=== PATIENT | female | born 1950 | race Hispanic/Latino ===

== ENCOUNTER 2023-10-28 05:58 | Day surgery (SDC) | payer MEDICARE ==
[2023-10-22 13:22] VITALS: BP 174/75; PULSE 67; RESP 17
[2023-10-22 13:27] LABS: BASOPHILS % (AUTO) 1.1 % (0.0-5.0); EOSINOPHILS # (AUTO) 0.42 K/uL (0.00-0.70); EOSINOPHILS % (AUTO) 4.6 % (0.0-8.0); HEMATOCRIT 51.2 % (36-48); IMMATURE GRANULOCYTE ABSOLUTE 0.08 K/uL (0-1); LYMPHOCYTES # (AUTO) 1.7 K/uL (1.0-4.8); LYMPHOCYTES % (AUTO) 18.2 % (21.0-51.0); MEAN CORPUSCULAR HGB CONC 32.4 g/dL (32.0-36.0); MEAN CORPUSCULAR VOLUME 89.5 fL (79-99); MONOCYTES # (AUTO) 0.7 K/uL (0.1-1.0); MONOCYTES % (AUTO) 7.9 % (3.0-13.0); NEUTROPHILS # (AUTO) 6.2 K/uL (1.8-7.7); NEUTROPHILS % (AUTO) 67.3 % (40.0-77.0); PLATELET COUNT (AUTO) 181 K/uL (130-400); RED BLOOD CELL COUNT(AUTO) 5.72 MIL/uL (4.00-5.50); RED CELL DISTRIBUTION WIDTH 13.2 % (11.0-15.5); WHITE BLOOD COUNT (AUTO) 9.2 K/uL (4.8-10.8)
[2023-10-22 13:49] LABS: ALBUMIN 4.1 g/dL (3.5-5.0); POTASSIUM 3.6 mmol/L (3.5-5.1); TOTAL PROTEIN, SERUM 8.3 g/dL (6.0-8.3)
[~2023-10-28] VITALS: Ht 162.6 cm; Wt 107.2 kg
[2023-10-28] VITALS (16 sets, daily range): BP systolic 112–166; BP diastolic 51–88; PULSE 50–62; RESP 14–20
[~2023-10-28 05:58] MED LIST: ACET1TAB97 PO; ADAL40SY SQ; BIOF1TAB8 PO; CELE200 PO; CRAN400T3 PO; CYAN250010 PO; DIAZ10TA4 PO; DOCU50CA13 PO; FEXO180T94 PO; GABA300S3 PO; HYDR25TA PO; LEVO75CA5 PO; MELA5CAP PO; METO-391 PO; MONT-39 PO; OMEP40CA21 PO; PROM25TA7 PO; ROSU10TA28 PO; TIZA4CAP8 PO; VITAMIN D PO; [UNRECOGNIZED DRUG - MIXTURE] TP
[2023-10-28] MEDS ORDERED: LACTATED RINGERS 1000ML 1,000 ML IV ONE (06:14)
[2023-10-28] MEDS: CEFAZOLIN SODIUM 2 GM VIAL ONE ×2 (06:36→08:10)
[2023-10-28] MEDS ORDERED: ACETAMINOPHEN 1,000 MG/100 ML VIAL IV ONE (07:07)
[2023-10-28] MEDS ORDERED: ROCURONIUM 10MG/1ML SYR 10 MG/ML ML ONE ×2 (07:13→08:32)
[2023-10-28] MEDS ORDERED: LIDOCAINE PF 100MG/5ML (2%) SYRINGE 5ML ONE (07:13)
[2023-10-28] MEDS ORDERED: PROPOFOL 10 MG/ML 20ML VIAL IV ONE (07:13)
[2023-10-28] MEDS ORDERED: FENTANYL CITRATE PF 50 MCG/1 ML 2ML VIAL ONE ×2 (07:14→08:45)
[2023-10-28] MEDS ORDERED: MIDAZOLAM HCL 1 MG/ML 2ML VIAL ONE (07:21)
[2023-10-28] MEDS ORDERED: BUPIVACAINE/PF 0.25% 30ML VIAL IJ ONE (07:24)
[2023-10-28] MEDS ORDERED: ONDANSETRON 4MG INJ ONE ×2 (08:13→10:20)
[2023-10-28] MEDS ORDERED: DEXAMETHASONE SOD PHOSPHATE 10MG/ML 1ML VIAL ONE (08:13)
[2023-10-28] MEDS ORDERED: GLYCOPYRROLATE 1 MG/5 ML SYRINGE ONE (08:27)
[2023-10-28] MEDS ORDERED: NEOSTIGMINE 5MG/5ML SYR IV ONE (08:27)
[2023-10-28] MEDS ORDERED: PHENYLEPHRINE HCL 10 MG/ML 1ML VIAL IV ONE (08:33)
[2023-10-28] MEDS ORDERED: MEPERIDINE-PF 25 MG/ML SYG ONE (10:20)
== END 2023-10-28 11:40 | disposition home or self-care (01) ==
LOC: DAH 05:58 → EDSTATUS 11:00 → DAH 11:40
PROVIDERS: ATTEND Surgery
DX: K31.1 Adult hypertrophic pyloric stenosis (principal); K95.09 Other complications of gastric band procedure; F41.9 Anxiety disorder, unspecified; E78.00 Pure hypercholesterolemia, unspecified; E03.9 Hypothyroidism, unspecified; I10 Essential (primary) hypertension; M19.90 Unspecified osteoarthritis, unspecified site; Z82.49 Family history of ischemic heart disease and other diseases of the circulatory system; Z82.3 Family history of stroke; Z87.891 Personal history of nicotine dependence; Z88.8 Allergy status to other drugs, medicaments and biological substances; Z91.041 Radiographic dye allergy status; Z91.048 Other nonmedicinal substance allergy status; Z79.899 Other long term (current) drug therapy; Z79.890 Hormone replacement therapy; Z79.84 Long term (current) use of oral hypoglycemic drugs; Z90.710 Acquired absence of both cervix and uterus; Z98.890 Other specified postprocedural states
CPT/HCPCS: 80053; 85025; 86850 ×2; 86900 ×2; 86901 ×2; 36415 ×2; 43235; 43774; A6260; A4600; A4663; J7030; A4215 ×2; J7120; J3010 ×2; J3490; J1100; J2710; J0665; J2001; J2250; J2704; J2405 ×2; J2175; J2371; J0690; G0168; A4649; A4223; A4222; A4221

== ENCOUNTER 2025-11-04 17:59 | Inpatient (IN) | payer MEDICARE ==
[~2025-11-04] VITALS: Ht 154.9 cm; Wt 113.8 kg
[~2025-11-04 17:59] MED LIST changes: -LEVO75CA5 PO; +LEVO75CA6 PO; -ROSU10TA28 PO; +ROSU10TA98 PO
[2025-11-04] MEDS ORDERED: 0.9%NACL 1000ML 1,000 ML IV ONE (18:30)
[2025-11-04 18:42] LABS: IMMATURE GRANULOCYTE ABSOLUTE 0.20 K/uL (0-1); NUCLEATED RED BLOOD CELLS 0.0 % (0.0-0.19); PLATELET COUNT (AUTO) 252 K/uL (130-400); RED BLOOD CELL COUNT(AUTO) 6.30 MIL/uL (4.00-5.50); RED CELL DISTRIBUTION WIDTH 13.8 % (11.0-15.5); WHITE BLOOD COUNT (AUTO) 23.2 K/uL (4.8-10.8)
[2025-11-04 19:00] LABS: ASPARTATE AMINOTRANSFERASE 201.0 U/L (10-37); CREATININE 1.8 mg/dL (0.5-1.0); GLOMERULAR FILTR. RATE CALC 29.0 mL/min (>90); GLUCOSE,RANDOM 222.0 mg/dL (70-105); SODIUM SERUM 138.0 mmol/L (136-145); TOTAL PROTEIN, SERUM 7.8 g/dL (6.0-8.3); UREA NITROGEN, BLOOD 15.0 mg/dL (7-18)
--- NOTE | 2025-11-04 19:23 | NUR ---
PT CARE ASSUMED AT THIS TIME
--- NOTE | 2025-11-04 19:47 | HMCIMG ---
EXAM: CT Abdomen and Pelvis Without IV contrast CLINICAL HISTORY: Patient presents with abdominal pain. TECHNIQUE: Axial computed tomography images of the abdomen and pelvis without intravenous contrast. CONTRAST: No IV contrast. COMPARISON: None provided. FINDINGS: LUNG BASES: The lung bases appear clear. No pleural effusions are seen. The right hemidiaphragm is elevated. LIVER: The liver demonstrates diffuse hepatic steatosis. The liver measures 18.3 cm in craniocaudal span. GALLBLADDER AND BILE DUCTS: The gallbladder demonstrates diffuse wall thickening up to 1.2 cm with pericholecystic fat stranding concerning for acute cholecystitis. No radioopaque gallstones are seen. No biliary ductal dilatation is evident. PANCREAS: Unremarkable. SPLEEN: Unremarkable. ADRENAL GLANDS: Unremarkable. KIDNEYS, URETERS, AND BLADDER: The kidneys appear within normal limits except for a 0.7 cm calculus in the right lower calyx and a left parapelvic cyst. There is no hydronephrosis or hydroureter. No urinary calculi are seen in the left kidney or ureters. STOMACH AND BOWEL: Unremarkable appearance of the stomach and bowel except for occasional colonic diverticulosis without evidence of diverticulitis. No evidence of bowel obstruction. No evidence suggesting enteritis or colitis. APPENDIX: No evidence of acute appendicitis on CT examination. PERITONEUM: Small hiatal hernia. No free fluid. No free air. LYMPH NODES: No lymphadenopathy is evident. REPRODUCTIVE: The uterus is surgically absent. Unremarkable as visualized otherwise. VASCULATURE: No evidence of abdominal aortic aneurysm. BONES: Multilevel moderate degenerative changes in the spine. No aggressive appearing osseous lesion. No acute osseous pathology evident. IMPRESSION: Diffuse gallbladder wall thickening with pericholecystic fat stranding concerning for acute cholecystitis. Diffuse hepatic steatosis with hepatomegaly (18.3 cm craniocaudal span). 0.7 cm right renal calculus in the lower calyx. /Continental
[2025-11-04] MEDS: 0.9%NACL 1000ML 1,641 ML IV ONE (19:49)
[2025-11-04] MEDS: ZOSYN 3.375GM+NS 50ML 50 ML IVPB STA (19:56)
[2025-11-04 20:32] LABS: INR 1.08 (0.85-1.15)
--- NOTE | 2025-11-04 20:48 | ERN ---
ED Note History of Present Illness Stated Complaint: ABD PAIN Chief Complaint: Abdominal Pain Time Seen by MD: 18:06 Time Seen by Midlevel: 18:06 Dictation: The patient is a 75-year-old female with history of hiatal hernia, hypertension, hypothyroidism, gastric banding who presents to the emergency department with complaints of epigastric abdominal pain and right upper abdominal pain associated with nausea nonbloody vomiting. Patient reports symptoms have been going on for over three months but reports the last two days her symptoms worsen. Reports that in September of this year she had an EGD which found her to have gastritis and a mild hiatal hernia. Patient denies any diarrhea or constipation, denies any fevers. Allergies: Coded Allergies: Bleach (Sodium Hypochlorite) (Unverified Allergy, Unknown, 10/26/23) acetaminophen (Unverified Allergy, Unknown, 10/26/23) alendronate sodium (Unverified Allergy, Unknown, 10/26/23) apremilast (Unverified Allergy, Unknown, 10/26/23) escitalopram (Unverified Allergy, Unknown, 10/26/23) hydrocodone (Unverified Allergy, Unknown, 10/26/23) nickel (Unverified Allergy, Unknown, 10/26/23) paroxetine (Unverified Allergy, Unknown, 10/26/23) sertraline (Unverified Allergy, Unknown, 10/26/23) Uncoded Allergies: CONTRAST DYE (Allergy, Intermediate, 10/26/23) Home Meds Reported Medications [Calcipotriene-Beta] No Conflict Check, TP NEEDED 10/22/23 Docusate Sodium (Stool Softener) 50 Mg Capsule, PO BID, CAP 10/22/23 [Vitamin D] No Conflict Check, PO DAILY 10/22/23 Cranberry Fruit (Cranberry) 400 Mg Tablet, 400 MG PO DAILY, TAB 10/22/23 Cyanocobalamin (Vitamin B-12) (Vitamin B12) 2,500 Mcg Tablet, PO DAILY, TAB 10/22/23 Fexofenadine HCl (Bernarda Allergy) 180 Mg Tablet, 180 MG PO DAILY, TAB 10/22/23 Bioflav,Lemon/Vit Bcomp&C (Lipo-Flavonoid Plus Caplet) 200 Mg-100 Mg Tablet, 1 EACH PO TID, TAB 10/22/23 Melatonin (Melatonin) 5 Mg Capsule, 5 MG PO DAILYDINNER, CAP 10/22/23 Adalimumab (Humira) 40 Mg/0.4 Ml Syringekit, 40 MG SQ [id number] 10/22/23 Acetaminophen with Codeine (Acetaminophen-Cod #4 Tablet) 300 Mg-60 Mg Tablet, 1 EACH PO NEEDED PRN for PAIN, TAB 10/22/23 Promethazine HCl (Promethazine HCl) 25 Mg Tablet, 25 MG PO PRN NAUSEA , TAB 10/22/23 Diazepam (Diazepam) 10 Mg Tablet, 10 MG PO TIDP, TAB 10/22/23 Tizanidine HCl (Tizanidine HCl) 4 Mg Capsule, 4 MG PO DAILYDINNER, CAP 10/22/23 Montelukast Sodium (Montelukast Sodium) 10 Mg Tablet, 10 MG PO DAILYDINNER, TAB 10/22/23 Rosuvastatin Calcium (Rosuvastatin Calcium) 10 Mg Tablet, 10 MG PO DAILYDINNER, TAB 10/22/23 Gabapentin (Gabapentin) 300 Mg/6 Ml (6 Ml) Solution, 300 MG PO 5XDAY, ML 10/22/23 Levothyroxine Sodium (Levothyroxine) 75 Mcg Capsule, 75 MCG PO MON-SAT, CAP 10/22/23 Celecoxib (Celebrex 200Mg Cap) 200 Mg Cap, 200 MG PO DAILY, CAP 10/22/23 Hydrochlorothiazide (Hydrochlorothiazide) 25 Mg Tablet, 25 MG PO DAILY, TAB 10/22/23 Metoprolol Succinate (Metoprolol Succinate) 50 Mg Tab.er.24h, 50 MG PO DAILY, TAB 10/22/23 Omeprazole (Omeprazole) 40 Mg Capsule.dr, 40 MG PO DAILY, CAP 10/22/23 Past Medical History Past Medical History: Arthritis, Diabetes-Type II, Fibromyalgia, High Cholesterol, Hypertension Additional Past Medical Hx: HIATAL HERNIA Surgical History: Other Surgical History Other: EGD, RT FOOT SX, GASTRIC BAND RN Note Reviewed/Agreed w/PFSH: Yes Review of System Dictation Constitutional: Negative for fever,chills, and weight loss Eyes: Negative for injury, pain,redness, and discharge ENT: Negative for injury,pain or swelling Cardiovascular: Negative for chest pain, palpitations, and edema Respiratory: Negative for shortness of breath, cough, and wheezing, Abdomen/GI: Negative for diarrhea, and constipation positive for abdominal pain, nausea, vomiting Back: Negative for injury and pain : Negative for injury, bleeding and discharge MS/Extremity: Negative for injury and deformity Skin: Negative for rash, and discoloration Neuro: Negative for headache, weakness, numbness, tingling, and seizure Psych: Negative for suicide ideation, homicidal ideation, and hallucinations Initial Vital Sign VS Vital Signs Date Time Temp Pulse Resp B/P (MAP) Pulse Ox O2 Delivery O2 Flow Rate FiO2 11/04/25 18:02 97.0 122 18 105/40 96 Room Air 0 11/04/25 19:00 28 Physical Exam Dictation Vital Signs reviewed General Appearance: Alert, oriented x 3, moderate distress, well developed, nourished. Head and Face: non-traumatic. Eyes: PERRL, pink conjunctivas, eyelid no trauma, anterior chamber with arcus senilis. Ears: Pinnas intact and no signs of trauma or erythema ear canals clear and no discharge TM no erythema Nose: No discharge, no bleeding. Oropharynx: Mouth normal, tongue pink. pharynx clear,no erythema, tonsils no exudates, no abscesses noted, mucous membrane moist Neck: Supple, non-tender, no thyromegaly, no masses, no JVD, no bruits Breast:Deferred Chest:No tenderness, no crepitus, no paradoxical movement, no retractions Lungs:Clear, well-ventilated, symmetric, no rales, no wheezing, no rhonchi, no stridor, good breath sounds bilaterally Heart: Regular rate, regular rhythm, no murmur, no gallops Vascular: no peripheral edema, Abdomen: Soft, positive bowel sounds, nondistended, no guarding, Epigastric tenderness, right upper abdominal tenderness, left upper abdominal tenderness no rebound, no masses no hepatomegaly, no splenomegaly, + Dan's sign, no hernias. Rectal: Deferred Genital: Deferred Neurological: Normal speech, motor function intact, sensory function intact Musculoskeletal: Neck nontender, full range of motion, back nontender, full range of motion, Extremities: nontender, full range of motion Skin: Color pink, dry, no turgor, no rash, no lacerations, no abrasions, no contusions. Lymphatic: Deferred Results (Laboratory/Radiology) Laboratory/Radiology Laboratory Tests Test 11/04/25 18:36 11/04/25 20:02 White Blood Count 23.2 K/uL (4.8-10.8) H Red Blood Count 6.30 MIL/uL (4.00-5.50) H Hemoglobin 17.9 g/dL (12.0-16.0) H Hematocrit 53.9 % (36-48) H Mean Corpuscular Volume 85.6 fL (79-99) Mean Corpuscular Hemoglobin 28.4 pg (27.0-33.0) Mean Corpuscular Hemoglobin Concent 33.2 g/dL (32.0-36.0) Red Cell Distribution Width 13.8 % (11.0-15.5) Platelet Count 252 K/uL (130-400) Mean Platelet Volume 11.5 fL (7.5-10.5) H Immature Granulocyte % (Auto) 0.9 % (0-1) Neutrophils (%) (Auto) 88.2 % (40.0-77.0) H Lymphocytes (%) (Auto) 4.8 % (21.0-51.0) L Monocytes (%) (Auto) 5.5 % (3.0-13.0) Eosinophils (%) (Auto) 0.3 % (0.0-8.0) Basophils (%) (Auto) 0.3 % (0.0-5.0) Neutrophils # (Auto) 20.4 K/uL (1.8-7.7) H Lymphocytes # (Auto) 1.1 K/uL (1.0-4.8) Monocytes # (Auto) 1.3 K/uL (0.1-1.0) H Eosinophils # (Auto) 0.08 K/uL (0.00-0.70) Basophils # (Auto) 0.07 K/uL (0.00-0.20) Absolute Immature Granulocyte (auto 0.20 K/uL (0-1) Nucleated Red Blood Cells 0.0 % (0.0-0.19) White Cell Morphology Comment See comments Prothrombin Time 11.4 SEC (9.6-11.6) Prothromb Time International Ratio 1.08 (0.85-1.15) Activated Partial Thromboplast Time 24.2 SEC (26.3-35.5) L Sodium Level 138 mmol/L (136-145) Potassium Level 3.1 mmol/L (3.5-5.1) L Chloride Level 98 mmol/L (101-111) L Carbon Dioxide Level 23 mmol/L (21-32) Blood Urea Nitrogen 15 mg/dL (7-18) Creatinine 1.8 mg/dL (0.5-1.0) H Glomerular Filtration Rate Calc 29 mL/min (>90) Random Glucose 222 mg/dL (70-105) H Lactic Acid Level 5.4 mmol/L (0.8-2.5) H 2.8 mmol/L (0.8-2.5) H Total Calcium 10.5 mg/dL (8.5-10.1) H Magnesium Level 1.90 mg/dL (1.80-2.40) Total Bilirubin 2.5 mg/dL (0.2-1.0) H Direct Bilirubin 0.7 mg/dL (0.0-0.3) H Aspartate Amino Transf (AST/SGOT) 201 U/L (10-37) H Alanine Aminotransferase (ALT/SGPT) 186 U/L (12-78) H Alkaline Phosphatase 113 U/L (50-136) Troponin I High Sensitivity 27 ng/L (4-50) B-Type Natriuretic Peptide 77 pg/mL (0-100) Total Protein 7.8 g/dL (6.0-8.3) Albumin 3.9 g/dL (3.5-5.0) Lipase 18 U/L (16-77) Procalcitonin 0.89 ng/mL (0.05-0.5) H REASON: ABD PAIN ORDERING PHYSICIAN: [facility] [employer] PROCEDURE: ABD PEL WO - CT ABDOMEN/PELVIS W/O CONTRAST EXAM: CT Abdomen and Pelvis Without IV contrast CLINICAL HISTORY: Patient presents with abdominal pain. TECHNIQUE: Axial computed tomography images of the abdomen and pelvis without intravenous contrast. CONTRAST: No IV contrast. COMPARISON: None provided. FINDINGS: LUNG BASES: The lung bases appear clear. No pleural effusions are seen. The right hemidiaphragm is elevated. LIVER: The liver demonstrates diffuse hepatic steatosis. The liver measures 18.3 cm in craniocaudal span. GALLBLADDER AND BILE DUCTS: The gallbladder demonstrates diffuse wall thickening up to 1.2 cm with pericholecystic fat stranding concerning for acute cholecystitis. No radioopaque gallstones are seen. No biliary ductal dilatation is evident. PANCREAS: Unremarkable. SPLEEN: Unremarkable. ADRENAL GLANDS: Unremarkable. KIDNEYS, URETERS, AND BLADDER: The kidneys appear within normal limits except for a 0.7 cm calculus in the right lower calyx and a left parapelvic cyst. There is no hydronephrosis or hydroureter. No urinary calculi are seen in the left kidney or ureters. STOMACH AND BOWEL: Unremarkable appearance of the stomach and bowel except for occasional colonic diverticulosis without evidence of diverticulitis. No evidence of bowel obstruction. No evidence suggesting enteritis or colitis. APPENDIX: No evidence of acute appendicitis on CT examination. PERITONEUM: Small hiatal hernia. No free fluid. No free air. LYMPH NODES: No lymphadenopathy is evident. REPRODUCTIVE: The uterus is surgically absent. Unremarkable as visualized otherwise. VASCULATURE: No evidence of abdominal aortic aneurysm. BONES: Multilevel moderate degenerative changes in the spine. No aggressive appearing osseous lesion. No acute osseous pathology evident. IMPRESSION: Diffuse gallbladder wall thickening with pericholecystic fat stranding concerning for acute cholecystitis. Diffuse hepatic steatosis with hepatomegaly (18.3 cm craniocaudal span). 0.7 cm right renal calculus in the lower calyx. /[facility] Labs Reviewed?: Yes EKG: (+) rhythm (Sinus tachycardia) EKG Comment: Date:11/04/2025 Time:1847 Ventricular rate:116 WV interval: QRS duration:92 QT/QTc:328/456 EKG interpretation:atrial fibrillation, anterior q waves Reviewed by ED Attending NO STEMI Date:11/04/2025 Time:2032 Ventricular rate:104 WV interval:146 QRS duration:87 QT/QTc:350/461 EKG interpretation: Sinus tachycardia Reviewed by ED Attending ED Course ED Course Orders Procedure Category Date Status Time Cbc With Differential LAB 11/04/25 Complete 18:22 Troponin I High LAB 11/04/25 Complete Sensitivity 18:22 12 Lead Ekg Tracing- EKG 11/04/25 Logged Technical 18:22 0.9%Nacl 1000ml (Ns PHA 11/04/25 Complete 1000ml) 18:30 Ondansetron 4mg Inj PHA 11/04/25 Complete (Zofran 4mg Inj) 18:30 Pantoprazole 40mg Inj PHA 12/14/25 Complete (Protonix 40mg Inj 18:30 Ct Abdomen/Pelvis W/O CT 11/04/25 Resulted Contrast 18:22 Lipase LAB 11/04/25 Complete 18:22 Basic Metabolic Panel LAB 11/04/25 Complete 18:22 Hepatic Function Panel LAB 11/04/25 Complete 18:22 Lactic Acid LAB 11/04/25 Complete 18:25 Magnesium LAB 11/04/25 Complete 18:25 Morphine 4mg Syg PHA 11/04/25 Complete (Morphine 4mg Syg) 18:30 Blood Cult QUYEN 11/04/25 In Process 18:46 Zosyn 3.375gm+Ns 50ml PHA 11/04/25 Complete (Zosyn 3.375gm+Ns 18:46 0.9%Nacl 1000ml (Ns PHA 11/04/25 Complete 1000ml) 19:00 Potassium Bicarb/Cit PHA 11/04/25 Complete Ac 25meq (K-Lyte Ta 19:30 12 Lead Ekg Tracing- EKG 11/04/25 Logged Technical 20:00 Pt And Ptt LAB 11/04/25 Complete 20:14 B-Type Natriuretic LAB 11/04/25 Complete Peptide 20:16 Morphine 4mg Syg PHA 11/04/25 Complete (Morphine 4mg Syg) 21:00 General Surgery CONPHYSVC 11/04/25 Transmitted Consult 21:01 Admit Orders ADM 11/04/25 Transmitted 21:01 Cbc With Differential LAB 11/05/25 In Process 04:00 Magnesium LAB 11/05/25 In Process 04:00 Phosphorus LAB 11/05/25 In Process 04:00 Pt And Ptt LAB 11/05/25 In Process 04:00 Type And Screen BBK 11/05/25 In Process 04:00 Lactic Acid LAB 11/05/25 In Process 04:00 Procalcitonin LAB 11/04/25 Complete 21:01 Urinalysis Profile LAB 11/04/25 In Process 21:01 Urine Creatinine LAB 11/04/25 Logged Random 21:01 Urine Sodium,Random LAB 11/04/25 Logged 21:01 Osmolality Urine LAB 11/04/25 Logged 21:01 Activity: Ad Tuyet CPOE 11/04/25 Transmitted 21:01 Apply Knee High Teds CPOE 11/04/25 Transmitted 21:01 Apply Scds CPOE 11/04/25 Transmitted 21:01 Condition: CPOE 11/04/25 Transmitted 21:01 Daily Weights CPOE 11/04/25 Transmitted 21:01 I&O Q Shift CPOE 11/04/25 Transmitted 21:01 Npo Except For Meds CPOE 11/04/25 Transmitted 21:01 Nurse To Enter Home CPOE 11/04/25 Transmitted Medication 21:01 Oxygen By Nc/Pulse Ox CPOE 11/04/25 Transmitted 21:01 Telemetry Monitoring CPOE 11/04/25 Transmitted 21:01 Vital Signs(Adult CPOE 11/04/25 Transmitted Hospitalist) 21:01 Chest 1vw RAD 11/04/25 Taken 21:01 0.9%Nacl 1000ml (Ns PHA 11/04/25 In Process 1000ml) 21:30 Initiate HARSH 11/04/25 In Process Hyperglycemia Protoco 21:01 Insulin Regular, PHA 11/05/25 In Process Human 3ml (Humulin R 07:30 Hemoglobin A1c LAB 11/05/25 In Process 04:00 Comprehensive LAB 11/05/25 In Process Metabolic Panel 04:00 Thyroid Stimulating LAB 11/05/25 In Process Hormone 04:00 Hydromorphone 0.5mg PHA 11/04/25 In Process Syg (Dilaudid 0.5mg 21:30 Hydralazine 20mg Inj PHA 11/04/25 In Process (Apresoline 20mg In 21:30 Ondansetron 4mg Inj PHA 11/04/25 In Process (Zofran 4mg Inj) 21:30 Zosyn 3.375gm+Ns 50ml PHA 11/05/25 In Process (Zosyn 3.375gm+Ns 07:00 Lactic Acid (Removed) LAB 11/04/25 Complete 21:46 Edm Admit Bridge Order ADM 11/04/25 Transmitted 22:01 Nothing By Mouth DIET 11/05/25 Transmitted Breakfast Current Medications Medications (Trade) Dose Ordered Sig/Gerber Route PRN Reason Start Time Stop Time Status Last Admin Dose Admin Morphine Sulfate (morPHINE 4MG SYG) 2 mg ONCE ONCE IVP 11/04/25 21:00 11/04/25 21:01 DC 11/04/25 21:12 Morphine Sulfate (morPHINE 4MG SYG) 4 mg ONCE ONCE IVP 11/04/25 18:30 11/04/25 18:31 DC 11/04/25 18:49 Ondansetron HCl (zoFRAN 4MG INJ) 4 mg ONCE ONCE IVP 11/04/25 18:30 11/04/25 18:31 DC 11/04/25 18:49 Pantoprazole Sodium (PROTonix 40MG INJ) 40 mg ONCE ONCE IVP 11/04/25 18:30 11/04/25 18:31 DC 11/04/25 18:49 Piperacillin Sod/ Tazobactam Sod 50 ml @ 100 mls/hr STAT STAT IVPB 11/04/25 18:46 11/04/25 19:15 DC 11/04/25 19:56 Potassium Bicarbonate (K-Lyte Tablet Eff 25 Meq Tablet.eff) 25 meq ONCE ONCE PO 11/04/25 19:30 11/04/25 19:31 DC 11/04/25 19:56 Sodium Chloride 1,000 ml @ 0 mls/hr ONCE ONCE IV 11/04/25 18:30 11/04/25 18:48 DC Sodium Chloride 1,641 ml @ 547 mls/hr ONCE ONCE IV 11/04/25 19:00 11/04/25 21:59 DC 11/04/25 19:49 Vital Signs Date Time Temp Pulse Resp B/P (MAP) Pulse Ox O2 Delivery O2 Flow Rate FiO2 11/05/25 00:17 Nasal Cannula* 2 28 11/04/25 23:04 105 25 106/58 95 Nasal Cannula* 2 28 11/04/25 21:38 97 26 128/68 95 Nasal Cannula* 2 28 11/04/25 19:36 97.9 105 25 124/83 94 Nasal Cannula* 2 28 11/04/25 19:00 97.9 107 37 133/69 94 Nasal Cannula* 2 11/04/25 18:02 97.0 122 18 105/40 96 Room Air 0 Medical Decision Making MDM MDM: The patient is a 75-year-old female with history of hiatal hernia, hypertension, hypothyroidism, gastric banding who presents to the emergency department with complaints of epigastric abdominal pain and right upper abdominal pain associated with nausea nonbloody vomiting. Patient reports symptoms have been going on for over three months but reports the last two days her symptoms worsen. Reports that in September of this year she had an EGD which found her to have gastritis and a mild hiatal hernia. Patient denies any diarrhea or constipation, denies any fevers. CBC showed leukocytosis, no anemia, chemistry showed elevated creatinine which worsened from previous visits, hyponatremia, hypochloremia, hyperglycemia, tracy vated lactic acid of 5.3, negative lipase, elevated liver enzymes, elevated total bilirubin, negative troponin. CT abdomen and pelvis showed consistent with cholecystitis. Patient was started on IV fluids and IV antibiotics. We will admit for further evaluation and management. Differential diagnosis: Gastritis, bowel obstruction, sepsis, cholecystitis, pancreatitis Comorbidities: Hiatal hernia, hypertension, gastritis, gastric banding Tests considered and not ordered secondary to shared decision making include: none Previous outside records reviewed: none Risk of complication and/or morbidity or mortality of patient management: The patient meets criteria for admission. Need for emergency major/minor surgery: No There are no social concerns with this patient. I independently interpreted the tests I ordered (labs, urinalysis, etc.). I discussed the case with the hospitalist for admission. Ernst MUELLER I discussed the case with the following specialists: Dr.Barba kerns pending callback Historian: pateint. I independently interpreted imaging studies and EKGs that I ordered (US, CT, XR, EKG, etc.). External chart review: none. Medical management and examination interpretation discussions were had by me with other qualified healthcare professionals as indicated for the patient's care. Critical Care Note Critical Time: other (39) Comment(s) Total critical care time was 39 minutes. Excluding time for procedures. Management of critically ill patient with concern for acute decompensation. Management included interpretation of laboratory values and imaging, hemodynamics, time for consultation with consultants and admitting physician. DX & DISP Disposition: Inpatient Decision to Admit Date: Nov 05, 2025 Decision to Admit Time: 20:01 Departure Impression: Primary Impression: Acute cholecystitis Additional Impressions: Severe sepsis, Leukocytosis, Acute kidney injury, Hypokalemia, Transaminitis, Elevated lactic acid level Condition: Stable Referrals: DENAE MALDONADO MD (PCP) I have reviewed the case, and I agree with, Diagnosis and Plan [facility] Nov 04, 2025 20:48
--- NOTE | 2025-11-04 21:17 | HP ---
History of Present Illness Reason for Visit: Abdominal pain History of Present Illness Ms. Proctor is a 75-year-old female that was seen and examined today on 11/04/2025. Patient reports that she came to the emergency department with a chief complaint of abdominal pain. Location is epigastric. Duration is on and off. Character is described as pressure. There was no alleviating factors. Symptoms are aggravated with eating. Patient reports associated nausea and vomiting. Today in the emergency department WBCs 23.2, 88% neutrophils left shift, lactic acid 5.4, potassium 3.1, creatinine 1.8, glucose 222 mg/dL, total bilirubin 2.5, AST 201, ALT 186, CT of abdomen and pelvis shows cholecystitis. Emergency room physician contacted general surgery service on-call who requested patient be admitted under hospitalist service. Past Medical History Patient History: Cardiovascular disease FATHER, , Age: 52, Cause: Heart attack Completed stroke MOTHER, ADDITIONAL PAST MEDICAL HISTORY: [CBC hypertension, hypothyroidism, fibromyalgia] SOCIAL HISTORY: [Urinary negative for smoking, alcohol use, drug use. Patient lives with the has been, Silver patient is typically independent of her ADLs. Patient denies difficulty paying her bills] SURGICAL HISTORY: [Bariatric surgery] Review of Systems General: No Fever, No Chills, No Night Sweats, No Fatigue, No Malaise, No Appetite, No Other HEENT: No Head Aches, No Visual Changes, No Eye Pain, No Ear Pain, No Dysphasia, No Sinus Congestion, No Post Nasal Drip, No Sore Throat, No Other Pulmonary: No Dyspnea, No Cough, No Pleuritic Chest Pain, No Other Cardiovascular: No: Chest Pain, Palpitations, Orthopnea, Paroxysmal Noc. Dyspnea, Edema, Lt Headedness, Other Gastrointestinal: Nausea, Vomiting, Abdominal Pain; No: Diarrhea, Constipation, Melena, Hematochezia, Other Genitourinary: No Dysuria, No Frequency, No Incontinence, No Hematuria, No Rete ntion, No Other Musculoskeletal: No: other, neck pain, shoulder pain, arm pain, back pain, hand pain, leg pain, foot pain Skin: No Urticaria, No Rash, No Other Neurological: No: Weakness, Numbness, Incoordination, Change in speech, Confusion, Seizures, Other Allergies: Coded Allergies: Bleach (Sodium Hypochlorite) (Unverified Allergy, Unknown, 10/26/23) acetaminophen (Unverified Allergy, Unknown, 10/26/23) alendronate sodium (Unverified Allergy, Unknown, 10/26/23) apremilast (Unverified Allergy, Unknown, 10/26/23) escitalopram (Unverified Allergy, Unknown, 10/26/23) hydrocodone (Unverified Allergy, Unknown, 10/26/23) nickel (Unverified Allergy, Unknown, 10/26/23) paroxetine (Unverified Allergy, Unknown, 10/26/23) sertraline (Unverified Allergy, Unknown, 10/26/23) Uncoded Allergies: CONTRAST DYE (Allergy, Intermediate, 10/26/23) Exam Vital Signs Vital Signs Date Time Temp Pulse Resp B/P (MAP) Pulse Ox O2 Delivery O2 Flow Rate FiO2 11/04/25 19:36 97.9 105 25 124/83 94 Nasal Cannula* 2 28 General Appearance: Alert, Cooperative, mild distress HEENT: Atraumatic, EOMI Respiratory: Clear to auscultation, Normal air movement Cardiovascular: Normal S1, Normal S2, Other (Positive tachycardia) Abdominal: Normal bowel sounds, Soft, Other (Positive right upper quadrant tenderness) Extremities: No edema Skin: No significant lesion Neuro: Normal gait, Normal speech, Strength at 5/5 X4 ext, Sensation intact Psych/Mental Status: Mental status NL, Mood NL, Thoughts/Content NL Assessment/Plan ASSESSMENT: [ Severe sepsis, POA, by clinical sepsis criteria heart rate 122, WBCs 23.2, lactic acid 5.4, source intra-abdominal Cholecystitis, POA Leukocytosis, POA Lactic acidosis, POA Hypokalemia, POA Acute kidney injury, POA, on 10/22/2023 creatinine 1.0, today it is 1.8 Uncontrolled Diabetes mellitius type2, POA Elevated total bilirubin, POA Transaminitis, POA Hypertension Hypothyroidism] PLAN: [ Admit patient to medical floor as inpatient status. Place patient on telemetry monitoring. Patient received 0.9% NS 30 mL/kg Empiric antibiotic therapy with Zosyn Check blood culture, follow up with the results Check lactic acid again in a.m. Check procalcitonin, follow up with the results Patient will be followed by General surgery Service Keep patient NPO IV fluid maintenance therapy 0.9% NS at 75 mL/HR Check preprocedure labs, CBC, cMP, magnesium, phosphorus, PTT, UA, type and screen, EKG, CXR Patient received potassium bicarbonate 25 mEq by mouth times 1 in the ER Replace electrolytes conservatively given patient's decreased renal function currently Calculate FENA Check urine sodium, creatinine, osmolality Avoid nephrotoxic agents when possible Renally dose all medications when possible Consider consulting Nephrology service if any worsening renal function or evidence of ATN. Monitor patient's labs. Weight patient daily. Monitor intake and output. Check glucometer a.c. and HS Hemoglobin A1c in a.m. Humulin R sliding scale Consider resuming home medications once they have been reconciled: At time of admission home medications has been reconciled For now: Hydralazine 10 mg IV every 4 hours for systolic blood pressure greater than 160 mmHg Check TSH in a.m. GI prophylaxis, Protonix DVT prophylaxis, Emmanuel's and SCDs avoid anticoagulation at this time due to impending general surgery evaluation ADVANCED CARE PLANNING 1. Which of the following were discussed? Hospice Care - Yes Therapeutic options - yes Advance Directives - Yes -patient states she does not have any advance directives in place at this time, however her Silver can make decisions for her get that she becomes unable Other discussions - patient wishes to remain a full code at this time 2. Discussed with who? 3. Voluntary nature of this service was explained to the patient? Yes 4. Amount of time spent - ___16 minutes____ 5. Reviewed by Physician? (if this service was performed by NPP) Yes This document was generated in part using voice recognition software, occasional wrong word or sound alike substitutions may have occurred due to the inherent limitations of voice recognition software. Read the chart carefully and recognize using context, where the substitutions have occurred. Although every effort was made to edit the content, front end java developer and typing errors may occur ATTESTATION BY PHYSICIAN I have seen and examined the patient. I reviewed the documentation, medical decision making, and treatment plan as noted by the mid-level provider above. I agree with the findings and plan of care. ] KALA [facility]ERSON [facility] Nov 04, 2025 21:17
[2025-11-04] MEDS: 0.9%NACL 1000ML 1,000 ML IV SCH (23:08)
--- NOTE | 2025-11-04 23:26 | NUR ---
REPORT GIVEN TO RICHARD BLAS AT THIS TIME
[2025-11-05] VITALS (8 sets, daily range): BP systolic 117–137; BP diastolic 68–84; PULSE 90–117; RESP 18–20; TEMP 97.4–97.9; O2SAT 90–99
[2025-11-05 05:10] LABS: IMMATURE GRANULOCYTE ABSOLUTE 0.12 K/uL (0-1); NUCLEATED RED BLOOD CELLS 0.0 % (0.0-0.19); PLATELET COUNT (AUTO) 193 K/uL (130-400); RED BLOOD CELL COUNT(AUTO) 5.96 MIL/uL (4.00-5.50); RED CELL DISTRIBUTION WIDTH 14.2 % (11.0-15.5); WHITE BLOOD COUNT (AUTO) 19.3 K/uL (4.8-10.8)
[2025-11-05 05:30] LABS: APPEARANCE,URINE CLOUDY (CLEAR); GLUCOSE, URINE (UA) 50 mg/dL (NEGATIVE); LEUKOCYTE ESTERASE ,URINE 25 Leu/uL (NEGATIVE); NITRATE,URINE NEGATIVE (NEGATIVE); OCCULT BLOOD,URINE +- (TRACE) (NEGATIVE)
[2025-11-05 05:31] LABS: INR 1.19 (0.85-1.15)
[2025-11-05 05:41] LABS: ADD UA MICROSCOPIC YES
[2025-11-05 05:42] LABS: HYALINE CASTS, URINE 26-50 /LPF (0-1 /LPF); NON-SQUAMOUS EPITHELIAL CELL 1 /HPF (0-2); SQUAMOUS EPITHELIAL CELL,UR MANY /HPF (0-2); WBC CLUMP FEW /HPF (0-1)
[2025-11-05 05:53] LABS: ASPARTATE AMINOTRANSFERASE 231.0 U/L (10-37); CREATININE 2.0 mg/dL (0.5-1.0); GLOMERULAR FILTR. RATE CALC 25.0 mL/min (>90); GLUCOSE,RANDOM 147.0 mg/dL (70-105); PHOSPHORUS 3.9 mg/dL (2.5-4.9); SODIUM SERUM 140.0 mmol/L (136-145); TOTAL PROTEIN, SERUM 6.4 g/dL (6.0-8.3); UREA NITROGEN, BLOOD 23.0 mg/dL (7-18)
--- NOTE | 2025-11-05 05:58 | HMCIMG ---
EXAM: CR Chest, 1 View. CLINICAL HISTORY: pre procedural COMPARISON: None provided. FINDINGS: The study is significantly limited by poor inspiration. Within limited visualized lungs, no acute pulmonary infiltrates or masses. Aortic knob calcification. Unfolding of the aorta. The rest of the cardiac and mediastinal outlines are not adequately visualized. No acute osseous abnormality. IMPRESSION: No acute cardiopulmonary pathology. /[place]
[2025-11-05 06:12] LABS: CREATININE,URINE RANDOM 486.73 mg/dL (30-135)
[2025-11-05] MEDS: ZOSYN 3.375GM +NS 50ML IV SCH (06:18)
--- NOTE | 2025-11-05 07:37 | EKG ---
[facility] Test Date: 2025-11-04 Test Time: 18:48:16 Pat Name: JOE EM Department: [facility] Room: 315 1 Gender: F Bilingual Instructor: [id number] : 1950 Requested By: NORTH CUMMINS Order Number: [id number] Reading MD: Papo Hannah Measurements Intervals [place] Rate: 116 P: 0 RI: 0 QRS: -45 QRSD: 92 T: 6 QT: 328 QTc: 456 Interpretive Statements Atrial fibrillation Probable inferior infarct, recent Anterior infarct No previous ECG available for comparison Electronically Signed On 11-05-2025 20:08:38 CUSTOMS COMPLIANCE MANAGER by Papo Hannah Please click the below link to view image of tracing.
--- NOTE | 2025-11-05 07:37 | EKG ---
[facility] Test Date: 2025-11-04 Test Time: 20:33:40 Pat Name: JOE EM Department: [facility] Room: 315 1 Gender: F Master Printer: [id number] : 1950 Requested By: NORTH CUMMINS Order Number: [id number] Reading MD: Papo Hannah Measurements Intervals [place] Rate: 104 P: 34 CT: 146 QRS: -49 QRSD: 87 T: 126 QT: 350 QTc: 461 Interpretive Statements Sinus tachycardia Probable inferior infarct, recent Probable anterior infarct, age indeterminate Compared to ECG 11/04/2025 18:48:16 Atrial fibrillation no longer present Left ventricular hypertrophy no longer present Q waves no longer present Myocardial infarct finding still present Electronically Signed On 11-05-2025 20:09:05 WASTE DISPOSAL ATTENDANT by Papo Hannah Please click the below link to view image of tracing.
--- NOTE | 2025-11-05 09:53 | PN ---
[facility] PROGRESS NOTE Date of Service: Nov 05, 2025 Time of Service: 09:48 SUBJECTIVE: [ ] Patient reports that she came to the emergency department with a chief complaint of abdominal pain. Location is epigastric. Duration is on and off. Character is described as pressure. There was no alleviating factors. Symptoms are aggravated with eating. Patient reports associated nausea and vomiting. Today in the emergency department WBCs 23.2, 88% neutrophils left shift, lactic acid 5.4, potassium 3.1, creatinine 1.8, glucose 222 mg/dL, total bilirubin 2.5, AST 201, ALT 186, CT of abdomen and pelvis shows cholecystitis. Emergency room physician contacted general surgery service on-call who requested patient be admitted under hospitalist service. 11/05/25 patient is lying in bed patient appears to be in pain patient received Dilaudid earlier waiting for general surgeon for possible lap bo. Patient denies any cardiac history no chest pain no heart stents no MIs in the past. Significant other at bedside all questions were addressed REVIEW OF SYSTEMS CONSTITUTIONAL: Denies fevers, chills, or night sweats. No unintentional weight loss reported. NEUROLOGICAL: Denies headache, amaurosis fugax, motor weakness, sensory deficit, vertigo/spinning sensation, gait abnormalities, or tremors. ENT: No hearing loss, otalgia, otorrhea, rhinitis, rhinorrhea, hoarseness, or sore throat. CARDIOVASCULAR: Denies any exertional angina, dyspnea on exertion, orthopnea, paroxysmal nocturnal dyspnea, palpitations, life-threatening arrhythmias, claudication. PULMONARY: Denies any shortness of breath, cough, phlegm/sputum, hemoptysis, pleuritic chest pain. SLEEP: Denies morning headaches, daytime somnolence or napping. Denies difficulty falling asleep, staying asleep, waking from sleep. Denies knowledge of snoring. GASTROINTESTINAL: Denies any type of dysphagia to either liquids or solids. Denies nausea, vomiting, pyrosis, early satiety, abdominal pain, diarrhea, constipation, or changes in stool consistency or caliber. Denies coffee-ground emesis, hematemesis, hematochezia, or melanotic stools. GENITOURINARY: Denies frequency, urgency, nocturia, hematuria or incontinence (Storage/Irritative symptoms.) Low urinary stream, straining to void, urinary intermittency or hesitancy, splitting of the voiding stream, terminal dribbling. ENDOCRINOLOGIC: Denies polyuria, polydipsia, polyphagia or heat/cold intolerances. HEMATOLOGIC: Denies thrombophilia/previous clots, or coagulopathy/bleeding disorders. ONCOLOGIC: Denies personal history of malignancy. DERMATOLOGIC: Denies rashes or pruritus. PSYCHIATRIC: Denies any suicidal or homicidal ideation. Denies hallucinations. PHYSICAL EXAM GENERAL APPEARANCE: The patient is awake, alert, and oriented, in no acute c ardiopulmonary distress. NEUROLOGICAL: Cranial nerves II-XII grossly intact. Motor is 5/5 in bilateral upper and lower extremities proximal to distal. No sensory deficits. HEENT: Face is symmetric. Pupils are equal and reactive. Extraocular movements are intact. NECK: Supple. No JVD. No thyromegaly. No submental, submandibular, pre- /postauricular, occipital or supraclavicular lymphadenopathy. CHEST: Normal chest expansion. No Telemetry. LUNGS: Absence of any rales, rhonchi or any wheezing. CARDIOVASCULAR: Regular. S1 and S2 normal. No appreciable rubs, murmurs or gallops. ABDOMEN: Soft, nontender, and nondistended. There is no rebound, voluntary guarding, or rigidity. : Deferred. No [place]reno. EXTREMITIES: Non-edematous and not cyanotic. No clubbing. Good capillary refill. SKIN: No skin breakdown. Vital Signs (last 8hr) Date Time Temp Pulse Resp B/P (MAP) Pulse Ox O2 Delivery O2 Flow Rate FiO2 11/05/25 08:00 97.5 102 20 117/84 90 Nasal Cannula 2.0 11/05/25 04:00 97.9 99 18 119/68 92 Nasal Cannula 2.0 LABS: Laboratory: Test 11/05/25 09:20 11/05/25 05:45 11/05/25 04:59 11/05/25 04:45 Range/Units Lactic Acid Level 3.6 H 0.8-2.5 mmol/L Whole Blood Glucose 151 H 70-110 MG/DL White Blood Count 19.3 H 4.8-10.8 K/uL Red Blood Count 5.96 H 4.00-5.50 MIL/uL Hemoglobin 17.1 H 12.0-16.0 g/dL Hematocrit 50.4 H 36-48 % Mean Corpuscular Volume 84.6 79-99 fL Mean Corpuscular Hemoglobin 28.7 27.0-33.0 pg Mean Corpuscular Hemoglobin Concent 33.9 32.0-36.0 g/dL Red Cell Distribution Width 14.2 11.0-15.5 % Platelet Count 193 130-400 K/uL Mean Platelet Volume 11.6 H 7.5-10.5 fL Immature Granulocyte % (Auto) 0.6 0-1 % Neutrophils (%) (Auto) 86.2 H 40.0-77.0 % Lymphocytes (%) (Auto) 3.5 L 21.0-51.0 % Monocytes (%) (Auto) 9.1 3.0-13.0 % Eosinophils (%) (Auto) 0.4 0.0-8.0 % Basophils (%) (Auto) 0.2 0.0-5.0 % Neutrophils # (Auto) 16.7 H 1.8-7.7 K/uL Lymphocytes # (Auto) 0.7 L 1.0-4.8 K/uL Monocytes # (Auto) 1.8 H 0.1-1.0 K/uL Eosinophils # (Auto) 0.07 0.00-0.70 K/uL Basophils # (Auto) 0.03 0.00-0.20 K/uL Absolute Immature Granulocyte (auto 0.12 0-1 K/uL Nucleated Red Blood Cells 0.0 0.0-0.19 % Prothrombin Time 12.4 H 9.6-11.6 SEC Prothromb Time International Ratio 1.19 H 0.85-1.15 Activated Partial Thromboplast Time 27.0 26.3-35.5 SEC Sodium Level 140 136-145 mmol/L Potassium Level 3.4 L 3.5-5.1 mmol/L Chloride Level 103 101-111 mmol/L Carbon Dioxide Level 22 21-32 mmol/L Blood Urea Nitrogen 23 H 7-18 mg/dL Creatinine 2.0 H 0.5-1.0 mg/dL Glomerular Filtration Rate Calc 25 >90 mL/min Random Glucose 147 H 70-105 mg/dL Total Calcium 9.1 8.5-10.1 mg/dL Phosphorus Level 3.9 2.5-4.9 mg/dL Magnesium Level 1.90 1.80-2.40 mg/dL Total Bilirubin 2.6 H 0.2-1.0 mg/dL Aspartate Amino Transf (AST/SGOT) 231 H 10-37 U/L Alanine Aminotransferase (ALT/SGPT) 251 #H 12-78 U/L Alkaline Phosphatase 97 50-136 U/L Total Protein 6.4 6.0-8.3 g/dL Albumin 2.9 #L 3.5-5.0 g/dL Thyroid Stimulating Hormone (TSH) 5.73 H 0.36-3.74 uIU/mL Urine Color ORANGE YELLOW Urine Appearance CLOUDY H CLEAR Urine pH 6.0 5.0-8.0 Urine Specific [place] 1.035 H 1.001-1.031 Urine Protein 100 H NEGATIVE mg/dL Urine Glucose (UA) 50 H NEGATIVE mg/dL Urine Ketones 10 H NEGATIVE mg/dL Urine Occult Blood +- (TRACE) H NEGATIVE Urine Nitrate NEGATIVE NEGATIVE Urine Bilirubin 0.5 H NEGATIVE mg/dL Urine Urobilinogen 4.0 H 0.2-1.0 mg/dL Urine Leukocyte Esterase 25 H NEGATIVE Shanta/uL Urine RBC 6-10 H 0-1 /HPF Urine WBC 11-25 H 0-1 /HPF Urine WBC Clumps (Auto) FEW 0-1 /HPF Urine Squamous Epithelial Cells MANY 0-2 /HPF Urine Non-Squamous Epithelial Cells 1 0-2 /HPF Urine Bacteria None None Seen /HPF Urine Hyaline Casts 26-50 H 0-1 /LPF /LPF Urine Random Creatinine 486.73 H 30-135 mg/dL Urine Random Sodium 43 40-220 mmol/l Test 11/04/25 18:36 Range/Units White Cell Morphology Comment See comments Hemoglobin A1c 5.3 4.0-6.0 % Estimated Average Glucose (eAG) 105 70-126 mg/dL Direct Bilirubin 0.7 H 0.0-0.3 mg/dL Troponin I High Sensitivity 27 4-50 ng/L B-Type Natriuretic Peptide 77 0-100 pg/mL Lipase 18 16-77 U/L Procalcitonin 0.89 H 0.05-0.5 ng/mL Current Medications Medications (Trade) Dose Ordered Sig/Gerber Route PRN Reason Start Time Stop Time Status Last Admin Dose Admin Hydralazine HCl (APRESOLine 20MG INJ) 10 mg Q6H PRN IV For:SBP above 160;DBP above 90 11/04/25 21:30 1/13/26 21:29 Hydromorphone HCl (DiLAUDid 0.5MG INJ) 0.25 mg Q4H PRN IVP SEVERE PAIN (7-10) 11/04/25 21:30 11/09/25 21:29 11/05/25 09:00 0.25 MG Insulin Human Regular (humuLIN R 100 UNIT/ML 3ML) INSULIN SLIDING SCAL... ACHS SQ 11/05/25 07:30 12/05/25 07:29 Ondansetron HCl (zoFRAN 4MG INJ) 4 mg Q6H PRN IV NAUSEA/VOMITING 11/04/25 21:30 12/04/25 21:29 Piperacillin Sod/ Tazobactam Sod 50 ml @ 100 mls/hr STAT STAT IVPB 11/04/25 18:46 11/04/25 19:15 DC 11/04/25 19:56 100 MLS/HR Piperacillin Sod/ Tazobactam Sod (Zosyn 3.375gm+NS 50ml) 3.375 gm Q12H IV 11/05/25 07:00 11/15/25 06:59 11/05/25 06:18 3.375 GM Sodium Chloride 1,000 ml @ 100 mls/hr Q10H IV 11/04/25 21:30 12/04/25 21:29 11/04/25 23:08 75 MLS/HR DIAGNOSTICS / RADIOLOGY: [ ] ASSESSMENT: Severe sepsis, POA, by clinical sepsis criteria heart rate 122, WBCs 23.2, lactic acid 5.4, source intra-abdominal Cholecystitis, POA Leukocytosis, POA Lactic acidosis, POA Hypokalemia, POA Acute kidney injury, POA, Uncontrolled Diabetes mellitius type2, POA Elevated total bilirubin, POA Transaminitis, POA Hypertension Hypothyroidism] [ ] PLAN: [ ] Admit patient to medical floor with tele IVF NS at 100 mL/hour Empiric antibiotic therapy with Zosyn Microbiology blood cultures in process General surgeon waiting for possible surgery lap bo NPO status Continue with pain management for adequate pain control CBC CMP magnesium in a.m. Replace electrolytes as needed to keep potassium above 4.0 magnesium above 2.0. Avoid nephrotoxic agents when possible Renally dose all medications when possible Consider consulting Nephrology service if any worsening renal function or evidence of ATN. Continue a.c. HS monitoring with sliding scale coverage. Consider resuming home medications once they have been reconciled: GI prophylaxis, Protonix DVT prophylaxis, Emmanuel's and SCDs avoid anticoagulation at this time due to impending general surgery evaluation ATTESTATION BY PHYSICIAN I have seen and examined the patient. I reviewed the documentation, medical decision making, and treatment plan as noted by the mid-level provider above. I agree with the findings and plan of care. VIKTOR NARAYAN MD, [facility] Nov 05, 2025 09:53
[2025-11-05] MEDS ORDERED: PoTASSium chl 10% ELIXIR 20MEQ 20 MEQ/15 ML UDCUP PO PRN (10:30)
[2025-11-05] MEDS ORDERED: MAGNESIUM 2GM PREMIX 50ML 50 ML IV PRN (10:30)
--- NOTE | 2025-11-05 11:05 | NUR ---
DCP:HOME Pt currently lives at home with her Silver Proctor. Pt denies having any DME, home health, or provider services. Pt states that she is able to complete ADLs independently. PCP is Dr. Yo Quinones and uses [facility] for any RX needs. At DC pt will want to go home and family can assist with transportation.
--- NOTE | 2025-11-05 13:43 | CONS ---
CONSULT NOTE: This is a 75 A0 female with a history of hypertension, fibromyalgia in a stomach balloon placement. She also has a hiatal hernia diagnosed in the past. It came with hospital after several weeks of abdominal pain and it seems to be that the patient had cholecystitis. CT scan show suspicious for cholecystitis. The patient did not have an ultrasound. [place] [address] [place] [address]. She also had a high lactic acid that has been clearing in the last 24 hours her bilirubin is 2.6. Physical examination the patient is hemodynamically stable. She is complaining of upper abdominal pain but has no Dan sign. I have recommended to have an MRCP. At the same time patient needs to be seen by Cardiology. She had evaluation in the past when she was going to have the balloon removal. We will follow the results of the MRCP. GERMAINE ANDUJAR MD Nov 05, 2025 13:43
[2025-11-06] VITALS (8 sets, daily range): BP systolic 123–149; BP diastolic 66–98; PULSE 100–118; RESP 18–22; TEMP 97.5–99.6; O2SAT 94–100
[2025-11-06 05:41] LABS: IMMATURE GRANULOCYTE ABSOLUTE 0.16 K/uL (0-1); NUCLEATED RED BLOOD CELLS 0.0 % (0.0-0.19); PLATELET COUNT (AUTO) 183 K/uL (130-400); RED BLOOD CELL COUNT(AUTO) 5.47 MIL/uL (4.00-5.50); RED CELL DISTRIBUTION WIDTH 14.6 % (11.0-15.5); WHITE BLOOD COUNT (AUTO) 19.5 K/uL (4.8-10.8)
[2025-11-06 05:57] LABS: ASPARTATE AMINOTRANSFERASE 144.0 U/L (10-37); CREATININE 2.6 mg/dL (0.5-1.0); GLOMERULAR FILTR. RATE CALC 19.0 mL/min (>90); GLUCOSE,RANDOM 117.0 mg/dL (70-105); SODIUM SERUM 139.0 mmol/L (136-145); TOTAL PROTEIN, SERUM 6.1 g/dL (6.0-8.3); UREA NITROGEN, BLOOD 36.0 mg/dL (7-18)
[2025-11-06] MEDS: PoTASSium chloRIDE 20MEQ ER 20 MEQ ERTAB PO PRN (07:04)
--- NOTE | 2025-11-06 11:10 | CONS ---
[facility] CARDIOLOGY CONSULTATION REPORT Date Patient Seen: Nov 06, 2025 Time of Visit: 10:35 Requesting Physician: Jevon Campbell MD Reason for Consultation: Preoperative cardiac risk assessment History of Present Illness: This is a 75-year-old white female with a past medical history of hypertension, hypothyroidism, fibromyalgia, recently identified hiatal hernia, family history of coronary artery disease with father of an VT at age 52, morbid obesity who presented to the emergency department with a 2 month history of abdominal pain with the associated nausea and vomiting at times, after meals. She had not sought any medical attention until recently underwent an EGD which she reports demonstrated a small hiatal hernia. Due to intermittently persistent abdominal pain, she presented to the ER for further assessment. She was found to have evidence of leukocytosis, lactic acidosis and was admitted for management of sepsis. She was found to have evidence of cholecystitis and has also been managed for acute cholecystitis. Cardiology consult requested 11/06/2025 for preoperative cardiac risk assessment. The patient's EKG on admission demonstrated normal sinus rhythm with [address] elevation in leads III, [address] elevation in AVF, and 1-[address] depression in leads I and aVL. Underlying rhythm of sinus tachycardia at a heart rate of 116 beats per minute. A repeat EKG this morning demonstrates a sinus tachycardia at a rate of 115 beats per minute and the ST elevations in leads III and AVF and ST depressions in leads I and aVL have resolved. There is poor R-wave progression anteriorly. Her chest x-ray on admission demonstrated poor inspiratory effort, low lung volumes, possible elevation of right hemidiaphragm, otherwise poorly visualized bases bilaterally and poor visualization of the cardiac silhouette but perhaps cardiomegaly is noted. An initial cardiac troponin was normal at 27 and initial BNP was normal. The patient denies any prior history of VT or coronary artery disease, diabetes or CVA. She is poorly ambulatory due to her body habitus and her fibromyalgia including lower extremities. When she does ambulate around her home, she uses a walker. On evaluation, the patient appears dyspneic but also complains of dry mouth. Past Medical History: As outlined above and summarized below Past Surgical History: Prior lap band 2010 Removal of lap band 2022 Hysterectomy Oral surgery Family History: Father with a history of VT at age 52 of VT Mother Social History: Patient is retired, lives with spouse. She uses a walker to assist with ambulation. Habits: Non smoker Denies alcohol consumption. Denies illicit drug use Home Meds: Pending reconciliation Review of Systems: CONST: No fever, fatigue, or weight changes. EYES: No recent vision problems. ENT: No congestion, ear pain, or sore throat. C/V: Positive for dyspnea, 2 month history of orthopnea and PND. No chest pain, palpitations, or edema. RESP: No cough, congestion, wheezing or shortness of breath. GI: Positive for 2 month history of abdominal pain with the associated nausea and intermittent vomiting. No constipation, or diarrhea. : No incontinence or dysuria. SKIN: No rash. NEURO: No headache, focal numbness or weakness, dizziness, or seizures. PSYCH: No depression or anxiety. HEME: No abnormal bruising or bleeding. LYMPH: No swollen glands. Physical Examination: GENERAL: Morbidly obese female, lying in bed, Mildly dyspneic with conversatio. HEAD: Normal with no signs of head trauma. EYES: PERRLA, EOMI, conjunctiva and sclera normal. ENT: Hearing grossly intact, normal oropharynx. NECK: Supple without JVD. There is no tenderness, lymphadenopathy, or masses. No thyromegaly. Normal carotid upstrokes without bruits. LUNGS: diminished breath sounds bilaterally. HEART: Underlying tachycardia is noted, no audible murmur, gallop or rub. VASC: Peripheral pulses +2 bilaterally. ABD: There is tenderness throughout the abdomen primarily in the epigastric area, bowel sounds are present. : Not examined LYMPH: No lymphadenopathy noted. EXT: No clubbing, cyanosis lower extremities are thick and obese, no pitting edema. SKIN: No rashes or lesions noted. NEURO: Awake, alert, and oriented x3. No focal sensory or strength deficits noted. Vital Signs (last 8hr) Date Time Temp Pulse Resp B/P (MAP) Pulse Ox O2 Delivery O2 Flow Rate FiO2 11/06/25 08:51 97.5 118 22 138/66 94 Nasal Cannula 2.0 11/06/25 04:09 99.7 115 19 130/69 92 Nasal Cannula 2.0 Laboratory: Hematology Labs: Test 11/06/25 05:33 11/04/25 18:36 Range/Units White Blood Count 19.5 H 4.8-10.8 K/uL Red Blood Count 5.47 4.00-5.50 MIL/uL Hemoglobin 15.8 12.0-16.0 g/dL Hematocrit 47.6 36-48 % Mean Corpuscular Volume 87.0 79-99 fL Mean Corpuscular Hemoglobin 28.9 27.0-33.0 pg Mean Corpuscular Hemoglobin Concent 33.2 32.0-36.0 g/dL Red Cell Distribution Width 14.6 11.0-15.5 % Platelet Count 183 130-400 K/uL Mean Platelet Volume 12.0 H 7.5-10.5 fL Immature Granulocyte % (Auto) 0.8 0-1 % Neutrophils (%) (Auto) 85.8 H 40.0-77.0 % Lymphocytes (%) (Auto) 4.7 L 21.0-51.0 % Monocytes (%) (Auto) 6.9 3.0-13.0 % Eosinophils (%) (Auto) 1.5 0.0-8.0 % Basophils (%) (Auto) 0.3 0.0-5.0 % Neutrophils # (Auto) 16.7 H 1.8-7.7 K/uL Lymphocytes # (Auto) 0.9 L 1.0-4.8 K/uL Monocytes # (Auto) 1.3 H 0.1-1.0 K/uL Eosinophils # (Auto) 0.30 0.00-0.70 K/uL Basophils # (Auto) 0.05 0.00-0.20 K/uL Absolute Immature Granulocyte (auto 0.16 0-1 K/uL Nucleated Red Blood Cells 0.0 0.0-0.19 % White Cell Morphology Comment See comments Chemistry Labs: Test 11/06/25 05:33 11/06/25 05:26 11/05/25 09:31 11/05/25 09:20 Range/Units Sodium Level 139 136-145 mmol/L Potassium Level 3.5 3.5-5.1 mmol/L Chloride Level 104 101-111 mmol/L Carbon Dioxide Level 21 21-32 mmol/L Blood Urea Nitrogen 36 H 7-18 mg/dL Creatinine 2.6 H 0.5-1.0 mg/dL Glomerular Filtration Rate Calc 19 >90 mL/min Random Glucose 117 H 70-105 mg/dL Total Calcium 8.7 8.5-10.1 mg/dL Magnesium Level 2.00 1.80-2.40 mg/dL Total Bilirubin 3.0 H 0.2-1.0 mg/dL Aspartate Amino Transf (AST/SGOT) 144 H 10-37 U/L Alanine Aminotransferase (ALT/SGPT) 202 H 12-78 U/L Alkaline Phosphatase 88 50-136 U/L Total Protein 6.1 6.0-8.3 g/dL Albumin 2.5 L 3.5-5.0 g/dL Whole Blood Glucose 122 H 70-110 MG/DL C-Reactive Protein, Quantitative 210.30 H 0.5-3.0 mg/L Procalcitonin 40.85 H 0.05-0.5 ng/mL Lactic Acid Level 3.6 H 0.8-2.5 mmol/L Test 11/05/25 04:59 11/04/25 18:36 Range/Units Phosphorus Level 3.9 2.5-4.9 mg/dL Thyroid Stimulating Hormone (TSH) 5.73 H 0.36-3.74 uIU/mL Hemoglobin A1c 5.3 4.0-6.0 % Estimated Average Glucose (eAG) 105 70-126 mg/dL Direct Bilirubin 0.7 H 0.0-0.3 mg/dL Troponin I High Sensitivity 27 4-50 ng/L B-Type Natriuretic Peptide 77 0-100 pg/mL Lipase 18 16-77 U/L Coagulation Labs: Test 11/05/25 04:59 Range/Units Prothrombin Time 12.4 H 9.6-11.6 SEC Prothromb Time International Ratio 1.19 H 0.85-1.15 Activated Partial Thromboplast Time 27.0 26.3-35.5 SEC Diagnostics / Radiology: Impression and Plan: Sepsis present on admission with lactate of 5, improving: Acute cholecystitis suggested by CT of the abdomen, with diffuse abdominal pain and peritoneal signs: Preoperative cardiac risk assessment: Abnormal admission EKG with transient 1-[address] elevation in leads III and AVF and associated reciprocal horizontal ST depressions in leads1 and aVL which were concerning for acute injury pattern, which resolved. Troponins were negative (27 on 11/04/2025 and 31 on 11/06/2025), suggesting possible acidosis induced coronary vasospasm. Her repeat EKG this morning demonstrated resolution of her ST elevations and ST depressions: -proceed with 2D echocardiogram to assess LV function -patient is cleared for urgent or emergent surgery if indicated. She has evidence of some peritoneal signs today and if surgery is urgent proceed with intermediate risk given the transient EKG changes noted above -case discussed with Dr. Campbell including the fact that she is cleared for surgery with no plans for further cardiac evaluation at this time, which could delay treatment of her abdominal pain Acute renal failure with admission BUN of 15 and creatinine of 1.8 rising to 36 and 2.6 this morning: -secondary to sepsis and poor oral intake Hypertension: -the patient is currently normotensive and home medication reconciliation is pending Comorbidities: Hypothyroidism Fibromyalgia Hiatal hernia Poor mobility sedentary lifestyle Morbid obesity PHYSICIAN ATTESTATION OF PHYSICIAN PARTS TECHNICIAN DOCUMENTATION: I attest that I was physically present for the calvert portions of the service and evaluated the patient with the Physician Warehouse Stocker, and I reviewed and discussed the case with the Physician Warehouse Stocker and made modifications to the Physician Warehouse Stocker's findings and plans of care as documented above LISSETH LANDRY Nov 06, 2025 11:10 JERRY CLINTON MD Nov 06, 2025 17:59
--- NOTE | 2025-11-06 12:25 | PN ---
[facility] PROGRESS NOTE Date of Service: Nov 06, 2025 Time of Service: 12:08 SUBJECTIVE: [ ] Patient reports that she came to the emergency department with a chief complaint of abdominal pain. Location is epigastric. Duration is on and off. Character is described as pressure. There was no alleviating factors. Symptoms are aggravated with eating. Patient reports associated nausea and vomiting. Today in the emergency department WBCs 23.2, 88% neutrophils left shift, lactic acid 5.4, potassium 3.1, creatinine 1.8, glucose 222 mg/dL, total bilirubin 2.5, AST 201, ALT 186, CT of abdomen and pelvis shows cholecystitis. Emergency room physician contacted general surgery service on-call who requested patient be admitted under hospitalist service. 11/05/25 patient is lying in bed patient appears to be in pain patient received Dilaudid earlier waiting for general surgeon for possible lap bo. Patient denies any cardiac history no chest pain no heart stents no MIs in the past. Significant other at bedside all questions were addressed 11/06/25 Patient was seen earlier patient continues to have abdominal pain waiting for cardiac clearance possible lap bo. DR Campbell recommending a MRCP orders were not placed we will order a stat now. Labs kidney worsening. Secondary to poor oral oral intake we will consult aircraft lay out worker's. REVIEW OF SYSTEMS CONSTITUTIONAL: Denies fevers, chills, or night sweats. No unintentional weight loss reported. NEUROLOGICAL: Denies headache, amaurosis fugax, motor weakness, sensory deficit, vertigo/spinning sensation, gait abnormalities, or tremors. ENT: No hearing loss, otalgia, otorrhea, rhinitis, rhinorrhea, hoarseness, or sore throat. CARDIOVASCULAR: Denies any exertional angina, dyspnea on exertion, orthopnea, paroxysmal nocturnal dyspnea, palpitations, life-threatening arrhythmias, claudication. PULMONARY: Denies any shortness of breath, cough, phlegm/sputum, hemoptysis, pleuritic chest pain. SLEEP: Denies morning headaches, daytime somnolence or napping. Denies difficulty falling asleep, staying asleep, waking from sleep. Denies knowledge of snoring. GASTROINTESTINAL: Denies any type of dysphagia to either liquids or solids. Denies nausea, vomiting, pyrosis, early satiety, abdominal pain, diarrhea, constipation, or changes in stool consistency or caliber. Denies coffee-ground emesis, hematemesis, hematochezia, or melanotic stools. GENITOURINARY: Denies frequency, urgency, nocturia, hematuria or incontinence (Storage/Irritative symptoms.) Low urinary stream, straining to void, urinary intermittency or hesitancy, splitting of the voiding stream, terminal dribbling. ENDOCRINOLOGIC: Denies polyuria, polydipsia, polyphagia or heat/cold intolerances. HEMATOLOGIC: Denies thrombophilia/previous clots, or coagulopathy/bleeding disorders. ONCOLOGIC: Denies personal history of malignancy. DERMATOLOGIC: Denies rashes or pruritus. PSYCHIATRIC: Denies any suicidal or homicidal ideation. Denies hallucinations. PHYSICAL EXAM GENERAL APPEARANCE: The patient is awake, alert, and oriented, in no acute cardiopulmonary distress. NEUROLOGICAL: Cranial nerves II-XII grossly intact. Motor is 5/5 in bilateral upper and lower extremities proximal to distal. No sensory deficits. HEENT: Face is symmetric. Pupils are equal and reactive. Extraocular movements are intact. NECK: Supple. No JVD. No thyromegaly. No submental, submandibular, pre-/postauricular, occipital or supraclavicular lymphadenopathy. CHEST: Normal chest expansion. No Telemetry. LUNGS: Absence of any rales, rhonchi or any wheezing. CARDIOVASCULAR: Regular. S1 and S2 normal. No appreciable rubs, murmurs or gallops. ABDOMEN: Soft, nontender, and nondistended. There is no rebound, voluntary guarding, or rigidity. : Deferred. No [place]. EXTREMITIES: Non-edematous and not cyanotic. No clubbing. Good capillary refill. SKIN: No skin breakdown. Vital Signs (last 8hr) Date Time Temp Pulse Resp B/P (MAP) Pulse Ox O2 Delivery O2 Flow Rate FiO2 11/06/25 11:27 98.2 118 19 148/78 92 Nasal Cannula 2.0 11/06/25 08:51 97.5 118 22 138/66 94 Nasal Cannula 2.0 11/06/25 04:09 99.7 115 19 130/69 92 Nasal Cannula 2.0 LABS: Laboratory: Test 11/06/25 11:19 11/06/25 11:12 11/06/25 05:33 11/05/25 09:31 Range/Units Whole Blood Glucose 131 H 70-110 MG/DL Troponin I High Sensitivity 31 4-50 ng/L B-Type Natriuretic Peptide 42 0-100 pg/mL White Blood Count 19.5 H 4.8-10.8 K/uL Red Blood Count 5.47 4.00-5.50 MIL/uL Hemoglobin 15.8 12.0-16.0 g/dL Hematocrit 47.6 36-48 % Mean Corpuscular Volume 87.0 79-99 fL Mean Corpuscular Hemoglobin 28.9 27.0-33.0 pg Mean Corpuscular Hemoglobin Concent 33.2 32.0-36.0 g/dL Red Cell Distribution Width 14.6 11.0-15.5 % Platelet Count 183 130-400 K/uL Mean Platelet Volume 12.0 H 7.5-10.5 fL Immature Granulocyte % (Auto) 0.8 0-1 % Neutrophils (%) (Auto) 85.8 H 40.0-77.0 % Lymphocytes (%) (Auto) 4.7 L 21.0-51.0 % Monocytes (%) (Auto) 6.9 3.0-13.0 % Eosinophils (%) (Auto) 1.5 0.0-8.0 % Basophils (%) (Auto) 0.3 0.0-5.0 % Neutrophils # (Auto) 16.7 H 1.8-7.7 K/uL Lymphocytes # (Auto) 0.9 L 1.0-4.8 K/uL Monocytes # (Auto) 1.3 H 0.1-1.0 K/uL Eosinophils # (Auto) 0.30 0.00-0.70 K/uL Basophils # (Auto) 0.05 0.00-0.20 K/uL Absolute Immature Granulocyte (auto 0.16 0-1 K/uL Nucleated Red Blood Cells 0.0 0.0-0.19 % Sodium Level 139 136-145 mmol/L Potassium Level 3.5 3.5-5.1 mmol/L Chloride Level 104 101-111 mmol/L Carbon Dioxide Level 21 21-32 mmol/L Blood Urea Nitrogen 36 H 7-18 mg/dL Creatinine 2.6 H 0.5-1.0 mg/dL Glomerular Filtration Rate Calc 19 >90 mL/min Random Glucose 117 H 70-105 mg/dL Total Calcium 8.7 8.5-10.1 mg/dL Magnesium Level 2.00 1.80-2.40 mg/dL Total Bilirubin 3.0 H 0.2-1.0 mg/dL Aspartate Amino Transf (AST/SGOT) 144 H 10-37 U/L Alanine Aminotransferase (ALT/SGPT) 202 H 12-78 U/L Alkaline Phosphatase 88 50-136 U/L Total Protein 6.1 6.0-8.3 g/dL Albumin 2.5 L 3.5-5.0 g/dL C-Reactive Protein, Quantitative 210.30 H 0.5-3.0 mg/L Procalcitonin 40.85 H 0.05-0.5 ng/mL Test 11/05/25 09:20 11/05/25 04:59 11/05/25 04:45 11/04/25 18:36 Range/Units Lactic Acid Level 3.6 H 0.8-2.5 mmol/L Prothrombin Time 12.4 H 9.6-11.6 SEC Prothromb Time International Ratio 1.19 H 0.85-1.15 Activated Partial Thromboplast Time 27.0 26.3-35.5 SEC Phosphorus Level 3.9 2.5-4.9 mg/dL Thyroid Stimulating Hormone (TSH) 5.73 H 0.36-3.74 uIU/mL Urine Color ORANGE YELLOW Urine Appearance CLOUDY H CLEAR Urine pH 6.0 5.0-8.0 Urine Specific [place] 1.035 H 1.001-1.031 Urine Protein 100 H NEGATIVE mg/dL Urine Glucose (UA) 50 H NEGATIVE mg/dL Urine Ketones 10 H NEGATIVE mg/dL Urine Occult Blood +- (TRACE) H NEGATIVE Urine Nitrate NEGATIVE NEGATIVE Urine Bilirubin 0.5 H NEGATIVE mg/dL Urine Urobilinogen 4.0 H 0.2-1.0 mg/dL Urine Leukocyte Esterase 25 H NEGATIVE [place]/uL Urine RBC 6-10 H 0-1 /HPF Urine WBC 11-25 H 0-1 /HPF Urine WBC Clumps (Auto) FEW 0-1 /HPF Urine Squamous Epithelial Cells MANY 0-2 /HPF Urine Non-Squamous Epithelial Cells 1 0-2 /HPF Urine Bacteria None None Seen /HPF Urine Hyaline Casts 26-50 H 0-1 /LPF /LPF Urine Osmolality 575 50-1200 mOsm/kg Urine Random Creatinine 486.73 H 30-135 mg/dL Urine Random Sodium 43 40-220 mmol/l White Cell Morphology Comment See comments Hemoglobin A1c 5.3 4.0-6.0 % Estimated Average Glucose (eAG) 105 70-126 mg/dL Direct Bilirubin 0.7 H 0.0-0.3 mg/dL Lipase 18 16-77 U/L Current Medications Medications (Trade) Dose Ordered Sig/Gerber Route PRN Reason Start Time Stop Time Status Last Admin Dose Admin Hydralazine HCl (APRESOLine 20MG INJ) 5 mg Q6H PRN IV For:SBP above 160;DBP above 90 11/05/25 15:30 12/05/25 15:29 Hydralazine HCl (APRESOLine 20MG INJ) 10 mg Q6H PRN IV For:SBP above 160;DBP above 90 11/04/25 21:30 11/05/25 10:07 DC Hydromorphone HCl (DiLAUDid 0.5MG INJ) 0.25 mg Q4H PRN IVP SEVERE PAIN (7-10) 11/04/25 21:30 11/05/25 16:36 DC 11/05/25 15:15 0.25 MG Hydromorphone HCl (DiLAUDid 0.5MG INJ) 0.5 mg Q4H PRN IVP SEVERE PAIN (7-10) 11/05/25 17:30 11/10/25 17:29 11/06/25 08:25 0.5 MG Insulin Human Regular (humuLIN R 100 UNIT/ML 3ML) INSULIN SLIDING SCAL... ACHS SQ 11/05/25 07:30 12/05/25 07:29 Ketorolac Tromethamine (toRADol) 15 mg Q6H PRN IV MODERATE PAIN (4-6) 11/05/25 12:30 11/05/25 12:11 DC Magnesium Sulfate 50 ml @ 0 mls/hr PROTOCOL PRN IV low mag level 11/05/25 10:30 12/05/25 10:29 Ondansetron HCl (zoFRAN 4MG INJ) 4 mg Q6H PRN IV NAUSEA/VOMITING 11/04/25 21:30 12/04/25 21:29 Piperacillin Sod/ Tazobactam Sod 50 ml @ 100 mls/hr STAT STAT IVPB 11/04/25 18:46 11/04/25 19:15 DC 11/04/25 19:56 100 MLS/HR Piperacillin Sod/ Tazobactam Sod (Zosyn 3.375gm+NS 50ml) 3.375 gm Q12H IV 11/05/25 07:00 11/15/25 06:59 11/06/25 05:46 3.375 GM Potassium Chloride 100 ml @ 50 mls/hr AD PRN IV POTASSIUM PROTOCOL 11/05/25 10:30 12/05/25 10:29 Potassium Chloride 100 ml @ 100 mls/hr AD PRN IV POTASSIUM PROTOCOL 11/05/25 10:30 11/05/25 12:10 DC Potassium Chloride (K-Dur/Klor-Con 20meq) 20 meq AD PRN PO POTASSIUM PROTOCOL 11/05/25 10:30 12/05/25 10:29 11/06/25 07:04 20 MEQ Potassium Chloride (KCl 10% Elixir 20meq/15ml) 20 meq AD PRN PO POTASSIUM PROTOCOL 11/05/25 10:30 12/05/25 10:29 Sodium Chloride 1,000 ml @ 100 mls/hr Q10H IV 11/04/25 21:30 12/04/25 21:29 11/06/25 03:54 100 MLS/HR DIAGNOSTICS / RADIOLOGY: [ ] ASSESSMENT: Severe sepsis, POA, by clinical sepsis criteria heart rate 122, WBCs 23.2, lactic acid 5.4, source intra-abdominal Cholecystitis, POA Leukocytosis, POA Lactic acidosis, POA Hypokalemia, POA Acute kidney injury, POA, Uncontrolled Diabetes mellitius type2, POA Elevated total bilirubin, POA Transaminitis, POA Hypertension Hypothyroidism] [ ] PLAN: [ ] Admit patient to medical floor with tele IVF NS at 100 mL/hour continue to monitor kidney function worsening nephrologis t consulted. avoid NSAIDs Empiric antibiotic therapy with Zosyn renal dose: no fevers overnight Microbiology blood cultures so far negative urine cultures negative Imaging: MRCP, LFT slowly trending down. will monitor lft's General surgeon DR Campbell pending to reviewed MRCP, and cardiac clearance NPO status Continue with pain management for adequate pain control CBC CMP magnesium in a.m. Replace electrolytes as needed to keep potassium above 4.0 magnesium above 2.0. Avoid nephrotoxic agents when possible Renally dose all medications when possible Consider consulting Nephrology service if any worsening renal function or eviden ce of ATN. Continue a.c. HS monitoring with sliding scale coverage. Consider resuming home medications once they have been reconciled: GI prophylaxis, Protonix DVT prophylaxis, Emmanuel's and SCDs avoid anticoagulation at this time due to impending general surgery evaluation ATTESTATION BY PHYSICIAN I have seen and examined the patient. I reviewed the documentation, medical decision making, and treatment plan as noted by the mid-level provider above. I agree with the findings and plan of care. VIKTOR NARAYAN MD, [facility] Nov 06, 2025 12:25
--- NOTE | 2025-11-06 12:33 | EKG ---
[facility] Test Date: 2025-11-06 Test Time: 10:28:35 Pat Name: JOE EM Department: [facility] Room: 315 1 Gender: F Yoke Presser: CHIO : [id number] Requested By: LISSETH LANDRY Order Number: [id number] Reading MD: Fermin Caceres Measurements Intervals [place] Rate: 115 P: 19 [place]: 132 QRS: -37 QRSD: 80 T: 1 QT: 340 QTc: 470 Interpretive Statements Sinus tachycardia Left axis deviation Minimal voltage criteria for LVH, may be normal variant Inferior myocardial infarction, possibly recent Nonspecific ST and T wave abnormality Compared to ECG 11/04/2025 20:33:40 Left-axis deviation now present Left ventricular hypertrophy now present ST (T wave) deviation now present Acute inferior injury pattern on EKG 11/04/2025 18:48 improved Electronically Signed On 11-06-2025 23:51:01 PIE CRIMPING MACHINE OPERATOR by Fermin Caceres Please click the below link to view image of tracing.
[2025-11-06] MEDS: LACTATED RINGERS 1000ML 1,000 ML IV SCH (13:58)
--- NOTE | 2025-11-06 18:49 | PN ---
175 Primary nurse reach out that Dr Campbell wanted updates on patient. I was told by the primary nurse polisher dial cleared the patient for urgent or emergent surgery if indicated. She has evidence of some peritoneal signs today and if surgery is urgent proceed with intermediate risk given the transient EKG changes noted above. Therefore, I reach out to Dr Campbell reports was given update on when I saw the patient this morning. I stated the patient was getting around the clock pain medications given she has persistent abdominal pain. Also addressed that the MRCP that was recommended by him was never placed as a order therefore I had to place the order this afternoon. I also told him the patient TB increased to 3.0 from 2.5 and kidney worsening, WBC continue to be elevated no fevers reported overnight or for today. I was not able to re evaluate the patient given to I was done for the day. However, I reach out to Nights Nurse practitioner Ernst Moreno to check up and evaluate the patient and to call the surgeon for updates if the patient had to be transfer to ICU. I attest that I evaluated the patient with the mid level and that I was physically present for the calvert points of service. I reviewed and discussed the case with her and made modifications to her findings and plan of care as documented above. ANGELICA PRIETO [facility] Nov 06, 2025 18:49
[2025-11-06 20:37] LABS: ABG BASE EXCESS -3.6 mmol/L (-2.0-3.0); ABG HCO3 21.0 mmol/L (21.0-28.0); ABG OXYGEN SATURATION 93.4 % (94.0-98.0); ABG PCO2 37 mmHg (32-45); ABG PH 7.374 (7.350-7.450); CARBON MONOXIDE 1.3 % (0.5-1.5); PO2, ARTERIAL BG 64.5 mmHg (83.0-108.0); TEMPERATURE, CELSIUS BG 37.0 CELSIUS (35.5-37.0)
--- NOTE | 2025-11-06 20:37 | NUR ---
MRCP PATIENT OUT TO MRCP AT THIS TIME, RESPIRATIONS EVEN AND UNLABORED.
--- NOTE | 2025-11-06 21:27 | NUR ---
pt arrived back from [facility] in stable condition,no signs of distress noted, respirations even and unlabored.
--- NOTE | 2025-11-06 22:23 | HMCIMG ---
EXAMINATION: MR Cholangiopancreatography (MRCP) without intravenous contrast. CLINICAL HISTORY: Rule out cholecystitis. TECHNIQUE: Multiplanar, multisequence MR images of the upper abdomen were acquired without intravenous contrast. Heavily T2-weighted 3D acquisitions and maximum intensity projections were generated for cholangiopancreatography. CONTRAST: No intravenous contrast. COMPARISON: CT abdomen and pelvis without contrast, dated November 04, 2025. FINDINGS: LIVER: The liver measures 19 cm with fatty infiltration. A cyst measuring 1.7 x 1.8 cm is present in segment IV of the left lobe. Another tiny cyst is present in segment II of the left lobe. GALLBLADDER AND BILIARY SYSTEM: The gallbladder demonstrates thickened muller predominantly in the fundal region, measuring up to 0.8 cm, with minimal fluid around the fundus and surrounding pericholecystic fat stranding suggestive of acute cholecystitis. No obvious filling defects to suggest calculi. The common bile duct measures 0.8 cm in diameter. No choledocholithiasis. PANCREAS: Normal caliber main pancreatic duct. Normal pancreatic parenchyma signal intensity. No mass or fluid collection. SPLEEN: Unremarkable. ADRENAL GLANDS: Unremarkable. KIDNEYS: Left parapelvic renal cysts. No hydronephrosis. OTHER: Small ascites. Small bilateral pleural effusions with probable bilateral basal atelectasis. IMPRESSION: 1. Findings suggestive of acute cholecystitis. 2. Small ascites. 3. Small bilateral pleural effusions with probable bilateral basal atelectasis. The findings are similar to those of the CT abdomen and pelvis without contrast, dated November 04, 2025, with limitations inherent to the modality. /[place]
--- NOTE | 2025-11-06 23:10 | HMCSR ---
APPROVED REPORT EXAM: Two-dimensional and M-mode echocardiogram with Doppler and color Doppler. INDICATION ICD: shortness of breath 2D Dimensions RVDd 3.2 cm LVEF(%) 81.4 (>50%) LVED Vol(simp.) 38.0 mL IVSd 1.1 (0.7-1.1cm) FS(%) 49 % LVES Vol(simp.) 13.0 mL LVDd 3.4 (3.8-5.6cm) LA (2D) 3.5 (1.6-4.0cm) LVEF(%, simp.) 64 % PWd 1.1 (0.7-1.1cm) Ao Root(2D) 3.1 (2.0-3.7cm) LA ESV INDEX (4CH) 19.00 mL/m2 LVDs 1.7 (2.5-4.0cm) LVOT diam 1.9 (1.8-2.4cm) M-Mode Dimensions EPSS 1.6 cm LA (MM) 3.7 (1.6-4.0cm) Ao Root(MM) 2.9 (2.0-3.7cm) Aortic Valve AoV Vmax 1.4 m/s Ao Peak GR 7.8 mmHg LVOT Vmax 1.3 m/s AoV VTI 0.2 m Ao Mean GR 5.0 mmHg LVOT VTI 0.16 m BRIGETTE (VMAX) 2.72 cm2 BRIGETTE (VTI) 3.1 cm2 Mitral Valve MV E Vmax 44.9 cm/s DECEL Time 174 ms MV A Vmax 56.0 cm/s P 1/2 T 30 ms E/A ratio 0.8 MVA (PHT) 7.2 cm2 TDI E/E' Medial 10.3 E/E' Lateral 4.4 Medial E' Peak V 4.34 cm/s Lateral E' Peak V 10.20 cm/s Pulmonary Valve PV Vmax 1.4 m/s PV VTI 0.11 m PV Mean GR 3.0 mmHg PV Peak GR 7.6 mmHg Left Ventricle Left ventricular cavity size is normal. There is normal LV segmental wall motion. Moderate concentric LVH. LVEF is 60-65%. The left ventricular diastolic function is normal. Right Ventricle The right ventricle is normal size. Right ventricular systolic function is mildly to moderately reduced. Atria The left atrium size is normal. The right atrium size is normal. Aortic Valve The aortic valve is normal in structure and function. No aortic regurgitation is present. There is no aortic valvular stenosis. Mitral Valve The mitral valve is normal in structure and function. There is no mitral valve regurgitation noted. There is no mitral valve stenosis. Tricuspid Valve The tricuspid valve is normal in structure and function. There is no tricuspid valve regurgitation noted. Pulmonic Valve The pulmonary valve is normal in structure and function. There is no pulmonic valvular regurgitation. Great Vessels The aortic root is normal in size. Pericardium Trace pericardial effusion. Other Information Quality : Technically Limited Technically limited study due to body habitus.Patient could not be placed onto left side. Conclusion Moderate concentric LVH. There is normal LV segmental wall motion. There is normal LV segmental wall motion. LVEF is 60-65%. The left ventricular diastolic function is normal. The aortic valve is normal in structure and function. The mitral valve is normal in structure and function. Trace pericardial effusion.
[2025-11-07] VITALS (10 sets, daily range): BP systolic 114–156; BP diastolic 59–91; PULSE 63–103; RESP 17–20; TEMP 97.4–98.4; O2SAT 92–96
--- NOTE | 2025-11-07 00:41 | HMCIMG ---
EXAM: CR CHEST, 1 VIEW CLINICAL HISTORY: shortness of breath. COMPARISON: XR study dated 11/04/2025. TECHNIQUE: Single frontal radiograph of the chest was obtained. FINDINGS: Lines/Devices: None. Lungs: The study is significantly limited by poor inspiration with consequent elevation of the diaphragm and decreased lung expansion. Associated right lung middle zonal thick atelectasis. The rest of the visualized lungs are clear with no acute pulmonary infiltrates or masses. No consolidation or ground-glass opacities are observed. There is no pleural effusion. There is no pneumothorax. Mediastinum and cardiovascular structures: There are calcific atherosclerotic plaques in the aorta. Aortic knob calcification. Unfolding of the aorta. The rest of the cardiac and mediastinal outlines are not adequately visualized. Bones and soft tissues: No acute osseous abnormality. IMPRESSION: 1. Significantly limited study due to poor inspiration. 2. Right lung middle zonal thick atelectasis; not depicted in the X-ray study dated 11/04/2025, otherwise, no significant time interval changes. 3. Aortic knob calcification and unfolding of the aorta. /[place]
[2025-11-07 05:31] LABS: IMMATURE GRANULOCYTE ABSOLUTE 0.14 K/uL (0-1); NUCLEATED RED BLOOD CELLS 0.0 % (0.0-0.19); PLATELET COUNT (AUTO) 153 K/uL (130-400); RED BLOOD CELL COUNT(AUTO) 4.83 MIL/uL (4.00-5.50); RED CELL DISTRIBUTION WIDTH 14.5 % (11.0-15.5); WHITE BLOOD COUNT (AUTO) 13.9 K/uL (4.8-10.8)
[2025-11-07 05:51] LABS: ASPARTATE AMINOTRANSFERASE 127.0 U/L (10-37); CREATININE 1.8 mg/dL (0.5-1.0); GLOMERULAR FILTR. RATE CALC 29.0 mL/min (>90); GLUCOSE,RANDOM 82.0 mg/dL (70-105); PHOSPHORUS 2.4 mg/dL (2.5-4.9); SODIUM SERUM 134.0 mmol/L (136-145); TOTAL PROTEIN, SERUM 5.7 g/dL (6.0-8.3); UREA NITROGEN, BLOOD 38.0 mg/dL (7-18)
--- NOTE | 2025-11-07 07:12 | EKG ---
[facility] Test Date: 2025-11-06 Test Time: 15:30:03 Pat Name: JOE EM Department: [facility] Room: 315 1 Gender: F Router Operator Pin: CHIO : [id number] Requested By: VIKTOR NARAYAN Order Number: [id number] Reading MD: Isaias Valle Measurements Intervals [place] Rate: 97 P: 15 GA: 142 QRS: -36 QRSD: 82 T: 31 QT: 350 QTc: 444 Interpretive Statements Normal sinus rhythm Left axis deviation Minimal voltage criteria for LVH, may be normal variant Nonspecific T wave abnormality Compared to ECG 11/06/2025 10:28:35 T-wave abnormality now present Sinus tachycardia no longer present Myocardial infarct finding no longer present ST (T wave) deviation no longer present Electronically Signed On 11-08-2025 08:39:32 FRAMING MACHINE TENDER by Isaias Valle Please click the below link to view image of tracing.
--- NOTE | 2025-11-07 10:07 | PN ---
Date of service 11/06/2025 This is a 75-year-old female with concerns of possible acute cholecystitis Interval history: This 75-year-old female seen in her resting Patient currently pending MRCP Patient reporting abdominal pain but no immediate signs of peritonitis noted WBCs relatively unchanged from previous day Hemoglobin remained stable LFTs trending down Vitals remained stable Currently pending cardiac clearance as well Physical exam General: Awake alert and oriented Heart: Regular rate and rhythm} Lungs: Clear to auscultation no distress Abdomen: Epigastric and right upper quadrant tenderness with no peritoneal sign Assessment : This is a 75-year-old female with concerns of acute cholecystitis currently pending MRCP to rule out choledocholithiasis due to elevated bilirubin Plan: From surgical standpoint we will await MRCP Appreciate input from Cardiology team for potential clearance If patient consider to high-risk for any surgical intervention recommendation will be cholecystostomy tube If MRCP consistent with choledocholithiasis GI to be consulted for ERCP Dr. Campbell to be updated in patient's status and surgical team to follow patient closely Vitals/Labs Vital Signs Date Time Temp Pulse Resp B/P (MAP) Pulse Ox O2 Delivery O2 Flow Rate FiO2 11/07/25 08:15 74 18 N/A Room Air 21 11/07/25 08:12 97.3 114/60 95 3.0 Laboratory Tests 11/07/25 05:18 Medications Current Medications Sodium Chloride 1,000 ml @ 0 mls/hr ONCE ONCE IV; Start 11/04/25 at 18:30; Stop 11/04/25 at 18:48; Status DC Ondansetron HCl 4 mg ONCE ONCE IVP Last administered on 11/04/25at 18:49; Start 11/04/25 at 18:30; Stop 11/04/25 at 18:31; Status DC Pantoprazole Sodium 40 mg ONCE ONCE IVP Last administered on 11/04/25at 18:49; Start 11/04/25 at 18:30; Stop 11/04/25 at 18:31; Status DC Morphine Sulfate 4 mg ONCE ONCE IVP Last administered on 11/04/25at 18:49; Start 11/04/25 at 18:30; Stop 11/04/25 at 18:31; Status DC Piperacillin Sod/ Tazobactam Sod 50 ml @ 100 mls/hr STAT STAT IVPB Last administered on 11/04/25at 19:56; Start 11/04/25 at 18:46; Stop 11/04/25 at 19:15; Status DC Sodium Chloride 1,641 ml @ 547 mls/hr ONCE ONCE IV Last administered on 11/04/25at 19:49; Start 11/04/25 at 19:00; Stop 11/04/25 at 21:59; Status DC Potassium Bicarbonate 25 meq ONCE ONCE PO Last administered on 11/04/25at 19:56; Start 11/04/25 at 19:30; Stop 11/04/25 at 19:31; Status DC Morphine Sulfate 2 mg ONCE ONCE IVP Last administered on 11/04/25at 21:12; Start 11/04/25 at 21:00; Stop 11/04/25 at 21:01; Status DC Sodium Chloride 1,000 ml @ 100 mls/hr Q10H IV Last administered on 11/06/25at 03:54; Start 11/04/25 at 21:30; Stop 11/06/25 at 13:01; Status DC Piperacillin Sod/ Tazobactam Sod 3.375 gm Q12H IV Last administered on 11/07/25at 05:03; Start 11/05/25 at 07:00; Stop 11/15/25 at 06:59 Insulin Human Regular INSULIN SLIDING SCAL... ACHS SQ; Start 11/05/25 at 07:30; Stop 12/05/25 at 07:29 Hydromorphone HCl 0.25 mg Q4H PRN IVP Last administered on 11/05/25at 15:15; Start 11/04/25 at 21:30; Stop 11/05/25 at 16:36; Status DC Hydralazine HCl 10 mg Q6H PRN IV; Start 11/04/25 at 21:30; Stop 11/05/25 at 10:07; Status DC Ondansetron HCl 4 mg Q6H PRN IV; Start 11/04/25 at 21:30; Stop 12/04/25 at 21:29 Hydromorphone HCl 0.25 mg ONCE ONCE IVP Last administered on 11/05/25at 02:49; Start 11/05/25 at 03:00; Stop 11/05/25 at 03:01; Status DC Hydralazine HCl 5 mg Q6H PRN IV; Start 11/05/25 at 15:30; Stop 12/05/25 at 15:29 Magnesium Sulfate 50 ml @ 0 mls/hr PROTOCOL PRN IV; Start 11/05/25 at 10:30; Stop 12/05/25 at 10:29 Potassium Chloride 100 ml @ 50 mls/hr AD PRN IV; Start 11/05/25 at 10:30; Stop 12/05/25 at 10:29 Potassium Chloride 100 ml @ 100 mls/hr AD PRN IV; Start 11/05/25 at 10:30; Stop 11/05/25 at 12:10; Status DC Potassium Chloride 20 meq AD PRN PO; Start 11/05/25 at 10:30; Stop 12/05/25 at 10:29 Potassium Chloride 20 meq AD PRN PO Last administered on 11/06/25at 07:04; Start 11/05/25 at 10:30; Stop 12/05/25 at 10:29 Ketorolac Tromethamine 15 mg Q6H PRN IV; Start 11/05/25 at 12:30; Stop 11/05/25 at 12:11; Status DC Hydromorphone HCl 0.5 mg Q4H PRN IVP Last administered on 11/07/25at 05:02; Start 11/05/25 at 17:30; Stop 11/10/25 at 17:29 Metoprolol Tartrate 5 mg ONCE ONCE IV Last administered on 11/06/25at 13:57; Start 11/06/25 at 13:00; Stop 11/06/25 at 13:03; Status DC Potassium Chloride 100 ml @ 50 mls/hr ONCE ONCE IV Last administered on 11/06/25at 13:57; Start 11/06/25 at 13:00; Stop 11/06/25 at 14:59; Status DC Lactated Ringer's 1,000 ml @ 75 mls/hr [id number] IV Last administered on 11/07/25at 02:42; Start 11/06/25 at 13:00; Stop 12/06/25 at 12:59 Metoprolol Tartrate 25 mg TID PO Last administered on 11/06/25at 19:57; Start 11/06/25 at 18:00; Stop 12/06/25 at 17:59 Sodium Chloride 500 ml @ 0 mls/hr Q0M IV; Start 11/07/25 at 02:30; Stop 12/07/25 at 02:29 BRITNEY MALDONADO Jr. PAC Nov 07, 2025 10:06
--- NOTE | 2025-11-07 10:07 | PN ---
This is a 75-year-old female with concerns of acute cholecystitis Interval history: Overnight concerns for developing peritoneal signs noted by cardiology team Time of exam patient with no significant abdominal pain outside of consistent upper quadrant discomfort likely from acute cholecystitis confirmed on MRCP Patient is cleared for urgent surgical intervention if deemed necessary but at this time patient appears to be stable Patient remains NPO WBCs trending down Bilirubin 2.0 which is trending down Physical exam General: [Awake alert and oriented Heart: [Regular rate and rhythm} Lungs: [Clear to auscultation no distress Abdomen: [Continued upper quadrant pain with no signs of peritonitis Assessment : This is a 75-year-old female with concerns of acute cholecystitis Plan: At this point in time we will attempt to reach out to cardiology team as well as primary team for cardiac clearance for nonemergent surgery If patient is deemed high-risk recommendation will be cholecystostomy tube Patient to remain NPO Dr. Campbell updated in patient's status and surgical team to follow patient closely Surgical case has been discussed with my supervising physician in the above plan was formulated and agreed upon We appreciate the hospitalist team for us to participate in patient's care. Greater than 45 minutes of time spent patient, reviewing chart, working on documentation Surgical case has been discussed with my supervising physician in the above plan was formulated and agreed upon We appreciate the hospitalist team for us to participate in patient's care. Greater than 45 minutes of time spent patient, reviewing chart, working on documentation Vitals/Labs Vital Signs Date Time Temp Pulse Resp B/P (MAP) Pulse Ox O2 Delivery O2 Flow Rate FiO2 11/07/25 08:15 74 18 N/A Room Air 21 11/07/25 08:12 97.3 114/60 95 3.0 Laboratory Tests 11/07/25 05:18 Medications Current Medications Sodium Chloride 1,000 ml @ 0 mls/hr ONCE ONCE IV; Start 11/04/25 at 18:30; Stop 11/04/25 at 18:48; Status DC Ondansetron HCl 4 mg ONCE ONCE IVP Last administered on 11/04/25at 18:49; Start 11/04/25 at 18:30; Stop 11/04/25 at 18:31; Status DC Pantoprazole Sodium 40 mg ONCE ONCE IVP Last administered on 11/04/25at 18:49; Start 11/04/25 at 18:30; Stop 11/04/25 at 18:31; Status DC Morphine Sulfate 4 mg ONCE ONCE IVP Last administered on 11/04/25at 18:49; Start 11/04/25 at 18:30; Stop 11/04/25 at 18:31; Status DC Piperacillin Sod/ Tazobactam Sod 50 ml @ 100 mls/hr STAT STAT IVPB Last administered on 11/04/25at 19:56; Start 11/04/25 at 18:46; Stop 11/04/25 at 19:15; Status DC Sodium Chloride 1,641 ml @ 547 mls/hr ONCE ONCE IV Last administered on 11/04/25at 19:49; Start 11/04/25 at 19:00; Stop 11/04/25 at 21:59; Status DC Potassium Bicarbonate 25 meq ONCE ONCE PO Last administered on 11/04/25at 19:56; Start 11/04/25 at 19:30; Stop 11/04/25 at 19:31; Status DC Morphine Sulfate 2 mg ONCE ONCE IVP Last administered on 11/04/25at 21:12; Start 11/04/25 at 21:00; Stop 11/04/25 at 21:01; Status DC Sodium Chloride 1,000 ml @ 100 mls/hr Q10H IV Last administered on 11/06/25at 03:54; Start 11/04/25 at 21:30; Stop 11/06/25 at 13:01; Status DC Piperacillin Sod/ Tazobactam Sod 3.375 gm Q12H IV Last administered on 11/07/25at 05:03; Start 11/05/25 at 07:00; Stop 11/15/25 at 06:59 Insulin Human Regular INSULIN SLIDING SCAL... ACHS SQ; Start 11/05/25 at 07:30; Stop 12/05/25 at 07:29 Hydromorphone HCl 0.25 mg Q4H PRN IVP Last administered on 11/05/25at 15:15; Start 11/04/25 at 21:30; Stop 11/05/25 at 16:36; Status DC Hydralazine HCl 10 mg Q6H PRN IV; Start 11/04/25 at 21:30; Stop 11/05/25 at 10:07; Status DC Ondansetron HCl 4 mg Q6H PRN IV; Start 11/04/25 at 21:30; Stop 12/04/25 at 21:29 Hydromorphone HCl 0.25 mg ONCE ONCE IVP Last administered on 11/05/25at 02:49; Start 11/05/25 at 03:00; Stop 11/05/25 at 03:01; Status DC Hydralazine HCl 5 mg Q6H PRN IV; Start 11/05/25 at 15:30; Stop 12/05/25 at 15:29 Magnesium Sulfate 50 ml @ 0 mls/hr PROTOCOL PRN IV; Start 11/05/25 at 10:30; Stop 12/05/25 at 10:29 Potassium Chloride 100 ml @ 50 mls/hr AD PRN IV; Start 11/05/25 at 10:30; Stop 12/05/25 at 10:29 Potassium Chloride 100 ml @ 100 mls/hr AD PRN IV; Start 11/05/25 at 10:30; Stop 11/05/25 at 12:10; Status DC Potassium Chloride 20 meq AD PRN PO; Start 11/05/25 at 10:30; Stop 12/05/25 at 10:29 Potassium Chloride 20 meq AD PRN PO Last administered on 11/06/25at 07:04; Start 11/05/25 at 10:30; Stop 12/05/25 at 10:29 Ketorolac Tromethamine 15 mg Q6H PRN IV; Start 11/05/25 at 12:30; Stop 11/05/25 at 12:11; Status DC Hydromorphone HCl 0.5 mg Q4H PRN IVP Last administered on 11/07/25at 05:02; Start 11/05/25 at 17:30; Stop 11/10/25 at 17:29 Metoprolol Tartrate 5 mg ONCE ONCE IV Last administered on 11/06/25at 13:57; Start 11/06/25 at 13:00; Stop 11/06/25 at 13:03; Status DC Potassium Chloride 100 ml @ 50 mls/hr ONCE ONCE IV Last administered on 11/06/25at 13:57; Start 11/06/25 at 13:00; Stop 11/06/25 at 14:59; Status DC Lactated Ringer's 1,000 ml @ 75 mls/hr [id number] IV Last administered on 11/07/25at 02:42; Start 11/06/25 at 13:00; Stop 12/06/25 at 12:59 Metoprolol Tartrate 25 mg TID PO Last administered on 11/06/25at 19:57; Start 11/06/25 at 18:00; Stop 12/06/25 at 17:59 Sodium Chloride 500 ml @ 0 mls/hr Q0M IV; Start 11/07/25 at 02:30; Stop 12/07/25 at 02:29 BRITNEY MALDONADO Jr. PAC Nov 07, 2025 10:07
--- NOTE | 2025-11-07 12:09 | PN ---
[facility] PROGRESS NOTE Date of Service: Nov 07, 2025 Time of Service: 12:03 SUBJECTIVE: [ ] Patient reports that she came to the emergency department with a chief complaint of abdominal pain. Location is epigastric. Duration is on and off. Character is described as pressure. There was no alleviating factors. Symptoms are aggravated with eating. Patient reports associated nausea and vomiting. Today in the emergency department WBCs 23.2, 88% neutrophils left shift, lactic acid 5.4, potassium 3.1, creatinine 1.8, glucose 222 mg/dL, total bilirubin 2.5, AST 201, ALT 186, CT of abdomen and pelvis shows cholecystitis. Emergency room physician contacted general surgery service on-call who requested patient be admitted under hospitalist service. 11/05/25 patient is lying in bed patient appears to be in pain patient received Dilaudid earlier waiting for general surgeon for possible lap bo. Patient denies any cardiac history no chest pain no heart stents no MIs in the past. Significant other at bedside all questions were addressed 11/06/25 Patient was seen earlier patient continues to have abdominal pain waiting for cardiac clearance possible lap bo. DR Campbell recommending a MRCP orders were not placed we will order a stat now. Labs kidney worsening. Secondary to poor oral oral intake we will consult lease broker's. 11/07/25 patient was seen earlier. Patient is waiting for surgery for their recommendations. the patient Waiting for MRCP. if consistent with choledocholithiasis GI to be consulted for ERCP. Surgeon's note was reviewed Dr. Narayan reached out to nurse practitioner Bruno the patient is clinically cleared for surgery. Bruno Pa call Dr Narayan that surgery is scheduled for tomorrow as per Dr Campbell. REVIEW OF SYSTEMS CONSTITUTIONAL: Denies fevers, chills, or night sweats. No unintentional weight loss reported. NEUROLOGICAL: Denies headache, amaurosis fugax, motor weakness, sensory deficit, vertigo/spinning sensation, gait abnormalities, or tremors. ENT: No hearing loss, otalgia, otorrhea, rhinitis, rhinorrhea, hoarseness, or sore throat. CARDIOVASCULAR: Denies any exertional angina, dyspnea on exertion, orthopnea, paroxysmal nocturnal dyspnea, palpitations, life-threatening arrhythmias, claudication. PULMONARY: Denies any shortness of breath, cough, phlegm/sputum, hemoptysis, pleuritic chest pain. SLEEP: Denies morning headaches, daytime somnolence or napping. Denies difficulty falling asleep, staying asleep, waking from sleep. Denies knowledge of snoring. GASTROINTESTINAL: Denies any type of dysphagia to either liquids or solids. Denies nausea, vomiting, pyrosis, early satiety, abdominal pain, diarrhea, constipation, or changes in stool consistency or caliber. Denies coffee-ground emesis, hematemesis, hematochezia, or melanotic stools. GENITOURINARY: Denies frequency, urgency, nocturia, hematuria or incontinence (Storage/Irritative symptoms.) Low urinary stream, straining to void, urinary intermittency or hesitancy, splitting of the voiding stream, terminal dribbling. ENDOCRINOLOGIC: Denies polyuria, polydipsia, polyphagia or heat/cold intolerances. HEMATOLOGIC: Denies thrombophilia/previous clots, or coagulopathy/bleeding disorders. ONCOLOGIC: Denies personal history of malignancy. DERMATOLOGIC: Denies rashes or pruritus. PSYCHIATRIC: Denies any suicidal or homicidal ideation. Denies hallucinations. PHYSICAL EXAM GENERAL APPEARANCE: The patient is awake, alert, and oriented, in no acute cardiopulmonary distress. NEUROLOGICAL: Cranial nerves II-XII grossly intact. Motor is 5/5 in bilateral upper and lower extremities proximal to distal. No sensory deficits. HEENT: Face is symmetric. Pupils are equal and reactive. Extraocular movements are intact. NECK: Supple. No JVD. No thyromegaly. No submental, submandibular, pre- /postauricular, occipital or supraclavicular lymphadenopathy. CHEST: Normal chest expansion. No Telemetry. LUNGS: Absence of any rales, rhonchi or any wheezing. CARDIOVASCULAR: Regular. S1 and S2 normal. No appreciable rubs, murmurs or gallops. ABDOMEN: Soft, nontender, and nondistended. There is no rebound, voluntary guarding, or rigidity. : Deferred. No Carreno. EXTREMITIES: Non-edematous and not cyanotic. No clubbing. Good capillary refill. SKIN: No skin breakdown. Vital Signs (last 8hr) Date Time Temp Pulse Resp B/P (MAP) Pulse Ox O2 Delivery O2 Flow Rate FiO2 11/07/25 11:23 82 17 141/91 90 Nasal Cannula 3.0 11/07/25 08:15 74 18 N/A Room Air 21 11/07/25 08:12 97.3 72 17 114/60 95 Nasal Cannula 3.0 11/07/25 05:07 78 18 N/Cannula Low lpm 3.0 32 11/07/25 04:53 97.5 103 20 136/71 97 Nasal Cannula 2.0 LABS: Laboratory: Test 11/07/25 10:46 11/07/25 05:18 11/06/25 20:35 11/06/25 11:12 Range/Units Whole Blood Glucose 73 70-110 MG/DL White Blood Count 13.9 #H 4.8-10.8 K/uL Red Blood Count 4.83 4.00-5.50 MIL/uL Hemoglobin 13.7 12.0-16.0 g/dL Hematocrit 41.5 36-48 % Mean Corpuscular Volume 85.9 79-99 fL Mean Corpuscular Hemoglobin 28.4 27.0-33.0 pg Mean Corpuscular Hemoglobin Concent 33.0 32.0-36.0 g/dL Red Cell Distribution Width 14.5 11.0-15.5 % Platelet Count 153 130-400 K/uL Mean Platelet Volume 11.7 H 7.5-10.5 fL Immature Granulocyte % (Auto) 1.0 0-1 % Neutrophils (%) (Auto) 84.4 H 40.0-77.0 % Lymphocytes (%) (Auto) 5.3 L 21.0-51.0 % Monocytes (%) (Auto) 9.0 3.0-13.0 % Eosinophils (%) (Auto) 0.1 0.0-8.0 % Basophils (%) (Auto) 0.2 0.0-5.0 % Neutrophils # (Auto) 11.7 H 1.8-7.7 K/uL Lymphocytes # (Auto) 0.7 L 1.0-4.8 K/uL Monocytes # (Auto) 1.3 H 0.1-1.0 K/uL Eosinophils # (Auto) 0.02 0.00-0.70 K/uL Basophils # (Auto) 0.03 0.00-0.20 K/uL Absolute Immature Granulocyte (auto 0.14 0-1 K/uL Nucleated Red Blood Cells 0.0 0.0-0.19 % Sodium Level 134 L 136-145 mmol/L Potassium Level 3.5 3.5-5.1 mmol/L Chloride Level 105 101-111 mmol/L Carbon Dioxide Level 23 21-32 mmol/L Blood Urea Nitrogen 38 H 7-18 mg/dL Creatinine 1.8 H 0.5-1.0 mg/dL Glomerular Filtration Rate Calc 29 >90 mL/min Random Glucose 82 70-105 mg/dL Uric Acid 6.9 2.6-7.2 mg/dL Total Calcium 8.6 8.5-10.1 mg/dL Phosphorus Level 2.4 L 2.5-4.9 mg/dL Magnesium Level 2.00 1.80-2.40 mg/dL Total Bilirubin 2.0 #H 0.2-1.0 mg/dL Aspartate Amino Transf (AST/SGOT) 127 H 10-37 U/L Alanine Aminotransferase (ALT/SGPT) 157 #H 12-78 U/L Alkaline Phosphatase 115 # 50-136 U/L Total Protein 5.7 L 6.0-8.3 g/dL Albumin 2.1 L 3.5-5.0 g/dL Blood Gas Specimen Type Arterial Arterial Blood pH 7.374 7.350-7.450 Arterial Blood Partial Pressure CO2 37 32-45 mmHg Arterial Blood Partial Pressure O2 64.5 L 83.0-108.0 mmHg Arterial Blood HCO3 21.0 21.0-28.0 mmol/L Arterial Blood Oxygen Saturation 93.4 L 94.0-98.0 % Arterial Blood Base Excess -3.6 L -2.0-3.0 mmol/L Hemoglobin (Blood Gas) 15.2 12.0-16.0 g/dL Sodium (Blood Gas) 138 136-145 MMOL/L Bedside Potassium (Blood Gas) 3.8 3.4-4.5 MMOL/L Bedside Chloride (Blood Gas) 104 98-107 MMOL/L Bedside Glucose (Blood Gas) 106 H 65-95 MG/DL Bedside Ionized Calcium (Blood Gas) 1.17 1.15-1.33 MMOL/L Bedside Lactic Acid (Blood Gas) 2.57 H 0.36-0.75 MMOL/L Blood Gas Temperature 37.0 35.5-37.0 CELSIUS Blood Gas Flow-by 2.00 0.00-15.00 L/min Blood Gas Vent Mode NC,28 ROOM AIR FiO2 28.0 % Blood Gas Specimen Comment DR JET Troponin I High Sensitivity 31 4-50 ng/L B-Type Natriuretic Peptide 42 0-100 pg/mL Current Medications Medications (Trade) Dose Ordered Sig/Gerber Route PRN Reason Start Time Stop Time Status Last Admin Dose Admin Hydralazine HCl (APRESOLine 20MG INJ) 5 mg Q6H PRN IV For:SBP above 160;DBP above 90 11/05/25 15:30 12/05/25 15:29 Hydralazine HCl (APRESOLine 20MG INJ) 10 mg Q6H PRN IV For:SBP above 160;DBP above 90 11/04/25 21:30 11/05/25 10:07 DC Hydromorphone HCl (DiLAUDid 0.5MG INJ) 0.25 mg Q4H PRN IVP SEVERE PAIN (7-10) 11/04/25 21:30 11/05/25 16:36 DC 11/05/25 15:15 0.25 MG Hydromorphone HCl (DiLAUDid 0.5MG INJ) 0.5 mg Q4H PRN IVP SEVERE PAIN (7-10) 11/05/25 17:30 11/10/25 17:29 11/07/25 05:02 0.5 MG Insulin Human Regular (humuLIN R 100 UNIT/ML 3ML) INSULIN SLIDING SCAL... ACHS SQ 11/05/25 07:30 12/05/25 07:29 Ketorolac Tromethamine (toRADol) 15 mg Q6H PRN IV MODERATE PAIN (4-6) 11/05/25 12:30 11/05/25 12:11 DC Lactated Ringer's 1,000 ml @ 75 mls/hr [id number] IV 11/06/25 13:00 12/06/25 12:59 11/07/25 02:42 75 MLS/HR Magnesium Sulfate 50 ml @ 0 mls/hr PROTOCOL PRN IV low mag level 11/05/25 10:30 12/05/25 10:29 Metoprolol Tartrate (loprESSOR) 25 mg TID PO 11/06/25 18:00 12/06/25 17:59 11/07/25 10:15 25 MG Ondansetron HCl (zoFRAN 4MG INJ) 4 mg Q6H PRN IV NAUSEA/VOMITING 12/14/25 21:30 12/04/25 21:29 Piperacillin Sod/ Tazobactam Sod 50 ml @ 100 mls/hr STAT STAT IVPB 11/04/25 18:46 11/04/25 19:15 DC 11/04/25 19:56 100 MLS/HR Piperacillin Sod/ Tazobactam Sod (Zosyn 3.375gm+NS 50ml) 3.375 gm Q12H IV 11/05/25 07:00 11/15/25 06:59 11/07/25 05:03 3.375 GM Potassium Chloride 100 ml @ 50 mls/hr AD PRN IV POTASSIUM PROTOCOL 11/05/25 10:30 12/05/25 10:29 11/07/25 10:30 50 MLS/HR Potassium Chloride 100 ml @ 100 mls/hr AD PRN IV POTASSIUM PROTOCOL 11/05/25 10:30 11/05/25 12:10 DC Potassium Chloride (K-Dur/Klor-Con 20meq) 20 meq AD PRN PO POTASSIUM PROTOCOL 11/05/25 10:30 12/05/25 10:29 11/06/25 07:04 20 MEQ Potassium Chloride (KCl 10% Elixir 20meq/15ml) 20 meq AD PRN PO POTASSIUM PROTOCOL 11/05/25 10:30 12/05/25 10:29 Sodium Chloride 500 ml @ 0 mls/hr Q0M IV 11/07/25 02:30 12/07/25 02:29 Sodium Chloride 1,000 ml @ 100 mls/hr Q10H IV 11/04/25 21:30 11/06/25 13:01 DC 11/06/25 03:54 100 MLS/HR DIAGNOSTICS / RADIOLOGY: [ ] ASSESSMENT: Severe sepsis, POA, by clinical sepsis criteria heart rate 122, WBCs 23.2, lactic acid 5.4, source intra-abdominal Cholecystitis, POA Leukocytosis, POA Lactic acidosis, POA Hypokalemia, POA Acute kidney injury, POA, Uncontrolled Diabetes mellitius type2, POA Elevated total bilirubin, POA Transaminitis, POA Hypertension Hypothyroidism] [ ] PLAN: [ ] Admit patient to medical floor with tele IVF NS at 100 mL/hour continue to monitor kidney function worsening lease broker consulted. avoid NSAIDs Empiric antibiotic therapy with Zosyn renal dose: no fevers overnight Microbiology blood cultures so far negative urine cultures negative Imaging: MRCP, LFT slowly trending down. will monitor lft's General surgeon DR Campbell pending to reviewed MRCP, and cardiac clearance NPO status Continue with pain management for adequate pain control CBC CMP magnesium in a.m. Replace electrolytes as needed to keep potassium above 4.0 magnesium above 2.0. Avoid nephrotoxic agents when possible Renally dose all medications when possible Consider consulting Nephrology service if any worsening renal function or evidence of ATN. Continue a.c. HS monitoring with sliding scale coverage. Consider resuming home medications once they have been reconciled: GI prophylaxis, Protonix DVT prophylaxis, Emmanuel's and SCDs avoid anticoagulation at this time due to impending general surgery evaluation ATTESTATION BY PHYSICIAN I have seen and examined the patient. I reviewed the documentation, medical decision making, and treatment plan as noted by the mid-level provider above. I agree with the findings and plan of care. VIKTOR NARAYAN MD, [facility] Nov 07, 2025 12:09
--- NOTE | 2025-11-07 12:19 | CONS ---
NEPHROLOGY CONSULTATION DATE OF SERVICE: 11/06/2025 REASON FOR CONSULTATION: Renal failure . HISTORY OF PRESENT ILLNESS: The patient is a pleasant 75-year-old who has multiple medical problems. The patient has underlying hypertension, hyperlipidemia, hypothyroidism, anemia, fibromyalgia, coronary artery disease in the family who has obesity. The patient came with abdominal pain associated with nausea or vomiting. The patient has hiatal hernia present. No other associated findings. No other aggravating or relieving factor. The patient has abnormal EKG. The patient has multiple other comorbidities. No other associated findings. No other aggravating or relieving factors. The patient has shortness of breath. PAST MEDICAL HISTORY: Significant for as above, underlying hypertension, hypothyroidism, and fibromyalgia. PAST SURGICAL HISTORY: Pediatric surgery. FAMILY HISTORY: Negative for present contacts but has coronary artery disease. SOCIAL HISTORY: No smoking, alcohol, or drug abuse. ALLERGIES: PATIENT IS ALLERGIC TO CONTRAST. REVIEW OF SYSTEMS: CONSTITUTIONAL: Has been weak. No fevers, chills, or rigors. HEENT: No headache, oral ulcers, sore throat, or difficulty swallowing. RESPIRATORY: With no cough, expectoration, hemoptysis or pleuritic pain. CARDIOVASCULAR: No orthopnea or PND. GASTROINTESTINAL: As above. Abdominal pain present. GENITOURINARY: Negative for dysuria or hematuria. DERMATOLOGIC: With no other findings. NEUROLOGIC: No seizure or syncope. MUSCULOSKELETAL: No joint swelling, redness, or inflammation in the joint. The patient has planned for surgery. PHYSICAL EXAMINATION: GENERAL: Pale, sick-looking, lying in bed. VITAL SIGNS: Blood pressure is around 149/98, pulse 101, respiratory rate is 19. HEENT: Head is atraumatic and normocephalic. Pupils are round and reactive to light. Sclerae are anicteric. Conjunctivae not pale. Oral mucosa is not dry. NECK: Without mass or bruits. Thyroid is palpable. Neck has no bruits. CHEST: Shows equal thoracic percussion note being resonant in all areas. CARDIAC: Regular rhythm. No rub, no S3, no S4. No parasternal heaves. ABDOMEN: No guarding or tenderness. Bowel sounds are present. EXTREMITIES: With no edema, cyanosis, or clubbing. BACK: Without tenderness or back deformities. NEUROLOGIC: Unchanged. Nonfocal. No cranial nerve palsies. LYMPHATIC: With no lymph node swelling in neck and axillary area. LABORATORY DATA: CBC has shown white cell count 19.5. The patient's hemoglobin is 15.8. Chemistry was reviewed. The patient has elevated creatinine of 2.2, BUN of 36, sodium is 136, creatinine was 1.8 on admission and rapidly rising. IMAGING STUDIES: The patient has imaging studies reviewed. The patient has MRCP done with no acute findings, small ascites, and acute cholecystitis. The patient has abdominal pelvic CT done and has shown no evidence of hydronephrosis, gallbladder wall thickening, or acute cholecystitis. Calculus in the kidney is present on the left side. PROBLEMS: 1. This patient has acute renal failure. 2. The patient has abdominal pain. 3. Underlying hypertension. 4. Underlying leukocytosis. 5. Underlying hypothyroidism. 6. Abdominal pain and referred for bariatric surgery. 7. Sepsis, severe, secondary to cholecystitis most likely. 8. Hypokalemia. 9. Diabetes, uncontrolled. 10. Elevated liver enzyme. 11. Underlying hypertension. PLAN: 1. This patient is critically ill. 2. Followed by surgeon. 3. Urinalysis. 4. Urine electrolyte. 5. Continue hydration. 6. Antibiotic. Doses to be adjusted as needed. 7. IV Dilaudid for pain 0.5-6. 8. Nonsteroidal drugs to be avoided. 9. Labs, x-rays, and imaging studies personally reviewed. 10. I have discussed with the team physician. 11. Old record, external records were reviewed in detail. 12. The patient is being considered for abdominal surgery for persistent abdominal pain. Overall condition remains guarded, seen several times for most likely sepsis-related renal failure is present. Thank you for this challenging consultation and for allowing me to participate in the care of this patient. TID: [id number] RECEIPT: [id number]
--- NOTE | 2025-11-07 14:25 | PN ---
NEPHROLOGY PROGRESS NOTE Date/Time Patient Seen: Nov 07, 2025 SUBJECTIVE: The patient is a pleasant 75-year-old who has multiple medical problems. The patient has underlying hypertension, hyperlipidemia, hypothyroidism, anemia, fibromyalgia, coronary artery disease in the family who has obesity. The patient came with abdominal pain associated with nausea or vomiting. The patient has hiatal hernia present. No other associated findings. No other aggravating or relieving factor. The patient has abnormal EKG. The patient has multiple other comorbidities. No other associated findings. No other aggravating or relieving factors. The patient has shortness of breath. She was noted to have elevated BUN/creatinine We are consulted for renal failure Renal function is improving Electrolyte are stable. Pending further surgery recommendations. She was seen in the medical floor, in no acute distress REVIEW OF SYSTEMS: GENERAL: Negative for any nausea, vomiting, fevers, chills, or weight loss. NEUROLOGIC: Negative for any blurry vision, blind spots, double vision, facial asymmetry, dysphagia, dysarthria, hemiparesis, hemisensory deficits, vertigo, ataxia. HEENT: Negative for any head trauma, neck trauma, neck stiffness, photophobia, phonophobia, sinusitis, rhinitis. CARDIAC: Negative for any chest pain, dyspnea on exertion, paroxysmal nocturnal dyspnea, peripheral edema. PULMONARY: Negative for any shortness of breath, wheezing, COPD, or TB exposure. GASTROINTESTINAL: Negative for any abdominal pain, nausea, vomiting, bright red blood per rectum, melena. GENITOURINARY: Negative for any dysuria, hematuria, incontinence. INTEGUMENTARY: Negative for any rashes, cuts, insect bites. RHEUMATOLOGIC: Negative for any joint pains, photosensitive rashes, history of vasculitis or kidney problems. HEMATOLOGIC: Negative for any abnormal bruising, frequent infections or bleeding. Vital Signs (last 8hr) Date Time Temp Pulse Resp B/P (MAP) Pulse Ox O2 Delivery O2 Flow Rate FiO2 11/07/25 11:23 82 17 141/91 90 Nasal Cannula 3.0 11/07/25 08:15 74 18 N/A Room Air 21 11/07/25 08:12 97.3 72 17 114/60 95 Nasal Cannula 3.0 PHYSICAL EXAM: GENERAL: Alert and oriented x 3. No acute distress. Well-nourished. EYES: EOMI. Anicteric. HENT: Moist mucous membranes. No scleral icterus. No cervical lymphadenopathy. LUNGS: Clear to auscultation bilaterally. No accessory muscle use. CARDIOVASCULAR: Regular rate and rhythm. No murmur. No JVD. ABDOMEN: Soft, non-tender and non-distended. No palpable masses. EXTREMITIES: No edema. Non-tender. SKIN: No rashes or lesions. Warm. NEUROLOGIC: No focal neurological deficits. CN II-XII grossly intact, but not individually tested. PSYCHIATRIC: Cooperative. Appropriate mood and affect. Current Medications Medications (Trade) Dose Ordered Sig/Gerber Route PRN Reason Start Time Stop Time Status Last Admin Dose Admin Hydralazine HCl (APRESOLine 20MG INJ) 5 mg Q6H PRN IV For:SBP above 160;DBP above 90 11/05/25 15:30 12/05/25 15:29 Hydralazine HCl (APRESOLine 20MG INJ) 10 mg Q6H PRN IV For:SBP above 160;DBP above 90 11/04/25 21:30 11/05/25 10:07 DC Hydromorphone HCl (DiLAUDid 0.5MG INJ) 0.25 mg Q4H PRN IVP SEVERE PAIN (7-10) 11/04/25 21:30 11/05/25 16:36 DC 11/05/25 15:15 0.25 MG Hydromorphone HCl (DiLAUDid 0.5MG INJ) 0.5 mg Q4H PRN IVP SEVERE PAIN (7-10) 11/05/25 17:30 11/10/25 17:29 11/07/25 13:01 0.5 MG Insulin Human Regular (humuLIN R 100 UNIT/ML 3ML) INSULIN SLIDING SCAL... ACHS SQ 11/05/25 07:30 12/05/25 07:29 Ketorolac Tromethamine (toRADol) 15 mg Q6H PRN IV MODERATE PAIN (4-6) 11/05/25 12:30 11/05/25 12:11 DC Lactated Ringer's 1,000 ml @ 75 mls/hr [id number] IV 11/06/25 13:00 12/06/25 12:59 11/07/25 02:42 75 MLS/HR Magnesium Sulfate 50 ml @ 0 mls/hr PROTOCOL PRN IV low mag level 11/05/25 10:30 12/05/25 10:29 Metoprolol Tartrate (loprESSOR) 25 mg TID PO 11/06/25 18:00 12/06/25 17:59 11/07/25 10:15 25 MG Ondansetron HCl (zoFRAN 4MG INJ) 4 mg Q6H PRN IV NAUSEA/VOMITING 11/04/25 21:30 12/04/25 21:29 Piperacillin Sod/ Tazobactam Sod 50 ml @ 100 mls/hr STAT STAT IVPB 11/04/25 18:46 11/04/25 19:15 DC 11/04/25 19:56 100 MLS/HR Piperacillin Sod/ Tazobactam Sod (Zosyn 3.375gm+NS 50ml) 3.375 gm Q12H IV 11/05/25 07:00 11/15/25 06:59 11/07/25 05:03 3.375 GM Potassium Chloride 100 ml @ 50 mls/hr AD PRN IV POTASSIUM PROTOCOL 11/05/25 10:30 12/05/25 10:29 11/07/25 10:30 50 MLS/HR Potassium Chloride 100 ml @ 100 mls/hr AD PRN IV POTASSIUM PROTOCOL 11/05/25 10:30 11/05/25 12:10 DC Potassium Chloride (K-Dur/Klor-Con 20meq) 20 meq AD PRN PO POTASSIUM PROTOCOL 11/05/25 10:30 12/05/25 10:29 11/06/25 07:04 20 MEQ Potassium Chloride (KCl 10% Elixir 20meq/15ml) 20 meq AD PRN PO POTASSIUM PROTOCOL 11/05/25 10:30 12/05/25 10:29 Sodium Chloride 500 ml @ 0 mls/hr Q0M IV 11/07/25 02:30 12/07/25 02:29 Sodium Chloride 1,000 ml @ 100 mls/hr Q10H IV 11/04/25 21:30 11/06/25 13:01 DC 11/06/25 03:54 100 MLS/HR LABORATORY: [ ] Hematology Labs: Test 11/07/25 05:18 Range/Units White Blood Count 13.9 #H 4.8-10.8 K/uL Red Blood Count 4.83 4.00-5.50 MIL/uL Hemoglobin 13.7 12.0-16.0 g/dL Hematocrit 41.5 36-48 % Mean Corpuscular Volume 85.9 79-99 fL Mean Corpuscular Hemoglobin 28.4 27.0-33.0 pg Mean Corpuscular Hemoglobin Concent 33.0 32.0-36.0 g/dL Red Cell Distribution Width 14.5 11.0-15.5 % Platelet Count 153 130-400 K/uL Mean Platelet Volume 11.7 H 7.5-10.5 fL Immature Granulocyte % (Auto) 1.0 0-1 % Neutrophils (%) (Auto) 84.4 H 40.0-77.0 % Lymphocytes (%) (Auto) 5.3 L 21.0-51.0 % Monocytes (%) (Auto) 9.0 3.0-13.0 % Eosinophils (%) (Auto) 0.1 0.0-8.0 % Basophils (%) (Auto) 0.2 0.0-5.0 % Neutrophils # (Auto) 11.7 H 1.8-7.7 K/uL Lymphocytes # (Auto) 0.7 L 1.0-4.8 K/uL Monocytes # (Auto) 1.3 H 0.1-1.0 K/uL Eosinophils # (Auto) 0.02 0.00-0.70 K/uL Basophils # (Auto) 0.03 0.00-0.20 K/uL Absolute Immature Granulocyte (auto 0.14 0-1 K/uL Nucleated Red Blood Cells 0.0 0.0-0.19 % Chemistry Labs: Test 11/07/25 10:46 11/07/25 05:18 11/06/25 11:12 Range/Units Whole Blood Glucose 73 70-110 MG/DL Sodium Level 134 L 136-145 mmol/L Potassium Level 3.5 3.5-5.1 mmol/L Chloride Level 105 101-111 mmol/L Carbon Dioxide Level 23 21-32 mmol/L Blood Urea Nitrogen 38 H 7-18 mg/dL Creatinine 1.8 H 0.5-1.0 mg/dL Glomerular Filtration Rate Calc 29 >90 mL/min Random Glucose 82 70-105 mg/dL Uric Acid 6.9 2.6-7.2 mg/dL Total Calcium 8.6 8.5-10.1 mg/dL Phosphorus Level 2.4 L 2.5-4.9 mg/dL Magnesium Level 2.00 1.80-2.40 mg/dL Total Bilirubin 2.0 #H 0.2-1.0 mg/dL Aspartate Amino Transf (AST/SGOT) 127 H 10-37 U/L Alanine Aminotransferase (ALT/SGPT) 157 #H 12-78 U/L Alkaline Phosphatase 115 # 50-136 U/L Total Protein 5.7 L 6.0-8.3 g/dL Albumin 2.1 L 3.5-5.0 g/dL Troponin I High Sensitivity 31 4-50 ng/L B-Type Natriuretic Peptide 42 0-100 pg/mL DIAGNOSTICS / RADIOLOGY: [place] [address] [address] IMAGING REPORT Signed PATIENT: JOE EM MR#: [id number] : 1950 SEX: F AGE: 75 LOCATION: [facility] ORDER 1214 STATUS: ADM IN REPORT#: [id number] SERVICE 1212 REASON: rule out cholecystitis. ORDERING PHYSICIAN: ANGELICA PRIETO PROCEDURE: MRCP WO - MRCP(ABDWO)CHOLANGIOPANCREATOG EXAMINATION: MR Cholangiopancreatography (MRCP) without intravenous contrast. CLINICAL HISTORY: Rule out cholecystitis. TECHNIQUE: Multiplanar, multisequence MR images of the upper abdomen were acquired without intravenous contrast. Heavily T2-weighted 3D acquisitions and maximum intensity projections were generated for cholangiopancreatography. CONTRAST: No intravenous contrast. COMPARISON: CT abdomen and pelvis without contrast, dated November 04, 2025. FINDINGS: LIVER: The liver measures 19 cm with fatty infiltration. A cyst measuring 1.7 x 1.8 cm is present in segment IV of the left lobe. Another tiny cyst is present in segment II of the left lobe. GALLBLADDER AND BILIARY SYSTEM: The gallbladder demonstrates thickened muller predominantly in the fundal region, measuring up to 0.8 cm, with minimal fluid around the fundus and surrounding pericholecystic fat stranding suggestive of acute cholecystitis. No obvious filling defects to suggest calculi. The common bile duct measures 0.8 cm in diameter. No choledocholithiasis. PANCREAS: Normal caliber main pancreatic duct. Normal pancreatic parenchyma signal intensity. No mass or fluid collection. SPLEEN: Unremarkable. ADRENAL GLANDS: Unremarkable. KIDNEYS: Left parapelvic renal cysts. No hydronephrosis. OTHER: Small ascites. Small bilateral pleural effusions with probable bilateral basal atelectasis. IMPRESSION: 1. Findings suggestive of acute cholecystitis. 2. Small ascites. 3. Small bilateral pleural effusions with probable bilateral basal atelectasis. The findings are similar to those of the CT abdomen and pelvis without contrast, dated November 04, 2025, with limitations inherent to the modality. /[place] DICTATED BY: JASON ARNOLD Jr., MD DATE: 11/06/252249 ELECTRONICALLY SIGNED BY: JASON ARNOLD Jr., MD DATE: 11/06/252249 PATIENT: JOE EM MR#: [id number] : 1950 SEX: F AGE: 75 LOCATION: [facility] ORDER 1042 STATUS: ADM IN REPORT#: [id number] SERVICE 1037 REASON: shortness of breath ORDERING PHYSICIAN: LISSETH LANDRY PROCEDURE: ECHO CMP - ECHO 2-D COMPLETE APPROVED REPORT EXAM: Two-dimensional and M-mode echocardiogram with Doppler and color Doppler. INDICATION ICD: shortness of breath 2D Dimensions RVDd 3.2 cm LVEF(%) 81.4 (>50%) LVED Vol(simp.) 38.0 mL IVSd 1.1 (0.7-1.1cm) FS(%) 49 % LVES Vol(simp.) 13.0 mL LVDd 3.4 (3.8-5.6cm) LA (2D) 3.5 (1.6-4.0cm) LVEF(%, simp.) 64 % PWd 1.1 (0.7-1.1cm) Ao Root(2D) 3.1 (2.0-3.7cm) LA ESV INDEX (4CH) 19.00 mL/m2 LVDs 1.7 (2.5-4.0cm) LVOT diam 1.9 (1.8-2.4cm) M-Mode Dimensions EPSS 1.6 cm LA (MM) 3.7 (1.6-4.0cm) Ao Root(MM) 2.9 (2.0-3.7cm) Aortic Valve AoV Vmax 1.4 m/s Ao Peak GR 7.8 mmHg LVOT Vmax 1.3 m/s AoV VTI 0.2 m Ao Mean GR 5.0 mmHg LVOT VTI 0.16 m BRIGETTE (VMAX) 2.72 cm2 BRIGETTE (VTI) 3.1 cm2 Mitral Valve MV E Vmax 44.9 cm/s DECEL Time 174 ms MV A Vmax 56.0 cm/s P 1/2 T 30 ms E/A ratio 0.8 MVA (PHT) 7.2 cm2 TDI E/E' Medial 10.3 E/E' Lateral 4.4 Medial E' Peak V 4.34 cm/s Lateral E' Peak V 10.20 cm/s Pulmonary Valve PV Vmax 1.4 m/s PV VTI 0.11 m PV Mean GR 3.0 mmHg PV Peak GR 7.6 mmHg Left Ventricle Left ventricular cavity size is normal. There is normal LV segmental wall motion. Moderate concentric LVH. LVEF is 60-65%. The left ventricular diastolic function is normal. Right Ventricle The right ventricle is normal size. Right ventricular systolic function is mildly to moderately reduced. Atria The left atrium size is normal. The right atrium size is normal. Aortic Valve The aortic valve is normal in structure and function. No aortic regurgitation is present. There is no aortic valvular stenosis. Mitral Valve The mitral valve is normal in structure and function. There is no mitral valve regurgitation noted. There is no mitral valve stenosis. Tricuspid Valve The tricuspid valve is normal in structure and function. There is no tricuspid valve regurgitation noted. Pulmonic Valve The pulmonary valve is normal in structure and function. There is no pulmonic valvular regurgitation. Great Vessels The aortic root is normal in size. Pericardium Trace pericardial effusion. Other Information Quality : Technically Limited Technically limited study due to body habitus.Patient could not be placed onto left side. Conclusion Moderate concentric LVH. There is normal LV segmental wall motion. There is normal LV segmental wall motion. LVEF is 60-65%. The left ventricular diastolic function is normal. The aortic valve is normal in structure and function. The mitral valve is normal in structure and function. Trace pericardial effusion. DICTATED BY: JERRY CLINTON MD DATE: 11/06/25 1323 ELECTRONICALLY SIGNED BY: JERRY CLINTON MD DATE: 11/06/25 2310 PATIENT: JOE EM MR#: [id number] : 1950 SEX: F AGE: 75 LOCATION: [facility] ORDER 1042 [facility] REPORT#: [id number] SERVICE 1037 REASON: shortness of breath ORDERING PHYSICIAN: LISSETH LANDRY PROCEDURE: CXR1VW - CHEST 1VW EXAM: CR CHEST, 1 VIEW CLINICAL HISTORY: shortness of breath. COMPARISON: XR study dated 11/04/2025. TECHNIQUE: Single frontal radiograph of the chest was obtained. FINDINGS: Lines/Devices: None. Lungs: The study is significantly limited by poor inspiration with consequent elevation of the diaphragm and decreased lung expansion. Associated right lung middle zonal thick atelectasis. The rest of the visualized lungs are clear with no acute pulmonary infiltrates or masses. No consolidation or ground-glass opacities are observed. There is no pleural effusion. There is no pneumothorax. Mediastinum and cardiovascular structures: There are calcific atherosclerotic plaques in the aorta. Aortic knob calcification. Unfolding of the aorta. The rest of the cardiac and mediastinal outlines are not adequately visualized. Bones and soft tissues: No acute osseous abnormality. IMPRESSION: 1. Significantly limited study due to poor inspiration. 2. Right lung middle zonal thick atelectasis; not depicted in the X-ray study dated 11/04/2025, otherwise, no significant time interval changes. 3. Aortic knob calcification and unfolding of the aorta. /[place] DICTATED BY: MADIE MARINELLI MD DATE: 11/07/25 0141 ELECTRONICALLY SIGNED BY: MADIE MARINELLI MD DATE: 11/07/25140 PATIENT: JOE EM MR#: [id number] : 1950 SEX: F AGE: 75 LOCATION: H ORDER 08 STATUS: ADM IN REPORT#: [id number] SERVICE 00 REASON: pre procedural ORDERING PHYSICIAN: KALA ANDERSON BAND SHOVER PROCEDURE: CXR1VW - CHEST 1VW EXAM: CR Chest, 1 View. CLINICAL HISTORY: pre procedural COMPARISON: None provided. FINDINGS: The study is significantly limited by poor inspiration. Within limited visualized lungs, no acute pulmonary infiltrates or masses. Aortic knob calcification. Unfolding of the aorta. The rest of the cardiac and mediastinal outlines are not adequately visualized. No acute osseous abnormality. IMPRESSION: No acute cardiopulmonary pathology. /[place] DICTATED BY: JASON ARNOLD Jr., MD DATE: 11/05/25657 ELECTRONICALLY SIGNED BY: JASON ARNOLD Jr., MD DATE: 11/05/25657 PATIENT: JOE EM MR#: [id number] : 1950 SEX: F AGE: 75 LOCATION: ED ORDER 23 STATUS: REG ER REPORT#: [id number] SERVICE 21 REASON: ABD PAIN ORDERING PHYSICIAN: [place] BAND SHOVER PROCEDURE: ABD PEL WO - CT ABDOMEN/PELVIS W/O CONTRAST EXAM: CT Abdomen and Pelvis Without IV contrast CLINICAL HISTORY: Patient presents with abdominal pain. TECHNIQUE: Axial computed tomography images of the abdomen and pelvis without intravenous contrast. CONTRAST: No IV contrast. COMPARISON: None provided. FINDINGS: LUNG BASES: The lung bases appear clear. No pleural effusions are seen. The right hemidiaphragm is elevated. LIVER: The liver demonstrates diffuse hepatic steatosis. The liver measures 18.3 cm in craniocaudal span. GALLBLADDER AND BILE DUCTS: The gallbladder demonstrates diffuse wall thickening up to 1.2 cm with pericholecystic fat stranding concerning for acute cholecystitis. No radioopaque gallstones are seen. No biliary ductal dilatation is evident. PANCREAS: Unremarkable. SPLEEN: Unremarkable. ADRENAL GLANDS: Unremarkable. KIDNEYS, URETERS, AND BLADDER: The kidneys appear within normal limits except for a 0.7 cm calculus in the right lower calyx and a left parapelvic cyst. There is no hydronephrosis or hydroureter. No urinary calculi are seen in the left kidney or ureters. STOMACH AND BOWEL: Unremarkable appearance of the stomach and bowel except for occasional colonic diverticulosis without evidence of diverticulitis. No evidence of bowel obstruction. No evidence suggesting enteritis or colitis. APPENDIX: No evidence of acute appendicitis on CT examination. PERITONEUM: Small hiatal hernia. No free fluid. No free air. LYMPH NODES: No lymphadenopathy is evident. REPRODUCTIVE: The uterus is surgically absent. Unremarkable as visualized otherwise. VASCULATURE: No evidence of abdominal aortic aneurysm. BONES: Multilevel moderate degenerative changes in the spine. No aggressive appearing osseous lesion. No acute osseous pathology evident. IMPRESSION: Diffuse gallbladder wall thickening with pericholecystic fat stranding concerning for acute cholecystitis. Diffuse hepatic steatosis with hepatomegaly (18.3 cm craniocaudal span). 0.7 cm right renal calculus in the lower calyx. /[place] DICTATED BY: JARVIS WOLFF MD DATE: 11/04/252045 ELECTRONICALLY SIGNED BY: JARVIS WOLFF MD DATE: 11/04/252045 ASSESSMENT: Acute renal failure Abdominal pain Severe sepsis Cholecystitis Leukocytosis Lactic acidosis Hypokalemia Uncontrolled Diabetes mellitus type2 Elevated total bilirubin Transaminitis Hypertension Hypothyroidism PLAN: Labs, diagnostic, radiologic exams reviewed and interpreted by myself and supervising physician. We have reviewed external records in detail Pending UA, urine electrolytes, urine creatinine osmolality. Require close monitoring of renal function and electrolytes Order CBC, CMP, and electrolytes in am Continue with antibiotics Renal diabetic diet BiPAP as necessary, for respiratory distress Monitor blood pressure adjust medication doses as needed Avoid hypotensive episodes May use Dilaudid 0.5 mg IV every 6 hours as needed for severe pain Monitor blood sugars Strict intake, output, and daily weight should be monitored Please renally adjust medications Avoid nephrotoxic and nonsteroidal drugs Avoid contrast if possible Will continue to monitor renal function, anemia, electrolytes Treatment plan discussed with patient Questions were answered We have discussed with the other team physicians in detail about the care plan We will continue to monitor the patient closely ATTESTATION BY PHYSICIAN I have seen and examined the patient. I reviewed the documentation, medical decision making, and treatment plan as noted by the mid-level provider above. I agree with the findings and plan of care. MANUEL KARIMI MD, [facility] Nov 07, 2025 14:25
--- NOTE | 2025-11-07 18:34 | NUR ---
DR ANDUJAR AT BEDSIDE: RECOMMENDING PERCUTANEOUS CHOLECYSTOSTOMY TUBE PLACEMENT. IF IR UNAVAILABLE WOULD LIKE TO TRANSFER PATIENT FOR PROCEDURE.
--- NOTE | 2025-11-07 18:59 | PN ---
Patient has been follow for upper abdominal pain possible cholecystitis. The patient is complicated 75-year-old female morbidly obese with multiple comorbidities. I have discussions with Cardiology yesterday were they indicated to me that the patient had diffuse peritonitis and needed to go to the operating room. This was very different from her examination during the day. Overall patient is feeling better. White count is improving she is only 39 from initially was [place] [id number]. She has acute renal failure that has not worsening. She is still have upper abdominal pain more in the right side. I recommended a MRI because of elevation of the bilirubin and the result was come consistent with cholecystitis. The patient has not been completely evaluated by Cardiology and they have estimated that she is cleared for emergency surgery. I do not think that clearance is necessary for an emergency surgery but certainly she does not need one today. I have recommended a to the nursing staff the patient needs a cholecystostomy tube. It is my understanding that there is no interventional radiology tomorrow or the next few days, therefore I suggest the patient should be transferred to an institution where there is interventional radiologist. I have explained that to the patient. The percutaneous cholecystostomy we will be to improve and temporize this issue. Eventually she will need to have that removed with the gallbladder if possible. This will allow time for her to have her cardiac condition better evaluated. I have instructed the nurses to reach to the primary team with my recommendation Vitals/Labs Vital Signs Date Time Temp Pulse Resp B/P (MAP) Pulse Ox O2 Delivery O2 Flow Rate FiO2 11/07/25 15:45 100 17 156/90 91 Room Air 11/07/25 11:23 3.0 11/07/25 08:15 21 11/07/25 08:12 97.3 Laboratory Tests 11/07/25 05:18 GERMAINE ANDUJAR MD Nov 07, 2025 18:59
[2025-11-07 21:19] LABS: APPEARANCE,URINE CLOUDY (CLEAR); GLUCOSE, URINE (UA) NEGATIVE (NEGATIVE); LEUKOCYTE ESTERASE ,URINE NEGATIVE Leu/uL (NEGATIVE); NITRATE,URINE NEGATIVE (NEGATIVE); OCCULT BLOOD,URINE MODERATE (NEGATIVE)
[2025-11-07 21:22] LABS: ADD UA MICROSCOPIC YES
[2025-11-07 21:23] LABS: CREATININE,URINE RANDOM 124.09 mg/dL (30-135); PROTEIN,URINE RANDOM 95.7 mg/dL (0-11.9)
[2025-11-07 21:25] LABS: CALCIUM OXALATE CRYSTALS,UR RARE /LPF (None Seen); SQUAMOUS EPITHELIAL CELL,UR FEW /HPF (0-2); YEAST,URINE BUDDING RARE /HPF (None Seen)
[2025-11-08] VITALS (19 sets, daily range): BP systolic 99–145; BP diastolic 54–117; PULSE 78–130; RESP 17–22; TEMP 96.6–97.8; O2SAT 94–98
[2025-11-08] MEDS ORDERED: 0.9% NACL 500ML IV.SOLN 500 ML IV SCH (00:30)
[2025-11-08] MEDS: 0.9% NACL 500ML IV.SOLN 500 ML IV SCH (00:32)
[2025-11-08 06:07] LABS: IMMATURE GRANULOCYTE ABSOLUTE 0.17 K/uL (0-1); NUCLEATED RED BLOOD CELLS 0.0 % (0.0-0.19); PLATELET COUNT (AUTO) 160 K/uL (130-400); RED BLOOD CELL COUNT(AUTO) 4.82 MIL/uL (4.00-5.50); RED CELL DISTRIBUTION WIDTH 14.4 % (11.0-15.5); WHITE BLOOD COUNT (AUTO) 12.9 K/uL (4.8-10.8)
[2025-11-08 06:27] LABS: ASPARTATE AMINOTRANSFERASE 104.0 U/L (10-37); CREATININE 1.4 mg/dL (0.5-1.0); GLOMERULAR FILTR. RATE CALC 39.0 mL/min (>90); GLUCOSE,RANDOM 84.0 mg/dL (70-105); SODIUM SERUM 140.0 mmol/L (136-145); TOTAL PROTEIN, SERUM 6.3 g/dL (6.0-8.3); UREA NITROGEN, BLOOD 30.0 mg/dL (7-18)
--- NOTE | 2025-11-08 08:51 | PN ---
PROGRESS NOTE PROBLEM LIST: Acute cholecystitis Morbid obesity Hypertension hypertensive heart disease Possible paroxysmal atrial fibrillation per patient history Preserved left ventricular function via 2D echocardiography on this admission INTERIM HISTORY OF PRESENT ILLNESS: Patient did have an MRCP performed yesterday consistent with acute cholecystitis. REVIEW OF SYSTEMS: No fever, headache, chest pain, abdominal pain, nausea, vomiting, or diarrhea. VITAL SIGNS Vital Signs Date Time Temp Pulse Resp B/P (MAP) Pulse Ox O2 Delivery O2 Flow Rate FiO2 11/08/25 04:22 140 11/08/25 04:00 97.5 22 120/80 97 Nasal Cannula 2.0 11/07/25 20:00 28 Laboratory Tests 11/08/25 06:03 LABS/MEDS Laboratory Tests Test 11/07/25 10:46 11/07/25 14:55 11/07/25 19:00 11/07/25 19:23 Whole Blood Glucose 73 MG/DL (70-110) 78 MG/DL (70-110) 76 MG/DL (70-110) Urine Color YELLOW (YELLOW) Urine Appearance CLOUDY (CLEAR) H Urine pH 6.0 (5.0-8.0) Urine Specific [place] 1.020 (1.001-1.031) Urine Protein 30 mg/dL (NEGATIVE) H Urine Glucose (UA) NEGATIVE mg/dL (NEGATIVE) Urine Ketones 10 mg/dL (NEGATIVE) H Urine Occult Blood MODERATE (NEGATIVE) H Urine Nitrate NEGATIVE (NEGATIVE) Urine Bilirubin NEGATIVE mg/dL (NEGATIVE) Urine Urobilinogen 0.2 mg/dL (0.2-1.0) Urine Leukocyte Esterase NEGATIVE Shanta/uL Urine RBC 2-5 /HPF (0-1) H Urine WBC 2-5 /HPF (0-1) H Urine Squamous Epithelial Cells FEW /HPF (0-2) Urine Calcium Oxalate Crystals RARE /LPF (None Seen) Urine Bacteria None /HPF (None Seen) Urine Yeast RARE /HPF (None Seen) Urine Random Creatinine 124.09 mg/dL (30-135) Urine Random Total Protein 95.7 mg/dL (0-11.9) H Urine Random Sodium 15 mmol/l (40-220) L Urine Random Potassium 29 mmol/L (25-125) Urine Random Chloride 51 mmol/L (110-250) L Test 11/08/25 00:47 11/08/25 05:35 11/08/25 06:03 Whole Blood Glucose 94 MG/DL (70-110) 89 MG/DL (70-110) White Blood Count 12.9 K/uL (4.8-10.8) H Red Blood Count 4.82 MIL/uL (4.00-5.50) Hemoglobin 13.7 g/dL (12.0-16.0) Hematocrit 41.5 % (36-48) Mean Corpuscular Volume 86.1 fL (79-99) Mean Corpuscular Hemoglobin 28.4 pg (27.0-33.0) Mean Corpuscular Hemoglobin Concent 33.0 g/dL (32.0-36.0) Red Cell Distribution Width 14.4 % (11.0-15.5) Platelet Count 160 K/uL (130-400) Mean Platelet Volume 11.5 fL (7.5-10.5) H Immature Granulocyte % (Auto) 1.3 % (0-1) H Neutrophils (%) (Auto) 77.9 % (40.0-77.0) H Lymphocytes (%) (Auto) 7.7 % (21.0-51.0) L Monocytes (%) (Auto) 11.6 % (3.0-13.0) Eosinophils (%) (Auto) 1.0 % (0.0-8.0) Basophils (%) (Auto) 0.5 % (0.0-5.0) Neutrophils # (Auto) 10.0 K/uL (1.8-7.7) H Lymphocytes # (Auto) 1.0 K/uL (1.0-4.8) Monocytes # (Auto) 1.5 K/uL (0.1-1.0) H Eosinophils # (Auto) 0.13 K/uL (0.00-0.70) Basophils # (Auto) 0.06 K/uL (0.00-0.20) Absolute Immature Granulocyte (auto 0.17 K/uL (0-1) Nucleated Red Blood Cells 0.0 % (0.0-0.19) Sodium Level 140 mmol/L (136-145) Potassium Level 3.4 mmol/L (3.5-5.1) L Chloride Level 106 mmol/L (101-111) Carbon Dioxide Level 24 mmol/L (21-32) Blood Urea Nitrogen 30 mg/dL (7-18) H Creatinine 1.4 mg/dL (0.5-1.0) H Glomerular Filtration Rate Calc 39 mL/min (>90) Random Glucose 84 mg/dL (70-105) Total Calcium 9.2 mg/dL (8.5-10.1) Magnesium Level 2.20 mg/dL (1.80-2.40) Total Bilirubin 1.2 mg/dL (0.2-1.0) H Aspartate Amino Transf (AST/SGOT) 104 U/L (10-37) H Alanine Aminotransferase (ALT/SGPT) 134 U/L (12-78) H Alkaline Phosphatase 160 U/L (50-136) H Total Protein 6.3 g/dL (6.0-8.3) Albumin 1.9 g/dL (3.5-5.0) L Current Medications Sodium Chloride 1,000 ml @ 0 mls/hr ONCE ONCE IV; Start 11/04/25 at 18:30; Stop 11/04/25 at 18:48; Status DC Ondansetron HCl 4 mg ONCE ONCE IVP Last administered on 11/04/25at 18:49; Start 11/04/25 at 18:30; Stop 11/04/25 at 18:31; Status DC Pantoprazole Sodium 40 mg ONCE ONCE IVP Last administered on 11/04/25at 18:49; Start 11/04/25 at 18:30; Stop 11/04/25 at 18:31; Status DC Morphine Sulfate 4 mg ONCE ONCE IVP Last administered on 11/04/25at 18:49; Start 11/04/25 at 18:30; Stop 11/04/25 at 18:31; Status DC Piperacillin Sod/ Tazobactam Sod 50 ml @ 100 mls/hr STAT STAT IVPB Last administered on 11/04/25at 19:56; Start 11/04/25 at 18:46; Stop 11/04/25 at 19:15; Status DC Sodium Chloride 1,641 ml @ 547 mls/hr ONCE ONCE IV Last administered on 11/04/25at 19:49; Start 11/04/25 at 19:00; Stop 11/04/25 at 21:59; Status DC Potassium Bicarbonate 25 meq ONCE ONCE PO Last administered on 11/04/25at 19:56; Start 11/04/25 at 19:30; Stop 11/04/25 at 19:31; Status DC Morphine Sulfate 2 mg ONCE ONCE IVP Last administered on 11/04/25at 21:12; Start 11/04/25 at 21:00; Stop 11/04/25 at 21:01; Status DC Sodium Chloride 1,000 ml @ 100 mls/hr Q10H IV Last administered on 11/06/25at 03:54; Start 11/04/25 at 21:30; Stop 11/06/25 at 13:01; Status DC Piperacillin Sod/ Tazobactam Sod 3.375 gm Q12H IV Last administered on 11/08/25at 06:42; Start 11/05/25 at 07:00; Stop 11/15/25 at 06:59 Insulin Human Regular INSULIN SLIDING SCAL... ACHS SQ; Start 11/05/25 at 07:30; Stop 12/05/25 at 07:29 Hydromorphone HCl 0.25 mg Q4H PRN IVP Last administered on 11/05/25at 15:15; Start 11/04/25 at 21:30; Stop 11/05/25 at 16:36; Status DC Hydralazine HCl 10 mg Q6H PRN IV; Start 11/04/25 at 21:30; Stop 11/05/25 at 10:07; Status DC Ondansetron HCl 4 mg Q6H PRN IV; Start 11/04/25 at 21:30; Stop 12/04/25 at 21:29 Hydromorphone HCl 0.25 mg ONCE ONCE IVP Last administered on 11/05/25at 02:49; Start 11/05/25 at 03:00; Stop 11/05/25 at 03:01; Status DC Hydralazine HCl 5 mg Q6H PRN IV; Start 11/05/25 at 15:30; Stop 12/05/25 at 15:29 Magnesium Sulfate 50 ml @ 0 mls/hr PROTOCOL PRN IV; Start 11/05/25 at 10:30; Stop 12/05/25 at 10:29 Potassium Chloride 100 ml @ 50 mls/hr AD PRN IV Last administered on 11/07/25at 10:30; Start 11/05/25 at 10:30; Stop 12/05/25 at 10:29 Potassium Chloride 100 ml @ 100 mls/hr AD PRN IV; Start 11/05/25 at 10:30; Stop 11/05/25 at 12:10; Status DC Potassium Chloride 20 meq AD PRN PO; Start 11/05/25 at 10:30; Stop 12/05/25 at 10:29 Potassium Chloride 20 meq AD PRN PO Last administered on 11/06/25at 07:04; Start 11/05/25 at 10:30; Stop 12/05/25 at 10:29 Ketorolac Tromethamine 15 mg Q6H PRN IV; Start 11/05/25 at 12:30; Stop 11/05/25 at 12:11; Status DC Hydromorphone HCl 0.5 mg Q4H PRN IVP Last administered on 11/08/25at 01:06; Start 11/05/25 at 17:30; Stop 11/10/25 at 17:29 Metoprolol Tartrate 5 mg ONCE ONCE IV Last administered on 11/06/25at 13:57; Start 11/06/25 at 13:00; Stop 11/06/25 at 13:03; Status DC Potassium Chloride 100 ml @ 50 mls/hr ONCE ONCE IV Last administered on 11/06/25at 13:57; Start 11/06/25 at 13:00; Stop 11/06/25 at 14:59; Status DC Lactated Ringer's 1,000 ml @ 75 mls/hr [id number] IV Last administered on 11/07/25at 02:42; Start 11/06/25 at 13:00; Stop 12/06/25 at 12:59 Metoprolol Tartrate 25 mg TID PO Last administered on 11/07/25at 20:32; Start 11/06/25 at 18:00; Stop 12/06/25 at 17:59 Sodium Chloride 500 ml @ 0 mls/hr Q0M IV Last administered on 11/08/25at 00:32; Start 11/07/25 at 02:30; Stop 12/07/25 at 02:29 Sodium Chloride 500 ml @ 0 mls/hr Q0M IV; Start 11/08/25 at 00:30; Stop 12/08/25 at 00:29 Labetalol HCl 5 mg ONCE ONCE IV Last administered on 12/18/25at 00:33; Start 11/08/25 at 00:30; Stop 11/08/25 at 00:31; Status DC Labetalol HCl 5 mg ONCE ONCE IV Last administered on 11/08/25at 04:22; Start 11/08/25 at 04:30; Stop 11/08/25 at 04:32; Status DC PHYSICAL EXAMINATION: GENERAL: No acute distress. Morbidly obese HEENT: Normocephalic, atraumatic. CARDIAC: Positive S1 and S2 irregularly irregular tachycardic. No murmurs. LUNGS: Clear to auscultation bilaterally. ABDOMEN: Bowel sounds present, abdomen tender EXTREMITIES: No edema bilaterally. NEUROLOGIC: Cranial nerves 2-12 grossly intact. PSYCHIATRIC: Calm. TELEMETRY: Sinus rhythm converted to atrial fibrillation with variable response currently tachycardic ASSESSMENT: Preoperative cardiovascular assessment prior to noncardiac surgery Preserved left ventricular function via 2D echocardiography Atrial fibrillation with rapid ventricular response PLAN: This time patient should be considered intermediate risk to proceed with low risk operation to include cholecystectomy. However I would like to try and get the patient's heart rate under better control and I have increased her metoprolol to 50 mg p.o. t.i.d. and I will write for IV Lopressor currently. Patient will [id number] mg of IV Lopressor over the next 15-20 minutes and if heart rate is still tachycardic she should be moved to a telemetry unit where she can have a Cardizem drip initiated. We will continue to follow closely. BASSAM NARAYANAN MD Nov 08, 2025 08:51
--- NOTE | 2025-11-08 09:20 | NUR ---
NURSING NOTE. PATIENT NOTED TO HAVE ELEVATED HEART RATE. CARDIO WAS BY TO SEE HER AND GAVE ORDERS IF HEART RATE STAYED ELEVATED TO START PATIENT ON DRIP. 0940 PATIENTS HEART RATE STILL ELEVATED, PRIMARY AND CARDIO WERE NOTIFIED AND A ORDER TO BE STARTED ON A DRIP AND MOVED TO PCCU WAS OBTAINED .
--- NOTE | 2025-11-08 09:42 | PN ---
INFECTIOUS DISEASE PROGRESS NOTE Date of Service: Nov 08, 2025 SUBJECTIVE: This is a 75-year-old female patient admitted to the hospital for abdominal pain. On admission patient had a WBC of 23.2, lactic acid of 5.4 but no fever. Patient was also found on acute renal failure with BUN of 15 and creatinine of 1.8. An MRCP done yesterday confirmed findings of acute cholecystitis. Patient however requiring cardiac clearance for surgery due to AFib on admission. Today patient has been tachycardic in the 120s to 130s and will be transferred to PCCU for Cardizem drip. A urine culture collected on admission came back positive for lactobacillus species. Patient has been started on Zosyn IV. PHYSICAL EXAM EYES: Anicteric. Pupils equal and reactive. HENT: No oral thrush seen, moist Oral mucosa NECK: Supple, no JVD or thyromegaly. LUNGS: Good air entry. No rales, no rhonchi. CARDIOVASCULAR: S1, S2 regular. No murmur heard. ABDOMEN: Soft, non tender, bowel sounds present. Abdominal pain. CENTRAL NERVOUS SYSTEM: Awake, alert, oriented x 3. SKIN: No rashes, no swelling. LYMPHATICS: No peripheral lymphadenopathy MUSCULOSKELETAL: No joint swelling, erythema or tenderness. EXTREMITIES: No cyanosis or clubbing BACK: No deformity, no pressure ulcer. GENITOURINARY: No dysuria or hematuria Vital Sign (Last 12 Hours) 11/08/25 11/08/25 11/08/25 11/08/25 00:00 00:33 04:00 04:22 Temp 97.7 97.5 Pulse 101 113 130 140 Resp 21 22 B/P (MAP) 108/64 108/65 120/80 Pulse Ox 96 97 O2 Delivery Nasal Cannula Nasal Cannula O2 Flow Rate 2.0 2.0 11/08/25 11/08/25 11/08/25 11/08/25 08:00 09:02 09:11 09:21 Temp 97.9 Pulse 89 125 131 136 Resp 20 B/P (MAP) 114/84 114/84 114/84 114/89 Pulse Ox 98 Intake & Output (last 24hrs) 11/07/25 11/07/25 11/08/25 15:00 23:00 07:00 Intake Total 180.5 ml 50.0 ml Balance 180.5 ml 50.0 ml LABS: Laboratory: Test 11/08/25 06:03 11/08/25 05:35 11/07/25 19:00 11/07/25 05:18 Range/Units White Blood Count 12.9 H 4.8-10.8 K/uL Red Blood Count 4.82 4.00-5.50 MIL/uL Hemoglobin 13.7 12.0-16.0 g/dL Hematocrit 41.5 36-48 % Mean Corpuscular Volume 86.1 79-99 fL Mean Corpuscular Hemoglobin 28.4 27.0-33.0 pg Mean Corpuscular Hemoglobin Concent 33.0 32.0-36.0 g/dL Red Cell Distribution Width 14.4 11.0-15.5 % Platelet Count 160 130-400 K/uL Mean Platelet Volume 11.5 H 7.5-10.5 fL Immature Granulocyte % (Auto) 1.3 H 0-1 % Neutrophils (%) (Auto) 77.9 H 40.0-77.0 % Lymphocytes (%) (Auto) 7.7 L 21.0-51.0 % Monocytes (%) (Auto) 11.6 3.0-13.0 % Eosinophils (%) (Auto) 1.0 0.0-8.0 % Basophils (%) (Auto) 0.5 0.0-5.0 % Neutrophils # (Auto) 10.0 H 1.8-7.7 K/uL Lymphocytes # (Auto) 1.0 1.0-4.8 K/uL Monocytes # (Auto) 1.5 H 0.1-1.0 K/uL Eosinophils # (Auto) 0.13 0.00-0.70 K/uL Basophils # (Auto) 0.06 0.00-0.20 K/uL Absolute Immature Granulocyte (auto 0.17 0-1 K/uL Nucleated Red Blood Cells 0.0 0.0-0.19 % Sodium Level 140 136-145 mmol/L Potassium Level 3.4 L 3.5-5.1 mmol/L Chloride Level 106 101-111 mmol/L Carbon Dioxide Level 24 21-32 mmol/L Blood Urea Nitrogen 30 H 7-18 mg/dL Creatinine 1.4 H 0.5-1.0 mg/dL Glomerular Filtration Rate Calc 39 >90 mL/min Random Glucose 84 70-105 mg/dL Total Calcium 9.2 8.5-10.1 mg/dL Magnesium Level 2.20 1.80-2.40 mg/dL Total Bilirubin 1.2 H 0.2-1.0 mg/dL Aspartate Amino Transf (AST/SGOT) 104 H 10-37 U/L Alanine Aminotransferase (ALT/SGPT) 134 H 12-78 U/L Alkaline Phosphatase 160 H 50-136 U/L Total Protein 6.3 6.0-8.3 g/dL Albumin 1.9 L 3.5-5.0 g/dL Whole Blood Glucose 89 70-110 MG/DL Urine Color YELLOW YELLOW Urine Appearance CLOUDY H CLEAR Urine pH 6.0 5.0-8.0 Urine Specific [place] 1.020 1.001-1.031 Urine Protein 30 H NEGATIVE mg/dL Urine Glucose (UA) NEGATIVE NEGATIVE mg/dL Urine Ketones 10 H NEGATIVE mg/dL Urine Occult Blood MODERATE H NEGATIVE Urine Nitrate NEGATIVE NEGATIVE Urine Bilirubin NEGATIVE NEGATIVE mg/dL Urine Urobilinogen 0.2 0.2-1.0 mg/dL Urine Leukocyte Esterase NEGATIVE NEGATIVE Shanta/uL Urine RBC 2-5 H 0-1 /HPF Urine WBC 2-5 H 0-1 /HPF Urine Squamous Epithelial Cells FEW 0-2 /HPF Urine Calcium Oxalate Crystals RARE None Seen /LPF Urine Bacteria None None Seen /HPF Urine Yeast RARE None Seen /HPF Urine Random Creatinine 124.09 30-135 mg/dL Urine Random Total Protein 95.7 H 0-11.9 mg/dL Urine Random Sodium 15 L 40-220 mmol/l Urine Random Potassium 29 25-125 mmol/L Urine Random Chloride 51 L 110-250 mmol/L Uric Acid 6.9 2.6-7.2 mg/dL Phosphorus Level 2.4 L 2.5-4.9 mg/dL Test 11/06/25 20:35 11/06/25 11:12 Range/Units Blood Gas Specimen Type Arterial Arterial Blood pH 7.374 7.350-7.450 Arterial Blood Partial Pressure CO2 37 32-45 mmHg Arterial Blood Partial Pressure O2 64.5 L 83.0-108.0 mmHg Arterial Blood HCO3 21.0 21.0-28.0 mmol/L Arterial Blood Oxygen Saturation 93.4 L 94.0-98.0 % Arterial Blood Base Excess -3.6 L -2.0-3.0 mmol/L Hemoglobin (Blood Gas) 15.2 12.0-16.0 g/dL Sodium (Blood Gas) 138 136-145 MMOL/L Bedside Potassium (Blood Gas) 3.8 3.4-4.5 MMOL/L Bedside Chloride (Blood Gas) 104 98-107 MMOL/L Bedside Glucose (Blood Gas) 106 H 65-95 MG/DL Bedside Ionized Calcium (Blood Gas) 1.17 1.15-1.33 MMOL/L Bedside Lactic Acid (Blood Gas) 2.57 H 0.36-0.75 MMOL/L Blood Gas Temperature 37.0 35.5-37.0 CELSIUS Blood Gas Flow-by 2.00 0.00-15.00 L/min Blood Gas Vent Mode NC,28 ROOM AIR FiO2 28.0 % Blood Gas Specimen Comment DR JET Troponin I High Sensitivity 31 4-50 ng/L B-Type Natriuretic Peptide 42 0-100 pg/mL DIAGNOSTICS / RADIOLOGY: PATIENT: JOE EM ACCT: [id number] LOC: [facility] U: [id number] AGE/SX: 75/F ROOM: [facility] RE11/04/[address]: VIKTOR NARAYAN MD : 1950 BED: 1 DIS: STATUS: ADM IN TLOC: SPEC: [id number] KHURRAM: 11/05/25 STATUS: COMP REQ: [id number] RECD: 11/07/25 [facility] DR: KALA ANDERSON SOURCE: [facility] [place] ENTR: 11/07/[address] [facility] [address]: GERMAINE ANDUJAR MD [facility]: [employer] VIKTOR NARAYAN MD, ANTONIO MD ORDERED: AERO ID & SENS Procedure Result Sae Date-Time AEROBIC ID & SENSITIVITIES Final 11/08/25-1005 MRL COLONY DESCRIPTION: DAY 1: COLONY COUNT: 10,000 - 20,000 CFU/ML LACTOBACILLUS SPECIES NO FURTHER WORK-UP DONE LACTOBACILLUS SPECIES ASSESSMENT: Acute cholecystitis Urinary Tract infection with lactobacillus species. Sepsis. Leukocytosis. Acute renal failure. Tachycardia. PLAN: Patient is being transferred to PCCU for Arcadio Canas. General Surgery following patient. Avoid nephrotoxic medications. This case was reviewed and discussed with my supervising physician Dr. Martinez and the above assessment and plan was formulated and agreed upon. ATTESTATION BY PHYSICIAN I have seen and examined the patient. I reviewed the documentation, medical decision making, and treatment plan as noted by the mid-level provider above. I agree with the findings and plan of care. MICKEY MARTINEZ MD, MIRTA L [facility] Nov 08, 2025 09:42
[2025-11-08] MEDS: PoTASSium chloRIDE 20MEQ ER 20 MEQ ERTAB PO ONE (09:46)
--- NOTE | 2025-11-08 10:46 | PN ---
[facility] PROGRESS NOTE Date of Service: Nov 08, 2025 Time of Service: 10:24 SUBJECTIVE: [ ] Patient reports that she came to the emergency department with a chief complaint of abdominal pain. Location is epigastric. Duration is on and off. Character is described as pressure. There was no alleviating factors. Symptoms are aggravated with eating. Patient reports associated nausea and vomiting. Today in the emergency department WBCs 23.2, 88% neutrophils left shift, lactic acid 5.4, potassium 3.1, creatinine 1.8, glucose 222 mg/dL, total bilirubin 2.5, AST 201, ALT 186, CT of abdomen and pelvis shows cholecystitis. Emergency room physician contacted general surgery service on-call who requested patient be admitted under hospitalist service. 11/05/25 patient is lying in bed patient appears to be in pain patient received Dilaudid earlier waiting for general surgeon for possible lap bo. Patient denies any cardiac history no chest pain no heart stents no MIs in the past. Significant other at bedside all questions were addressed 11/06/25 Patient was seen earlier patient continues to have abdominal pain waiting for cardiac clearance possible lap bo. DR Campebll recommending a MRCP orders were not placed we will order a stat now. Labs kidney worsening. Secondary to poor oral oral intake we will consult director of group counseling program's. 11/07/25 patient was seen earlier. Patient is waiting for surgery for their recommendations. the patient Waiting for MRCP. if consistent with choledocholithiasis GI to be consulted for ERCP. Surgeon's note was reviewed Dr. Narayan reached out to nurse practitioner Bruno the patient is clinically cleared for surgery. Bruno Pa call Dr Narayan that surgery is scheduled for tomorrow as per Dr Campbell. 11/08/25 Primary nurse reports the patient heart rate has been above 120-130's: atrial fibrillation with variable response currently tachycardic as per nurse she has given Lopressor x3 as directed: continue with tachycardia therefore the patient will be transfer to PCCU for Cardizem drip. Patient did have an MRCP performed yesterday consistent with acute cholecystitis. Reviewed last note from surgical services: DR Campbell his recommendations IR for percutaneous Cholecystostomy tube placement orders placed yesterday evening: Today there is no IR doing procedure will be here tomorrow as per case management: REVIEW OF SYSTEMS CONSTITUTIONAL: Denies fevers, chills, or night sweats. No unintentional weight loss reported. NEUROLOGICAL: Denies headache, amaurosis fugax, motor weakness, sensory deficit, vertigo/spinning sensation, gait abnormalities, or tremors. ENT: No hearing loss, otalgia, otorrhea, rhinitis, rhinorrhea, hoarseness, or sore throat. CARDIOVASCULAR: Denies any exertional angina, dyspnea on exertion, orthopnea, paroxysmal nocturnal dyspnea, palpitations, life-threatening arrhythmias, claudication. PULMONARY: Denies any shortness of breath, cough, phlegm/sputum, hemoptysis, pleuritic chest pain. SLEEP: Denies morning headaches, daytime somnolence or napping. Denies difficulty falling asleep, staying asleep, waking from sleep. Denies knowledge of snoring. GASTROINTESTINAL: Denies any type of dysphagia to either liquids or solids. Denies nausea, vomiting, pyrosis, early satiety, abdominal pain, diarrhea, constipation, or changes in stool consistency or caliber. Denies coffee-ground emesis, hematemesis, hematochezia, or melanotic stools. GENITOURINARY: Denies frequency, urgency, nocturia, hematuria or incontinence (Storage/Irritative symptoms.) Low urinary stream, straining to void, urinary intermittency or hesitancy, splitting of the voiding stream, terminal dribbling. ENDOCRINOLOGIC: Denies polyuria, polydipsia, polyphagia or heat/cold intolerances. HEMATOLOGIC: Denies thrombophilia/previous clots, or coagulopathy/bleeding disorders. ONCOLOGIC: Denies personal history of malignancy. DERMATOLOGIC: Denies rashes or pruritus. PSYCHIATRIC: Denies any suicidal or homicidal ideation. Denies hallucinations. PHYSICAL EXAM GENERAL APPEARANCE: The patient is awake, alert, and oriented, in no acute cardiopulmonary distress. NEUROLOGICAL: Cranial nerves II-XII grossly intact. Motor is 5/5 in bilateral upper and lower extremities proximal to distal. No sensory deficits. HEENT: Face is symmetric. Pupils are equal and reactive. Extraocular movements are intact. NECK: Supple. No JVD. No thyromegaly. No submental, submandibular, pre- /postauricular, occipital or supraclavicular lymphadenopathy. CHEST: Normal chest expansion. No Telemetry. LUNGS: Absence of any rales, rhonchi or any wheezing. CARDIOVASCULAR: Regular. S1 and S2 normal. No appreciable rubs, murmurs or gallops. ABDOMEN: Soft, nontender, and nondistended. There is no rebound, voluntary guarding, or rigidity. : Deferred. No [place]. EXTREMITIES: Non-edematous and not cyanotic. No clubbing. Good capillary refill. SKIN: No skin breakdown. Vital Signs (last 8hr) Date Time Temp Pulse Resp B/P (MAP) Pulse Ox O2 Delivery O2 Flow Rate FiO2 11/08/25 09:21 136 114/89 11/08/25 09:11 131 114/84 11/08/25 09:02 125 114/84 11/08/25 08:00 97.9 89 20 114/84 98 11/08/25 04:22 140 11/08/25 04:00 97.5 130 22 120/80 97 Nasal Cannula 2.0 LABS: Laboratory: Test 11/08/25 06:03 11/08/25 05:35 11/07/25 19:00 11/07/25 05:18 Range/Units White Blood Count 12.9 H 4.8-10.8 K/uL Red Blood Count 4.82 4.00-5.50 MIL/uL Hemoglobin 13.7 12.0-16.0 g/dL Hematocrit 41.5 36-48 % Mean Corpuscular Volume 86.1 79-99 fL Mean Corpuscular Hemoglobin 28.4 27.0-33.0 pg Mean Corpuscular Hemoglobin Concent 33.0 32.0-36.0 g/dL Red Cell Distribution Width 14.4 11.0-15.5 % Platelet Count 160 130-400 K/uL Mean Platelet Volume 11.5 H 7.5-10.5 fL Immature Granulocyte % (Auto) 1.3 H 0-1 % Neutrophils (%) (Auto) 77.9 H 40.0-77.0 % Lymphocytes (%) (Auto) 7.7 L 21.0-51.0 % Monocytes (%) (Auto) 11.6 3.0-13.0 % Eosinophils (%) (Auto) 1.0 0.0-8.0 % Basophils (%) (Auto) 0.5 0.0-5.0 % Neutrophils # (Auto) 10.0 H 1.8-7.7 K/uL Lymphocytes # (Auto) 1.0 1.0-4.8 K/uL Monocytes # (Auto) 1.5 H 0.1-1.0 K/uL Eosinophils # (Auto) 0.13 0.00-0.70 K/uL Basophils # (Auto) 0.06 0.00-0.20 K/uL Absolute Immature Granulocyte (auto 0.17 0-1 K/uL Nucleated Red Blood Cells 0.0 0.0-0.19 % Sodium Level 140 136-145 mmol/L Potassium Level 3.4 L 3.5-5.1 mmol/L Chloride Level 106 101-111 mmol/L Carbon Dioxide Level 24 21-32 mmol/L Blood Urea Nitrogen 30 H 7-18 mg/dL Creatinine 1.4 H 0.5-1.0 mg/dL Glomerular Filtration Rate Calc 39 >90 mL/min Random Glucose 84 70-105 mg/dL Total Calcium 9.2 8.5-10.1 mg/dL Magnesium Level 2.20 1.80-2.40 mg/dL Total Bilirubin 1.2 H 0.2-1.0 mg/dL Aspartate Amino Transf (AST/SGOT) 104 H 10-37 U/L Alanine Aminotransferase (ALT/SGPT) 134 H 12-78 U/L Alkaline Phosphatase 160 H 50-136 U/L Total Protein 6.3 6.0-8.3 g/dL Albumin 1.9 L 3.5-5.0 g/dL Whole Blood Glucose 89 70-110 MG/DL Urine Color YELLOW YELLOW Urine Appearance CLOUDY H CLEAR Urine pH 6.0 5.0-8.0 Urine Specific [place] 1.020 1.001-1.031 Urine Protein 30 H NEGATIVE mg/dL Urine Glucose (UA) NEGATIVE NEGATIVE mg/dL Urine Ketones 10 H NEGATIVE mg/dL Urine Occult Blood MODERATE H NEGATIVE Urine Nitrate NEGATIVE NEGATIVE Urine Bilirubin NEGATIVE NEGATIVE mg/dL Urine Urobilinogen 0.2 0.2-1.0 mg/dL Urine Leukocyte Esterase NEGATIVE NEGATIVE Shanta/uL Urine RBC 2-5 H 0-1 /HPF Urine WBC 2-5 H 0-1 /HPF Urine Squamous Epithelial Cells FEW 0-2 /HPF Urine Calcium Oxalate Crystals RARE None Seen /LPF Urine Bacteria None None Seen /HPF Urine Yeast RARE None Seen /HPF Urine Random Creatinine 124.09 30-135 mg/dL Urine Random Total Protein 95.7 H 0-11.9 mg/dL Urine Random Sodium 15 L 40-220 mmol/l Urine Random Potassium 29 25-125 mmol/L Urine Random Chloride 51 L 110-250 mmol/L Uric Acid 6.9 2.6-7.2 mg/dL Phosphorus Level 2.4 L 2.5-4.9 mg/dL Test 11/06/25 20:35 11/06/25 11:12 Range/Units Blood Gas Specimen Type Arterial Arterial Blood pH 7.374 7.350-7.450 Arterial Blood Partial Pressure CO2 37 32-45 mmHg Arterial Blood Partial Pressure O2 64.5 L 83.0-108.0 mmHg Arterial Blood HCO3 21.0 21.0-28.0 mmol/L Arterial Blood Oxygen Saturation 93.4 L 94.0-98.0 % Arterial Blood Base Excess -3.6 L -2.0-3.0 mmol/L Hemoglobin (Blood Gas) 15.2 12.0-16.0 g/dL Sodium (Blood Gas) 138 136-145 MMOL/L Bedside Potassium (Blood Gas) 3.8 3.4-4.5 MMOL/L Bedside Chloride (Blood Gas) 104 98-107 MMOL/L Bedside Glucose (Blood Gas) 106 H 65-95 MG/DL Bedside Ionized Calcium (Blood Gas) 1.17 1.15-1.33 MMOL/L Bedside Lactic Acid (Blood Gas) 2.57 H 0.36-0.75 MMOL/L Blood Gas Temperature 37.0 35.5-37.0 CELSIUS Blood Gas Flow-by 2.00 0.00-15.00 L/min Blood Gas Vent Mode NC,28 ROOM AIR FiO2 28.0 % Blood Gas Specimen Comment DR JET Troponin I High Sensitivity 31 4-50 ng/L B-Type Natriuretic Peptide 42 0-100 pg/mL Current Medications Medications (Trade) Dose Ordered Sig/Gerber Route PRN Reason Start Time Stop Time Status Last Admin Dose Admin Hydralazine HCl (APRESOLine 20MG INJ) 5 mg Q6H PRN IV For:SBP above 160;DBP above 90 11/05/25 15:30 12/05/25 15:29 Hydralazine HCl (APRESOLine 20MG INJ) 10 mg Q6H PRN IV For:SBP above 160;DBP above 90 11/04/25 21:30 11/05/25 10:07 DC Hydromorphone HCl (DiLAUDid 0.5MG INJ) 0.25 mg Q4H PRN IVP SEVERE PAIN (7-10) 11/04/25 21:30 11/05/25 16:36 DC 11/05/25 15:15 0.25 MG Hydromorphone HCl (DiLAUDid 0.5MG INJ) 0.5 mg Q4H PRN IVP SEVERE PAIN (7-10) 11/05/25 17:30 11/10/25 17:29 11/08/25 01:06 0.5 MG Insulin Human Regular (humuLIN R 100 UNIT/ML 3ML) INSULIN SLIDING SCAL... ACHS SQ 11/05/25 07:30 12/05/25 07:29 Ketorolac Tromethamine (toRADol) 15 mg Q6H PRN IV MODERATE PAIN (4-6) 11/05/25 12:30 11/05/25 12:11 DC Lactated Ringer's 1,000 ml @ 75 mls/hr [id number] IV 11/06/25 13:00 12/06/25 12:59 11/07/25 02:42 75 MLS/HR Magnesium Sulfate 50 ml @ 0 mls/hr PROTOCOL PRN IV low mag level 11/05/25 10:30 12/05/25 10:29 Metoprolol Tartrate (loprESSOR) 5 mg AD PRN IV HEART RATE ABOVE 100 11/08/25 09:00 11/08/25 08:47 DC Metoprolol Tartrate (loprESSOR) 5 mg AD PRN IV HEART RATE ABOVE 100 11/08/25 09:00 11/08/25 09:21 DC 11/08/25 09:21 5 MG Metoprolol Tartrate (loprESSOR) 25 mg TID PO 11/06/25 18:00 11/08/25 08:45 DC 11/07/25 20:32 25 MG Metoprolol Tartrate (loprESSOR) 50 mg TID PO 11/08/25 09:00 12/08/25 08:59 11/08/25 08:50 50 MG Ondansetron HCl (zoFRAN 4MG INJ) 4 mg Q6H PRN IV NAUSEA/VOMITING 11/04/25 21:30 12/04/25 21:29 Piperacillin Sod/ Tazobactam Sod 50 ml @ 100 mls/hr STAT STAT IVPB 11/04/25 18:46 11/04/25 19:15 DC 11/04/25 19:56 100 MLS/HR Piperacillin Sod/ Tazobactam Sod (Zosyn 3.375gm+NS 50ml) 3.375 gm Q12H IV 11/05/25 07:00 11/15/25 06:59 11/08/25 06:42 3.375 GM Potassium Chloride 100 ml @ 50 mls/hr AD PRN IV POTASSIUM PROTOCOL 11/05/25 10:30 12/05/25 10:29 11/07/25 10:30 50 MLS/HR Potassium Chloride 100 ml @ 100 mls/hr AD PRN IV POTASSIUM PROTOCOL 11/05/25 10:30 11/05/25 12:10 DC Potassium Chloride (K-Dur/Klor-Con 20meq) 20 meq AD PRN PO POTASSIUM PROTOCOL 11/05/25 10:30 12/05/25 10:29 11/06/25 07:04 20 MEQ Potassium Chloride (KCl 10% Elixir 20meq/15ml) 20 meq AD PRN PO POTASSIUM PROTOCOL 11/05/25 10:30 12/05/25 10:29 Sodium Chloride 500 ml @ 0 mls/hr Q0M IV 11/07/25 02:30 11/08/25 08:46 DC 11/08/25 00:32 500 MLS/HR Sodium Chloride 500 ml @ 0 mls/hr Q0M IV 11/08/25 00:30 11/08/25 08:47 DC Sodium Chloride 1,000 ml @ 100 mls/hr Q10H IV 11/04/25 21:30 11/06/25 13:01 DC 11/06/25 03:54 100 MLS/HR DIAGNOSTICS / RADIOLOGY: [ ] ASSESSMENT: atrial fibrillation with variable response currently tachycardic not POA Severe sepsis, POA, by clinical sepsis criteria heart rate 122, WBCs 23.2, lactic acid 5.4, source intra-abdominal acute Cholecystitis, POA Leukocytosis, POA Lactic acidosis, POA Hypokalemia, POA Acute kidney injury, POA, Uncontrolled Diabetes mellitius type2, POA Elevated total bilirubin, POA Transaminitis, POA Hypertension Hypothyroidism] [ ] PLAN: [ ] Admit patient to medical floor with tele will be transition to PCCU for tachycardia requiring Cardizem drip IVF NS at 100 mL/hour director of group counseling program consulted. avoid NSAIDs creatinine improving Empiric antibiotic therapy with Zosyn renal dose: no fevers overnight Microbiology blood cultures so far negative urine cultures negative Imaging: MRCP noted General surgeon DR Campbell recommending Cholecystectomy tube placement per IR. Cardiolist will start the patient on Cardizem drip: metoprolol 50 mg po tid Continue with pain management for adequate pain control CBC CMP magnesium in a.m. Replace electrolytes as needed to keep potassium above 4.0 magnesium above 2.0. Avoid nephrotoxic agents when possible Renally dose all medications when possible Consider consulting Nephrology service if any worsening renal function or evidence of ATN. Continue a.c. HS monitoring with sliding scale coverage. Consider resuming home medications once they have been reconciled: GI prophylaxis, Protonix DVT prophylaxis, Emmanuel's and SCDs avoid anticoagulation at this time due to impending general surgery evaluation ATTESTATION BY PHYSICIAN I have seen and examined the patient. I reviewed the documentation, medical decision making, and treatment plan as noted by the mid-level provider above. I agree with the findings and plan of care. VIKTOR NARAYAN MD, [facility] Nov 08, 2025 10:45
--- NOTE | 2025-11-08 12:00 | PN ---
NEPHROLOGY PROGRESS NOTE Date/Time Patient Seen: Nov 08, 2025 SUBJECTIVE: The patient is a pleasant 75-year-old who has multiple medical problems. The patient has underlying hypertension, hyperlipidemia, hypothyroidism, anemia, fibromyalgia, coronary artery disease in the family who has obesity. The patient came with abdominal pain associated with nausea or vomiting. The patient has hiatal hernia present. No other associated findings. No other aggravating or relieving factor. The patient has abnormal EKG. The patient has multiple other comorbidities. No other associated findings. No other aggravating or relieving factors. She was noted to have elevated BUN/creatinine We are consulted for renal failure Renal function is improving Electrolyte are stable. MRCP showed acute cholecystitis. Surgery has recommended percutaneous cholecystostomy tube placement by IR. She was transferred to P[facility]U for atrial fibrillation currently on Cardizem drip REVIEW OF SYSTEMS: GENERAL: Negative for any nausea, vomiting, fevers, chills, or weight loss. NEUROLOGIC: Negative for any blurry vision, blind spots, double vision, facial asymmetry, dysphagia, dysarthria, hemiparesis, hemisensory deficits, vertigo, ataxia. HEENT: Negative for any head trauma, neck trauma, neck stiffness, photophobia, phonophobia, sinusitis, rhinitis. CARDIAC: Negative for any chest pain, dyspnea on exertion, paroxysmal nocturnal dyspnea, peripheral edema. PULMONARY: Negative for any shortness of breath, wheezing, COPD, or TB exposure. GASTROINTESTINAL: Negative for any abdominal pain, nausea, vomiting, bright red blood per rectum, melena. GENITOURINARY: Negative for any dysuria, hematuria, incontinence. INTEGUMENTARY: Negative for any rashes, cuts, insect bites. RHEUMATOLOGIC: Negative for any joint pains, photosensitive rashes, history of vasculitis or kidney problems. HEMATOLOGIC: Negative for any abnormal bruising, frequent infections or bleeding. Vital Signs (last 8hr) Date Time Temp Pulse Resp B/P (MAP) Pulse Ox O2 Delivery O2 Flow Rate FiO2 11/08/25 11:44 85 102/54 11/08/25 11:42 85 22 102/54 95 Nasal Cannula 2.0 21 11/08/25 11:25 104 111/76 11/08/25 11:11 136 114/89 11/08/25 10:36 94 Nasal Cannula* 2 28 11/08/25 09:21 136 114/89 11/08/25 09:11 131 114/84 11/08/25 09:02 125 114/84 11/08/25 08:00 98 Nasal Cannula* 2 28 11/08/25 08:00 97.9 89 20 114/84 98 11/08/25 04:22 140 11/08/25 04:00 97.5 130 22 120/80 97 Nasal Cannula 2.0 PHYSICAL EXAM: GENERAL: Alert and oriented x 3. No acute distress. Well-nourished. EYES: EOMI. Anicteric. HENT: Moist mucous membranes. No scleral icterus. No cervical lymphadenopathy. LUNGS: Clear to auscultation bilaterally. No accessory muscle use. CARDIOVASCULAR: Regular rate and rhythm. No murmur. No JVD. ABDOMEN: Soft, non-tender and non-distended. No palpable masses. EXTREMITIES: No edema. Non-tender. SKIN: No rashes or lesions. Warm. NEUROLOGIC: No focal neurological deficits. CN II-XII grossly intact, but not individually tested. PSYCHIATRIC: Cooperative. Appropriate mood and affect. Current Medications Medications (Trade) Dose Ordered Sig/Gerber Route PRN Reason Start Time Stop Time Status Last Admin Dose Admin Hydralazine HCl (APRESOLine 20MG INJ) 5 mg Q6H PRN IV For:SBP above 160;DBP above 90 11/05/25 15:30 12/05/25 15:29 Hydralazine HCl (APRESOLine 20MG INJ) 10 mg Q6H PRN IV For:SBP above 160;DBP above 90 11/04/25 21:30 11/05/25 10:07 DC Hydromorphone HCl (DiLAUDid 0.5MG INJ) 0.25 mg Q4H PRN IVP SEVERE PAIN (7-10) 11/04/25 21:30 11/05/25 16:36 DC 11/05/25 15:15 0.25 MG Hydromorphone HCl (DiLAUDid 0.5MG INJ) 0.5 mg Q4H PRN IVP SEVERE PAIN (7-10) 11/05/25 17:30 11/10/25 17:29 11/07/25 13:01 0.5 MG Insulin Human Regular (humuLIN R 100 UNIT/ML 3ML) INSULIN SLIDING SCAL... ACHS SQ 11/05/25 07:30 12/05/25 07:29 Ketorolac Tromethamine (toRADol) 15 mg Q6H PRN IV MODERATE PAIN (4-6) 11/05/25 12:30 11/05/25 12:11 DC Lactated Ringer's 1,000 ml @ 75 mls/hr [id number] IV 11/06/25 13:00 12/06/25 12:59 11/07/25 02:42 75 MLS/HR Magnesium Sulfate 50 ml @ 0 mls/hr PROTOCOL PRN IV low mag level 11/05/25 10:30 12/05/25 10:29 Metoprolol Tartrate (loprESSOR) 25 mg TID PO 11/06/25 18:00 12/06/25 17:59 11/07/25 10:15 25 MG Ondansetron HCl (zoFRAN 4MG INJ) 4 mg Q6H PRN IV NAUSEA/VOMITING 11/04/25 21:30 12/04/25 21:29 Piperacillin Sod/ Tazobactam Sod 50 ml @ 100 mls/hr STAT STAT IVPB 11/04/25 18:46 11/04/25 19:15 DC 11/04/25 19:56 100 MLS/HR Piperacillin Sod/ Tazobactam Sod (Zosyn 3.375gm+NS 50ml) 3.375 gm Q12H IV 11/05/25 07:00 11/15/25 06:59 11/07/25 05:03 3.375 GM Potassium Chloride 100 ml @ 50 mls/hr AD PRN IV POTASSIUM PROTOCOL 11/05/25 10:30 12/05/25 10:29 11/07/25 10:30 50 MLS/HR Potassium Chloride 100 ml @ 100 mls/hr AD PRN IV POTASSIUM PROTOCOL 11/05/25 10:30 11/05/25 12:10 DC Potassium Chloride (K-Dur/Klor-Con 20meq) 20 meq AD PRN PO POTASSIUM PROTOCOL 11/05/25 10:30 12/05/25 10:29 11/06/25 07:04 20 MEQ Potassium Chloride (KCl 10% Elixir 20meq/15ml) 20 meq AD PRN PO POTASSIUM PROTOCOL 11/05/25 10:30 12/05/25 10:29 Sodium Chloride 500 ml @ 0 mls/hr Q0M IV 11/07/25 02:30 12/07/25 02:29 Sodium Chloride 1,000 ml @ 100 mls/hr Q10H IV 11/04/25 21:30 11/06/25 13:01 DC 11/06/25 03:54 100 MLS/HR LABORATORY: [ ] Hematology Labs: Test 11/08/25 06:03 Range/Units White Blood Count 12.9 H 4.8-10.8 K/uL Red Blood Count 4.82 4.00-5.50 MIL/uL Hemoglobin 13.7 12.0-16.0 g/dL Hematocrit 41.5 36-48 % Mean Corpuscular Volume 86.1 79-99 fL Mean Corpuscular Hemoglobin 28.4 27.0-33.0 pg Mean Corpuscular Hemoglobin Concent 33.0 32.0-36.0 g/dL Red Cell Distribution Width 14.4 11.0-15.5 % Platelet Count 160 130-400 K/uL Mean Platelet Volume 11.5 H 7.5-10.5 fL Immature Granulocyte % (Auto) 1.3 H 0-1 % Neutrophils (%) (Auto) 77.9 H 40.0-77.0 % Lymphocytes (%) (Auto) 7.7 L 21.0-51.0 % Monocytes (%) (Auto) 11.6 3.0-13.0 % Eosinophils (%) (Auto) 1.0 0.0-8.0 % Basophils (%) (Auto) 0.5 0.0-5.0 % Neutrophils # (Auto) 10.0 H 1.8-7.7 K/uL Lymphocytes # (Auto) 1.0 1.0-4.8 K/uL Monocytes # (Auto) 1.5 H 0.1-1.0 K/uL Eosinophils # (Auto) 0.13 0.00-0.70 K/uL Basophils # (Auto) 0.06 0.00-0.20 K/uL Absolute Immature Granulocyte (auto 0.17 0-1 K/uL Nucleated Red Blood Cells 0.0 0.0-0.19 % Chemistry Labs: Test 11/08/25 06:03 11/08/25 05:35 11/07/25 05:18 Range/Units Sodium Level 140 136-145 mmol/L Potassium Level 3.4 L 3.5-5.1 mmol/L Chloride Level 106 101-111 mmol/L Carbon Dioxide Level 24 21-32 mmol/L Blood Urea Nitrogen 30 H 7-18 mg/dL Creatinine 1.4 H 0.5-1.0 mg/dL Glomerular Filtration Rate Calc 39 >90 mL/min Random Glucose 84 70-105 mg/dL Total Calcium 9.2 8.5-10.1 mg/dL Magnesium Level 2.20 1.80-2.40 mg/dL Total Bilirubin 1.2 H 0.2-1.0 mg/dL Aspartate Amino Transf (AST/SGOT) 104 H 10-37 U/L Alanine Aminotransferase (ALT/SGPT) 134 H 12-78 U/L Alkaline Phosphatase 160 H 50-136 U/L Total Protein 6.3 6.0-8.3 g/dL Albumin 1.9 L 3.5-5.0 g/dL Whole Blood Glucose 89 70-110 MG/DL Uric Acid 6.9 2.6-7.2 mg/dL Phosphorus Level 2.4 L 2.5-4.9 mg/dL DIAGNOSTICS / RADIOLOGY: [place] [address] IMAGING REPORT Signed PATIENT: JOE EM MR#: [id number] : 1950 SEX: F AGE: 75 LOCATION: [facility] ORDER 1214 STATUS: ADM IN REPORT#: [id number] SERVICE 1212 REASON: rule out cholecystitis. ORDERING PHYSICIAN: ANGELICA PRIETO PROCEDURE: MRCP WO - MRCP(ABDWO)CHOLANGIOPANCREATOG EXAMINATION: MR Cholangiopancreatography (MRCP) without intravenous contrast. CLINICAL HISTORY: Rule out cholecystitis. TECHNIQUE: Multiplanar, multisequence MR images of the upper abdomen were acquired without intravenous contrast. Heavily T2-weighted 3D acquisitions and maximum intensity projections were generated for cholangiopancreatography. CONTRAST: No intravenous contrast. COMPARISON: CT abdomen and pelvis without contrast, dated November 04, 2025. FINDINGS: LIVER: The liver measures 19 cm with fatty infiltration. A cyst measuring 1.7 x 1.8 cm is present in segment IV of the left lobe. Another tiny cyst is present in segment II of the left lobe. GALLBLADDER AND BILIARY SYSTEM: The gallbladder demonstrates thickened muller predominantly in the fundal region, measuring up to 0.8 cm, with minimal fluid around the fundus and surrounding pericholecystic fat stranding suggestive of acute cholecystitis. No obvious filling defects to suggest calculi. The common bile duct measures 0.8 cm in diameter. No choledocholithiasis. PANCREAS: Normal caliber main pancreatic duct. Normal pancreatic parenchyma signal intensity. No mass or fluid collection. SPLEEN: Unremarkable. ADRENAL GLANDS: Unremarkable. KIDNEYS: Left parapelvic renal cysts. No hydronephrosis. OTHER: Small ascites. Small bilateral pleural effusions with probable bilateral basal atelectasis. IMPRESSION: 1. Findings suggestive of acute cholecystitis. 2. Small ascites. 3. Small bilateral pleural effusions with probable bilateral basal atelectasis. The findings are similar to those of the CT abdomen and pelvis without contrast, dated November 04, 2025, with limitations inherent to the modality. /[place] DICTATED BY: JASON ARNOLD Jr., MD DATE: 11/06/252249 ELECTRONICALLY SIGNED BY: JASON ARNOLD Jr., MD DATE: 11/06/252249 PATIENT: JOE EM MR#: [id number] : 1950 SEX: F AGE: 75 LOCATION: [facility] ORDER 1042 STATUS: ADM IN REPORT#: [id number] SERVICE 1037 REASON: shortness of breath ORDERING PHYSICIAN: LISSETH LANDRY PROCEDURE: ECHO CMP - ECHO 2-D COMPLETE APPROVED REPORT EXAM: Two-dimensional and M-mode echocardiogram with Doppler and color Doppler. INDICATION ICD: shortness of breath 2D Dimensions RVDd 3.2 cm LVEF(%) 81.4 (>50%) LVED Vol(simp.) 38.0 mL IVSd 1.1 (0.7-1.1cm) FS(%) 49 % LVES Vol(simp.) 13.0 mL LVDd 3.4 (3.8-5.6cm) LA (2D) 3.5 (1.6-4.0cm) LVEF(%, simp.) 64 % PWd 1.1 (0.7-1.1cm) Ao Root(2D) 3.1 (2.0-3.7cm) LA ESV INDEX (4CH) 19.00 mL/m2 LVDs 1.7 (2.5-4.0cm) LVOT diam 1.9 (1.8-2.4cm) M-Mode Dimensions EPSS 1.6 cm LA (MM) 3.7 (1.6-4.0cm) Ao Root(MM) 2.9 (2.0-3.7cm) Aortic Valve AoV Vmax 1.4 m/s Ao Peak GR 7.8 mmHg LVOT Vmax 1.3 m/s AoV VTI 0.2 m Ao Mean GR 5.0 mmHg LVOT VTI 0.16 m BRIGETTE (VMAX) 2.72 cm2 BRIGETTE (VTI) 3.1 cm2 Mitral Valve MV E Vmax 44.9 cm/s DECEL Time 174 ms MV A Vmax 56.0 cm/s P 1/2 T 30 ms E/A ratio 0.8 MVA (PHT) 7.2 cm2 TDI E/E' Medial 10.3 E/E' Lateral 4.4 Medial E' Peak V 4.34 cm/s Lateral E' Peak V 10.20 cm/s Pulmonary Valve PV Vmax 1.4 m/s PV VTI 0.11 m PV Mean GR 3.0 mmHg PV Peak GR 7.6 mmHg Left Ventricle Left ventricular cavity size is normal. There is normal LV segmental wall motion. Moderate concentric LVH. LVEF is 60-65%. The left ventricular diastolic function is normal. Right Ventricle The right ventricle is normal size. Right ventricular systolic function is mildly to moderately reduced. Atria The left atrium size is normal. The right atrium size is normal. Aortic Valve The aortic valve is normal in structure and function. No aortic regurgitation is present. There is no aortic valvular stenosis. Mitral Valve The mitral valve is normal in structure and function. There is no mitral valve regurgitation noted. There is no mitral valve stenosis. Tricuspid Valve The tricuspid valve is normal in structure and function. There is no tricuspid valve regurgitation noted. Pulmonic Valve The pulmonary valve is normal in structure and function. There is no pulmonic valvular regurgitation. Great Vessels The aortic root is normal in size. Pericardium Trace pericardial effusion. Other Information Quality : Technically Limited Technically limited study due to body habitus.Patient could not be placed onto left side. Conclusion Moderate concentric LVH. There is normal LV segmental wall motion. There is normal LV segmental wall motion. LVEF is 60-65%. The left ventricular diastolic function is normal. The aortic valve is normal in structure and function. The mitral valve is normal in structure and function. Trace pericardial effusion. DICTATED BY: JERRY CLINTON MD DATE: 11/06/25 1323 ELECTRONICALLY SIGNED BY: JERRY CLINTON MD DATE: 11/06/25 8972 PATIENT: JOE EM MR#: [id number] : 1950 SEX: F AGE: 75 LOCATION: [facility] ORDER 1042 STATUS: ADM IN [facility] REPORT#: [id number] SERVICE 1037 REASON: shortness of breath ORDERING PHYSICIAN: LISSETH LANDRY PROCEDURE: CXR1VW - CHEST 1VW EXAM: CR CHEST, 1 VIEW CLINICAL HISTORY: shortness of breath. COMPARISON: XR study dated 11/04/2025. TECHNIQUE: Single frontal radiograph of the chest was obtained. FINDINGS: Lines/Devices: None. Lungs: The study is significantly limited by poor inspiration with consequent elevation of the diaphragm and decreased lung expansion. Associated right lung middle zonal thick atelectasis. The rest of the visualized lungs are clear with no acute pulmonary infiltrates or masses. No consolidation or ground-glass opacities are observed. There is no pleural effusion. There is no pneumothorax. Mediastinum and cardiovascular structures: There are calcific atherosclerotic plaques in the aorta. Aortic knob calcification. Unfolding of the aorta. The rest of the cardiac and mediastinal outlines are not adequately visualized. Bones and soft tissues: No acute osseous abnormality. IMPRESSION: 1. Significantly limited study due to poor inspiration. 2. Right lung middle zonal thick atelectasis; not depicted in the X-ray study dated 11/04/2025, otherwise, no significant time interval changes. 3. Aortic knob calcification and unfolding of the aorta. /[place] DICTATED BY: MADIE MARINELLI MD DATE: 11/07/25140 ELECTRONICALLY SIGNED BY: MADIE MARINELLI MD DATE: 11/07/25140 PATIENT: JOE EM MR#: [id number] : 1950 SEX: F AGE: 75 LOCATION: [facility] ORDER 08 STATUS: ADM IN REPORT#: [id number] SERVICE 00 REASON: pre procedural ORDERING PHYSICIAN: KALA ANDERSON JUNIOR ARCHITECT PROCEDURE: CXR1VW - CHEST 1VW EXAM: CR Chest, 1 View. CLINICAL HISTORY: pre procedural COMPARISON: None provided. FINDINGS: The study is significantly limited by poor inspiration. Within limited visualized lungs, no acute pulmonary infiltrates or masses. Aortic knob calcification. Unfolding of the aorta. The rest of the cardiac and mediastinal outlines are not adequately visualized. No acute osseous abnormality. IMPRESSION: No acute cardiopulmonary pathology. /[place] DICTATED BY: JASON ARNOLD Jr., MD DATE: 11/05/25657 ELECTRONICALLY SIGNED BY: JASON ARNOLD Jr., MD DATE: 11/05/25657 PATIENT: JOE EM MR#: [id number] : 1950 SEX: F AGE: 75 LOCATION: [facility] ORDER 23 STATUS: REG ER REPORT#: [id number] SERVICE 21 REASON: ABD PAIN ORDERING PHYSICIAN: [place] JUNIOR ARCHITECT PROCEDURE: ABD PEL WO - CT ABDOMEN/PELVIS W/O CONTRAST EXAM: CT Abdomen and Pelvis Without IV contrast CLINICAL HISTORY: Patient presents with abdominal pain. TECHNIQUE: Axial computed tomography images of the abdomen and pelvis without intravenous contrast. CONTRAST: No IV contrast. COMPARISON: None provided. FINDINGS: LUNG BASES: The lung bases appear clear. No pleural effusions are seen. The right hemidiaphragm is elevated. LIVER: The liver demonstrates diffuse hepatic steatosis. The liver measures 18.3 cm in craniocaudal span. GALLBLADDER AND BILE DUCTS: The gallbladder demonstrates diffuse wall thickening up to 1.2 cm with pericholecystic fat stranding concerning for acute cholecystitis. No radioopaque gallstones are seen. No biliary ductal dilatation is evident. PANCREAS: Unremarkable. SPLEEN: Unremarkable. ADRENAL GLANDS: Unremarkable. KIDNEYS, URETERS, AND BLADDER: The kidneys appear within normal limits except for a 0.7 cm calculus in the right lower calyx and a left parapelvic cyst. There is no hydronephrosis or hydroureter. No urinary calculi are seen in the left kidney or ureters. STOMACH AND BOWEL: Unremarkable appearance of the stomach and bowel except for occasional colonic diverticulosis without evidence of diverticulitis. No evidence of bowel obstruction. No evidence suggesting enteritis or colitis. APPENDIX: No evidence of acute appendicitis on CT examination. PERITONEUM: Small hiatal hernia. No free fluid. No free air. LYMPH NODES: No lymphadenopathy is evident. REPRODUCTIVE: The uterus is surgically absent. Unremarkable as visualized otherwise. VASCULATURE: No evidence of abdominal aortic aneurysm. BONES: Multilevel moderate degenerative changes in the spine. No aggressive appearing osseous lesion. No acute osseous pathology evident. IMPRESSION: Diffuse gallbladder wall thickening with pericholecystic fat stranding concerning for acute cholecystitis. Diffuse hepatic steatosis with hepatomegaly (18.3 cm craniocaudal span). 0.7 cm right renal calculus in the lower calyx. /[place] DICTATED BY: JARVIS WOLFF MD DATE: 11/04/252045 ELECTRONICALLY SIGNED BY: JARVIS WOLFF MD DATE: 11/04/252045 ASSESSMENT: Acute renal failure Abdominal pain Severe sepsis Cholecystitis Leukocytosis Lactic acidosis Hypokalemia Uncontrolled Diabetes mellitus type2 Elevated total bilirubin Transaminitis Hypertension Hypothyroidism PLAN: Labs, diagnostic, radiologic exams reviewed and interpreted by myself and supervising physician. We have reviewed external records in detail Pending placement of percutaneous cholecystostomy tube. Follow Cardiology recommendations Require close monitoring of renal function and electrolytes Order CBC, CMP, and electrolytes in am Continue with antibiotics Renal diabetic diet BiPAP as necessary, for respiratory distress Monitor blood pressure adjust medication doses as needed Avoid hypotensive episodes May use Dilaudid 0.5 mg IV every 6 hours as needed for severe pain Monitor blood sugars Strict intake, output, and daily weight should be monitored Please renally adjust medications Avoid nephrotoxic and nonsteroidal drugs Avoid contrast if possible Will continue to monitor renal function, anemia, electrolytes Treatment plan discussed with patient Questions were answered We have discussed with the other team physicians in detail about the care plan We will continue to monitor the patient closely ATTESTATION BY PHYSICIAN I have seen and examined the patient. I reviewed the documentation, medical decision making, and treatment plan as noted by the mid-level provider above. I agree with the findings and plan of care. MANUEL KARIMI MD, [facility] Nov 08, 2025 11:59
--- NOTE | 2025-11-08 14:57 | NUR ---
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 Patient alert and oriented aware of situation. Patient called her spouse to inform him.
[2025-11-08] MEDS ORDERED: HEParin-NS 1,000 UNIT/500 ML 500 ML IV ONE (15:25)
[2025-11-08] MEDS ORDERED: IODIXANOL 320 MG/ML 100 ML VIAL ONE (15:25)
[2025-11-08] MEDS ORDERED: LIDOCAINE HCL 1% MDV 50ML VIAL ONE (15:25)
[2025-11-08] MEDS ORDERED: MIDAZOLAM HCL 1 MG/ML 2ML VIAL ONE ×3 (15:41→16:30)
--- NOTE | 2025-11-08 18:28 | OP ---
DATE OF PROCEDURE: 11/08/2025 STUDY: Fluoroscopy and ultrasound-guided placement of an 8.5-Libyan cholecystotomy tube. HISTORY: This is a 75-year-old patient, not a surgical candidate for cholecystectomy, for cholecystotomy tube placement. PROCEDURE IN DETAIL: Prior to the procedure, the patient was given 50 mg of Benadryl and 125 of Solu-Medrol due to her dye allergy. The patient was titrated during the procedure with 5 mg Versed and 200 mcg of fentanyl. The right side was prepped and draped in the usual sterile technique. Ultrasound was used to access the gallbladder using a Chiba needle. After multiple sticks, this was accessed. A glide wire was introduced and this was exchanged to an Amplatz wire over a catheter. 8.5-Libyan multipurpose drainage catheter was placed into the gallbladder lumen. Cholecystogram demonstrated it to be in gallbladder lumen. The catheter was anchored with 3-0 silk suture and connected to a drainage bag. IMPRESSION: Fluoroscopy and ultrasound-guided placement of a right-sided cholecystotomy tube to allow drainage. PLAN: I would like to have the patient return on 11/12/2025 for cholecystotomy tube check. TID: [id number] RECEIPT: [id number] [facility]ordo
[2025-11-09] VITALS (9 sets, daily range): BP systolic 116–159; BP diastolic 59–97; PULSE 55–105; RESP 17–24; TEMP 94.3–98; O2SAT 95
[2025-11-09 07:15] LABS: IMMATURE GRANULOCYTE ABSOLUTE 0.38 K/uL (0-1); NUCLEATED RED BLOOD CELLS 0.0 % (0.0-0.19); PLATELET COUNT (AUTO) 184 K/uL (130-400); RED BLOOD CELL COUNT(AUTO) 5.03 MIL/uL (4.00-5.50); RED CELL DISTRIBUTION WIDTH 14.6 % (11.0-15.5); WHITE BLOOD COUNT (AUTO) 12.0 K/uL (4.8-10.8)
[2025-11-09 07:33] LABS: ASPARTATE AMINOTRANSFERASE 78.0 U/L (10-37); CREATININE 1.2 mg/dL (0.5-1.0); GLOMERULAR FILTR. RATE CALC 47.0 mL/min (>90); GLUCOSE,RANDOM 119.0 mg/dL (70-105); SODIUM SERUM 141.0 mmol/L (136-145); TOTAL PROTEIN, SERUM 6.6 g/dL (6.0-8.3); UREA NITROGEN, BLOOD 26.0 mg/dL (7-18)
--- NOTE | 2025-11-09 08:32 | HMCIMG ---
HISTORY: Pain.bo GALLBLADDER ULTRASOUND: Static ultrasound images of the gallbladder are submitted. The gallbladder was localized for placement of cholecystotomy interventional suite.. IMPRESSION: Details of the finding in the interventional suite of the cholecystotomy tube placement.
--- NOTE | 2025-11-09 09:30 | CONS ---
INFECTIOUS DISEASE CONSULTATION DATE OF SERVICE: 11/07/2025 REQUESTING PHYSICIAN: Natali Ceron NP REASON FOR CONSULTATION: Leukocytosis. HISTORY OF PRESENT ILLNESS: This is a 75-year-old female with hypertension, fibromyalgia, and morbid obesity, who recently presented to the hospital with abdominal pain, fever, and weakness. The patient was found with a temperature of 99.7 and WBC of 12,000. The patient was found with uric acid of 5.4 and has episodes of sepsis. Imaging has been done, which showed the patient to have cholecystitis. The patient has been cleared for surgery by Cardiology. The patient has no cough, no hemoptysis. Denies dysuria or urinary frequency. No bleeding tendency. No rashes or itchiness. PAST MEDICAL HISTORY: * Hypertension. * Hypothyroidism. * Morbid obesity. * Fibromyalgia. PAST SURGICAL HISTORY: Denies. ALLERGIES: DYE, ALENDRONATE, APREMILAST, LEXAPRO. CURRENT MEDICATIONS: Reviewed. SOCIAL HISTORY: Lives with . No alcohol. No tobacco or illicit drug use. FAMILY HISTORY: Noncontributory. REVIEW OF SYSTEMS: CONSTITUTIONAL: Positive for low-grade fever. No weight loss or night sweats. EYES: No eye pain. No photophobia or diplopia. HENT: No sore throat or rhinorrhea. NECK: No neck pain or neck swelling. RESPIRATORY: No cough or hemoptysis. CARDIOVASCULAR: No chest pain, palpitations, or orthopnea. GASTROINTESTINAL: Positive for nausea and one-time abdominal pain. GENITOURINARY: No dysuria. No urgency. No urinary frequency. CENTRAL NERVOUS SYSTEM: No headache, dizziness, or slurred speech. PSYCHIATRY: No depression, no suicidal ideation. MUSCULOSKELETAL: No joint pain or joint swelling. PHYSICAL EXAMINATION: GENERAL: Elderly female, awake. VITAL SIGNS: Temperature 97.3, pulse 82, respirations 17, blood pressure 141/91. EYES: No icterus. Pupils equal and reactive. HENT: No oral thrush seen. Moist oral mucosa. NECK: Supple. No JVD or thyromegaly. LUNGS: Good air entry. No rales, no rhonchi. CARDIOVASCULAR: S1 and S2. Regular. No murmur heard. ABDOMEN: Obese, soft. Bowel sound is present. Tenderness in the right upper quadrant. CENTRAL NERVOUS SYSTEM: Awake, alert, and oriented x 3. No focal deficits. SKIN: No rashes, no itchiness. LYMPHATIC: No peripheral lymphadenopathy. BACK: No deformity. No pressure ulcer. HEMATOLOGIC: No bleeding or petechial lesions seen. MUSCULOSKELETAL: No joint swelling, erythema, or tenderness. LABORATORY DATA: AST 127, ALT 157. Sodium 134, potassium 3.5, BUN 38, creatinine 1.8. WBC 13.9, hemoglobin 13.8, platelets 153. Urinalysis; wbc 25, leukocyte esterase 25. Blood cultures shows no growth for two days. RADIOLOGY: MRCP showed acute cholecystitis. ASSESSMENT: A 75-year-old female admitted with fever and abdominal pain. CURRENT PROBLEMS: Include, * Possible gram-negative sepsis. * Cholecystitis. * Urinary tract infection. * Abdominal pain. * Morbid obesity. * Renal failure. PLAN: * Continue Zosyn. * Follow-up cultures. * Continue pain management. * Continue antiemetic. * Continue GI prophylaxis. * Monitor electrolytes. * The patient will be followed up closely. TID: [id number] RECEIPT: [id number]
--- NOTE | 2025-11-09 09:42 | PN ---
This is a 75-year-old female with concerns of acute cholecystitis status post IR drain placement of cholecystostomy tube Interval history: This 75-year-old female seen in her room resting WBCs 12.0 with a hemoglobin of 14.2 Patient's pain from abdomen improved but now patient reporting discomfort and back likely from position she is sitting in Vitals relatively stable with a few episodes of tachycardia Drain output bilious which is expected at this point Physical exam General: Awake alert and oriented Heart: Regular rate and rhythm} Lungs: [Clear to auscultation no distress Abdomen: [Improving abdominal discomfort with percutaneous cholecystostomy tube in place Assessment : This is a 75-year-old female status post cholecystostomy tube placement for acute cholecystitis Plan: From surgical standpoint patient to continue with current cardiology management Strict I's and o's of cholecystostomy tube No immediate surgical intervention planned at this time Patient will be recommended to follow up in 4-6 weeks for evaluation of potential cholecystectomy and drain removal Dr. Campbell to be updated in patient's status and nursing report any further acute events Surgical case has been discussed with my supervising physician in the above plan was formulated and agreed upon We appreciate the hospitalist team for us to participate in patient's care. Greater than 45 minutes of time spent patient, reviewing chart, working on documentation Vitals/Labs Vital Signs Date Time Temp Pulse Resp B/P (MAP) Pulse Ox O2 Delivery O2 Flow Rate FiO2 11/09/25 07:00 98.1 105 24 150/83 95 Nasal Cannula 2.0 11/08/25 20:00 28 Laboratory Tests 11/09/25 07:09 Medications Current Medications Sodium Chloride 1,000 ml @ 0 mls/hr ONCE ONCE IV; Start 11/04/25 at 18:30; Stop 11/04/25 at 18:48; Status DC Ondansetron HCl 4 mg ONCE ONCE IVP Last administered on 11/04/25at 18:49; Start 11/04/25 at 18:30; Stop 11/04/25 at 18:31; Status DC Pantoprazole Sodium 40 mg ONCE ONCE IVP Last administered on 11/04/25at 18:49; Start 11/04/25 at 18:30; Stop 11/04/25 at 18:31; Status DC Morphine Sulfate 4 mg ONCE ONCE IVP Last administered on 11/04/25at 18:49; Start 11/04/25 at 18:30; Stop 11/04/25 at 18:31; Status DC Piperacillin Sod/ Tazobactam Sod 50 ml @ 100 mls/hr STAT STAT IVPB Last administered on 11/04/25at 19:56; Start 11/04/25 at 18:46; Stop 11/04/25 at 19:15; Status DC Sodium Chloride 1,641 ml @ 547 mls/hr ONCE ONCE IV Last administered on 11/04/25at 19:49; Start 11/04/25 at 19:00; Stop 11/04/25 at 21:59; Status DC Potassium Bicarbonate 25 meq ONCE ONCE PO Last administered on 11/04/25at 19:56; Start 11/04/25 at 19:30; Stop 11/04/25 at 19:31; Status DC Morphine Sulfate 2 mg ONCE ONCE IVP Last administered on 11/04/25at 21:12; Start 11/04/25 at 21:00; Stop 11/04/25 at 21:01; Status DC Sodium Chloride 1,000 ml @ 100 mls/hr Q10H IV Last administered on 11/06/25at 03:54; Start 11/04/25 at 21:30; Stop 11/06/25 at 13:01; Status DC Piperacillin Sod/ Tazobactam Sod 3.375 gm Q12H IV Last administered on 11/09/25at 06:30; Start 11/05/25 at 07:00; Stop 11/15/25 at 06:59 Insulin Human Regular INSULIN SLIDING SCAL... ACHS SQ; Start 11/05/25 at 07:30; Stop 12/05/25 at 07:29 Hydromorphone HCl 0.25 mg Q4H PRN IVP Last administered on 11/05/25at 15:15; Start 11/04/25 at 21:30; Stop 11/05/25 at 16:36; Status DC Hydralazine HCl 10 mg Q6H PRN IV; Start 11/04/25 at 21:30; Stop 11/05/25 at 10:07; Status DC Ondansetron HCl 4 mg Q6H PRN IV; Start 11/04/25 at 21:30; Stop 12/04/25 at 21:29 Hydromorphone HCl 0.25 mg ONCE ONCE IVP Last administered on 11/05/25at 02:49; Start 11/05/25 at 03:00; Stop 11/05/25 at 03:01; Status DC Hydralazine HCl 5 mg Q6H PRN IV; Start 11/05/25 at 15:30; Stop 12/05/25 at 15:29 Magnesium Sulfate 50 ml @ 0 mls/hr PROTOCOL PRN IV; Start 11/05/25 at 10:30; Stop 12/05/25 at 10:29 Potassium Chloride 100 ml @ 50 mls/hr AD PRN IV Last administered on 11/07/25at 10:30; Start 11/05/25 at 10:30; Stop 12/05/25 at 10:29 Potassium Chloride 100 ml @ 100 mls/hr AD PRN IV; Start 11/05/25 at 10:30; Stop 11/05/25 at 12:10; Status DC Potassium Chloride 20 meq AD PRN PO; Start 11/05/25 at 10:30; Stop 12/05/25 at 10:29 Potassium Chloride 20 meq AD PRN PO Last administered on 11/06/25at 07:04; Start 11/05/25 at 10:30; Stop 12/05/25 at 10:29 Ketorolac Tromethamine 15 mg Q6H PRN IV; Start 11/05/25 at 12:30; Stop 11/05/25 at 12:11; Status DC Hydromorphone HCl 0.5 mg Q4H PRN IVP Last administered on 11/08/25at 23:46; Start 11/05/25 at 17:30; Stop 11/10/25 at 17:29 Metoprolol Tartrate 5 mg ONCE ONCE IV Last administered on 11/06/25at 13:57; Start 11/06/25 at 13:00; Stop 11/06/25 at 13:03; Status DC Potassium Chloride 100 ml @ 50 mls/hr ONCE ONCE IV Last administered on 11/06/25at 13:57; Start 11/06/25 at 13:00; Stop 11/06/25 at 14:59; Status DC Lactated Ringer's 1,000 ml @ 75 mls/hr [id number] IV Last administered on 11/08/25at 13:04; Start 11/06/25 at 13:00; Stop 12/06/25 at 12:59 Metoprolol Tartrate 25 mg TID PO Last administered on 11/07/25at 20:32; Start 11/06/25 at 18:00; Stop 11/08/25 at 08:45; Status DC Sodium Chloride 500 ml @ 0 mls/hr Q0M IV Last administered on 11/08/25at 00:32; Start 11/07/25 at 02:30; Stop 11/08/25 at 08:46; Status DC Sodium Chloride 500 ml @ 0 mls/hr Q0M IV; Start 11/08/25 at 00:30; Stop 11/08/25 at 08:47; Status DC Labetalol HCl 5 mg ONCE ONCE IV Last administered on 11/08/25at 00:33; Start 11/08/25 at 00:30; Stop 11/08/25 at 00:31; Status DC Labetalol HCl 5 mg ONCE ONCE IV Last administered on 11/08/25at 04:22; Start 11/08/25 at 04:30; Stop 11/08/25 at 04:32; Status DC Metoprolol Tartrate 5 mg AD PRN IV Last administered on 11/08/25at 09:21; Start 11/08/25 at 09:00; Stop 11/08/25 at 09:21; Status DC Metoprolol Tartrate 50 mg TID PO Last administered on 11/08/25at 21:25; Start 11/08/25 at 09:00; Stop 12/08/25 at 08:59 Metoprolol Tartrate 5 mg AD PRN IV; Start 11/08/25 at 09:00; Stop 11/08/25 at 08:47; Status DC Potassium Chloride 40 meq ONCE ONCE PO Last administered on 11/08/25at 09:46; Start 11/08/25 at 10:00; Stop 11/08/25 at 10:01; Status DC Diltiazem HCl 125 mg/Sodium Chloride 125 ml @ 0 mls/hr AD PRN IV Last administered on 11/09/25at 05:19; Start 11/08/25 at 10:30; Stop 12/08/25 at 10:29 Potassium Chloride 20 meq DAILY PO; Start 11/09/25 at 09:00; Stop 12/09/25 at 08:59 Diltiazem HCl 20 mg ONCE PRN IVP Last administered on 11/08/25at 11:11; Start 11/08/25 at 11:00; Stop 11/08/25 at 11:16; Status DC Diltiazem HCl 125 mg/Sodium Chloride 125 ml @ 0 mls/hr AD PRN IV; Start 11/08/25 at 11:00; Stop 11/08/25 at 10:48; Status DC Lidocaine HCl 50 ml STK-MED ONCE .ROUTE; Start 11/08/25 at 15:25; Stop 11/08/25 at 15:25; Status DC Iodixanol 100 ml STK-MED ONCE .ROUTE; Start 11/08/25 at 15:25; Stop 11/08/25 at 15:25; Status DC Heparin Sodium/ Sodium Chloride 500 ml @ As Directed STK-MED ONCE IV; Start 11/08/25 at 15:25; Stop 11/08/25 at 15:26; Status DC Diphenhydramine HCl 50 mg STK-MED ONCE .ROUTE; Start 11/08/25 at 15:29; Stop 11/08/25 at 15:29; Status DC Methylprednisolone Sodium Succinate 125 mg STK-MED ONCE .ROUTE; Start 11/08/25 at 15:29; Stop 11/08/25 at 15:29; Status DC Fentanyl Citrate 100 mcg STK-MED ONCE .ROUTE; Start 11/08/25 at 15:41; Stop 11/08/25 at 15:41; Status DC Midazolam HCl 2 mg STK-MED ONCE .ROUTE; Start 11/08/25 at 15:41; Stop 11/08/25 at 15:41; Status DC Midazolam HCl 2 mg STK-MED ONCE .ROUTE; Start 11/08/25 at 15:55; Stop 11/08/25 at 15:55; Status DC Fentanyl Citrate 100 mcg STK-MED ONCE .ROUTE; Start 11/08/25 at 16:08; Stop 11/08/25 at 16:08; Status DC Midazolam HCl 2 mg STK-MED ONCE .ROUTE; Start 11/08/25 at 16:30; Stop 11/08/25 at 16:30; Status DC BRITNEY MALDONADO Jr. PAC Nov 09, 2025 09:42
[2025-11-09] MEDS: PoTASSium chloRIDE 20MEQ ER 20 MEQ ERTAB PO SCH (10:19)
--- NOTE | 2025-11-09 10:29 | PN ---
PROGRESS NOTE PROBLEM LIST: Acute cholecystitis Morbid obesity Hypertension hypertensive heart disease Possible paroxysmal atrial fibrillation per patient history Preserved left ventricular function via 2D echocardiography on this admission Status post cholecystostomy tube on 11/08/2025 Atrial fibrillation with episodes of rapid ventricular response INTERIM HISTORY OF PRESENT ILLNESS: Patient was moved down to telemetry and Cardizem drip has been started secondary to episodes of RVR. Patient is still in significant pain in her back. As stated before patient does give some clinical history of what sounds like rhythm disorders. REVIEW OF SYSTEMS: See HPI VITAL SIGNS Vital Signs Date Time Temp Pulse Resp B/P (MAP) Pulse Ox O2 Delivery O2 Flow Rate FiO2 11/09/25 07:00 98.1 105 24 150/83 95 Nasal Cannula 2.0 11/08/25 20:00 28 Laboratory Tests 11/09/25 07:09 LABS/MEDS Laboratory Tests Test 11/08/25 11:59 11/08/25 17:27 11/08/25 20:35 11/09/25 06:20 Whole Blood Glucose 91 MG/DL (70-110) 81 MG/DL (70-110) 95 MG/DL (70-110) 111 MG/DL (70-110) H Test 11/09/25 07:09 White Blood Count 12.0 K/uL (4.8-10.8) H Red Blood Count 5.03 MIL/uL (4.00-5.50) Hemoglobin 14.2 g/dL (12.0-16.0) Hematocrit 43.3 % (36-48) Mean Corpuscular Volume 86.1 fL (79-99) Mean Corpuscular Hemoglobin 28.2 pg (27.0-33.0) Mean Corpuscular Hemoglobin Concent 32.8 g/dL (32.0-36.0) Red Cell Distribution Width 14.6 % (11.0-15.5) Platelet Count 184 K/uL (130-400) Mean Platelet Volume 11.0 fL (7.5-10.5) H Immature Granulocyte % (Auto) 3.2 % (0-1) H Neutrophils (%) (Auto) 87.2 % (40.0-77.0) H Lymphocytes (%) (Auto) 5.4 % (21.0-51.0) L Monocytes (%) (Auto) 3.8 % (3.0-13.0) Eosinophils (%) (Auto) 0.0 % (0.0-8.0) Basophils (%) (Auto) 0.4 % (0.0-5.0) Neutrophils # (Auto) 10.5 K/uL (1.8-7.7) H Lymphocytes # (Auto) 0.7 K/uL (1.0-4.8) L Monocytes # (Auto) 0.5 K/uL (0.1-1.0) Eosinophils # (Auto) 0.00 K/uL (0.00-0.70) Basophils # (Auto) 0.05 K/uL (0.00-0.20) Absolute Immature Granulocyte (auto 0.38 K/uL (0-1) Nucleated Red Blood Cells 0.0 % (0.0-0.19) Sodium Level 141 mmol/L (136-145) Potassium Level 4.3 mmol/L (3.5-5.1) Chloride Level 105 mmol/L (101-111) Carbon Dioxide Level 26 mmol/L (21-32) Blood Urea Nitrogen 26 mg/dL (7-18) H Creatinine 1.2 mg/dL (0.5-1.0) H Glomerular Filtration Rate Calc 47 mL/min (>90) Random Glucose 119 mg/dL (70-105) H Total Calcium 8.8 mg/dL (8.5-10.1) Magnesium Level 2.10 mg/dL (1.80-2.40) Total Bilirubin 1.1 mg/dL (0.2-1.0) H Aspartate Amino Transf (AST/SGOT) 78 U/L (10-37) H Alanine Aminotransferase (ALT/SGPT) 124 U/L (12-78) H Alkaline Phosphatase 171 U/L (50-136) H Total Protein 6.6 g/dL (6.0-8.3) Albumin 2.2 g/dL (3.5-5.0) L Current Medications Sodium Chloride 1,000 ml @ 0 mls/hr ONCE ONCE IV; Start 11/04/25 at 18:30; Stop 11/04/25 at 18:48; Status DC Ondansetron HCl 4 mg ONCE ONCE IVP Last administered on 11/04/25at 18:49; Start 11/04/25 at 18:30; Stop 11/04/25 at 18:31; Status DC Pantoprazole Sodium 40 mg ONCE ONCE IVP Last administered on 11/04/25at 18:49; Start 11/04/25 at 18:30; Stop 11/04/25 at 18:31; Status DC Morphine Sulfate 4 mg ONCE ONCE IVP Last administered on 11/04/25at 18:49; Start 11/04/25 at 18:30; Stop 11/04/25 at 18:31; Status DC Piperacillin Sod/ Tazobactam Sod 50 ml @ 100 mls/hr STAT STAT IVPB Last administered on 11/04/25at 19:56; Start 11/04/25 at 18:46; Stop 11/04/25 at 19:15; Status DC Sodium Chloride 1,641 ml @ 547 mls/hr ONCE ONCE IV Last administered on 11/04/25at 19:49; Start 11/04/25 at 19:00; Stop 11/04/25 at 21:59; Status DC Potassium Bicarbonate 25 meq ONCE ONCE PO Last administered on 11/04/25at 19:56; Start 11/04/25 at 19:30; Stop 11/04/25 at 19:31; Status DC Morphine Sulfate 2 mg ONCE ONCE IVP Last administered on 11/04/25at 21:12; Start 11/04/25 at 21:00; Stop 11/04/25 at 21:01; Status DC Sodium Chloride 1,000 ml @ 100 mls/hr Q10H IV Last administered on 11/06/25at 03:54; Start 11/04/25 at 21:30; Stop 11/06/25 at 13:01; Status DC Piperacillin Sod/ Tazobactam Sod 3.375 gm Q12H IV Last administered on 11/09/25at 06:30; Start 11/05/25 at 07:00; Stop 11/15/25 at 06:59 Insulin Human Regular INSULIN SLIDING SCAL... ACHS SQ; Start 11/05/25 at 07:30; Stop 12/05/25 at 07:29 Hydromorphone HCl 0.25 mg Q4H PRN IVP Last administered on 11/05/25at 15:15; Start 11/04/25 at 21:30; Stop 11/05/25 at 16:36; Status DC Hydralazine HCl 10 mg Q6H PRN IV; Start 11/04/25 at 21:30; Stop 11/05/25 at 10:07; Status DC Ondansetron HCl 4 mg Q6H PRN IV; Start 11/04/25 at 21:30; Stop 12/04/25 at 21:29 Hydromorphone HCl 0.25 mg ONCE ONCE IVP Last administered on 11/05/25at 02:49; Start 11/05/25 at 03:00; Stop 11/05/25 at 03:01; Status DC Hydralazine HCl 5 mg Q6H PRN IV; Start 11/05/25 at 15:30; Stop 12/05/25 at 15:29 Magnesium Sulfate 50 ml @ 0 mls/hr PROTOCOL PRN IV; Start 11/05/25 at 10:30; Stop 12/05/25 at 10:29 Potassium Chloride 100 ml @ 50 mls/hr AD PRN IV Last administered on 11/07/25at 10:30; Start 11/05/25 at 10:30; Stop 12/05/25 at 10:29 Potassium Chloride 100 ml @ 100 mls/hr AD PRN IV; Start 11/05/25 at 10:30; Stop 11/05/25 at 12:10; Status DC Potassium Chloride 20 meq AD PRN PO; Start 11/05/25 at 10:30; Stop 12/05/25 at 10:29 Potassium Chloride 20 meq AD PRN PO Last administered on 11/06/25at 07:04; Start 11/05/25 at 10:30; Stop 12/05/25 at 10:29 Ketorolac Tromethamine 15 mg Q6H PRN IV; Start 11/05/25 at 12:30; Stop 11/05/25 at 12:11; Status DC Hydromorphone HCl 0.5 mg Q4H PRN IVP Last administered on 11/09/25at 10:09; Start 11/05/25 at 17:30; Stop 11/10/25 at 17:29 Metoprolol Tartrate 5 mg ONCE ONCE IV Last administered on 11/06/25at 13:57; Start 11/06/25 at 13:00; Stop 11/06/25 at 13:03; Status DC Potassium Chloride 100 ml @ 50 mls/hr ONCE ONCE IV Last administered on 11/06/25at 13:57; Start 11/06/25 at 13:00; Stop 11/06/25 at 14:59; Status DC Lactated Ringer's 1,000 ml @ 75 mls/hr [id number] IV Last administered on 11/08/25at 13:04; Start 11/06/25 at 13:00; Stop 11/09/25 at 10:06; Status DC Metoprolol Tartrate 25 mg TID PO Last administered on 11/07/25at 20:32; Start 11/06/25 at 18:00; Stop 11/08/25 at 08:45; Status DC Sodium Chloride 500 ml @ 0 mls/hr Q0M IV Last administered on 11/08/25at 00:32; Start 11/07/25 at 02:30; Stop 11/08/25 at 08:46; Status DC Sodium Chloride 500 ml @ 0 mls/hr Q0M IV; Start 11/08/25 at 00:30; Stop 11/08/25 at 08:47; Status DC Labetalol HCl 5 mg ONCE ONCE IV Last administered on 11/08/25at 00:33; Start 11/08/25 at 00:30; Stop 11/08/25 at 00:31; Status DC Labetalol HCl 5 mg ONCE ONCE IV Last administered on 11/08/25at 04:22; Start 11/08/25 at 04:30; Stop 11/08/25 at 04:32; Status DC Metoprolol Tartrate 5 mg AD PRN IV Last administered on 11/08/25at 09:21; Start 11/08/25 at 09:00; Stop 11/08/25 at 09:21; Status DC Metoprolol Tartrate 50 mg TID PO Last administered on 11/09/25at 10:12; Start 11/08/25 at 09:00; Stop 12/08/25 at 08:59 Metoprolol Tartrate 5 mg AD PRN IV; Start 11/08/25 at 09:00; Stop 11/08/25 at 08:47; Status DC Potassium Chloride 40 meq ONCE ONCE PO Last administered on 11/08/25at 09:46; Start 11/08/25 at 10:00; Stop 11/08/25 at 10:01; Status DC Diltiazem HCl 125 mg/Sodium Chloride 125 ml @ 0 mls/hr AD PRN IV Last administered on 11/09/25at 05:19; Start 11/08/25 at 10:30; Stop 12/08/25 at 10:29 Potassium Chloride 20 meq DAILY PO Last administered on 11/09/25at 10:19; Start 11/09/25 at 09:00; Stop 12/09/25 at 08:59 Diltiazem HCl 20 mg ONCE PRN IVP Last administered on 11/08/25at 11:11; Start 11/08/25 at 11:00; Stop 11/08/25 at 11:16; Status DC Diltiazem HCl 125 mg/Sodium Chloride 125 ml @ 0 mls/hr AD PRN IV; Start 11/08/25 at 11:00; Stop 11/08/25 at 10:48; Status DC Lidocaine HCl 50 ml STK-MED ONCE .ROUTE; Start 11/08/25 at 15:25; Stop 11/08/25 at 15:25; Status DC Iodixanol 100 ml STK-MED ONCE .ROUTE; Start 11/08/25 at 15:25; Stop 11/08/25 at 15:25; Status DC Heparin Sodium/ Sodium Chloride 500 ml @ As Directed STK-MED ONCE IV; Start 11/08/25 at 15:25; Stop 11/08/25 at 15:26; Status DC Diphenhydramine HCl 50 mg STK-MED ONCE .ROUTE; Start 11/08/25 at 15:29; Stop 11/08/25 at 15:29; Status DC Methylprednisolone Sodium Succinate 125 mg STK-MED ONCE .ROUTE; Start 11/08/25 at 15:29; Stop 11/08/25 at 15:29; Status DC Fentanyl Citrate 100 mcg STK-MED ONCE .ROUTE; Start 11/08/25 at 15:41; Stop 11/08/25 at 15:41; Status DC Midazolam HCl 2 mg STK-MED ONCE .ROUTE; Start 11/08/25 at 15:41; Stop 11/08/25 at 15:41; Status DC Midazolam HCl 2 mg STK-MED ONCE .ROUTE; Start 11/08/25 at 15:55; Stop 11/08/25 at 15:55; Status DC Fentanyl Citrate 100 mcg STK-MED ONCE .ROUTE; Start 11/08/25 at 16:08; Stop 11/08/25 at 16:08; Status DC Midazolam HCl 2 mg STK-MED ONCE .ROUTE; Start 11/08/25 at 16:30; Stop 11/08/25 at 16:30; Status DC PHYSICAL EXAMINATION: GENERAL: No acute distress. Morbidly obese HEENT: Normocephalic, atraumatic. CARDIAC: Positive S1 and S2, irregularly irregular tachycardic. No murmurs. LUNGS: Clear to auscultation bilaterally. ABDOMEN: Bowel sounds present EXTREMITIES: No edema bilaterally. NEUROLOGIC: Cranial nerves 2-12 grossly intact. PSYCHIATRIC: Calm. TELEMETRY: AFib with RVR ASSESSMENT: Acute cholecystitis Morbid obesity Hypertension hypertensive heart disease Possible paroxysmal atrial fibrillation per patient history Preserved left ventricular function via 2D echocardiography on this admission Atrial fibrillation with rapid ventricular response PLAN: Patient has been moved down to telemetry and is receiving Cardizem infusion. She is also receiving oral metoprolol at 50 mg 3 times daily. Patient is in significant pain which could be driving heart rate currently. I have instructed nursing to increase Cardizem to 10 mg an hour. I will then make adjustments to current metoprolol dosing. At this time with the patient's history of possible paroxysmal atrial fibrillation do not think cardioversion is appropriate in the setting and would prefer to proceed with rate control and initiating Eliquis at 5 mg twice daily to be done and continued for 4 weeks with possible plans on outpatient direct current cardioversion. Patient has had her cholecystostomy tube placed and no further procedures are scheduled so we will initiate Eliquis this morning. Patient may need combination of beta blockade and calcium channel terrence orally for rate control and we will see how she responds to adjustments to beta blockade today and Cardiology will be rounding on the patient this weekend and can make adjustments and/or addition of calcium channel terrence as needed. BASSAM NARAYANAN MD Nov 09, 2025 10:29
--- NOTE | 2025-11-09 11:38 | PN ---
NEPHROLOGY PROGRESS NOTE Date/Time Patient Seen: Nov 09, 2025 SUBJECTIVE: The patient is a pleasant 75-year-old who has multiple medical problems. The patient has underlying hypertension, hyperlipidemia, hypothyroidism, anemia, fibromyalgia, coronary artery disease in the family who has obesity. The patient came with abdominal pain associated with nausea or vomiting. The patient has hiatal hernia present. No other associated findings. No other aggravating or relieving factor. The patient has abnormal EKG. The patient has multiple other comorbidities. No other associated findings. No other aggravating or relieving factors. MRCP showed acute cholecystitis. S/P percutaneous cholecystostomy tube placement by IR. She was noted to have elevated BUN/creatinine We are consulted for renal failure Renal function is improving Electrolyte are stable. Was seen in the medical floor, complaining of back pain. No family at the bedside Prognosis remains guarded REVIEW OF SYSTEMS: GENERAL: Negative for any nausea, vomiting, fevers, chills, or weight loss. NEUROLOGIC: Negative for any blurry vision, blind spots, double vision, facial asymmetry, dysphagia, dysarthria, hemiparesis, hemisensory deficits, vertigo, ataxia. HEENT: Negative for any head trauma, neck trauma, neck stiffness, photophobia, phonophobia, sinusitis, rhinitis. CARDIAC: Negative for any chest pain, dyspnea on exertion, paroxysmal nocturnal dyspnea, peripheral edema. PULMONARY: Negative for any shortness of breath, wheezing, COPD, or TB exposure. GASTROINTESTINAL: Negative for any abdominal pain, nausea, vomiting, bright red blood per rectum, melena. GENITOURINARY: Negative for any dysuria, hematuria, incontinence. INTEGUMENTARY: Negative for any rashes, cuts, insect bites. RHEUMATOLOGIC: Negative for any joint pains, photosensitive rashes, history of vasculitis or kidney problems. HEMATOLOGIC: Negative for any abnormal bruising, frequent infections or bleeding. Vital Signs (last 8hr) Date Time Temp Pulse Resp B/P (MAP) Pulse Ox O2 Delivery O2 Flow Rate FiO2 11/09/25 07:00 98.1 105 24 150/83 95 Nasal Cannula 2.0 11/09/25 05:19 100 116/68 PHYSICAL EXAM: GENERAL: Alert and oriented x 3. No acute distress. Well-nourished. EYES: EOMI. Anicteric. HENT: Moist mucous membranes. No scleral icterus. No cervical lymphadenopathy. LUNGS: Clear to auscultation bilaterally. No accessory muscle use. CARDIOVASCULAR: Regular rate and rhythm. No murmur. No JVD. ABDOMEN: Soft, non-tender and non-distended. No palpable masses. EXTREMITIES: No edema. Non-tender. SKIN: No rashes or lesions. Warm. NEUROLOGIC: No focal neurological deficits. CN II-XII grossly intact, but not individually tested. PSYCHIATRIC: Cooperative. Appropriate mood and affect. Current Medications Medications (Trade) Dose Ordered Sig/Gerber Route PRN Reason Start Time Stop Time Status Last Admin Dose Admin Hydralazine HCl (APRESOLine 20MG INJ) 5 mg Q6H PRN IV For:SBP above 160;DBP above 90 11/05/25 15:30 12/05/25 15:29 Hydralazine HCl (APRESOLine 20MG INJ) 10 mg Q6H PRN IV For:SBP above 160;DBP above 90 11/04/25 21:30 11/05/25 10:07 DC Hydromorphone HCl (DiLAUDid 0.5MG INJ) 0.25 mg Q4H PRN IVP SEVERE PAIN (7-10) 11/04/25 21:30 11/05/25 16:36 DC 11/05/25 15:15 0.25 MG Hydromorphone HCl (DiLAUDid 0.5MG INJ) 0.5 mg Q4H PRN IVP SEVERE PAIN (7-10) 11/05/25 17:30 11/10/25 17:29 11/07/25 13:01 0.5 MG Insulin Human Regular (humuLIN R 100 UNIT/ML 3ML) INSULIN SLIDING SCAL... ACHS SQ 11/05/25 07:30 12/05/25 07:29 Ketorolac Tromethamine (toRADol) 15 mg Q6H PRN IV MODERATE PAIN (4-6) 11/05/25 12:30 11/05/25 12:11 DC Lactated Ringer's 1,000 ml @ 75 mls/hr [id number] IV 11/06/25 13:00 12/06/25 12:59 11/07/25 02:42 75 MLS/HR Magnesium Sulfate 50 ml @ 0 mls/hr PROTOCOL PRN IV low mag level 11/05/25 10:30 12/05/25 10:29 Metoprolol Tartrate (loprESSOR) 25 mg TID PO 11/06/25 18:00 12/06/25 17:59 11/07/25 10:15 25 MG Ondansetron HCl (zoFRAN 4MG INJ) 4 mg Q6H PRN IV NAUSEA/VOMITING 11/04/25 21:30 12/04/25 21:29 Piperacillin Sod/ Tazobactam Sod 50 ml @ 100 mls/hr STAT STAT IVPB 11/04/25 18:46 11/04/25 19:15 DC 11/04/25 19:56 100 MLS/HR Piperacillin Sod/ Tazobactam Sod (Zosyn 3.375gm+NS 50ml) 3.375 gm Q12H IV 11/05/25 07:00 11/15/25 06:59 11/07/25 05:03 3.375 GM Potassium Chloride 100 ml @ 50 mls/hr AD PRN IV POTASSIUM PROTOCOL 11/05/25 10:30 12/05/25 10:29 11/07/25 10:30 50 MLS/HR Potassium Chloride 100 ml @ 100 mls/hr AD PRN IV POTASSIUM PROTOCOL 11/05/25 10:30 11/05/25 12:10 DC Potassium Chloride (K-Dur/Klor-Con 20meq) 20 meq AD PRN PO POTASSIUM PROTOCOL 11/05/25 10:30 12/05/25 10:29 11/06/25 07:04 20 MEQ Potassium Chloride (KCl 10% Elixir 20meq/15ml) 20 meq AD PRN PO POTASSIUM PROTOCOL 11/05/25 10:30 12/05/25 10:29 Sodium Chloride 500 ml @ 0 mls/hr Q0M IV 11/07/25 02:30 12/07/25 02:29 Sodium Chloride 1,000 ml @ 100 mls/hr Q10H IV 11/04/25 21:30 11/06/25 13:01 DC 11/06/25 03:54 100 MLS/HR LABORATORY: [ ] Hematology Labs: Test 11/09/25 07:09 Range/Units White Blood Count 12.0 H 4.8-10.8 K/uL Red Blood Count 5.03 4.00-5.50 MIL/uL Hemoglobin 14.2 12.0-16.0 g/dL Hematocrit 43.3 36-48 % Mean Corpuscular Volume 86.1 79-99 fL Mean Corpuscular Hemoglobin 28.2 27.0-33.0 pg Mean Corpuscular Hemoglobin Concent 32.8 32.0-36.0 g/dL Red Cell Distribution Width 14.6 11.0-15.5 % Platelet Count 184 130-400 K/uL Mean Platelet Volume 11.0 H 7.5-10.5 fL Immature Granulocyte % (Auto) 3.2 H 0-1 % Neutrophils (%) (Auto) 87.2 H 40.0-77.0 % Lymphocytes (%) (Auto) 5.4 L 21.0-51.0 % Monocytes (%) (Auto) 3.8 3.0-13.0 % Eosinophils (%) (Auto) 0.0 0.0-8.0 % Basophils (%) (Auto) 0.4 0.0-5.0 % Neutrophils # (Auto) 10.5 H 1.8-7.7 K/uL Lymphocytes # (Auto) 0.7 L 1.0-4.8 K/uL Monocytes # (Auto) 0.5 0.1-1.0 K/uL Eosinophils # (Auto) 0.00 0.00-0.70 K/uL Basophils # (Auto) 0.05 0.00-0.20 K/uL Absolute Immature Granulocyte (auto 0.38 0-1 K/uL Nucleated Red Blood Cells 0.0 0.0-0.19 % Chemistry Labs: Test 11/09/25 11:24 11/09/25 07:09 Range/Units Whole Blood Glucose 160 H 70-110 MG/DL Bedside Glucose Comment Notified Nurse Sodium Level 141 136-145 mmol/L Potassium Level 4.3 3.5-5.1 mmol/L Chloride Level 105 101-111 mmol/L Carbon Dioxide Level 26 21-32 mmol/L Blood Urea Nitrogen 26 H 7-18 mg/dL Creatinine 1.2 H 0.5-1.0 mg/dL Glomerular Filtration Rate Calc 47 >90 mL/min Random Glucose 119 H 70-105 mg/dL Total Calcium 8.8 8.5-10.1 mg/dL Magnesium Level 2.10 1.80-2.40 mg/dL Total Bilirubin 1.1 H 0.2-1.0 mg/dL Aspartate Amino Transf (AST/SGOT) 78 H 10-37 U/L Alanine Aminotransferase (ALT/SGPT) 124 H 12-78 U/L Alkaline Phosphatase 171 H 50-136 U/L Total Protein 6.6 6.0-8.3 g/dL Albumin 2.2 L 3.5-5.0 g/dL DIAGNOSTICS / RADIOLOGY: [place] [address] [place] [id number] IMAGING REPORT Signed PATIENT: JOE EM MR#: [id number] : 1950 SEX: F AGE: 75 LOCATION: 2AH ORDER 1655 STATUS: ADM IN REPORT#: [id number] SERVICE REASON: bo ORDERING PHYSICIAN: VIKTOR NARAYAN MD PROCEDURE: MAGED W CATH - US PERC MAGED CATH PLCT W IMG IR HISTORY: Pain.bo GALLBLADDER ULTRASOUND: Static ultrasound images of the gallbladder are submitted. The gallbladder was localized for placement of cholecystotomy interventional suite.. IMPRESSION: Details of the finding in the interventional suite of the cholecystotomy tube placement. DICTATED BY: BUCK INIGUEZ MD DATE: 11/09/25826 ELECTRONICALLY SIGNED BY: BUCK INIGUEZ MD DATE: 11/09/25831 PATIENT: JOE EM MR#: [id number] : 1950 SEX: F AGE: 75 LOCATION: 3CH ORDER 1214 STATUS: ADM IN REPORT#: [id number] SERVICE 1212 REASON: rule out cholecystitis. ORDERING PHYSICIAN: ANGELICA PRIETO PROCEDURE: MRCP WO - MRCP(ABDWO)CHOLANGIOPANCREATOG EXAMINATION: MR Cholangiopancreatography (MRCP) without intravenous contrast. CLINICAL HISTORY: Rule out cholecystitis. TECHNIQUE: Multiplanar, multisequence MR images of the upper abdomen were acquired without intravenous contrast. Heavily T2-weighted 3D acquisitions and maximum intensity projections were generated for cholangiopancreatography. CONTRAST: No intravenous contrast. COMPARISON: CT abdomen and pelvis without contrast, dated November 04, 2025. FINDINGS: LIVER: The liver measures 19 cm with fatty infiltration. A cyst measuring 1.7 x 1.8 cm is present in segment IV of the left lobe. Another tiny cyst is present in segment II of the left lobe. GALLBLADDER AND BILIARY SYSTEM: The gallbladder demonstrates thickened muller predominantly in the fundal region, measuring up to 0.8 cm, with minimal fluid around the fundus and surrounding pericholecystic fat stranding suggestive of acute cholecystitis. No obvious filling defects to suggest calculi. The common bile duct measures 0.8 cm in diameter. No choledocholithiasis. PANCREAS: Normal caliber main pancreatic duct. Normal pancreatic parenchyma signal intensity. No mass or fluid collection. SPLEEN: Unremarkable. ADRENAL GLANDS: Unremarkable. KIDNEYS: Left parapelvic renal cysts. No hydronephrosis. OTHER: Small ascites. Small bilateral pleural effusions with probable bilateral basal atelectasis. IMPRESSION: 1. Findings suggestive of acute cholecystitis. 2. Small ascites. 3. Small bilateral pleural effusions with probable bilateral basal atelectasis. The findings are similar to those of the CT abdomen and pelvis without contrast, dated November 04, 2025, with limitations inherent to the modality. /[place] DICTATED BY: JASON ARNOLD Jr., MD DATE: 11/06/252249 ELECTRONICALLY SIGNED BY: JASON ARNOLD Jr., MD DATE: 11/06/252249 PATIENT: JOE EM MR#: [id number] : 1950 SEX: F AGE: 75 LOCATION: [facility] ORDER 1042 STATUS: ADM IN REPORT#: [id number] SERVICE 1037 REASON: shortness of breath ORDERING PHYSICIAN: LISSETH LANDRY PROCEDURE: ECHO CMP - ECHO 2-D COMPLETE APPROVED REPORT EXAM: Two-dimensional and M-mode echocardiogram with Doppler and color Doppler. INDICATION ICD: shortness of breath 2D Dimensions RVDd 3.2 cm LVEF(%) 81.4 (>50%) LVED Vol(simp.) 38.0 mL IVSd 1.1 (0.7-1.1cm) FS(%) 49 % LVES Vol(simp.) 13.0 mL LVDd 3.4 (3.8-5.6cm) LA (2D) 3.5 (1.6-4.0cm) LVEF(%, simp.) 64 % PWd 1.1 (0.7-1.1cm) Ao Root(2D) 3.1 (2.0-3.7cm) LA ESV INDEX (4CH) 19.00 mL/m2 LVDs 1.7 (2.5-4.0cm) LVOT diam 1.9 (1.8-2.4cm) M-Mode Dimensions EPSS 1.6 cm LA (MM) 3.7 (1.6-4.0cm) Ao Root(MM) 2.9 (2.0-3.7cm) Aortic Valve AoV Vmax 1.4 m/s Ao Peak GR 7.8 mmHg LVOT Vmax 1.3 m/s AoV VTI 0.2 m Ao Mean GR 5.0 mmHg LVOT VTI 0.16 m BRIGETTE (VMAX) 2.72 cm2 BRIGETTE (VTI) 3.1 cm2 Mitral Valve MV E Vmax 44.9 cm/s DECEL Time 174 ms MV A Vmax 56.0 cm/s P 1/2 T 30 ms E/A ratio 0.8 MVA (PHT) 7.2 cm2 TDI E/E' Medial 10.3 E/E' Lateral 4.4 Medial E' Peak V 4.34 cm/s Lateral E' Peak V 10.20 cm/s Pulmonary Valve PV Vmax 1.4 m/s PV VTI 0.11 m PV Mean GR 3.0 mmHg PV Peak GR 7.6 mmHg Left Ventricle Left ventricular cavity size is normal. There is normal LV segmental wall motion. Moderate concentric LVH. LVEF is 60-65%. The left ventricular diastolic function is normal. Right Ventricle The right ventricle is normal size. Right ventricular systolic function is mildly to moderately reduced. Atria The left atrium size is normal. The right atrium size is normal. Aortic Valve The aortic valve is normal in structure and function. No aortic regurgitation is present. There is no aortic valvular stenosis. Mitral Valve The mitral valve is normal in structure and function. There is no mitral valve regurgitation noted. There is no mitral valve stenosis. Tricuspid Valve The tricuspid valve is normal in structure and function. There is no tricuspid valve regurgitation noted. Pulmonic Valve The pulmonary valve is normal in structure and function. There is no pulmonic valvular regurgitation. Great Vessels The aortic root is normal in size. Pericardium Trace pericardial effusion. Other Information Quality : Technically Limited Technically limited study due to body habitus.Patient could not be placed onto left side. Conclusion Moderate concentric LVH. There is normal LV segmental wall motion. There is normal LV segmental wall motion. LVEF is 60-65%. The left ventricular diastolic function is normal. The aortic valve is normal in structure and function. The mitral valve is normal in structure and function. Trace pericardial effusion. DICTATED BY: JERRY CLINTON MD DATE: 11/06/25 1323 ELECTRONICALLY SIGNED BY: JERRY CLINTON MD DATE: 11/06/25 3560 PATIENT: JOE EM MR#: [id number] : 1950 SEX: F AGE: 75 LOCATION: [facility] ORDER 1042 STATUS: ADM IN [facility] REPORT#: [id number] SERVICE 1037 REASON: shortness of breath ORDERING PHYSICIAN: LISSETH LANDRY PROCEDURE: CXR1VW - CHEST 1VW EXAM: CR CHEST, 1 VIEW CLINICAL HISTORY: shortness of breath. COMPARISON: XR study dated 11/04/2025. TECHNIQUE: Single frontal radiograph of the chest was obtained. FINDINGS: Lines/Devices: None. Lungs: The study is significantly limited by poor inspiration with consequent elevation of the diaphragm and decreased lung expansion. Associated right lung middle zonal thick atelectasis. The rest of the visualized lungs are clear with no acute pulmonary infiltrates or masses. No consolidation or ground-glass opacities are observed. There is no pleural effusion. There is no pneumothorax. Mediastinum and cardiovascular structures: There are calcific atherosclerotic plaques in the aorta. Aortic knob calcification. Unfolding of the aorta. The rest of the cardiac and mediastinal outlines are not adequately visualized. Bones and soft tissues: No acute osseous abnormality. IMPRESSION: 1. Significantly limited study due to poor inspiration. 2. Right lung middle zonal thick atelectasis; not depicted in the X-ray study dated 11/04/2025, otherwise, no significant time interval changes. 3. Aortic knob calcification and unfolding of the aorta. /[place] DICTATED BY: MADIE MARINELLI MD DATE: 11/07/25140 ELECTRONICALLY SIGNED BY: MADIE MARINELLI MD DATE: 11/07/25140 PATIENT: JOE EM MR#: [id number] : 1950 SEX: F AGE: 75 LOCATION: [facility] ORDER 08 STATUS: ADM IN REPORT#: [id number] SERVICE 00 REASON: pre procedural ORDERING PHYSICIAN: KALA ANDERSON COORDINATOR OF ONLINE PROGRAMS PROCEDURE: CXR1VW - CHEST 1VW EXAM: CR Chest, 1 View. CLINICAL HISTORY: pre procedural COMPARISON: None provided. FINDINGS: The study is significantly limited by poor inspiration. Within limited visualized lungs, no acute pulmonary infiltrates or masses. Aortic knob calcification. Unfolding of the aorta. The rest of the cardiac and mediastinal outlines are not adequately visualized. No acute osseous abnormality. IMPRESSION: No acute cardiopulmonary pathology. /[place] DICTATED BY: JASON ARNOLD Jr., MD DATE: 11/05/25657 ELECTRONICALLY SIGNED BY: JASON ARNOLD Jr., MD DATE: 11/05/25657 PATIENT: JOE EM MR#: [id number] : 1950 SEX: F AGE: 75 LOCATION: [facility] ORDER 23 STATUS: REG ER REPORT#: [id number] SERVICE 21 REASON: ABD PAIN ORDERING PHYSICIAN: [place] COORDINATOR OF ONLINE PROGRAMS PROCEDURE: ABD PEL WO - CT ABDOMEN/PELVIS W/O CONTRAST EXAM: CT Abdomen and Pelvis Without IV contrast CLINICAL HISTORY: Patient presents with abdominal pain. TECHNIQUE: Axial computed tomography images of the abdomen and pelvis without intravenous contrast. CONTRAST: No IV contrast. COMPARISON: None provided. FINDINGS: LUNG BASES: The lung bases appear clear. No pleural effusions are seen. The right hemidiaphragm is elevated. LIVER: The liver demonstrates diffuse hepatic steatosis. The liver measures 18.3 cm in craniocaudal span. GALLBLADDER AND BILE DUCTS: The gallbladder demonstrates diffuse wall thickening up to 1.2 cm with pericholecystic fat stranding concerning for acute cholecystitis. No radioopaque gallstones are seen. No biliary ductal dilatation is evident. PANCREAS: Unremarkable. SPLEEN: Unremarkable. ADRENAL GLANDS: Unremarkable. KIDNEYS, URETERS, AND BLADDER: The kidneys appear within normal limits except for a 0.7 cm calculus in the right lower calyx and a left parapelvic cyst. There is no hydronephrosis or hydroureter. No urinary calculi are seen in the left kidney or ureters. STOMACH AND BOWEL: Unremarkable appearance of the stomach and bowel except for occasional colonic diverticulosis without evidence of diverticulitis. No evidence of bowel obstruction. No evidence suggesting enteritis or colitis. APPENDIX: No evidence of acute appendicitis on CT examination. PERITONEUM: Small hiatal hernia. No free fluid. No free air. LYMPH NODES: No lymphadenopathy is evident. REPRODUCTIVE: The uterus is surgically absent. Unremarkable as visualized otherwise. VASCULATURE: No evidence of abdominal aortic aneurysm. BONES: Multilevel moderate degenerative changes in the spine. No aggressive appearing osseous lesion. No acute osseous pathology evident. IMPRESSION: Diffuse gallbladder wall thickening with pericholecystic fat stranding concerning for acute cholecystitis. Diffuse hepatic steatosis with hepatomegaly (18.3 cm craniocaudal span). 0.7 cm right renal calculus in the lower calyx. /[place] DICTATED BY: JARVIS WOLFF MD DATE: 11/04/252045 ELECTRONICALLY SIGNED BY: JARVIS WOLFF MD DATE: 11/04/252045 ASSESSMENT: Acute renal failure Abdominal pain Severe sepsis Cholecystitis Leukocytosis Lactic acidosis Hypokalemia Uncontrolled Diabetes mellitus type2 Elevated total bilirubin Transaminitis Hypertension Hypothyroidism PLAN: Labs, diagnostic, radiologic exams reviewed and interpreted by myself and supervising physician. We have reviewed external records in detail Require close monitoring of renal function and electrolytes Order CBC, CMP, and electrolytes in am Continue with antibiotics Renal diabetic diet BiPAP as necessary, for respiratory distress Monitor blood pressure adjust medication doses as needed Avoid hypotensive episodes May use Dilaudid 0.5 mg IV every 6 hours as needed for severe pain Monitor blood sugars Strict intake, output, and daily weight should be monitored Please renally adjust medications Avoid nephrotoxic and nonsteroidal drugs Avoid contrast if possible Will continue to monitor renal function, anemia, electrolytes Treatment plan discussed with patient Questions were answered We have discussed with the other team physicians in detail about the care plan We will continue to monitor the patient closely ATTESTATION BY PHYSICIAN I have seen and examined the patient. I reviewed the documentation, medical decision making, and treatment plan as noted by the mid-level provider above. I agree with the findings and plan of care. MANUEL KARIMI MD, [facility] Nov 09, 2025 11:38
--- NOTE | 2025-11-09 11:47 | PN ---
[facility] PROGRESS NOTE Date of Service: Nov 09, 2025 Time of Service: 11:42 SUBJECTIVE: [ ] Patient reports that she came to the emergency department with a chief complaint of abdominal pain. Location is epigastric. Duration is on and off. Character is described as pressure. There was no alleviating factors. Symptoms are aggravated with eating. Patient reports associated nausea and vomiting. Today in the emergency department WBCs 23.2, 88% neutrophils left shift, lactic acid 5.4, potassium 3.1, creatinine 1.8, glucose 222 mg/dL, total bilirubin 2.5, AST 201, ALT 186, CT of abdomen and pelvis shows cholecystitis. Emergency room physician contacted general surgery service on-call who requested patient be admitted under hospitalist service. 11/05/25 patient is lying in bed patient appears to be in pain patient received Dilaudid earlier waiting for general surgeon for possible lap bo. Patient denies any cardiac history no chest pain no heart stents no MIs in the past. Significant other at bedside all questions were addressed 11/06/25 Patient was seen earlier patient continues to have abdominal pain waiting for cardiac clearance possible lap bo. DR Campbell recommending a MRCP orders were not placed we will order a stat now. Labs kidney worsening. Secondary to poor oral oral intake we will consult electrical and radio mock up mechanic's. 11/07/25 patient was seen earlier. Patient is waiting for surgery for their recommendations. the patient Waiting for MRCP. if consistent with choledocholithiasis GI to be consulted for ERCP. Surgeon's note was reviewed Dr. Narayan reached out to nurse practitioner Bruno the patient is clinically cleared for surgery. Bruno Pa call Dr Narayan that surgery is scheduled for tomorrow as per Dr Campbell. 11/08/25 Primary nurse reports the patient heart rate has been above 120-130's: atrial fibrillation with variable response currently tachycardic as per nurse she has given Lopressor x3 as directed: continue with tachycardia therefore the patient will be transfer to PCCU for Cardizem drip. Patient did have an MRCP performed yesterday consistent with acute cholecystitis. Reviewed last note from surgical services: DR Campbell his recommendations IR for percutaneous Cholecystostomy tube placement orders placed yesterday evening: Today there is no IR doing procedure will be here tomorrow as per case management: 11/09/25 the patient was seen earlier patient out of bed to chair denied chest pain patient appears dyspneic and continue with pain. Status post cholecystostomy tube on 11/08/2025. culture in process ID on board. WBCs trending down. she is currently on nasal cannula two we will get Physical therapy REVIEW OF SYSTEMS CONSTITUTIONAL: Denies fevers, chills, or night sweats. No unintentional weight loss reported. NEUROLOGICAL: Denies headache, amaurosis fugax, motor weakness, sensory deficit, vertigo/spinning sensation, gait abnormalities, or tremors. ENT: No hearing loss, otalgia, otorrhea, rhinitis, rhinorrhea, hoarseness, or sore throat. CARDIOVASCULAR: Denies any exertional angina, dyspnea on exertion, orthopnea, paroxysmal nocturnal dyspnea, palpitations, life-threatening arrhythmias, claudication. PULMONARY: Denies any shortness of breath, cough, phlegm/sputum, hemoptysis, pleuritic chest pain. SLEEP: Denies morning headaches, daytime somnolence or napping. Denies difficulty falling asleep, staying asleep, waking from sleep. Denies knowledge of snoring. GASTROINTESTINAL: Denies any type of dysphagia to either liquids or solids. Denies nausea, vomiting, pyrosis, early satiety, abdominal pain, diarrhea, constipation, or changes in stool consistency or caliber. Denies coffee-ground emesis, hematemesis, hematochezia, or melanotic stools. GENITOURINARY: Denies frequency, urgency, nocturia, hematuria or incontinence (Storage/Irritative symptoms.) Low urinary stream, straining to void, urinary intermittency or hesitancy, splitting of the voiding stream, terminal dribbling. ENDOCRINOLOGIC: Denies polyuria, polydipsia, polyphagia or heat/cold intolerances. HEMATOLOGIC: Denies thrombophilia/previous clots, or coagulopathy/bleeding disorders. ONCOLOGIC: Denies personal history of malignancy. DERMATOLOGIC: Denies rashes or pruritus. PSYCHIATRIC: Denies any suicidal or homicidal ideation. Denies hallucinations. PHYSICAL EXAM GENERAL APPEARANCE: The patient is awake, alert, and oriented, in no acute cardiopulmonary distress. NEUROLOGICAL: Cranial nerves II-XII grossly intact. Motor is 5/5 in bilateral upper and lower extremities proximal to distal. No sensory deficits. HEENT: Face is symmetric. Pupils are equal and reactive. Extraocular movements are intact. NECK: Supple. No JVD. No thyromegaly. No submental, submandibular, pre- /postauricular, occipital or supraclavicular lymphadenopathy. CHEST: Normal chest expansion. No Telemetry. LUNGS: Absence of any rales, rhonchi or any wheezing. CARDIOVASCULAR: Regular. S1 and S2 normal. No appreciable rubs, murmurs or gallops. ABDOMEN: Soft, nontender, and nondistended. There is no rebound, voluntary guarding, or rigidity. : Deferred. No Car[place]o. EXTREMITIES: Non-edematous and not cyanotic. No clubbing. Good capillary refill. SKIN: No skin breakdown. Vital Signs (last 8hr) Date Time Temp Pulse Resp B/P (MAP) Pulse Ox O2 Delivery O2 Flow Rate FiO2 11/09/25 07:00 98.1 105 24 150/83 95 Nasal Cannula 2.0 11/09/25 05:19 100 116/68 LABS: Laboratory: Test 11/09/25 11:24 11/09/25 07:09 11/07/25 19:00 Range/Units Whole Blood Glucose 160 H 70-110 MG/DL Bedside Glucose Comment Notified Nurse White Blood Count 12.0 H 4.8-10.8 K/uL Red Blood Count 5.03 4.00-5.50 MIL/uL Hemoglobin 14.2 12.0-16.0 g/dL Hematocrit 43.3 36-48 % Mean Corpuscular Volume 86.1 79-99 fL Mean Corpuscular Hemoglobin 28.2 27.0-33.0 pg Mean Corpuscular Hemoglobin Concent 32.8 32.0-36.0 g/dL Red Cell Distribution Width 14.6 11.0-15.5 % Platelet Count 184 130-400 K/uL Mean Platelet Volume 11.0 H 7.5-10.5 fL Immature Granulocyte % (Auto) 3.2 H 0-1 % Neutrophils (%) (Auto) 87.2 H 40.0-77.0 % Lymphocytes (%) (Auto) 5.4 L 21.0-51.0 % Monocytes (%) (Auto) 3.8 3.0-13.0 % Eosinophils (%) (Auto) 0.0 0.0-8.0 % Basophils (%) (Auto) 0.4 0.0-5.0 % Neutrophils # (Auto) 10.5 H 1.8-7.7 K/uL Lymphocytes # (Auto) 0.7 L 1.0-4.8 K/uL Monocytes # (Auto) 0.5 0.1-1.0 K/uL Eosinophils # (Auto) 0.00 0.00-0.70 K/uL Basophils # (Auto) 0.05 0.00-0.20 K/uL Absolute Immature Granulocyte (auto 0.38 0-1 K/uL Nucleated Red Blood Cells 0.0 0.0-0.19 % Sodium Level 141 136-145 mmol/L Potassium Level 4.3 3.5-5.1 mmol/L Chloride Level 105 101-111 mmol/L Carbon Dioxide Level 26 21-32 mmol/L Blood Urea Nitrogen 26 H 7-18 mg/dL Creatinine 1.2 H 0.5-1.0 mg/dL Glomerular Filtration Rate Calc 47 >90 mL/min Random Glucose 119 H 70-105 mg/dL Total Calcium 8.8 8.5-10.1 mg/dL Magnesium Level 2.10 1.80-2.40 mg/dL Total Bilirubin 1.1 H 0.2-1.0 mg/dL Aspartate Amino Transf (AST/SGOT) 78 H 10-37 U/L Alanine Aminotransferase (ALT/SGPT) 124 H 12-78 U/L Alkaline Phosphatase 171 H 50-136 U/L Total Protein 6.6 6.0-8.3 g/dL Albumin 2.2 L 3.5-5.0 g/dL Urine Color YELLOW YELLOW Urine Appearance CLOUDY H CLEAR Urine pH 6.0 5.0-8.0 Urine Specific [place] 1.020 1.001-1.031 Urine Protein 30 H NEGATIVE mg/dL Urine Glucose (UA) NEGATIVE NEGATIVE mg/dL Urine Ketones 10 H NEGATIVE mg/dL Urine Occult Blood MODERATE H NEGATIVE Urine Nitrate NEGATIVE NEGATIVE Urine Bilirubin NEGATIVE NEGATIVE mg/dL Urine Urobilinogen 0.2 0.2-1.0 mg/dL Urine Leukocyte Esterase NEGATIVE NEGATIVE Shanta/uL Urine RBC 2-5 H 0-1 /HPF Urine WBC 2-5 H 0-1 /HPF Urine Squamous Epithelial Cells FEW 0-2 /HPF Urine Calcium Oxalate Crystals RARE None Seen /LPF Urine Bacteria None None Seen /HPF Urine Yeast RARE None Seen /HPF Urine Osmolality 568 50-1200 mOsm/kg Urine Random Creatinine 124.09 30-135 mg/dL Urine Random Total Protein 95.7 H 0-11.9 mg/dL Urine Random Sodium 15 L 40-220 mmol/l Urine Random Potassium 29 25-125 mmol/L Urine Random Chloride 51 L 110-250 mmol/L Current Medications Medications (Trade) Dose Ordered Sig/Gerber Route PRN Reason Start Time Stop Time Status Last Admin Dose Admin Diltiazem HCl (CARDIzem 25MG INJ) 20 mg ONCE PRN IVP CARDIZEM PROTOCOL 11/08/25 11:00 11/08/25 11:16 DC 11/08/25 11:11 20 MG Diltiazem HCl 125 mg/Sodium Chloride 125 ml @ 0 mls/hr AD PRN IV CARDIZEM PROTOCOL 11/08/25 10:30 12/08/25 10:29 11/09/25 05:19 5 MLS/HR Diltiazem HCl 125 mg/Sodium Chloride 125 ml @ 0 mls/hr AD PRN IV CARDIZEM PROTOCOL 11/08/25 11:00 11/08/25 10:48 DC Hydralazine HCl (APRESOLine 20MG INJ) 5 mg Q6H PRN IV For:SBP above 160;DBP above 90 11/05/25 15:30 12/05/25 15:29 Hydralazine HCl (APRESOLine 20MG INJ) 10 mg Q6H PRN IV For:SBP above 160;DBP above 90 11/04/25 21:30 11/05/25 10:07 DC Hydromorphone HCl (DiLAUDid 0.5MG INJ) 0.25 mg Q4H PRN IVP SEVERE PAIN (7-10) 11/04/25 21:30 11/05/25 16:36 DC 11/05/25 15:15 0.25 MG Hydromorphone HCl (DiLAUDid 0.5MG INJ) 0.5 mg Q4H PRN IVP SEVERE PAIN (7-10) 11/05/25 17:30 11/10/25 17:29 11/09/25 10:09 0.5 MG Insulin Human Regular (humuLIN R 100 UNIT/ML 3ML) INSULIN SLIDING SCAL... ACHS SQ 11/05/25 07:30 12/05/25 07:29 Ketorolac Tromethamine (toRADol) 15 mg Q6H PRN IV MODERATE PAIN (4-6) 11/05/25 12:30 11/05/25 12:11 DC Lactated Ringer's 1,000 ml @ 75 mls/hr [id number] IV 11/06/25 13:00 11/09/25 10:06 DC 11/08/25 13:04 75 MLS/HR Magnesium Sulfate 50 ml @ 0 mls/hr PROTOCOL PRN IV low mag level 11/05/25 10:30 12/05/25 10:29 Metoprolol Tartrate (loprESSOR) 5 mg AD PRN IV HEART RATE ABOVE 100 11/08/25 09:00 11/08/25 08:47 DC Metoprolol Tartrate (loprESSOR) 5 mg AD PRN IV HEART RATE ABOVE 100 11/08/25 09:00 11/08/25 09:21 DC 11/08/25 09:21 5 MG Metoprolol Tartrate (loprESSOR) 25 mg TID PO 11/06/25 18:00 11/08/25 08:45 DC 11/07/25 20:32 25 MG Metoprolol Tartrate (loprESSOR) 50 mg TID PO 11/08/25 09:00 12/08/25 08:59 11/09/25 10:12 50 MG Ondansetron HCl (zoFRAN 4MG INJ) 4 mg Q6H PRN IV NAUSEA/VOMITING 11/04/25 21:30 12/04/25 21:29 Piperacillin Sod/ Tazobactam Sod 50 ml @ 100 mls/hr STAT STAT IVPB 11/04/25 18:46 11/04/25 19:15 DC 11/04/25 19:56 100 MLS/HR Piperacillin Sod/ Tazobactam Sod (Zosyn 3.375gm+NS 50ml) 3.375 gm Q12H IV 11/05/25 07:00 11/15/25 06:59 11/09/25 06:30 3.375 GM Potassium Chloride 100 ml @ 50 mls/hr AD PRN IV POTASSIUM PROTOCOL 11/05/25 10:30 12/05/25 10:29 11/07/25 10:30 50 MLS/HR Potassium Chloride 100 ml @ 100 mls/hr AD PRN IV POTASSIUM PROTOCOL 11/05/25 10:30 11/05/25 12:10 DC Potassium Chloride (K-Dur/Klor-Con 20meq) 20 meq AD PRN PO POTASSIUM PROTOCOL 11/05/25 10:30 12/05/25 10:29 11/06/25 07:04 20 MEQ Potassium Chloride (K-Dur/Klor-Con 20meq) 20 meq DAILY PO 11/09/25 09:00 12/09/25 08:59 11/09/25 10:19 20 MEQ Potassium Chloride (KCl 10% Elixir 20meq/15ml) 20 meq AD PRN PO POTASSIUM PROTOCOL 11/05/25 10:30 12/05/25 10:29 Sodium Chloride 500 ml @ 0 mls/hr Q0M IV 11/07/25 02:30 11/08/25 08:46 DC 11/08/25 00:32 500 MLS/HR Sodium Chloride 500 ml @ 0 mls/hr Q0M IV 11/08/25 00:30 11/08/25 08:47 DC Sodium Chloride 1,000 ml @ 100 mls/hr Q10H IV 11/04/25 21:30 11/06/25 13:01 DC 11/06/25 03:54 100 MLS/HR DIAGNOSTICS / RADIOLOGY: [ ] ASSESSMENT: atrial fibrillation with variable response currently tachycardic not POA Severe sepsis, POA, by clinical sepsis criteria heart rate 122, WBCs 23.2, lactic acid 5.4, source intra-abdominal acute Cholecystitis, POA cholecystostomy tube on 11/08/2025 Leukocytosis, POA Lactic acidosis, POA Hypokalemia, POA Acute kidney injury, POA, improving Uncontrolled Diabetes mellitius type2, POA Elevated total bilirubin, POA Transaminitis, POA Hypertension Hypothyroidism] [ ] PLAN: [ ] Admit patient to medical floor with tele will be transition to PCCU for tachycardia on BB cardioloigst following IVF NS at 100 mL/hour electrical and radio mock up mechanic consulted. avoid NSAIDs creatinine improving Empiric antibiotic therapy with Zosyn renal dose: no fevers overnight Microbiology intraoperative cultures in process: ID following cholecystostomy tube on 11/08/2025 will monitor output General surgeon DR Campbell following PT eval and treat. Continue with pain management for adequate pain control CBC CMP magnesium in a.m. Replace electrolytes as needed to keep potassium above 4.0 magnesium above 2.0. Avoid nephrotoxic agents when possible Renally dose all medications when possible Consider consulting Nephrology service if any worsening renal function or evidence of ATN. Continue a.c. HS monitoring with sliding scale coverage. GI prophylaxis, Protonix DVT prophylaxis, Emmanuel's and SCDs avoid anticoagulation at this time due to impending general surgery evaluation ATTESTATION BY PHYSICIAN I have seen and examined the patient. I reviewed the documentation, medical decision making, and treatment plan as noted by the mid-level provider above. I agree with the findings and plan of care. VIKTOR NARAYAN MD, [facility] Nov 09, 2025 11:47
--- NOTE | 2025-11-09 13:50 | PN ---
INFECTIOUS DISEASE PROGRESS NOTE Date of Service: Nov 09, 2025 SUBJECTIVE: This 75-year-old female patient is being seen today at bedside. She is awake, alert and oriented x3. denies chest pain.. Denies any pain at this time. This reports patient has been having AFib RVR and was placed on Cardizem drip. She is status post cholecystostomy tube placement from yesterday, drained 150 cc overnight. Patient remains on Zosyn. WBCs of 12. She remains afebrile. PHYSICAL EXAM EYES: Anicteric. Pupils equal and reactive. HENT: No oral thrush seen, moist Oral mucosa NECK: Supple, no JVD or thyromegaly. LUNGS: Good air entry. No rales, no rhonchi. CARDIOVASCULAR: S1, S2 regular. No murmur heard. ABDOMEN: Soft, non tender, bowel sounds present. Abdominal pain (improved). Keyona drain CENTRAL NERVOUS SYSTEM: Awake, alert, oriented x 3. SKIN: No rashes, no swelling. LYMPHATICS: No peripheral lymphadenopathy MUSCULOSKELETAL: No joint swelling, erythema or tenderness. EXTREMITIES: No cyanosis or clubbing BACK: No deformity, no pressure ulcer. GENITOURINARY: No dysuria or hematuria Vital Sign (Last 12 Hours) 11/09/25 11/09/25 11/09/25 11/09/25 03:01 05:19 07:00 11:00 Temp 95.7 98.1 98.1 Pulse 76 100 105 71 Resp 22 24 22 B/P (MAP) 116/68 116/68 150/83 143/81 Pulse Ox 94 95 97 O2 Delivery Nasal Cannula Nasal Cannula Nasal Cannula O2 Flow Rate 2.0 2.0 2.0 Intake & Output (last 24hrs) 11/08/25 11/08/25 11/09/25 15:00 23:00 07:00 Intake Total 272.5 ml 30.0 ml 1250.0 ml Output Total 450 ml 450 ml Balance 272.5 ml -420.0 ml 800.0 ml LABS: Laboratory: Test 11/09/25 11:24 11/09/25 07:09 11/07/25 19:00 Range/Units Whole Blood Glucose 160 H 70-110 MG/DL Bedside Glucose Comment Notified Nurse White Blood Count 12.0 H 4.8-10.8 K/uL Red Blood Count 5.03 4.00-5.50 MIL/uL Hemoglobin 14.2 12.0-16.0 g/dL Hematocrit 43.3 36-48 % Mean Corpuscular Volume 86.1 79-99 fL Mean Corpuscular Hemoglobin 28.2 27.0-33.0 pg Mean Corpuscular Hemoglobin Concent 32.8 32.0-36.0 g/dL Red Cell Distribution Width 14.6 11.0-15.5 % Platelet Count 184 130-400 K/uL Mean Platelet Volume 11.0 H 7.5-10.5 fL Immature Granulocyte % (Auto) 3.2 H 0-1 % Neutrophils (%) (Auto) 87.2 H 40.0-77.0 % Lymphocytes (%) (Auto) 5.4 L 21.0-51.0 % Monocytes (%) (Auto) 3.8 3.0-13.0 % Eosinophils (%) (Auto) 0.0 0.0-8.0 % Basophils (%) (Auto) 0.4 0.0-5.0 % Neutrophils # (Auto) 10.5 H 1.8-7.7 K/uL Lymphocytes # (Auto) 0.7 L 1.0-4.8 K/uL Monocytes # (Auto) 0.5 0.1-1.0 K/uL Eosinophils # (Auto) 0.00 0.00-0.70 K/uL Basophils # (Auto) 0.05 0.00-0.20 K/uL Absolute Immature Granulocyte (auto 0.38 0-1 K/uL Nucleated Red Blood Cells 0.0 0.0-0.19 % Sodium Level 141 136-145 mmol/L Potassium Level 4.3 3.5-5.1 mmol/L Chloride Level 105 101-111 mmol/L Carbon Dioxide Level 26 21-32 mmol/L Blood Urea Nitrogen 26 H 7-18 mg/dL Creatinine 1.2 H 0.5-1.0 mg/dL Glomerular Filtration Rate Calc 47 >90 mL/min Random Glucose 119 H 70-105 mg/dL Total Calcium 8.8 8.5-10.1 mg/dL Magnesium Level 2.10 1.80-2.40 mg/dL Total Bilirubin 1.1 H 0.2-1.0 mg/dL Aspartate Amino Transf (AST/SGOT) 78 H 10-37 U/L Alanine Aminotransferase (ALT/SGPT) 124 H 12-78 U/L Alkaline Phosphatase 171 H 50-136 U/L B-Type Natriuretic Peptide 764 H 0-100 pg/mL Total Protein 6.6 6.0-8.3 g/dL Albumin 2.2 L 3.5-5.0 g/dL Urine Color YELLOW YELLOW Urine Appearance CLOUDY H CLEAR Urine pH 6.0 5.0-8.0 Urine Specific [place] 1.020 1.001-1.031 Urine Protein 30 H NEGATIVE mg/dL Urine Glucose (UA) NEGATIVE NEGATIVE mg/dL Urine Ketones 10 H NEGATIVE mg/dL Urine Occult Blood MODERATE H NEGATIVE Urine Nitrate NEGATIVE NEGATIVE Urine Bilirubin NEGATIVE NEGATIVE mg/dL Urine Urobilinogen 0.2 0.2-1.0 mg/dL Urine Leukocyte Esterase NEGATIVE NEGATIVE Shanta/uL Urine RBC 2-5 H 0-1 /HPF Urine WBC 2-5 H 0-1 /HPF Urine Squamous Epithelial Cells FEW 0-2 /HPF Urine Calcium Oxalate Crystals RARE None Seen /LPF Urine Bacteria None None Seen /HPF Urine Yeast RARE None Seen /HPF Urine Osmolality 568 50-1200 mOsm/kg Urine Random Creatinine 124.09 30-135 mg/dL Urine Random Total Protein 95.7 H 0-11.9 mg/dL Urine Random Sodium 15 L 40-220 mmol/l Urine Random Potassium 29 25-125 mmol/L Urine Random Chloride 51 L 110-250 mmol/L DIAGNOSTICS / RADIOLOGY: PATIENT: JOE EM ACCT: [id number] LOC: [facility] U: [id number] AGE/SX: 75/F ROOM: [facility] RE11/04/[address]: VIKTOR NARAYAN MD : 1950 BED: 1 DIS: STATUS: ADM IN TLOC: SPEC: [id number] KHURRAM: 11/05/25-0445 STATUS: COMP REQ: [id number] RECD: 11/07/[address]: KALA ANDERSON [facility] SOURCE: [facility] [place] ENTR: 11/07/[address]: GERMAINE ANDUJAR MD [facility] VIKTOR NARAYAN MD, ANTONIO MD ORDERED: AERO ID & SENS Procedure Result Sae Date-Time AEROBIC ID & SENSITIVITIES Final 11/08/25-1005 MRL COLONY DESCRIPTION: DAY 1: COLONY COUNT: 10,000 - 20,000 CFU/ML LACTOBACILLUS SPECIES NO FURTHER WORK-UP DONE LACTOBACILLUS SPECIES ASSESSMENT: Acute cholecystitis status post keyona drain placement Urinary Tract infection with lactobacillus species. Sepsis. Leukocytosis, improving Acute renal failure. Tachycardia. AFib PLAN: Patient is being transferred to PCCU for Arcadio wangip Continue Zosyn. General Surgery following patient. Avoid nephrotoxic medications. Continue drain care Continue pain management This case was reviewed and discussed with my supervising physician Dr. Michaud and the above assessment and plan was formulated and agreed upon. MICHI WHATLEY INFORMATION COORDINATOR Nov 09, 2025 13:50
[2025-11-09 18:13] LABS: INR 1.01 (0.85-1.15)
--- NOTE | 2025-11-09 19:54 | HMCIMG ---
EXAM: CR Chest, 2 View. CLINICAL HISTORY: PICC line placement. TECHNIQUE: Frontal and lateral chest radiographs. COMPARISON: CR chest 1 view dated 11/06/2025 at 11:32 EST. FINDINGS: LUNGS: Low lung volumes with hypoventilation of both lungs and elevation of both hemidiaphragms, more pronounced on the right. There is a persistent right upper lobe opacity, unchanged from the prior examination, which may reflect scarring, atelectasis, or residual airspace disease. No new focal consolidation is identified elsewhere. PLEURAL SPACES: No pleural effusion or pneumothorax. MEDIASTINUM: Cardiac size and mediastinal contours are within normal limits. LINES, TUBES, AND DEVICES: A right upper extremity PICC line is now present with the catheter tip projecting in the region of the superior vena cava, in satisfactory position. BONES: No aggressive osseous lesion is seen. IMPRESSION: * Persistent right upper lobe opacity, stable compared with 11/06/2025, which may represent scarring, atelectasis, or residual airspace disease; clinical correlation and prior cross-sectional imaging, if available, may help further characterize. * Hypoventilatory chest with elevated hemidiaphragms, right greater than left, without new consolidation, pleural effusion, or pneumothorax. * Interval placement of right upper extremity PICC with tip in the expected region of the superior vena cava in satisfactory position. /[place]
[2025-11-09] MEDS: ZOSYN 3.375GM +NS 50ML IV SCH (22:01)
[2025-11-10] VITALS (7 sets, daily range): BP systolic 127–137; BP diastolic 76–97; PULSE 61–93; RESP 18–19; TEMP 97.4–98.7; O2SAT 93–96
[2025-11-10 03:56] LABS: NUCLEATED RED BLOOD CELLS 0.0 % (0.0-0.19); PLATELET COUNT (AUTO) 207.0 K/uL (130-400); RED BLOOD CELL COUNT(AUTO) 4.6 MIL/uL (4.00-5.50); RED CELL DISTRIBUTION WIDTH 14.3 % (11.0-15.5); WHITE BLOOD COUNT (AUTO) 12.6 K/uL (4.8-10.8)
[2025-11-10 04:29] LABS: ASPARTATE AMINOTRANSFERASE 41.0 U/L (10-37); CREATININE 1.0 mg/dL (0.5-1.0); GLOMERULAR FILTR. RATE CALC 58.0 mL/min (>90); GLUCOSE,RANDOM 114.0 mg/dL (70-105); SODIUM SERUM 138.0 mmol/L (136-145); TOTAL PROTEIN, SERUM 6.2 g/dL (6.0-8.3); UREA NITROGEN, BLOOD 25.0 mg/dL (7-18)
--- NOTE | 2025-11-10 07:12 | PN ---
[facility] PROGRESS NOTE Date of Service: Nov 10, 2025 Time of Service: 07:11 SUBJECTIVE: [ ] Patient reports that she came to the emergency department with a chief complaint of abdominal pain. Location is epigastric. Duration is on and off. Character is described as pressure. There was no alleviating factors. Symptoms are aggravated with eating. Patient reports associated nausea and vomiting. Today in the emergency department WBCs 23.2, 88% neutrophils left shift, lactic acid 5.4, potassium 3.1, creatinine 1.8, glucose 222 mg/dL, total bilirubin 2.5, AST 201, ALT 186, CT of abdomen and pelvis shows cholecystitis. Emergency room physician contacted general surgery service on-call who requested patient be admitted under hospitalist service. 11/05/25 patient is lying in bed patient appears to be in pain patient received Dilaudid earlier waiting for general surgeon for possible lap bo. Patient denies any cardiac history no chest pain no heart stents no MIs in the past. Significant other at bedside all questions were addressed 11/06/25 Patient was seen earlier patient continues to have abdominal pain waiting for cardiac clearance possible lap bo. DR Campbell recommending a MRCP orders were not placed we will order a stat now. Labs kidney worsening. Secondary to poor oral oral intake we will consult lease purchase driver's. 11/07/25 patient was seen earlier. Patient is waiting for surgery for their recommendations. the patient Waiting for MRCP. if consistent with choledocholithiasis GI to be consulted for ERCP. Surgeon's note was reviewed Dr. Narayan reached out to nurse practitioner Bruno the patient is clinically cleared for surgery. Bruno Pa call Dr Narayan that surgery is scheduled for tomorrow as per Dr Campbell. 11/08/25 Primary nurse reports the patient heart rate has been above 120-130's: atrial fibrillation with variable response currently tachycardic as per nurse she has given Lopressor x3 as directed: continue with tachycardia therefore the patient will be transfer to PCCU for Cardizem drip. Patient did have an MRCP performed yesterday consistent with acute cholecystitis. Reviewed last note from surgical services: DR Campbell his recommendations IR for percutaneous Cholecystostomy tube placement orders placed yesterday evening: Today there is no IR doing procedure will be here tomorrow as per case management: 11/09/25 the patient was seen earlier patient out of bed to chair denied chest pain patient appears dyspneic and continue with pain. Status post cholecystostomy tube on 11/08/2025. culture in process ID on board. WBCs trending down. she is currently on nasal cannula two we will get Physical therapy 11/10/25 postop day two recuperating well. cholecystostomy tube Drain output bilious Patient continues on Cardizem drip we will titrate currently on 7.5 mg per hour. Patient reports no fever chills or diarrhea overnight. Continues with broad-spectrum antibiotics she continues to work with physical therapy case management for SNF placement. REVIEW OF SYSTEMS CONSTITUTIONAL: Denies fevers, chills, or night sweats. No unintentional weight loss reported. NEUROLOGICAL: Denies headache, amaurosis fugax, motor weakness, sensory deficit, vertigo/spinning sensation, gait abnormalities, or tremors. ENT: No hearing loss, otalgia, otorrhea, rhinitis, rhinorrhea, hoarseness, or sore throat. CARDIOVASCULAR: Denies any exertional angina, dyspnea on exertion, orthopnea, paroxysmal nocturnal dyspnea, palpitations, life-threatening arrhythmias, claudication. PULMONARY: Denies any shortness of breath, cough, phlegm/sputum, hemoptysis, pleuritic chest pain. SLEEP: Denies morning headaches, daytime somnolence or napping. Denies difficulty falling asleep, staying asleep, waking from sleep. Denies knowledge of snoring. GASTROINTESTINAL: Denies any type of dysphagia to either liquids or solids. Denies nausea, vomiting, pyrosis, early satiety, abdominal pain, diarrhea, constipation, or changes in stool consistency or caliber. Denies coffee-ground emesis, hematemesis, hematochezia, or melanotic stools. GENITOURINARY: Denies frequency, urgency, nocturia, hematuria or incontinence (Storage/Irritative symptoms.) Low urinary stream, straining to void, urinary intermittency or hesitancy, splitting of the voiding stream, terminal dribbling. ENDOCRINOLOGIC: Denies polyuria, polydipsia, polyphagia or heat/cold intolerances. HEMATOLOGIC: Denies thrombophilia/previous clots, or coagulopathy/bleeding disorders. ONCOLOGIC: Denies personal history of malignancy. DERMATOLOGIC: Denies rashes or pruritus. PSYCHIATRIC: Denies any suicidal or homicidal ideation. Denies hallucinations. PHYSICAL EXAM GENERAL APPEARANCE: The patient is awake, alert, and oriented, in no acute cardiopulmonary distress. NEUROLOGICAL: Cranial nerves II-XII grossly intact. Motor is 5/5 in bilateral upper and lower extremities proximal to distal. No sensory deficits. HEENT: Face is symmetric. Pupils are equal and reactive. Extraocular movements are intact. NECK: Supple. No JVD. No thyromegaly. No submental, submandibular, pre-/postauricular, occipital or supraclavicular lymphadenopathy. CHEST: Normal chest expansion. No Telemetry. LUNGS: Absence of any rales, rhonchi or any wheezing. CARDIOVASCULAR: Regular. S1 and S2 normal. No appreciable rubs, murmurs or gallops. ABDOMEN: Soft, nontender, and nondistended. There is no rebound, voluntary guarding, or rigidity. : Deferred. No Carreno. EXTREMITIES: Non-edematous and not cyanotic. No clubbing. Good capillary refill. SKIN: No skin breakdown. Vital Signs (last 8hr) Date Time Temp Pulse Resp B/P (MAP) Pulse Ox O2 Delivery O2 Flow Rate FiO2 11/10/25 03:00 98.8 85 19 135/76 Room Air 2.0 11/10/25 00:52 94 143/97 LABS: Laboratory: Test 11/10/25 05:19 11/10/25 03:44 11/09/25 17:54 11/09/25 15:47 Range/Units Whole Blood Glucose 105 70-110 MG/DL White Blood Count 12.6 H 4.8-10.8 K/uL Red Blood Count 4.60 4.00-5.50 MIL/uL Hemoglobin 13.3 12.0-16.0 g/dL Hematocrit 38.8 36-48 % Mean Corpuscular Volume 84.3 79-99 fL Mean Corpuscular Hemoglobin 28.9 27.0-33.0 pg Mean Corpuscular Hemoglobin Concent 34.3 32.0-36.0 g/dL Red Cell Distribution Width 14.3 11.0-15.5 % Platelet Count 207 130-400 K/uL Mean Platelet Volume 11.1 H 7.5-10.5 fL Nucleated Red Blood Cells 0.0 0.0-0.19 % Sodium Level 138 136-145 mmol/L Potassium Level 4.2 3.5-5.1 mmol/L Chloride Level 107 101-111 mmol/L Carbon Dioxide Level 23 21-32 mmol/L Blood Urea Nitrogen 25 H 7-18 mg/dL Creatinine 1.0 0.5-1.0 mg/dL Glomerular Filtration Rate Calc 58 >90 mL/min Random Glucose 114 H 70-105 mg/dL Total Calcium 8.7 8.5-10.1 mg/dL Magnesium Level 2.00 1.80-2.40 mg/dL Total Bilirubin 1.1 H 0.2-1.0 mg/dL Aspartate Amino Transf (AST/SGOT) 41 H 10-37 U/L Alanine Aminotransferase (ALT/SGPT) 91 #H 12-78 U/L Alkaline Phosphatase 136 50-136 U/L Total Protein 6.2 6.0-8.3 g/dL Albumin 2.0 L 3.5-5.0 g/dL Prothrombin Time 10.7 9.6-11.6 SEC Prothromb Time International Ratio 1.01 0.85-1.15 Activated Partial Thromboplast Time 26.2 L 26.3-35.5 SEC Bedside Glucose Comment Notified Nurse Test 11/09/25 07:09 Range/Units Immature Granulocyte % (Auto) 3.2 H 0-1 % Neutrophils (%) (Auto) 87.2 H 40.0-77.0 % Lymphocytes (%) (Auto) 5.4 L 21.0-51.0 % Monocytes (%) (Auto) 3.8 3.0-13.0 % Eosinophils (%) (Auto) 0.0 0.0-8.0 % Basophils (%) (Auto) 0.4 0.0-5.0 % Neutrophils # (Auto) 10.5 H 1.8-7.7 K/uL Lymphocytes # (Auto) 0.7 L 1.0-4.8 K/uL Monocytes # (Auto) 0.5 0.1-1.0 K/uL Eosinophils # (Auto) 0.00 0.00-0.70 K/uL Basophils # (Auto) 0.05 0.00-0.20 K/uL Absolute Immature Granulocyte (auto 0.38 0-1 K/uL B-Type Natriuretic Peptide 764 H 0-100 pg/mL Current Medications Medications (Trade) Dose Ordered Sig/Gerber Route PRN Reason Start Time Stop Time Status Last Admin Dose Admin Diltiazem HCl (CARDIzem 25MG INJ) 20 mg ONCE PRN IVP CARDIZEM PROTOCOL 11/08/25 11:00 11/08/25 11:16 DC 11/08/25 11:11 20 MG Diltiazem HCl 125 mg/Sodium Chloride 125 ml @ 0 mls/hr AD PRN IV CARDIZEM PROTOCOL 11/08/25 10:30 12/08/25 10:29 11/10/25 00:52 10 MLS/HR Diltiazem HCl 125 mg/Sodium Chloride 125 ml @ 0 mls/hr AD PRN IV CARDIZEM PROTOCOL 11/08/25 11:00 11/08/25 10:48 DC Hydralazine HCl (APRESOLine 20MG INJ) 5 mg Q6H PRN IV For:SBP above 160;DBP above 90 11/05/25 15:30 12/05/25 15:29 Hydralazine HCl (APRESOLine 20MG INJ) 10 mg Q6H PRN IV For:SBP above 160;DBP above 90 11/04/25 21:30 11/05/25 10:07 DC Hydromorphone HCl (DiLAUDid 0.5MG INJ) 0.25 mg Q4H PRN IVP SEVERE PAIN (7-10) 11/04/25 21:30 11/05/25 16:36 DC 11/05/25 15:15 0.25 MG Hydromorphone HCl (DiLAUDid 0.5MG INJ) 0.5 mg Q4H PRN IVP SEVERE PAIN (7-10) 11/05/25 17:30 11/10/25 17:29 11/10/25 07:05 0.5 MG Insulin Human Regular (humuLIN R 100 UNIT/ML 3ML) INSULIN SLIDING SCAL... ACHS SQ 11/05/25 07:30 12/05/25 07:29 Ketorolac Tromethamine (toRADol) 15 mg Q6H PRN IV MODERATE PAIN (4-6) 11/05/25 12:30 11/05/25 12:11 DC Lactated Ringer's 1,000 ml @ 75 mls/hr [id number] IV 11/06/25 13:00 11/09/25 10:06 DC 11/08/25 13:04 75 MLS/HR Magnesium Sulfate 50 ml @ 0 mls/hr PROTOCOL PRN IV low mag level 11/05/25 10:30 12/05/25 10:29 Metoprolol Tartrate (loprESSOR) 5 mg AD PRN IV HEART RATE ABOVE 100 11/08/25 09:00 11/08/25 08:47 DC Metoprolol Tartrate (loprESSOR) 5 mg AD PRN IV HEART RATE ABOVE 100 11/08/25 09:00 11/08/25 09:21 DC 11/08/25 09:21 5 MG Metoprolol Tartrate (loprESSOR) 25 mg TID PO 11/06/25 18:00 11/08/25 08:45 DC 11/07/25 20:32 25 MG Metoprolol Tartrate (loprESSOR) 50 mg TID PO 11/08/25 09:00 12/08/25 08:59 11/09/25 20:59 50 MG Ondansetron HCl (zoFRAN 4MG INJ) 4 mg Q6H PRN IV NAUSEA/VOMITING 11/04/25 21:30 12/04/25 21:29 Piperacillin Sod/ Tazobactam Sod 50 ml @ 100 mls/hr STAT STAT IVPB 11/04/25 18:46 11/04/25 19:15 DC 11/04/25 19:56 100 MLS/HR Piperacillin Sod/ Tazobactam Sod (Zosyn 3.375gm+NS 50ml) 3.375 gm Q12H IV 11/05/25 07:00 11/09/25 16:24 DC 11/09/25 06:30 3.375 GM Piperacillin Sod/ Tazobactam Sod (Zosyn 3.375gm+NS 50ml) 3.375 gm Q12H9 IV 11/09/25 21:00 11/15/25 06:59 11/09/25 22:01 3.375 GM Potassium Chloride 100 ml @ 50 mls/hr AD PRN IV POTASSIUM PROTOCOL 11/05/25 10:30 12/05/25 10:29 11/07/25 10:30 50 MLS/HR Potassium Chloride 100 ml @ 100 mls/hr AD PRN IV POTASSIUM PROTOCOL 11/05/25 10:30 11/05/25 12:10 DC Potassium Chloride (K-Dur/Klor-Con 20meq) 20 meq AD PRN PO POTASSIUM PROTOCOL 11/05/25 10:30 12/05/25 10:29 11/06/25 07:04 20 MEQ Potassium Chloride (K-Dur/Klor-Con 20meq) 20 meq DAILY PO 11/09/25 09:00 12/09/25 08:59 11/09/25 10:19 20 MEQ Potassium Chloride (KCl 10% Elixir 20meq/15ml) 20 meq AD PRN PO POTASSIUM PROTOCOL 11/05/25 10:30 12/05/25 10:29 Sodium Chloride 500 ml @ 0 mls/hr Q0M IV 11/07/25 02:30 11/08/25 08:46 DC 11/08/25 00:32 500 MLS/HR Sodium Chloride 500 ml @ 0 mls/hr Q0M IV 11/08/25 00:30 11/08/25 08:47 DC Sodium Chloride 1,000 ml @ 100 mls/hr Q10H IV 11/04/25 21:30 11/06/25 13:01 DC 11/06/25 03:54 100 MLS/HR DIAGNOSTICS / RADIOLOGY: [ ] ASSESSMENT: atrial fibrillation with variable response currently tachycardic not POA Severe sepsis, POA, by clinical sepsis criteria heart rate 122, WBCs 23.2, lactic acid 5.4, source intra-abdominal acute Cholecystitis, POA cholecystostomy tube on 11/08/2025 Leukocytosis, POA improving Lactic acidosis, POA Hypokalemia, POA Acute kidney injury,ATN POA, REsolved Uncontrolled Diabetes mellitius type2, POA Elevated total bilirubin, POA Transaminitis, POA Hypertension Hypothyroidism] [ ] PLAN: [ ] Transition to PCCU continue on Cardizem drip will be titrated IVF NS heplock Empiric antibiotic therapy with Zosyn renal dose: no fevers overnight Microbiology intraoperative cultures in process: ID following cholecystostomy tube on 11/08/2025 will monitor output General surgeon DR Campbell following recommendation: recommended to follow up in 4-6 weeks for evaluation of potential cholecystectomy and drain removal PT services: OOB to chair SNF: placement case management aware. Continue with pain management for adequate pain control CBC CMP magnesium in a.m. Replace electrolytes as needed to keep potassium above 4.0 magnesium above 2.0. Avoid nephrotoxic agents when possible kidney function improved. Continue a.c. HS monitoring with sliding scale coverage. GI prophylaxis, Protonix DVT prophylaxis, Emmanuel's and SCDs avoid anticoagulation at this time due to impending general surgery evaluation ATTESTATION BY PHYSICIAN I have seen and examined the patient. I reviewed the documentation, medical decision making, and treatment plan as noted by the mid-level provider above. I agree with the findings and plan of care. VIKTOR NARAYAN MD, [facility] Nov 10, 2025 07:12
--- NOTE | 2025-11-10 09:17 | PN ---
[facility] CARDIOLOGY PROGRESS NOTE Cardiology progress note dictated for Juan Ramon Dooley MD Date Patient Seen: Nov 10, 2025 Time of Visit: 09:12 Interval History: The patient remains on a Cardizem infusion currently at 10 mg/hour with reported heart rates in the 80s. Bedside nurse informed to wean off as tolerated. Patient states her abdominal pain is being controlled. Physical Examination: GENERAL: No acute distress. HEAD: Normal with no signs of head trauma. EYES: Conjunctiva and sclera normal. NECK: Supple without JVD. LUNGS: Rales to right lung. HEART: Irregularly irregular rate and rhythm. Normal S1 and S2 without murmurs, gallop or rub. VASC: Peripheral pulses +2 bilaterally. EXT: No clubbing, cyanosis or edema. Right upper cholecystostomy tube draining dark brown fluid. NEURO: Awake, alert, and oriented x3. No focal neurological deficits noted. Laboratory: Hematology Labs: Test 11/10/25 03:44 11/09/25 07:09 Range/Units White Blood Count 12.6 H 4.8-10.8 K/uL Red Blood Count 4.60 4.00-5.50 MIL/uL Hemoglobin 13.3 12.0-16.0 g/dL Hematocrit 38.8 36-48 % Mean Corpuscular Volume 84.3 79-99 fL Mean Corpuscular Hemoglobin 28.9 27.0-33.0 pg Mean Corpuscular Hemoglobin Concent 34.3 32.0-36.0 g/dL Red Cell Distribution Width 14.3 11.0-15.5 % Platelet Count 207 130-400 K/uL Mean Platelet Volume 11.1 H 7.5-10.5 fL Nucleated Red Blood Cells 0.0 0.0-0.19 % Immature Granulocyte % (Auto) 3.2 H 0-1 % Neutrophils (%) (Auto) 87.2 H 40.0-77.0 % Lymphocytes (%) (Auto) 5.4 L 21.0-51.0 % Monocytes (%) (Auto) 3.8 3.0-13.0 % Eosinophils (%) (Auto) 0.0 0.0-8.0 % Basophils (%) (Auto) 0.4 0.0-5.0 % Neutrophils # (Auto) 10.5 H 1.8-7.7 K/uL Lymphocytes # (Auto) 0.7 L 1.0-4.8 K/uL Monocytes # (Auto) 0.5 0.1-1.0 K/uL Eosinophils # (Auto) 0.00 0.00-0.70 K/uL Basophils # (Auto) 0.05 0.00-0.20 K/uL Absolute Immature Granulocyte (auto 0.38 0-1 K/uL Chemistry Labs: Test 11/10/25 05:19 11/10/25 03:44 11/09/25 15:47 11/09/25 07:09 Range/Units Whole Blood Glucose 105 70-110 MG/DL Sodium Level 138 136-145 mmol/L Potassium Level 4.2 3.5-5.1 mmol/L Chloride Level 107 101-111 mmol/L Carbon Dioxide Level 23 21-32 mmol/L Blood Urea Nitrogen 25 H 7-18 mg/dL Creatinine 1.0 0.5-1.0 mg/dL Glomerular Filtration Rate Calc 58 >90 mL/min Random Glucose 114 H 70-105 mg/dL Total Calcium 8.7 8.5-10.1 mg/dL Magnesium Level 2.00 1.80-2.40 mg/dL Total Bilirubin 1.1 H 0.2-1.0 mg/dL Aspartate Amino Transf (AST/SGOT) 41 H 10-37 U/L Alanine Aminotransferase (ALT/SGPT) 91 #H 12-78 U/L Alkaline Phosphatase 136 50-136 U/L Total Protein 6.2 6.0-8.3 g/dL Albumin 2.0 L 3.5-5.0 g/dL Bedside Glucose Comment Notified Nurse B-Type Natriuretic Peptide 764 H 0-100 pg/mL Coagulation Labs: Test 11/09/25 17:54 Range/Units Prothrombin Time 10.7 9.6-11.6 SEC Prothromb Time International Ratio 1.01 0.85-1.15 Activated Partial Thromboplast Time 26.2 L 26.3-35.5 SEC Diagnostics / Radiology: Impression and Plan: Acute cholecystitis s/p cholecystostomy tube Morbid obesity Hypertension hypertensive heart disease Possible paroxysmal atrial fibrillation per patient history Preserved left ventricular function via 2D echocardiography on this admission Atrial fibrillation with rapid ventricular response /// The patient remains of Cardizem infusion at 10mg/ml and is maintained on meto prolol tartrate 50 mg t.i.d. Heart rate currently in the 80s, wean Cardizem drip as tolerated Patient may need a combination of beta blockade and calcium channel terrence orally for rate control, we will see how she responds to weaning off of Cardizem gtt. HR not well controlled. Uptitrate metoprolol from 50mg TID to 100mg BID to start tonight. [id number] Score of 3 points. Begin Eliquis 5 mg b.i.d. which is to continue for 4 weeks with possible plans on outpatient direct current cardioversion. [facility]AE [facility] Nov 10, 2025 09:17 JUAN RAMON DOOLEY DO Nov 10, 2025 11:49
--- NOTE | 2025-11-10 12:47 | PN ---
FOLLOWUP PROGRESS NOTE SUBJECTIVE: A 75-year-old female who has had a prolonged hospital course. The patient with a history of cholecystitis, status post cholecystectomy, tube placement. She has a history of hypertension as well as coronary artery disease. The patient has had acute on chronic renal failure in the hospital. Creatinine has been elevated. The patient was seen by surgical service and she is being seen as a followup visit for all the above. REVIEW OF SYSTEMS: GENERAL: She is feeling somewhat improved. HEENT: No change in vision. No change in hearing. CARDIOVASCULAR: There are no current chest pains or palpitations. PULMONARY: She denies any shortness of breath. GASTROINTESTINAL: She is tolerating a diet. MUSCULOSKELETAL: She complains of weakness. PHYSICAL EXAMINATION: VITAL SIGNS: Blood pressure 137/97, pulse in the 80s. GENERAL: Chronically ill, elderly female, lying in bed on the medical floor. HEENT: Head atraumatic. Pupils are equal, round, and reactive to light. Oropharynx is without exudate. Nares clear. NECK: There is no JVP. There is no thyromegaly, no mass. CARDIOVASCULAR: Regular. There is no S3 or S4 gallop. LUNGS: Coarse with equal thoracic movement. ABDOMEN: Soft, nondistended, nontender. EXTREMITIES: Reveal no clubbing or cyanosis. NEUROLOGICAL: She is awake. She is alert. LABORATORY DATA: Hemoglobin 13, hematocrit 38, white count is 4000 . BUN 25, creatinine 1. IMPRESSION: * Acute on chronic renal failure. * Acute cholecystitis, status post cholecystectomy. * Hypertension. * Known coronary artery disease. PLAN: The patient's renal function has improved while in the hospital. The patient continues with the cholecystectomy tube, which will need to be in place upon discharge. The patient is being seen by surgical service and we will continue to follow closely. Blood pressure is under adequate control. The patient with multiple questions, all of which were answered. Once the patient is discharged, the patient can follow up in the [facility]al [facility]. TID: [id number] RECEIPT: [id number]
--- NOTE | 2025-11-10 13:29 | NUR ---
CM NOTE CM spoke to patient regarding d/c planning. CM explained MD order for IV abx to continue x 4 weeks. Discussed limited progress with PT and transportation. Requested CM call spouse to discuss options o/p infusion vs short term SNF/rehab. CM spoke to spouse Silver Proctor [phone] and discussed both options. States he would like to f/u with patient and will let CM know tomorrow. Patient still on o2. May need home o2 eval prior to dc if returning home. Patient remains on cardizem gtt. CM to f/u.
--- NOTE | 2025-11-10 13:30 | PN ---
GENERAL SURGERY PROGRESS NOTE Date/Time Patient Seen: 11/10/25 1300 Problem List: acute cholecystitis Sepsis Interval History: Patient reports minimal abdominal pain. Drain is functioning. Per nursing patient is pending placement in SNF. Current Medications Medications (Trade) Dose Ordered Sig/Gerber Route Start Time Stop Time Status Last Admin Dose Admin Apixaban (EliquIS) 5 mg BID PO 11/10/25 10:00 12/10/25 09:59 11/10/25 10:48 5 MG Insulin Human Regular (humuLIN R 100 UNIT/ML 3ML) INSULIN SLIDING SCAL... ACHS SQ 11/05/25 07:30 12/05/25 07:29 Lactated Ringer's 1,000 ml @ 75 mls/hr [id number] IV 11/06/25 13:00 11/09/25 10:06 DC 11/08/25 13:04 75 MLS/HR Metoprolol Tartrate (loprESSOR) 25 mg TID PO 11/06/25 18:00 11/08/25 08:45 DC 11/07/25 20:32 25 MG Metoprolol Tartrate (loprESSOR) 50 mg TID PO 11/08/25 09:00 11/10/25 11:49 DC 11/10/25 09:24 50 MG Metoprolol Tartrate (loprESSOR) 100 mg BID PO 11/10/25 21:00 12/10/25 20:59 Piperacillin Sod/ Tazobactam Sod 50 ml @ 100 mls/hr STAT STAT IVPB 11/04/25 18:46 11/04/25 19:15 DC 11/04/25 19:56 100 MLS/HR Piperacillin Sod/ Tazobactam Sod (Zosyn 3.375gm+NS 50ml) 3.375 gm Q12H IV 11/05/25 07:00 11/09/25 16:24 DC 11/09/25 06:30 3.375 GM Piperacillin Sod/ Tazobactam Sod (Zosyn 3.375gm+NS 50ml) 3.375 gm Q12H9 IV 11/09/25 21:00 11/15/25 06:59 11/10/25 09:25 3.375 GM Potassium Chloride (K-Dur/Klor-Con 20meq) 20 meq DAILY PO 11/09/25 09:00 12/09/25 08:59 11/10/25 09:25 20 MEQ Sodium Chloride 500 ml @ 0 mls/hr Q0M IV 11/07/25 02:30 11/08/25 08:46 DC 11/08/25 00:32 500 MLS/HR Sodium Chloride 500 ml @ 0 mls/hr Q0M IV 11/08/25 00:30 11/08/25 08:47 DC Sodium Chloride 1,000 ml @ 100 mls/hr Q10H IV 11/04/25 21:30 11/06/25 13:01 DC 11/06/25 03:54 100 MLS/HR Physical Examination: GENERAL: [No acute distress.] HEAD: [Normal with no signs of head trauma.] EYES: [PERRLA, EOMI, conjunctiva and sclera normal.] LUNGS: Respirations non-labored HEART: Regular rate and rhythm ABD: Soft, non-distended, non-tender, no rebound or guarding, drain in place with bilious output : [Not examined] LYMPH: [No lymphadenopathy noted.] EXT: [No clubbing, cyanosis or edema.] SKIN: [No rashes or lesions noted.] NEURO: [Awake, alert, and oriented x3. No focal sensory or strength deficits noted.] Vital Signs (last 8hr) Date Time Temp Pulse Resp B/P (MAP) Pulse Ox O2 Delivery O2 Flow Rate FiO2 11/10/25 11:00 97.3 64 19 137/82 98 Nasal Cannula 2.0 11/10/25 07:00 98.1 80 18 137/97 92 Nasal Cannula 2.0 Laboratory: Hematology Labs: Test 11/10/25 03:44 11/09/25 07:09 Range/Units White Blood Count 12.6 H 4.8-10.8 K/uL Red Blood Count 4.60 4.00-5.50 MIL/uL Hemoglobin 13.3 12.0-16.0 g/dL Hematocrit 38.8 36-48 % Mean Corpuscular Volume 84.3 79-99 fL Mean Corpuscular Hemoglobin 28.9 27.0-33.0 pg Mean Corpuscular Hemoglobin Concent 34.3 32.0-36.0 g/dL Red Cell Distribution Width 14.3 11.0-15.5 % Platelet Count 207 130-400 K/uL Mean Platelet Volume 11.1 H 7.5-10.5 fL Nucleated Red Blood Cells 0.0 0.0-0.19 % Immature Granulocyte % (Auto) 3.2 H 0-1 % Neutrophils (%) (Auto) 87.2 H 40.0-77.0 % Lymphocytes (%) (Auto) 5.4 L 21.0-51.0 % Monocytes (%) (Auto) 3.8 3.0-13.0 % Eosinophils (%) (Auto) 0.0 0.0-8.0 % Basophils (%) (Auto) 0.4 0.0-5.0 % Neutrophils # (Auto) 10.5 H 1.8-7.7 K/uL Lymphocytes # (Auto) 0.7 L 1.0-4.8 K/uL Monocytes # (Auto) 0.5 0.1-1.0 K/uL Eosinophils # (Auto) 0.00 0.00-0.70 K/uL Basophils # (Auto) 0.05 0.00-0.20 K/uL Absolute Immature Granulocyte (auto 0.38 0-1 K/uL Chemistry Labs: Test 11/10/25 11:06 11/10/25 03:44 11/09/25 15:47 11/09/25 07:09 Range/Units Whole Blood Glucose 105 70-110 MG/DL Sodium Level 138 136-145 mmol/L Potassium Level 4.2 3.5-5.1 mmol/L Chloride Level 107 101-111 mmol/L Carbon Dioxide Level 23 21-32 mmol/L Blood Urea Nitrogen 25 H 7-18 mg/dL Creatinine 1.0 0.5-1.0 mg/dL Glomerular Filtration Rate Calc 58 >90 mL/min Random Glucose 114 H 70-105 mg/dL Total Calcium 8.7 8.5-10.1 mg/dL Magnesium Level 2.00 1.80-2.40 mg/dL Total Bilirubin 1.1 H 0.2-1.0 mg/dL Aspartate Amino Transf (AST/SGOT) 41 H 10-37 U/L Alanine Aminotransferase (ALT/SGPT) 91 #H 12-78 U/L Alkaline Phosphatase 136 50-136 U/L Total Protein 6.2 6.0-8.3 g/dL Albumin 2.0 L 3.5-5.0 g/dL Bedside Glucose Comment Notified Nurse B-Type Natriuretic Peptide 764 H 0-100 pg/mL Coagulation Labs: Test 11/09/25 17:54 Range/Units Prothrombin Time 10.7 9.6-11.6 SEC Prothromb Time International Ratio 1.01 0.85-1.15 Activated Partial Thromboplast Time 26.2 L 26.3-35.5 SEC Diagnostics / Radiology: No new imaging Impression and Plan: This is a 75 year old female 2 days s/p perc drainage for acute cholecystitis. Condition improving. Patient is ok for discharge to SNF with drain. Patient will need to f/u with Dr. Campbell in 2-4 weeks to discuss surgical options. FOX MILLIGAN DO Nov 10, 2025 13:30
--- NOTE | 2025-11-10 15:31 | PN ---
INFECTIOUS DISEASE PROGRESS NOTE Date of Service: Nov 10, 2025 SUBJECTIVE: This is a 75-year-old female patient who was seen and examined at bedside in room 201. Patient is awake, alert and oriented to person and place, she does have forgetful episodes. Patient is status post ultrasound-guided cholecystotomy drain placement on 11/08/2025. Tenderness to the Cholecystostomy tube site but otherwise pain is controlled. WBC is slightly elevated at 12.6 but no fever, temperature is 98.1. The LFTs are improving. We will continue on Zosyn IV every 12 hours. Patient will need to continue IV Zosyn on discharge. Per report patient was only able to walk 10 ft with physical therapy today and recommendation is for rehab placement. During rounding today however patient declined SNF placement. We will have case management evaluate patient for referral to [facility] for outpatient IV antibiotics if patient and family agrees. We will place PICC line. Denies chest pain. Continues on Cardizem drip. PHYSICAL EXAM EYES: Anicteric. Pupils equal and reactive. HENT: No oral thrush seen, moist Oral mucosa NECK: Supple, no JVD or thyromegaly. LUNGS: Good air entry. No rales, no rhonchi. CARDIOVASCULAR: S1, S2 regular. No murmur heard. ABDOMEN: Soft, non tender, bowel sounds present. Abdominal pain (improved). [place] drain CENTRAL NERVOUS SYSTEM: Awake, alert, oriented x 3. SKIN: No rashes, no swelling. LYMPHATICS: No peripheral lymphadenopathy MUSCULOSKELETAL: No joint swelling, erythema or tenderness. EXTREMITIES: No cyanosis or clubbing BACK: No deformity, no pressure ulcer. GENITOURINARY: No dysuria or hematuria Vital Sign (Last 12 Hours) 11/10/25 11/10/25 07:00 11:00 Temp 98.1 97.3 Pulse 80 64 Resp 18 19 B/P (MAP) 137/97 137/82 Pulse Ox 92 98 O2 Delivery Nasal Cannula Nasal Cannula O2 Flow Rate 2.0 2.0 Intake & Output (last 24hrs) 11/09/25 11/09/25 11/10/25 15:00 23:00 07:00 Intake Total 365.0 ml 330.0 ml Output Total 1000 ml 400 ml Balance -635.0 ml -70.0 ml LABS: Laboratory: Test 11/10/25 11:06 11/10/25 03:44 11/09/25 17:54 11/09/25 15:47 Range/Units Whole Blood Glucose 105 70-110 MG/DL White Blood Count 12.6 H 4.8-10.8 K/uL Red Blood Count 4.60 4.00-5.50 MIL/uL Hemoglobin 13.3 12.0-16.0 g/dL Hematocrit 38.8 36-48 % Mean Corpuscular Volume 84.3 79-99 fL Mean Corpuscular Hemoglobin 28.9 27.0-33.0 pg Mean Corpuscular Hemoglobin Concent 34.3 32.0-36.0 g/dL Red Cell Distribution Width 14.3 11.0-15.5 % Platelet Count 207 130-400 K/uL Mean Platelet Volume 11.1 H 7.5-10.5 fL Nucleated Red Blood Cells 0.0 0.0-0.19 % Sodium Level 138 136-145 mmol/L Potassium Level 4.2 3.5-5.1 mmol/L Chloride Level 107 101-111 mmol/L Carbon Dioxide Level 23 21-32 mmol/L Blood Urea Nitrogen 25 H 7-18 mg/dL Creatinine 1.0 0.5-1.0 mg/dL Glomerular Filtration Rate Calc 58 >90 mL/min Random Glucose 114 H 70-105 mg/dL Total Calcium 8.7 8.5-10.1 mg/dL Magnesium Level 2.00 1.80-2.40 mg/dL Total Bilirubin 1.1 H 0.2-1.0 mg/dL Aspartate Amino Transf (AST/SGOT) 41 H 10-37 U/L Alanine Aminotransferase (ALT/SGPT) 91 #H 12-78 U/L Alkaline Phosphatase 136 50-136 U/L Total Protein 6.2 6.0-8.3 g/dL Albumin 2.0 L 3.5-5.0 g/dL Prothrombin Time 10.7 9.6-11.6 SEC Prothromb Time International Ratio 1.01 0.85-1.15 Activated Partial Thromboplast Time 26.2 L 26.3-35.5 SEC Bedside Glucose Comment Notified Nurse Test 11/09/25 07:09 Range/Units Immature Granulocyte % (Auto) 3.2 H 0-1 % Neutrophils (%) (Auto) 87.2 H 40.0-77.0 % Lymphocytes (%) (Auto) 5.4 L 21.0-51.0 % Monocytes (%) (Auto) 3.8 3.0-13.0 % Eosinophils (%) (Auto) 0.0 0.0-8.0 % Basophils (%) (Auto) 0.4 0.0-5.0 % Neutrophils # (Auto) 10.5 H 1.8-7.7 K/uL Lymphocytes # (Auto) 0.7 L 1.0-4.8 K/uL Monocytes # (Auto) 0.5 0.1-1.0 K/uL Eosinophils # (Auto) 0.00 0.00-0.70 K/uL Basophils # (Auto) 0.05 0.00-0.20 K/uL Absolute Immature Granulocyte (auto 0.38 0-1 K/uL B-Type Natriuretic Peptide 764 H 0-100 pg/mL ASSESSMENT: Acute cholecystitis status post ultrasound-guided cholecystotomy drain placement on 11/08/2025. Urinary Tract infection with lactobacillus species. Sepsis. Leukocytosis, improving. Acute renal failure. Tachycardia. AFib. PLAN: Continue Zosyn. Continues on [facility] General Surgery following patient. Avoid nephrotoxic medications. Continue cholecystostomy tube care Continue pain management. Case management evaluation for referral to [facility] for outpatient IV antibiotics. Prescription for Zosyn was written. Place PICC line. Continue physical therapy. This case was reviewed and discussed with my supervising physician Dr. Martinez and the above assessment and plan was formulated and agreed upon. ATTESTATION BY PHYSICIAN I have seen and examined the patient. I reviewed the documentation, medical decision making, and treatment plan as noted by the mid-level provider above. I agree with the findings and plan of care. MICKEY MARTINEZ MD, [facility] Nov 10, 2025 15:30
[2025-11-10] MEDS: SENNOSIDES 8.6 MG TABLET PO SCH (21:00)
[2025-11-11] VITALS (9 sets, daily range): BP systolic 103–148; BP diastolic 63–91; PULSE 64–94; RESP 16–20; TEMP 97.4–98; O2SAT 93–95
[2025-11-11 06:01] LABS: IMMATURE GRANULOCYTE ABSOLUTE 0.93 K/uL (0-1); NUCLEATED RED BLOOD CELLS 0.0 % (0.0-0.19); PLATELET COUNT (AUTO) 198 K/uL (130-400); RED BLOOD CELL COUNT(AUTO) 4.74 MIL/uL (4.00-5.50); RED CELL DISTRIBUTION WIDTH 14.5 % (11.0-15.5); WHITE BLOOD COUNT (AUTO) 10.6 K/uL (4.8-10.8)
[2025-11-11 06:26] LABS: ASPARTATE AMINOTRANSFERASE 37.0 U/L (10-37); CREATININE 0.9 mg/dL (0.5-1.0); GLOMERULAR FILTR. RATE CALC 66.0 mL/min (>90); GLUCOSE,RANDOM 79.0 mg/dL (70-105); SODIUM SERUM 136.0 mmol/L (136-145); TOTAL PROTEIN, SERUM 5.9 g/dL (6.0-8.3); UREA NITROGEN, BLOOD 24.0 mg/dL (7-18)
--- NOTE | 2025-11-11 07:49 | PN ---
[facility] PROGRESS NOTE Date of Service: Nov 11, 2025 Time of Service: 07:46 SUBJECTIVE: [ ] Patient reports that she came to the emergency department with a chief complaint of abdominal pain. Location is epigastric. Duration is on and off. Character is described as pressure. There was no alleviating factors. Symptoms are aggravated with eating. Patient reports associated nausea and vomiting. Today in the emergency department WBCs 23.2, 88% neutrophils left shift, lactic acid 5.4, potassium 3.1, creatinine 1.8, glucose 222 mg/dL, total bilirubin 2.5, AST 201, ALT 186, CT of abdomen and pelvis shows cholecystitis. Emergency room physician contacted general surgery service on-call who requested patient be admitted under hospitalist service. 11/05/25 patient is lying in bed patient appears to be in pain patient received Dilaudid earlier waiting for general surgeon for possible lap bo. Patient denies any cardiac history no chest pain no heart stents no MIs in the past. Significant other at bedside all questions were addressed 11/06/25 Patient was seen earlier patient continues to have abdominal pain waiting for cardiac clearance possible lap bo. DR Campbell recommending a MRCP orders were not placed we will order a stat now. Labs kidney worsening. Secondary to poor oral oral intake we will consult director of email marketing's. 11/07/25 patient was seen earlier. Patient is waiting for surgery for their recommendations. the patient Waiting for MRCP. if consistent with choledocholithiasis GI to be consulted for ERCP. Surgeon's note was reviewed Dr. Narayan reached out to nurse practitioner Bruno the patient is clinically cleared for surgery. Bruno Pa call Dr Narayan that surgery is scheduled for tomorrow as per Dr Campbell. 11/08/25 Primary nurse reports the patient heart rate has been above 120-130's: atrial fibrillation with variable response currently tachycardic as per nurse she has given Lopressor x3 as directed: continue with tachycardia therefore the patient will be transfer to PCCU for Cardizem drip. Patient did have an MRCP performed yesterday consistent with acute cholecystitis. Reviewed last note from surgical services: DR Campbell his recommendations IR for percutaneous Cholecystostomy tube placement orders placed yesterday evening: Today there is no IR doing procedure will be here tomorrow as per case management: 11/09/25 the patient was seen earlier patient out of bed to chair denied chest pain patient appears dyspneic and continue with pain. Status post cholecystostomy tube on 11/08/2025. culture in process ID on board. WBCs trending down. she is currently on nasal cannula two we will get Physical therapy 11/10/25 postop day two recuperating well. cholecystostomy tube Drain output bilious Patient continues on Cardizem drip we will titrate currently on 7.5 mg per hour. Patient reports no fever chills or diarrhea overnight. Continues with broad-spectrum antibiotics she continues to work with physical therapy case management for SNF placement. patient continues in PCCU Cardizem drip was discontinued yesterday. Status post percutaneous drain functioning well. Denies abdominal pain. Per ID patient will continue with Zosyn IV for two wks upon discharge case management was made aware possible good gigi versus SNF placement. Patient is fully awake alert oriented. Primary nurse reports no events overnight REVIEW OF SYSTEMS CONSTITUTIONAL: Denies fevers, chills, or night sweats. No unintentional weight loss reported. NEUROLOGICAL: Denies headache, amaurosis fugax, motor weakness, sensory deficit, vertigo/spinning sensation, gait abnormalities, or tremors. ENT: No hearing loss, otalgia, otorrhea, rhinitis, rhinorrhea, hoarseness, or sore throat. CARDIOVASCULAR: Denies any exertional angina, dyspnea on exertion, orthopnea, paroxysmal nocturnal dyspnea, palpitations, life-threatening arrhythmias, claudication. PULMONARY: Denies any shortness of breath, cough, phlegm/sputum, hemoptysis, pleuritic chest pain. SLEEP: Denies morning headaches, daytime somnolence or napping. Denies difficulty falling asleep, staying asleep, waking from sleep. Denies knowledge of snoring. GASTROINTESTINAL: Denies any type of dysphagia to either liquids or solids. Denies nausea, vomiting, pyrosis, early satiety, abdominal pain, diarrhea, constipation, or changes in stool consistency or caliber. Denies coffee-ground emesis, hematemesis, hematochezia, or melanotic stools. GENITOURINARY: Denies frequency, urgency, nocturia, hematuria or incontinence (Storage/Irritative symptoms.) Low urinary stream, straining to void, urinary intermittency or hesitancy, splitting of the voiding stream, terminal dribbling. ENDOCRINOLOGIC: Denies polyuria, polydipsia, polyphagia or heat/cold intolerances. HEMATOLOGIC: Denies thrombophilia/previous clots, or coagulopathy/bleeding disorders. ONCOLOGIC: Denies personal history of malignancy. DERMATOLOGIC: Denies rashes or pruritus. PSYCHIATRIC: Denies any suicidal or homicidal ideation. Denies hallucinations. PHYSICAL EXAM GENERAL APPEARANCE: The patient is awake, alert, and oriented, in no acute cardiopulmonary distress. NEUROLOGICAL: Cranial nerves II-XII grossly intact. Motor is 5/5 in bilateral upper and lower extremities proximal to distal. No sensory deficits. HEENT: Face is symmetric. Pupils are equal and reactive. Extraocular movements are intact. NECK: Supple. No JVD. No thyromegaly. No submental, submandibular, pre-/postauricular, occipital or supraclavicular lymphadenopathy. CHEST: Normal chest expansion. No Telemetry. LUNGS: Absence of any rales, rhonchi or any wheezing. CARDIOVASCULAR: Regular. S1 and S2 normal. No appreciable rubs, murmurs or gallops. ABDOMEN: Soft, nontender, and nondistended. There is no rebound, voluntary guarding, or rigidity. : Deferred. No [place]. EXTREMITIES: Non-edematous and not cyanotic. No clubbing. Good capillary refill. SKIN: No skin breakdown. Vital Signs (last 8hr) Date Time Temp Pulse Resp B/P (MAP) Pulse Ox O2 Delivery O2 Flow Rate FiO2 11/11/25 04:00 97.3 70 17 133/63 100 Nasal Cannula 1.5 11/11/25 00:11 97.9 86 18 103/71 99 Nasal Cannula 1.0 LABS: Laboratory: Test 11/11/25 05:50 11/09/25 17:54 11/09/25 15:47 Range/Units White Blood Count 10.6 4.8-10.8 K/uL Red Blood Count 4.74 4.00-5.50 MIL/uL Hemoglobin 13.3 12.0-16.0 g/dL Hematocrit 40.3 36-48 % Mean Corpuscular Volume 85.0 79-99 fL Mean Corpuscular Hemoglobin 28.1 27.0-33.0 pg Mean Corpuscular Hemoglobin Concent 33.0 32.0-36.0 g/dL Red Cell Distribution Width 14.5 11.0-15.5 % Platelet Count 198 130-400 K/uL Mean Platelet Volume 10.7 H 7.5-10.5 fL Immature Granulocyte % (Auto) 8.7 H 0-1 % Neutrophils (%) (Auto) 70.8 40.0-77.0 % Lymphocytes (%) (Auto) 10.6 L 21.0-51.0 % Monocytes (%) (Auto) 9.3 3.0-13.0 % Eosinophils (%) (Auto) 0.0 0.0-8.0 % Basophils (%) (Auto) 0.6 0.0-5.0 % Neutrophils # (Auto) 7.5 1.8-7.7 K/uL Lymphocytes # (Auto) 1.1 1.0-4.8 K/uL Monocytes # (Auto) 1.0 0.1-1.0 K/uL Eosinophils # (Auto) 0.00 0.00-0.70 K/uL Basophils # (Auto) 0.06 0.00-0.20 K/uL Absolute Immature Granulocyte (auto 0.93 0-1 K/uL Nucleated Red Blood Cells 0.0 0.0-0.19 % Sodium Level 136 136-145 mmol/L Potassium Level 5.4 H 3.5-5.1 mmol/L Chloride Level 106 101-111 mmol/L Carbon Dioxide Level 20 L 21-32 mmol/L Blood Urea Nitrogen 24 H 7-18 mg/dL Creatinine 0.9 0.5-1.0 mg/dL Glomerular Filtration Rate Calc 66 >90 mL/min Whole Blood Glucose 86 70-110 MG/DL Random Glucose 79 70-105 mg/dL Total Calcium 8.5 8.5-10.1 mg/dL Magnesium Level 2.00 1.80-2.40 mg/dL Total Bilirubin 1.1 H 0.2-1.0 mg/dL Aspartate Amino Transf (AST/SGOT) 37 10-37 U/L Alanine Aminotransferase (ALT/SGPT) 65 12-78 U/L Alkaline Phosphatase 118 50-136 U/L Total Protein 5.9 L 6.0-8.3 g/dL Albumin 1.9 L 3.5-5.0 g/dL Prothrombin Time 10.7 9.6-11.6 SEC Prothromb Time International Ratio 1.01 0.85-1.15 Activated Partial Thromboplast Time 26.2 L 26.3-35.5 SEC Bedside Glucose Comment Notified Nurse Current Medications Medications (Trade) Dose Ordered Sig/Gerber Route PRN Reason Start Time Stop Time Status Last Admin Dose Admin Apixaban (EliquIS) 5 mg BID PO 11/10/25 10:00 12/10/25 09:59 11/10/25 21:00 5 MG Diltiazem HCl (CARDIzem 25MG INJ) 20 mg ONCE PRN IVP CARDIZEM PROTOCOL 11/08/25 11:00 11/08/25 11:16 DC 11/08/25 11:11 20 MG Diltiazem HCl 125 mg/Sodium Chloride 125 ml @ 0 mls/hr AD PRN IV CARDIZEM PROTOCOL 11/08/25 10:30 12/08/25 10:29 11/10/25 00:52 10 MLS/HR Diltiazem HCl 125 mg/Sodium Chloride 125 ml @ 0 mls/hr AD PRN IV CARDIZEM PROTOCOL 11/08/25 11:00 11/08/25 10:48 DC Hydralazine HCl (APRESOLine 20MG INJ) 5 mg Q6H PRN IV For:SBP above 160;DBP above 90 11/05/25 15:30 12/05/25 15:29 Hydralazine HCl (APRESOLine 20MG INJ) 10 mg Q6H PRN IV For:SBP above 160;DBP above 90 11/04/25 21:30 11/05/25 10:07 DC Hydromorphone HCl (DiLAUDid 0.5MG INJ) 0.25 mg Q4H PRN IVP SEVERE PAIN (7-10) 11/04/25 21:30 11/05/25 16:36 DC 11/05/25 15:15 0.25 MG Hydromorphone HCl (DiLAUDid 0.5MG INJ) 0.5 mg Q4H PRN IVP SEVERE PAIN (7-10) 11/05/25 17:30 11/10/25 17:29 DC 11/10/25 15:41 0.5 MG Insulin Human Regular (humuLIN R 100 UNIT/ML 3ML) INSULIN SLIDING SCAL... ACHS SQ 11/05/25 07:30 12/05/25 07:29 Ketorolac Tromethamine (toRADol) 15 mg Q6H PRN IV MODERATE PAIN (4-6) 11/05/25 12:30 11/05/25 12:11 DC Ketorolac Tromethamine (toRADol) 15 mg Q6H PRN IV MODERATE PAIN (4-6) 11/10/25 21:30 11/15/25 21:29 11/11/25 06:11 15 MG Lactated Ringer's 1,000 ml @ 75 mls/hr [id number] IV 11/06/25 13:00 11/09/25 10:06 DC 11/08/25 13:04 75 MLS/HR Magnesium Sulfate 50 ml @ 0 mls/hr PROTOCOL PRN IV low mag level 11/05/25 10:30 12/05/25 10:29 Metoprolol Tartrate (loprESSOR) 5 mg AD PRN IV HEART RATE ABOVE 100 11/08/25 09:00 11/08/25 08:47 DC Metoprolol Tartrate (loprESSOR) 5 mg AD PRN IV HEART RATE ABOVE 100 11/08/25 09:00 11/08/25 09:21 DC 11/08/25 09:21 5 MG Metoprolol Tartrate (loprESSOR) 25 mg TID PO 11/06/25 18:00 11/08/25 08:45 DC 11/07/25 20:32 25 MG Metoprolol Tartrate (loprESSOR) 50 mg TID PO 11/08/25 09:00 11/10/25 11:49 DC 11/10/25 09:24 50 MG Metoprolol Tartrate (loprESSOR) 100 mg BID PO 11/10/25 21:00 12/10/25 20:59 11/10/25 21:00 100 MG Ondansetron HCl (zoFRAN 4MG INJ) 4 mg Q6H PRN IV NAUSEA/VOMITING 11/04/25 21:30 12/04/25 21:29 Piperacillin Sod/ Tazobactam Sod 50 ml @ 100 mls/hr STAT STAT IVPB 11/04/25 18:46 11/04/25 19:15 DC 11/04/25 19:56 100 MLS/HR Piperacillin Sod/ Tazobactam Sod (Zosyn 3.375gm+NS 50ml) 3.375 gm Q12H IV 11/05/25 07:00 11/09/25 16:24 DC 11/09/25 06:30 3.375 GM Piperacillin Sod/ Tazobactam Sod (Zosyn 3.375gm+NS 50ml) 3.375 gm Q12H9 IV 11/09/25 21:00 11/15/25 06:59 11/10/25 21:00 3.375 GM Potassium Chloride 100 ml @ 50 mls/hr AD PRN IV POTASSIUM PROTOCOL 11/05/25 10:30 12/05/25 10:29 11/07/25 10:30 50 MLS/HR Potassium Chloride 100 ml @ 100 mls/hr AD PRN IV POTASSIUM PROTOCOL 11/05/25 10:30 11/05/25 12:10 DC Potassium Chloride (K-Dur/Klor-Con 20meq) 20 meq AD PRN PO POTASSIUM PROTOCOL 11/05/25 10:30 12/05/25 10:29 11/06/25 07:04 20 MEQ Potassium Chloride (K-Dur/Klor-Con 20meq) 20 meq DAILY PO 11/09/25 09:00 12/09/25 08:59 11/10/25 09:25 20 MEQ Potassium Chloride (KCl 10% Elixir 20meq/15ml) 20 meq AD PRN PO POTASSIUM PROTOCOL 11/05/25 10:30 12/05/25 10:29 Sennosides (Senna) 1 tab BID PO 11/10/25 21:00 12/10/25 20:59 11/10/25 21:00 1 TAB Sodium Chloride 500 ml @ 0 mls/hr Q0M IV 11/07/25 02:30 11/08/25 08:46 DC 11/08/25 00:32 500 MLS/HR Sodium Chloride 500 ml @ 0 mls/hr Q0M IV 11/08/25 00:30 11/08/25 08:47 DC Sodium Chloride 1,000 ml @ 100 mls/hr Q10H IV 11/04/25 21:30 11/06/25 13:01 DC 11/06/25 03:54 100 MLS/HR DIAGNOSTICS / RADIOLOGY: [ ] ASSESSMENT: atrial fibrillation with variable response currently tachycardic not POA Severe sepsis, POA, by clinical sepsis criteria heart rate 122, WBCs 23.2, lactic acid 5.4, source intra-abdominal acute Cholecystitis, POA cholecystostomy tube on 11/08/2025 Leukocytosis, POA improving Lactic acidosis, POA Hypokalemia, POA Acute kidney injury,ATN POA, REsolved Uncontrolled Diabetes mellitius type2, POA Elevated total bilirubin, POA Transaminitis, POA Hypertension Hypothyroidism] [ ] PLAN: [ ] Transition to PCCU IVF NS heplock Empiric antibiotic therapy with Zosyn renal dose: no fevers overnight Microbiology intraoperative cultures in process: ID following continues on Zosyn IV as per ID we will continue upon discharge will need 2 wks antibiotics. case management for good gigi versus SNF placement cholecystostomy tube on 11/08/2025 will monitor output drainage functioning w [facility] General surgeon DR Campbell following recommendation: recommended to follow up in 4-6 weeks for evaluation of potential cholecystectomy and drain removal PT services: OOB to chair SNF: placement case management aware. Continue with pain management for adequate pain control CBC CMP magnesium in a.m. Replace electrolytes as needed to keep potassium above 4.0 magnesium above 2.0. Avoid nephrotoxic agents when possible kidney function improved. Continue a.c. HS monitoring with sliding scale coverage. GI prophylaxis, Protonix DVT prophylaxis, Emmanuel's and SCDs avoid anticoagulation at this time due to imp ending general surgery evaluation ATTESTATION BY PHYSICIAN I have seen and examined the patient. I reviewed the documentation, medical decision making, and treatment plan as noted by the mid-level provider above. I agree with the findings and plan of care. VIKTOR NARAYAN MD, [facility] Nov 11, 2025 07:49
--- NOTE | 2025-11-11 08:11 | PN ---
[facility] CARDIOLOGY PROGRESS NOTE Cardiology progress note dictated for Juan Ramon Dooley MD Date Patient Seen: Nov 11, 2025 Time of Visit: 08:05 Interval History: The patient remains on a Cardizem infusion currently at 7.5mg/hour with reported heart rates in the 80s. Bedside nurse informed to wean off as tolerated yesterday. She did report both AM and PM shift experienced heart rate increases to the 90-100's when Cardizem was decreased to 3mg/hr. Telemetry reported heart rate of 70-80's since 1am. Physical Examination: GENERAL: No acute distress. HEAD: Normal with no signs of head trauma. EYES: Conjunctiva and sclera normal. NECK: Supple without JVD. LUNGS: Rales to right lung. HEART: Irregularly irregular rate and rhythm. Normal S1 and S2 without murmurs, gallop or rub. VASC: Peripheral pulses +2 bilaterally. EXT: No clubbing, cyanosis or edema. Right upper cholecystostomy tube draining dark brown fluid. NEURO: Awake, alert, and oriented x3. No focal neurological deficits noted. Laboratory: Hematology Labs: Test 11/11/25 05:50 Range/Units White Blood Count 10.6 4.8-10.8 K/uL Red Blood Count 4.74 4.00-5.50 MIL/uL Hemoglobin 13.3 12.0-16.0 g/dL Hematocrit 40.3 36-48 % Mean Corpuscular Volume 85.0 79-99 fL Mean Corpuscular Hemoglobin 28.1 27.0-33.0 pg Mean Corpuscular Hemoglobin Concent 33.0 32.0-36.0 g/dL Red Cell Distribution Width 14.5 11.0-15.5 % Platelet Count 198 130-400 K/uL Mean Platelet Volume 10.7 H 7.5-10.5 fL Immature Granulocyte % (Auto) 8.7 H 0-1 % Neutrophils (%) (Auto) 70.8 40.0-77.0 % Lymphocytes (%) (Auto) 10.6 L 21.0-51.0 % Monocytes (%) (Auto) 9.3 3.0-13.0 % Eosinophils (%) (Auto) 0.0 0.0-8.0 % Basophils (%) (Auto) 0.6 0.0-5.0 % Neutrophils # (Auto) 7.5 1.8-7.7 K/uL Lymphocytes # (Auto) 1.1 1.0-4.8 K/uL Monocytes # (Auto) 1.0 0.1-1.0 K/uL Eosinophils # (Auto) 0.00 0.00-0.70 K/uL Basophils # (Auto) 0.06 0.00-0.20 K/uL Absolute Immature Granulocyte (auto 0.93 0-1 K/uL Nucleated Red Blood Cells 0.0 0.0-0.19 % Chemistry Labs: Test 11/11/25 05:50 11/09/25 15:47 Range/Units Sodium Level 136 136-145 mmol/L Potassium Level 5.4 H 3.5-5.1 mmol/L Chloride Level 106 101-111 mmol/L Carbon Dioxide Level 20 L 21-32 mmol/L Blood Urea Nitrogen 24 H 7-18 mg/dL Creatinine 0.9 0.5-1.0 mg/dL Glomerular Filtration Rate Calc 66 >90 mL/min Whole Blood Glucose 86 70-110 MG/DL Random Glucose 79 70-105 mg/dL Total Calcium 8.5 8.5-10.1 mg/dL Magnesium Level 2.00 1.80-2.40 mg/dL Total Bilirubin 1.1 H 0.2-1.0 mg/dL Aspartate Amino Transf (AST/SGOT) 37 10-37 U/L Alanine Aminotransferase (ALT/SGPT) 65 12-78 U/L Alkaline Phosphatase 118 50-136 U/L Total Protein 5.9 L 6.0-8.3 g/dL Albumin 1.9 L 3.5-5.0 g/dL Bedside Glucose Comment Notified Nurse Coagulation Labs: Test 11/09/25 17:54 Range/Units Prothrombin Time 10.7 9.6-11.6 SEC Prothromb Time International Ratio 1.01 0.85-1.15 Activated Partial Thromboplast Time 26.2 L 26.3-35.5 SEC Diagnostics / Radiology: Impression and Plan: Acute cholecystitis s/p cholecystostomy tube Morbid obesity Hypertension hypertensive heart disease Possible paroxysmal atrial fibrillation per patient history Preserved left ventricular function via 2D echocardiography on this admission Atrial fibrillation with rapid ventricular response /// Due to uncontrolled heart rate, metoprolol tartrate increased to 100mg BID last night. Heart rate currently in the 80s, Cardizem drip weaned off 12/21 [id number] Score of 3 points. Begin Eliquis 5 mg b.i.d. which is to continue for 4 weeks with possible plans on outpatient direct current cardioversion. Cardiology to sign off at this time as her HRs are well controlled. Continue the increased dose of metoprolol therapy. SHAE FENGP Nov 11, 2025 08:11 JUAN RAMON DOOLEY DO Nov 11, 2025 12:24
--- NOTE | 2025-11-11 15:04 | PN ---
FOLLOWUP PROGRESS NOTE SUBJECTIVE: A 75-year-old female who has had a prolonged hospital course. The patient with a history of hypertension, known coronary artery disease. She initially presented and found to have A-fib with RVR. The patient is being seen by Cardiology. The patient also with acute cholecystitis, status post cholecystectomy tube placement. She has had acute on chronic renal failure in the hospital. Creatinine has been elevated and she is being seen as a followup visit for all of the above. REVIEW OF SYSTEMS: GENERAL: The patient is feeling weak and tired. HEENT: No change in vision. No change in hearing. CARDIOVASCULAR: There is no current chest pain or palpitations. PULMONARY: She denies shortness of breath. GASTROINTESTINAL: She is tolerating diet. MUSCULOSKELETAL: Complains of weakness. PHYSICAL EXAMINATION: VITAL SIGNS: Blood pressure 133/68, pulse in the 80s. GENERAL: Chronically ill elderly female lying in bed on the medical floor. HEENT: Head is atraumatic. Pupils are equal, round, and reactive to light. Oropharynx is without exudate. Nares clear. NECK: There is no JVD. There is no thyromegaly. No masses. CARDIOVASCULAR: Regular. There is no S3 or S4 gallop. LUNGS: Coarse with equal thoracic movement. ABDOMEN: Soft, nondistended, nontender. EXTREMITIES: Reveal no clubbing or cyanosis. NEUROLOGICAL: She is awake. She is alert. LABORATORY DATA: Hemoglobin 13, hematocrit 40. BUN 24, creatinine 0.9, potassium 5.4. IMPRESSION: * Acute on chronic renal failure. * Known coronary artery disease. * Cholecystitis, status post cholecystectomy tube. * Hyperkalemia. PLAN: The patient's workup is ongoing per Cardiology. The patient does have ongoing renal dysfunction and creatinine has been elevated. The patient's oral potassium will need to be discontinued and we will continue to monitor the chemistries closely. She is encouraged with her therapy. We will follow while in the hospital. All labs will be repeated in the morning. TID: [id number] RECEIPT: [id number]
--- NOTE | 2025-11-11 22:02 | PN ---
INFECTIOUS DISEASE FOLLOWUP NOTE DATE OF SERVICE: 11/11/2025 SUBJECTIVE: The patient is seen and examined at bedside. The patient has no fever, no chills. Abdominal pain noted. No bleeding tendency. No palpitations or orthopnea.. No depression or suicidal ideation. No neck pain or neck swelling. Appetite is good. No dysuria or hematuria. PHYSICAL EXAMINATION: VITAL SIGNS: Temperature today 98.5. EYES: No icterus. Pupils equal and reactive. HENT: No oral thrush seen. Moist oral mucosa. NECK: Supple. No JVD or thyromegaly. LUNGS: Good air entry. No rales. No rhonchi. CARDIOVASCULAR: S1 and S2, regular. No murmur heard. ABDOMEN: Full, soft, nontender. Bowel sound is present. Morbidly obese. No organomegaly. CENTRAL NERVOUS SYSTEM: Awake, alert, and oriented x 3. No focal deficits. SKIN: No rashes, no itchiness. LYMPHATIC: No peripheral lymphadenopathy. BACK: No deformity. No pressure ulcer. HEMATOLOGIC: No bleeding, no petechial lesions seen. ASSESSMENT: A 75-year-old female with multiple medical problems: * Gram-negative sepsis. * Cholecystitis, status post cholecystostomy tube placement. * Urinary tract infection. * Morbid obesity. * Abdominal pain. * Atrial fibrillation. * Renal failure. * ____ PLAN: * Continue Zosyn. * Continue nutritional support. * Continue GI prophylaxis. * Continue pain management. * Continue antiemetic. * Continue DVT prophylaxis. * Monitor electrolytes. * ____ TID: [id number] RECEIPT: [id number]
[2025-11-12] VITALS (9 sets, daily range): BP systolic 122–151; BP diastolic 64–103; PULSE 62–83; RESP 16–22; TEMP 97.4–98.3; O2SAT 95–96
--- NOTE | 2025-11-12 05:26 | PN ---
[facility] PROGRESS NOTE Date of Service: Nov 12, 2025 Time of Service: 05:24 SUBJECTIVE: [ ] Patient reports that she came to the emergency department with a chief complaint of abdominal pain. Location is epigastric. Duration is on and off. Character is described as pressure. There was no alleviating factors. Symptoms are aggravated with eating. Patient reports associated nausea and vomiting. Today in the emergency department WBCs 23.2, 88% neutrophils left shift, lactic acid 5.4, potassium 3.1, creatinine 1.8, glucose 222 mg/dL, total bilirubin 2.5, AST 201, ALT 186, CT of abdomen and pelvis shows cholecystitis. Emergency room physician contacted general surgery service on-call who requested patient be admitted under hospitalist service. 11/05/25 patient is lying in bed patient appears to be in pain patient received Dilaudid earlier waiting for general surgeon for possible lap bo. Patient denies any cardiac history no chest pain no heart stents no MIs in the past. Significant other at bedside all questions were addressed 11/06/25 Patient was seen earlier patient continues to have abdominal pain waiting for cardiac clearance possible lap bo. DR Campbell recommending a MRCP orders were not placed we will order a stat now. Labs kidney worsening. Secondary to poor oral oral intake we will consult hollow handle knife assembler's. 11/07/25 patient was seen earlier. Patient is waiting for surgery for their recommendations. the patient Waiting for MRCP. if consistent with choledocholithiasis GI to be consulted for ERCP. Surgeon's note was reviewed Dr. Valadez reached out to nurse practitioner Bruno the patient is clinically cleared for surgery. Bruno Pa call Dr Valadez that surgery is scheduled for tomorrow as per Dr Campbell. 11/08/25 Primary nurse reports the patient heart rate has been above 120-130's: atrial fibrillation with variable response currently tachycardic as per nurse she has given Lopressor x3 as directed: continue with tachycardia therefore the patient will be transfer to PCCU for Cardizem drip. Patient did have an MRCP performed yesterday consistent with acute cholecystitis. Reviewed last note from surgical services: DR Campbell his recommendations IR for percutaneous Cholecystostomy tube placement orders placed yesterday evening: Today there is no IR doing procedure will be here tomorrow as per case management: 11/09/25 the patient was seen earlier patient out of bed to chair denied chest pain patient appears dyspneic and continue with pain. Status post cholecystostomy tube on 11/08/2025. culture in process ID on board. WBCs trending down. she is currently on nasal cannula two we will get Physical therapy 11/10/25 postop day two recuperating well. cholecystostomy tube Drain output bilious Patient continues on Cardizem drip we will titrate currently on 7.5 mg per hour. Patient reports no fever chills or diarrhea overnight. Continues with broad-spectrum antibiotics she continues to work with physical therapy case management for SNF placement. patient continues in PCCU Cardizem drip was discontinued yesterday. Status post percutaneous drain functioning well. Denies abdominal pain. Per ID patient will continue with Zosyn IV for two wks upon discharge case management was made aware possible [facility] versus SNF placement. Patient is fully awake alert oriented. Primary nurse reports no events overnight 11/12/25 the patient is lying in bed discussed placement with patient versus [facility] she agreed to be placed at a facility for IV antibiotics. Case management was made aware patient denies chest pain or shortness breath abdominal pain nausea or vomiting. the patient had cholecystostomy check by IR: * Cholecystotomy tube in satisfactory position.The cystic duct is obstructed; Multiple filling defects suggesting multiple gallstones in the gallbladder lumen. Continue to monitor percutaneous drain monitor I&Os every shift. REVIEW OF SYSTEMS CONSTITUTIONAL: Denies fevers, chills, or night sweats. No unintentional weight loss reported. NEUROLOGICAL: Denies headache, amaurosis fugax, motor weakness, sensory deficit, vertigo/spinning sensation, gait abnormalities, or tremors. ENT: No hearing loss, otalgia, otorrhea, rhinitis, rhinorrhea, hoarseness, or sore throat. CARDIOVASCULAR: Denies any exertional angina, dyspnea on exertion, orthopnea, paroxysmal nocturnal dyspnea, palpitations, life-threatening arrhythmias, claudication. PULMONARY: Denies any shortness of breath, cough, phlegm/sputum, hemoptysis, pleuritic chest pain. SLEEP: Denies morning headaches, daytime somnolence or napping. Denies difficulty falling asleep, staying asleep, waking from sleep. Denies knowledge of snoring. GASTROINTESTINAL: Denies any type of dysphagia to either liquids or solids. Denies nausea, vomiting, pyrosis, early satiety, abdominal pain, diarrhea, constipation, or changes in stool consistency or caliber. Denies coffee-ground emesis, hematemesis, hematochezia, or melanotic stools. GENITOURINARY: Denies frequency, urgency, nocturia, hematuria or incontinence (Storage/Irritative symptoms.) Low urinary stream, straining to void, urinary intermittency or hesitancy, splitting of the voiding stream, terminal dribbling. ENDOCRINOLOGIC: Denies polyuria, polydipsia, polyphagia or heat/cold intolerances. HEMATOLOGIC: Denies thrombophilia/previous clots, or coagulopathy/bleeding disorders. ONCOLOGIC: Denies personal history of malignancy. DERMATOLOGIC: Denies rashes or pruritus. PSYCHIATRIC: Denies any suicidal or homicidal ideation. Denies hallucinations. PHYSICAL EXAM GENERAL APPEARANCE: The patient is awake, alert, and oriented, in no acute cardiopulmonary distress. NEUROLOGICAL: Cranial nerves II-XII grossly intact. Motor is 5/5 in bilateral upper and lower extremities proximal to distal. No sensory deficits. HEENT: Face is symmetric. Pupils are equal and reactive. Extraocular movements are intact. NECK: Supple. No JVD. No thyromegaly. No submental, submandibular, pre- /postauricular, occipital or supraclavicular lymphadenopathy. CHEST: Normal chest expansion. No Telemetry. LUNGS: Absence of any rales, rhonchi or any wheezing. CARDIOVASCULAR: Regular. S1 and S2 normal. No appreciable rubs, murmurs or gallops. ABDOMEN: Soft, nontender, and nondistended. There is no rebound, voluntary guarding, or rigidity. : Deferred. No Carreno. EXTREMITIES: Non-edematous and not cyanotic. No clubbing. Good capillary refill. SKIN: No skin breakdown. Vital Signs (last 8hr) Date Time Temp Pulse Resp B/P (MAP) Pulse Ox O2 Delivery O2 Flow Rate FiO2 11/12/25 03:54 98.1 71 20 133/83 97 Room Air 11/11/25 23:30 97.3 64 20 148/88 95 Room Air LABS: Laboratory: Test 11/12/25 05:03 11/11/25 05:50 Range/Units Whole Blood Glucose 59 L 70-110 MG/DL Bedside Glucose Comment Notified Nurse White Blood Count 10.6 4.8-10.8 K/uL Red Blood Count 4.74 4.00-5.50 MIL/uL Hemoglobin 13.3 12.0-16.0 g/dL Hematocrit 40.3 36-48 % Mean Corpuscular Volume 85.0 79-99 fL Mean Corpuscular Hemoglobin 28.1 27.0-33.0 pg Mean Corpuscular Hemoglobin Concent 33.0 32.0-36.0 g/dL Red Cell Distribution Width 14.5 11.0-15.5 % Platelet Count 198 130-400 K/uL Mean Platelet Volume 10.7 H 7.5-10.5 fL Immature Granulocyte % (Auto) 8.7 H 0-1 % Neutrophils (%) (Auto) 70.8 40.0-77.0 % Lymphocytes (%) (Auto) 10.6 L 21.0-51.0 % Monocytes (%) (Auto) 9.3 3.0-13.0 % Eosinophils (%) (Auto) 0.0 0.0-8.0 % Basophils (%) (Auto) 0.6 0.0-5.0 % Neutrophils # (Auto) 7.5 1.8-7.7 K/uL Lymphocytes # (Auto) 1.1 1.0-4.8 K/uL Monocytes # (Auto) 1.0 0.1-1.0 K/uL Eosinophils # (Auto) 0.00 0.00-0.70 K/uL Basophils # (Auto) 0.06 0.00-0.20 K/uL Absolute Immature Granulocyte (auto 0.93 0-1 K/uL Nucleated Red Blood Cells 0.0 0.0-0.19 % Sodium Level 136 136-145 mmol/L Potassium Level 5.4 H 3.5-5.1 mmol/L Chloride Level 106 101-111 mmol/L Carbon Dioxide Level 20 L 21-32 mmol/L Blood Urea Nitrogen 24 H 7-18 mg/dL Creatinine 0.9 0.5-1.0 mg/dL Glomerular Filtration Rate Calc 66 >90 mL/min Random Glucose 79 70-105 mg/dL Total Calcium 8.5 8.5-10.1 mg/dL Magnesium Level 2.00 1.80-2.40 mg/dL Total Bilirubin 1.1 H 0.2-1.0 mg/dL Aspartate Amino Transf (AST/SGOT) 37 10-37 U/L Alanine Aminotransferase (ALT/SGPT) 65 12-78 U/L Alkaline Phosphatase 118 50-136 U/L Total Protein 5.9 L 6.0-8.3 g/dL Albumin 1.9 L 3.5-5.0 g/dL Current Medications Medications (Trade) Dose Ordered Sig/Gerber Route PRN Reason Start Time Stop Time Status Last Admin Dose Admin Apixaban (EliquIS) 5 mg BID PO 11/10/25 10:00 12/10/25 09:59 11/11/25 20:34 5 MG Diltiazem HCl (CARDIzem 25MG INJ) 20 mg ONCE PRN IVP CARDIZEM PROTOCOL 11/08/25 11:00 11/08/25 11:16 DC 11/08/25 11:11 20 MG Diltiazem HCl 125 mg/Sodium Chloride 125 ml @ 0 mls/hr AD PRN IV CARDIZEM PROTOCOL 11/08/25 10:30 12/08/25 10:29 11/10/25 00:52 10 MLS/HR Diltiazem HCl 125 mg/Sodium Chloride 125 ml @ 0 mls/hr AD PRN IV CARDIZEM PROTOCOL 11/08/25 11:00 11/08/25 10:48 DC Hydralazine HCl (APRESOLine 20MG INJ) 5 mg Q6H PRN IV For:SBP above 160;DBP above 90 11/05/25 15:30 12/05/25 15:29 Hydralazine HCl (APRESOLine 20MG INJ) 10 mg Q6H PRN IV For:SBP above 160;DBP above 90 11/04/25 21:30 11/05/25 10:07 DC Hydromorphone HCl (DiLAUDid 0.5MG INJ) 0.25 mg Q4H PRN IVP SEVERE PAIN (7-10) 11/04/25 21:30 11/05/25 16:36 DC 11/05/25 15:15 0.25 MG Hydromorphone HCl (DiLAUDid 0.5MG INJ) 0.5 mg Q4H PRN IVP SEVERE PAIN (7-10) 11/05/25 17:30 11/10/25 17:29 DC 11/10/25 15:41 0.5 MG Insulin Human Regular (humuLIN R 100 UNIT/ML 3ML) INSULIN SLIDING SCAL... ACHS SQ 11/05/25 07:30 12/05/25 07:29 Ketorolac Tromethamine (toRADol) 15 mg Q6H PRN IV MODERATE PAIN (4-6) 11/05/25 12:30 11/05/25 12:11 DC Ketorolac Tromethamine (toRADol) 15 mg Q6H PRN IV MODERATE PAIN (4-6) 11/10/25 21:30 11/15/25 21:29 11/11/25 20:36 15 MG Lactated Ringer's 1,000 ml @ 75 mls/hr [id number] IV 11/06/25 13:00 11/09/25 10:06 DC 11/08/25 13:04 75 MLS/HR Magnesium Sulfate 50 ml @ 0 mls/hr PROTOCOL PRN IV low mag level 11/05/25 10:30 12/05/25 10:29 Metoprolol Tartrate (loprESSOR) 5 mg AD PRN IV HEART RATE ABOVE 100 11/08/25 09:00 11/08/25 08:47 DC Metoprolol Tartrate (loprESSOR) 5 mg AD PRN IV HEART RATE ABOVE 100 11/08/25 09:00 11/08/25 09:21 DC 11/08/25 09:21 5 MG Metoprolol Tartrate (loprESSOR) 25 mg TID PO 11/06/25 18:00 11/08/25 08:45 DC 11/07/25 20:32 25 MG Metoprolol Tartrate (loprESSOR) 50 mg TID PO 11/08/25 09:00 11/10/25 11:49 DC 11/10/25 09:24 50 MG Metoprolol Tartrate (loprESSOR) 100 mg BID PO 11/10/25 21:00 12/10/25 20:59 11/11/25 20:34 100 MG Ondansetron HCl (zoFRAN 4MG INJ) 4 mg Q6H PRN IV NAUSEA/VOMITING 11/04/25 21:30 12/04/25 21:29 Piperacillin Sod/ Tazobactam Sod 50 ml @ 100 mls/hr STAT STAT IVPB 11/04/25 18:46 11/04/25 19:15 DC 11/04/25 19:56 100 MLS/HR Piperacillin Sod/ Tazobactam Sod (Zosyn 3.375gm+NS 50ml) 3.375 gm Q12H IV 11/05/25 07:00 11/09/25 16:24 DC 11/09/25 06:30 3.375 GM Piperacillin Sod/ Tazobactam Sod (Zosyn 3.375gm+NS 50ml) 3.375 gm Q12H9 IV 11/09/25 21:00 11/15/25 06:59 11/11/25 20:34 3.375 GM Potassium Chloride 100 ml @ 50 mls/hr AD PRN IV POTASSIUM PROTOCOL 11/05/25 10:30 12/05/25 10:29 11/07/25 10:30 50 MLS/HR Potassium Chloride 100 ml @ 100 mls/hr AD PRN IV POTASSIUM PROTOCOL 11/05/25 10:30 11/05/25 12:10 DC Potassium Chloride (K-Dur/Klor-Con 20meq) 20 meq AD PRN PO POTASSIUM PROTOCOL 11/05/25 10:30 12/05/25 10:29 11/06/25 07:04 20 MEQ Potassium Chloride (K-Dur/Klor-Con 20meq) 20 meq DAILY PO 11/09/25 09:00 11/11/25 11:22 DC 11/10/25 09:25 20 MEQ Potassium Chloride (KCl 10% Elixir 20meq/15ml) 20 meq AD PRN PO POTASSIUM PROTOCOL 11/05/25 10:30 12/05/25 10:29 Sennosides (Senna) 1 tab BID PO 11/10/25 21:00 12/10/25 20:59 11/11/25 20:34 1 TAB Sodium Chloride 500 ml @ 0 mls/hr Q0M IV 11/07/25 02:30 11/08/25 08:46 DC 11/08/25 00:32 500 MLS/HR Sodium Chloride 500 ml @ 0 mls/hr Q0M IV 11/08/25 00:30 11/08/25 08:47 DC Sodium Chloride 1,000 ml @ 100 mls/hr Q10H IV 11/04/25 21:30 11/06/25 13:01 DC 11/06/25 03:54 100 MLS/HR DIAGNOSTICS / RADIOLOGY: [ ] ASSESSMENT: atrial fibrillation with variable response currently tachycardic not POA Severe sepsis, POA, by clinical sepsis criteria heart rate 122, WBCs 23.2, lactic acid 5.4, source intra-abdominal acute Cholecystitis, POA cholecystostomy tube on 11/08/2025 Leukocytosis, POA improving Lactic acidosis, POA Hypokalemia, POA Acute kidney injury,ATN POA, REsolved Uncontrolled Diabetes mellitius type2, POA Elevated total bilirubin, POA Transaminitis, POA Hypertension Hypothyroidism] [ ] PLAN: [ ] Transition to PCCU IVF NS heplock Empiric antibiotic therapy with Zosyn renal dose: no fevers overnight Microbiology intraoperative cultures in process: ID following continues on Zosyn IV as per ID we will continue upon discharge will need 2 wks antibiotics. case management SNF placement cholecystostomy tube on 11/08/2025 will monitor output drainage functioning well General surgeon DR Campbell following recommendation: recommended to follow up in 4-6 weeks for evaluation of potential cholecystectomy and drain removal PT services: OOB to chair SNF: placement case management aware. Continue with pain management for adequate pain control CBC CMP magnesium in a.m. Replace electrolytes as needed to keep potassium above 4.0 magnesium above 2.0. Avoid nephrotoxic agents when possible kidney function improved. case management for SNF Continue a.c. HS monitoring with sliding scale coverage. GI prophylaxis, Protonix DVT prophylaxis, Emmanuel's and SCDs avoid anticoagulation at this time due to impending general surgery evaluation ATTESTATION BY PHYSICIAN I have seen and examined the patient. I reviewed the documentation, medical decision making, and treatment plan as noted by the mid-level provider above. I agree with the findings and plan of care. MOHINI BRITO MD, [facility] Nov 12, 2025 05:26
[2025-11-12 06:08] LABS: IMMATURE GRANULOCYTE ABSOLUTE 0.99 K/uL (0-1); NUCLEATED RED BLOOD CELLS 0.0 % (0.0-0.19); PLATELET COUNT (AUTO) 209 K/uL (130-400); RED BLOOD CELL COUNT(AUTO) 5.01 MIL/uL (4.00-5.50); RED CELL DISTRIBUTION WIDTH 14.6 % (11.0-15.5); WHITE BLOOD COUNT (AUTO) 13.4 K/uL (4.8-10.8)
[2025-11-12 06:32] LABS: ASPARTATE AMINOTRANSFERASE 38.0 U/L (10-37); CREATININE 0.9 mg/dL (0.5-1.0); GLOMERULAR FILTR. RATE CALC 66.0 mL/min (>90); GLUCOSE,RANDOM 92.0 mg/dL (70-105); SODIUM SERUM 137.0 mmol/L (136-145); TOTAL PROTEIN, SERUM 6.0 g/dL (6.0-8.3); UREA NITROGEN, BLOOD 22.0 mg/dL (7-18)
[2025-11-12] MEDS ORDERED: HEParin-NS 1,000 UNIT/500 ML 500 ML IV ONE (10:26)
[2025-11-12] MEDS ORDERED: IOHEXOL-350 50ML VIAL IV ONE (10:26)
[2025-11-12] MEDS ORDERED: LIDOCAINE HCL 1% MDV 50ML VIAL ONE (10:29)
--- NOTE | 2025-11-12 11:42 | PN ---
The patient is day four after percutaneous cholecystostomy tube insertion. She is not showing any signs of sepsis now. She is being followed by infectious disease in in the appropriate antibiotics. She is having a benign abdomen and the recommendations to continue with the IV antibiotics. I agree with the of the movement to long term or long-term facility. We will see him in the office and discussed about the management of the cholecystostomy tube. Please let us know something changes in her clinical condition of the patient. Patient has been tolerating diet. Patitient had a cholecystostomy tube study for unknow reasons to me. Tube is in right place. We will sign off the case now and will see in our office in 4 weeks Vitals/Labs Vital Signs Date Time Temp Pulse Resp B/P (MAP) Pulse Ox O2 Delivery O2 Flow Rate FiO2 11/12/25 08:01 97.3 71 16 135/90 97 Nasal Cannula 2.0 11/11/25 20:00 28 Laboratory Tests 11/12/25 05:59 GERMAINE ANDUJAR MD Nov 12, 2025 11:42
--- NOTE | 2025-11-12 12:07 | OP ---
DATE OF PROCEDURE: 11/12/2025 STUDY: Cholecystotomy tube check. HISTORY: The patient underwent cholecystotomy tube placed, is here to check to see if the catheter is in satisfactory position. DESCRIPTION OF PROCEDURE: After sterile prep and drape through the existing cholecystotomy catheter, the catheter appears to be in satisfactory position on distresser film. After contrast was injected, the study demonstrated multiple filling defects suggesting multiple gallstones. The cystic duct is not visualized. IMPRESSION: * Cholecystotomy tube in satisfactory position. * The cystic duct is obstructed. * Multiple filling defects suggesting multiple gallstones in the gallbladder lumen. TID: [id number] RECEIPT: [id number]
--- NOTE | 2025-11-12 13:30 | NUR ---
DISCUSSED PLAN OF CAFTERCARE. START LIST GIVEN, PATIENT CHOSE WO. [facility] AND ADVISED EMILEE DOBBINS
--- NOTE | 2025-11-12 21:37 | PN ---
FOLLOWUP PROGRESS NOTE SUBJECTIVE: A 75-year-old female who presented with acute cholecystitis. The patient underwent cholecystectomy tube placement. The patient has had acute renal failure in the hospital. Creatinine has been elevated and the patient is being seen as a followup visit. She has a history of AFib and has been weaned off the Cardizem. REVIEW OF SYSTEMS: GENERAL: She is feeling somewhat improved. HEENT: No change in vision. No change in hearing. CARDIOVASCULAR: There is no current chest pain or palpitations. PULMONARY: No shortness of breath. GASTROINTESTINAL: The patient is tolerating a diet. MUSCULOSKELETAL: Complaints of weakness. PHYSICAL EXAMINATION: VITAL SIGNS: Blood pressure is 135/90, pulse in the 70s. Afebrile. GENERAL: Chronically ill female, lying in bed on the medical floor. HEENT: Head is atraumatic. Pupils are equal, round and reactive to light. Oropharynx is without exudate. Nares are clear. NECK: There is no JVP. There is no thyromegaly, no mass. CARDIOVASCULAR: Regular. There is no S3 or S4 gallop. LUNGS: Coarse with equal thoracic movement. ABDOMEN: Soft, nondistended, and nontender. EXTREMITIES: Reveal no clubbing or cyanosis. NEUROLOGICAL: She is awake. She is alert. LABORATORY DATA: BUN 22, creatinine 0.9. IMPRESSION: * Acute renal failure. * Cholecystitis status post cholecystectomy tube. * Atrial fibrillation. * Hypertension. PLAN: The patient will continue with the cholecystectomy tube for now. The patient is being seen by Surgical Service and will continue to follow closely. The patient has been weaned off the Cardizem. Blood pressure is under adequate control. We will continue to follow closely once the patient is discharged. The patient will follow up in the Renal Clinic. TID: [id number] RECEIPT: [id number]
[2025-11-13] VITALS (7 sets, daily range): BP systolic 97–121; BP diastolic 54–76; PULSE 54–108; RESP 18–20; TEMP 96.8–98.4; O2SAT 95–98
--- NOTE | 2025-11-13 03:22 | PN ---
INFECTIOUS DISEASE FOLLOWUP NOTE DATE OF SERVICE: 11/12/2025 SUBJECTIVE: The patient is seen and examined at bedside. No fever. No chills. No nausea. No vomiting. No abdominal pain. . No depression. No suicidal ideation. . No bleeding tendency. No dysuria. No hematuria. No rashes . PHYSICAL EXAMINATION: VITAL SIGNS: Temperature today 98.5. EYES: No icterus. Pupils equal and reactive. HENT: No oral thrush seen. Moist oral mucosa. NECK: Supple. No JVD or thyromegaly. LUNGS: Good air entry. No rales. No rhonchi. CARDIOVASCULAR: S1 and S2, regular. No murmur heard. ABDOMEN: Soft, nontender. Bowel sound is present. CENTRAL NERVOUS SYSTEM: Awake, alert, oriented x 3. No focal deficits. SKIN: No rashes. LYMPHATIC: No peripheral neuropathy. BACK: No deformity. No pressure ulcer. HEMATOLOGIC: No bleeding or petechial lesions seen. No pericardial effusion seen. MUSCULOSKELETAL: No joint swelling, no erythema or tenderness. ASSESSMENT: A 75-year-old female with multiple problems: * Gram-negative sepsis. * Cholecystitis status post cholecystostomy tube placement. * Urinary tract infection. * Morbid obesity. * Hypertension. * Atrial fibrillation. * Renal failure. PLAN: * Continue Zosyn. * Continue . * Continue nutritional support. * Continue GI prophylaxis. * Continue antiemetic. * Monitor electrolytes. * Continue current management. TID: [id number] RECEIPT: [id number]
[2025-11-13 04:25] LABS: IMMATURE GRANULOCYTE ABSOLUTE 1.08 K/uL (0-1); NUCLEATED RED BLOOD CELLS 0.0 % (0.0-0.19); PLATELET COUNT (AUTO) 209 K/uL (130-400); RED BLOOD CELL COUNT(AUTO) 4.20 MIL/uL (4.00-5.50); RED CELL DISTRIBUTION WIDTH 14.6 % (11.0-15.5); WHITE BLOOD COUNT (AUTO) 18.9 K/uL (4.8-10.8)
[2025-11-13 04:38] LABS: ASPARTATE AMINOTRANSFERASE 68.0 U/L (10-37); CREATININE 1.0 mg/dL (0.5-1.0); GLOMERULAR FILTR. RATE CALC 58.0 mL/min (>90); GLUCOSE,RANDOM 83.0 mg/dL (70-105); SODIUM SERUM 139.0 mmol/L (136-145); TOTAL PROTEIN, SERUM 5.5 g/dL (6.0-8.3); UREA NITROGEN, BLOOD 20.0 mg/dL (7-18)
--- NOTE | 2025-11-13 12:11 | PN ---
[facility] PROGRESS NOTE Date of Service: Nov 13, 2025 Time of Service: 12:07 SUBJECTIVE: [ ] Patient reports that she came to the emergency department with a chief complaint of abdominal pain. Location is epigastric. Duration is on and off. Character is described as pressure. There was no alleviating factors. Symptoms are aggravated with eating. Patient reports associated nausea and vomiting. Today in the emergency department WBCs 23.2, 88% neutrophils left shift, lactic acid 5.4, potassium 3.1, creatinine 1.8, glucose 222 mg/dL, total bilirubin 2.5, AST 201, ALT 186, CT of abdomen and pelvis shows cholecystitis. Emergency room physician contacted general surgery service on-call who requested patient be admitted under hospitalist service. 11/05/25 patient is lying in bed patient appears to be in pain patient received Dilaudid earlier waiting for general surgeon for possible lap bo. Patient denies any cardiac history no chest pain no heart stents no MIs in the past. Significant other at bedside all questions were addressed 11/06/25 Patient was seen earlier patient continues to have abdominal pain waiting for cardiac clearance possible lap bo. DR Campbell recommending a MRCP orders were not placed we will order a stat now. Labs kidney worsening. Secondary to poor oral oral intake we will consult warehouse examiner's. 11/07/25 patient was seen earlier. Patient is waiting for surgery for their recommendations. the patient Waiting for MRCP. if consistent with choledocholithiasis GI to be consulted for ERCP. Surgeon's note was reviewed Dr. Valadez reached out to nurse practitioner Bruno the patient is clinically cleared for surgery. Bruno Pa call Dr Valadez that surgery is scheduled for tomorrow as per Dr Campbell. 11/08/25 Primary nurse reports the patient heart rate has been above 120-130's: atrial fibrillation with variable response currently tachycardic as per nurse she has given Lopressor x3 as directed: continue with tachycardia therefore the patient will be transfer to PCCU for Cardizem drip. Patient did have an MRCP performed yesterday consistent with acute cholecystitis. Reviewed last note from surgical services: DR Campbell his recommendations IR for percutaneous Cholecystostomy tube placement orders placed yesterday evening: Today there is no IR doing procedure will be here tomorrow as per case management: 11/09/25 the patient was seen earlier patient out of bed to chair denied chest pain patient appears dyspneic and continue with pain. Status post cholecystostomy tube on 11/08/2025. culture in process ID on board. WBCs trending down. she is currently on nasal cannula two we will get Physical therapy 11/10/25 postop day two recuperating well. cholecystostomy tube Drain output bilious Patient continues on Cardizem drip we will titrate currently on 7.5 mg per hour. Patient reports no fever chills or diarrhea overnight. Continues with broad-spectrum antibiotics she continues to work with physical therapy case management for SNF placement. patient continues in PCCU Cardizem drip was discontinued yesterday. Status post percutaneous drain functioning well. Denies abdominal pain. Per ID patient will continue with Zosyn IV for two wks upon discharge case management was made aware possible [facility] versus SNF placement. Patient is fully awake alert oriented. Primary nurse reports no events overnight 11/12/25 the patient is lying in bed discussed placement with patient versus [facility] she agreed to be placed at a facility for IV antibiotics. Case management was made aware patient denies chest pain or shortness breath abdominal pain nausea or vomiting. the patient had cholecystostomy check by IR: * Cholecystotomy tube in satisfactory position.The cystic duct is obstructed; Multiple filling defects suggesting multiple gallstones in the gallbladder lumen. Continue to monitor percutaneous drain monitor I&Os every shift. 11/13/25 patient was seen earlier patient was asleep was transitioned from PCCU to medical floor. Patient waiting for SNF placement. Primary nurse reports no events overnight. 12:00 p.m. primary nurse reports patient has a abdominal pain no nausea no vomiting. Dilaudid 0.5 mg IV x1 we will be given we will reassess. REVIEW OF SYSTEMS CONSTITUTIONAL: Denies fevers, chills, or night sweats. No unintentional weight loss reported. NEUROLOGICAL: Denies headache, amaurosis fugax, motor weakness, sensory deficit, vertigo/spinning sensation, gait abnormalities, or tremors. ENT: No hearing loss, otalgia, otorrhea, rhinitis, rhinorrhea, hoarseness, or sore throat. CARDIOVASCULAR: Denies any exertional angina, dyspnea on exertion, orthopnea, paroxysmal nocturnal dyspnea, palpitations, life-threatening arrhythmias, claudication. PULMONARY: Denies any shortness of breath, cough, phlegm/sputum, hemoptysis, pleuritic chest pain. SLEEP: Denies morning headaches, daytime somnolence or napping. Denies difficulty falling asleep, staying asleep, waking from sleep. Denies knowledge of snoring. GASTROINTESTINAL: Denies any type of dysphagia to either liquids or solids. Denies nausea, vomiting, pyrosis, early satiety, abdominal pain, diarrhea, constipation, or changes in stool consistency or caliber. Denies coffee-ground emesis, hematemesis, hematochezia, or melanotic stools. GENITOURINARY: Denies frequency, urgency, nocturia, hematuria or incontinence (Storage/Irritative symptoms.) Low urinary stream, straining to void, urinary intermittency or hesitancy, splitting of the voiding stream, terminal dribbling. ENDOCRINOLOGIC: Denies polyuria, polydipsia, polyphagia or heat/cold intolerances. HEMATOLOGIC: Denies thrombophilia/previous clots, or coagulopathy/bleeding disorders. ONCOLOGIC: Denies personal history of malignancy. DERMATOLOGIC: Denies rashes or pruritus. PSYCHIATRIC: Denies any suicidal or homicidal ideation. Denies hallucinations. PHYSICAL EXAM GENERAL APPEARANCE: The patient is awake, alert, and oriented, in no acute c ardiopulmonary distress. NEUROLOGICAL: Cranial nerves II-XII grossly intact. Motor is 5/5 in bilateral upper and lower extremities proximal to distal. No sensory deficits. HEENT: Face is symmetric. Pupils are equal and reactive. Extraocular movements are intact. NECK: Supple. No JVD. No thyromegaly. No submental, submandibular, pre- /postauricular, occipital or supraclavicular lymphadenopathy. CHEST: Normal chest expansion. No Telemetry. LUNGS: Absence of any rales, rhonchi or any wheezing. CARDIOVASCULAR: Regular. S1 and S2 normal. No appreciable rubs, murmurs or gallops. ABDOMEN: Soft, nontender, and nondistended. There is no rebound, voluntary guarding, or rigidity. : Deferred. No Carreno. EXTREMITIES: Non-edematous and not cyanotic. No clubbing. Good capillary refill. SKIN: No skin breakdown. Vital Signs (last 8hr) Date Time Temp Pulse Resp B/P (MAP) Pulse Ox O2 Delivery O2 Flow Rate FiO2 12/23/25 10:52 95 Nasal Cannula* 2 28 11/13/25 08:00 97.5 54 18 113/54 95 Room Air LABS: Laboratory: Test 11/13/25 11:17 11/13/25 04:15 11/12/25 05:59 11/12/25 05:03 Range/Units Whole Blood Glucose 84 70-110 MG/DL White Blood Count 18.9 #H 4.8-10.8 K/uL Red Blood Count 4.20 4.00-5.50 MIL/uL Hemoglobin 11.9 L 12.0-16.0 g/dL Hematocrit 36.4 36-48 % Mean Corpuscular Volume 86.7 79-99 fL Mean Corpuscular Hemoglobin 28.3 27.0-33.0 pg Mean Corpuscular Hemoglobin Concent 32.7 32.0-36.0 g/dL Red Cell Distribution Width 14.6 11.0-15.5 % Platelet Count 209 130-400 K/uL Mean Platelet Volume 10.7 H 7.5-10.5 fL Immature Granulocyte % (Auto) 5.7 H 0-1 % Neutrophils (%) (Auto) 82.0 H 40.0-77.0 % Lymphocytes (%) (Auto) 6.0 L 21.0-51.0 % Monocytes (%) (Auto) 5.6 3.0-13.0 % Eosinophils (%) (Auto) 0.2 0.0-8.0 % Basophils (%) (Auto) 0.5 0.0-5.0 % Neutrophils # (Auto) 15.5 H 1.8-7.7 K/uL Lymphocytes # (Auto) 1.1 1.0-4.8 K/uL Monocytes # (Auto) 1.1 H 0.1-1.0 K/uL Eosinophils # (Auto) 0.03 0.00-0.70 K/uL Basophils # (Auto) 0.09 0.00-0.20 K/uL Absolute Immature Granulocyte (auto 1.08 H 0-1 K/uL Nucleated Red Blood Cells 0.0 0.0-0.19 % Sodium Level 139 136-145 mmol/L Potassium Level 4.6 3.5-5.1 mmol/L Chloride Level 107 101-111 mmol/L Carbon Dioxide Level 24 21-32 mmol/L Blood Urea Nitrogen 20 H 7-18 mg/dL Creatinine 1.0 0.5-1.0 mg/dL Glomerular Filtration Rate Calc 58 >90 mL/min Random Glucose 83 70-105 mg/dL Total Calcium 8.2 L 8.5-10.1 mg/dL Magnesium Level 1.90 1.80-2.40 mg/dL Total Bilirubin 1.6 #H 0.2-1.0 mg/dL Aspartate Amino Transf (AST/SGOT) 68 H 10-37 U/L Alanine Aminotransferase (ALT/SGPT) 79 #H 12-78 U/L Alkaline Phosphatase 100 50-136 U/L Total Protein 5.5 L 6.0-8.3 g/dL Albumin 1.8 L 3.5-5.0 g/dL White Cell Morphology Comment See comments Bedside Glucose Comment Notified Nurse Current Medications Medications (Trade) Dose Ordered Sig/Gerber Route PRN Reason Start Time Stop Time Status Last Admin Dose Admin Apixaban (EliquIS) 5 mg BID PO 11/10/25 10:00 12/10/25 09:59 11/13/25 10:42 5 MG Diltiazem HCl (CARDIzem 25MG INJ) 20 mg ONCE PRN IVP CARDIZEM PROTOCOL 11/08/25 11:00 11/08/25 11:16 DC 11/08/25 11:11 20 MG Diltiazem HCl 125 mg/Sodium Chloride 125 ml @ 0 mls/hr AD PRN IV CARDIZEM PROTOCOL 11/08/25 10:30 12/08/25 10:29 11/10/25 00:52 10 MLS/HR Diltiazem HCl 125 mg/Sodium Chloride 125 ml @ 0 mls/hr AD PRN IV CARDIZEM PROTOCOL 11/08/25 11:00 11/08/25 10:48 DC Hydralazine HCl (APRESOLine 20MG INJ) 5 mg Q6H PRN IV For:SBP above 160;DBP above 90 11/05/25 15:30 12/05/25 15:29 Hydralazine HCl (APRESOLine 20MG INJ) 10 mg Q6H PRN IV For:SBP above 160;DBP above 90 11/04/25 21:30 11/05/25 10:07 DC Hydromorphone HCl (DiLAUDid 0.5MG INJ) 0.25 mg Q4H PRN IVP SEVERE PAIN (7-10) 11/04/25 21:30 11/05/25 16:36 DC 11/05/25 15:15 0.25 MG Hydromorphone HCl (DiLAUDid 0.5MG INJ) 0.5 mg Q4H PRN IVP SEVERE PAIN (7-10) 11/05/25 17:30 11/10/25 17:29 DC 11/10/25 15:41 0.5 MG Insulin Human Regular (humuLIN R 100 UNIT/ML 3ML) INSULIN SLIDING SCAL... ACHS SQ 11/05/25 07:30 12/05/25 07:29 Ketorolac Tromethamine (toRADol) 15 mg Q6H PRN IV MODERATE PAIN (4-6) 11/05/25 12:30 11/05/25 12:11 DC Ketorolac Tromethamine (toRADol) 15 mg Q6H PRN IV MODERATE PAIN (4-6) 11/10/25 21:30 11/15/25 21:29 11/13/25 10:42 15 MG Lactated Ringer's 1,000 ml @ 75 mls/hr [id number] IV 11/06/25 13:00 11/09/25 10:06 DC 11/08/25 13:04 75 MLS/HR Magnesium Sulfate 50 ml @ 0 mls/hr PROTOCOL PRN IV low mag level 11/05/25 10:30 12/05/25 10:29 Metoprolol Tartrate (loprESSOR) 5 mg AD PRN IV HEART RATE ABOVE 100 11/08/25 09:00 11/08/25 08:47 DC Metoprolol Tartrate (loprESSOR) 5 mg AD PRN IV HEART RATE ABOVE 100 11/08/25 09:00 11/08/25 09:21 DC 11/08/25 09:21 5 MG Metoprolol Tartrate (loprESSOR) 25 mg TID PO 11/06/25 18:00 11/08/25 08:45 DC 11/07/25 20:32 25 MG Metoprolol Tartrate (loprESSOR) 50 mg TID PO 11/08/25 09:00 11/10/25 11:49 DC 11/10/25 09:24 50 MG Metoprolol Tartrate (loprESSOR) 100 mg BID PO 11/10/25 21:00 12/10/25 20:59 11/12/25 21:30 100 MG Ondansetron HCl (zoFRAN 4MG INJ) 4 mg Q6H PRN IV NAUSEA/VOMITING 11/04/25 21:30 12/04/25 21:29 Piperacillin Sod/ Tazobactam Sod 50 ml @ 100 mls/hr STAT STAT IVPB 11/04/25 18:46 11/04/25 19:15 DC 11/04/25 19:56 100 MLS/HR Piperacillin Sod/ Tazobactam Sod (Zosyn 3.375gm+NS 50ml) 3.375 gm Q12H IV 11/05/25 07:00 11/09/25 16:24 DC 11/09/25 06:30 3.375 GM Piperacillin Sod/ Tazobactam Sod (Zosyn 3.375gm+NS 50ml) 3.375 gm Q12H9 IV 11/09/25 21:00 11/15/25 06:59 11/13/25 10:40 3.375 GM Potassium Chloride 100 ml @ 50 mls/hr AD PRN IV POTASSIUM PROTOCOL 11/05/25 10:30 12/05/25 10:29 11/07/25 10:30 50 MLS/HR Potassium Chloride 100 ml @ 100 mls/hr AD PRN IV POTASSIUM PROTOCOL 11/05/25 10:30 11/05/25 12:10 DC Potassium Chloride (K-Dur/Klor-Con 20meq) 20 meq AD PRN PO POTASSIUM PROTOCOL 11/05/25 10:30 12/05/25 10:29 11/06/25 07:04 20 MEQ Potassium Chloride (K-Dur/Klor-Con 20meq) 20 meq DAILY PO 11/09/25 09:00 11/11/25 11:22 DC 11/10/25 09:25 20 MEQ Potassium Chloride (KCl 10% Elixir 20meq/15ml) 20 meq AD PRN PO POTASSIUM PROTOCOL 11/05/25 10:30 12/05/25 10:29 Sennosides (Senna) 1 tab BID PO 11/10/25 21:00 12/10/25 20:59 11/13/25 10:42 1 TAB Sodium Chloride 500 ml @ 0 mls/hr Q0M IV 11/07/25 02:30 11/08/25 08:46 DC 11/08/25 00:32 500 MLS/HR Sodium Chloride 500 ml @ 0 mls/hr Q0M IV 11/08/25 00:30 11/08/25 08:47 DC Sodium Chloride 1,000 ml @ 100 mls/hr Q10H IV 11/04/25 21:30 11/06/25 13:01 DC 11/06/25 03:54 100 MLS/HR DIAGNOSTICS / RADIOLOGY: [ ] ASSESSMENT: atrial fibrillation with variable response currently tachycardic not POA Severe sepsis, POA, by clinical sepsis criteria heart rate 122, WBCs 23.2, lactic acid 5.4, source intra-abdominal acute Cholecystitis, POA cholecystostomy tube on 11/08/2025 Leukocytosis, POA improving Lactic acidosis, POA Hypokalemia, POA Acute kidney injury,ATN POA, REsolved Uncontrolled Diabetes mellitius type2, POA Elevated total bilirubin, POA Transaminitis, POA Hypertension Hypothyroidism] acute intractable abd pain POA [ ] PLAN: [ ] Ms. Diaz Maldonado was transitioned to medical floor she continues on IV antibiotics as per ID patient's white count increased today 18 from 13 afebrile she continues to have abdominal pain no nausea vomiting or fevers.. She is waiting SNF: [facility] pending authorization might have to keep her for one more day. Empiric antibiotic therapy with Zosyn renal dose: no fevers overnight Microbiology intraoperative cultures in process: ID following continues on Zosyn IV as per ID we will continue upon discharge will need 2 wks antibiotics. case management SNF placement cholecystostomy tube on 11/08/2025 will monitor output drainage functioning well General surgeon DR Campbell following recommendation: recommended to follow up in 4-6 weeks for evaluation of potential cholecystectomy and drain removal PT services: OOB to chair SNF: placement case management aware. Continue with pain management for adequate pain control CBC CMP magnesium in a.m. Replace electrolytes as needed to keep potassium above 4.0 magnesium above 2.0. Avoid nephrotoxic agents when possible kidney function improved. case management for SNF Continue a.c. HS monitoring with sliding scale coverage. GI prophylaxis, Protonix DVT prophylaxis, Emmanuel's and SCDs avoid anticoagulation at this time due to impending general surgery evaluation ATTESTATION BY PHYSICIAN I have seen and examined the patient. I reviewed the documentation, medical decision making, and treatment plan as noted by the mid-level provider above. I agree with the findings and plan of care. MOHINI BRITO MD, [facility] Nov 13, 2025 12:11
--- NOTE | 2025-11-13 13:27 | PN ---
FOLLOWUP PROGRESS NOTE SUBJECTIVE: A 75-year-old female with a history of known coronary artery disease. The patient is admitted with cholecystitis status post cholecystectomy tube placement. She has had acute on chronic renal failure in the hospital. Creatinine has been elevated. The patient has been weaned off the Cardizem and she is being seen as a followup visit for all of the above. REVIEW OF SYSTEMS: GENERAL: She is feeling weak and tired. HEENT: No change in vision. No change in hearing. CARDIOVASCULAR: No current chest pains or palpitations. PULMONARY: She denies shortness of breath. GASTROINTESTINAL: She is tolerating a diet. MUSCULOSKELETAL: Complaints of weakness. PHYSICAL EXAMINATION: VITAL SIGNS: Blood pressure 121/76. Pulse in the 80s. GENERAL: Chronically ill female lying in bed on the medical floor. HEENT: Head is atraumatic. Pupils are equal, round, and reactive to light. Oropharynx is without exudate. Nares clear. NECK: There is no JVP. There is no thyromegaly. No mass. CARDIOVASCULAR: Regular. There is no S3 or S4 gallop. LUNGS: Coarse with equal thoracic movement. ABDOMEN: Soft, nondistended, and nontender. EXTREMITIES: Reveal no clubbing or cyanosis. NEUROLOGICAL: She is awake and she is alert. LABORATORY DATA: Hemoglobin , hematocrit 36, BUN 20, and creatinine is 1. IMPRESSION: * Acute renal failure. * Acute cholecystitis status post cholecystectomy tube. * Coronary artery disease. * Hypertension. PLAN: The patient's creatinine is much improved since admission. The patient's electrolytes have all been aggressively repleted. She has been weaned off the IV Cardizem. The patient is being seen by surgical service. We will continue to follow closely. Once the patient is discharged, she can follow up in the [facility]. TID: [id number] RECEIPT: [id number]
--- NOTE | 2025-11-13 18:00 | PN ---
INFECTIOUS DISEASE PROGRESS NOTE Date of Service: Nov 13, 2025 SUBJECTIVE: This is a 75-year-old female patient who was seen and examined at bedside in room 421. Patient is s/p ultrasound-guided cholecystotomy drain placement on 11/08/2025. Small amount of bloody drainage observe in the drainage bag. WBC remains elevated at 18.9 this morning. No fever, temperature is 97.3. We will continue IV Zosyn on discharge. Patient performing poor with physical therapy. Case management working on SNF placement. PHYSICAL EXAM EYES: Anicteric. Pupils equal and reactive. HENT: No oral thrush seen, moist Oral mucosa NECK: Supple, no JVD or thyromegaly. LUNGS: Good air entry. No rales, no rhonchi. CARDIOVASCULAR: S1, S2 regular. No murmur heard. ABDOMEN: Soft, non tender, bowel sounds present. Abdominal pain. Cholecystotomy drain CENTRAL NERVOUS SYSTEM: Awake, alert, oriented x 2. SKIN: No rashes, no swelling. LYMPHATICS: No peripheral lymphadenopathy MUSCULOSKELETAL: No joint swelling, erythema or tenderness. EXTREMITIES: No cyanosis or clubbing BACK: No deformity, no pressure ulcer. GENITOURINARY: No dysuria or hematuria. Vital Sign (Last 12 Hours) 11/13/25 11/13/25 11/13/25 11/13/25 08:00 10:52 12:00 16:00 Temp 97.5 97.3 96.8 Pulse 54 93 108 Resp 18 20 19 B/P (MAP) 113/54 107/73 97/70 Pulse Ox 95 95 96 98 O2 Delivery Room Air Nasal Cannula* Room Air Nasal Cannula O2 Flow Rate 2 2.0 FiO2 28 Intake & Output (last 24hrs) 11/12/25 11/12/25 11/13/25 15:00 23:00 07:00 Intake Total 0 ml 240 ml Output Total 300 ml Balance 0 ml -60 ml LABS: Laboratory: Test 11/13/25 15:22 11/13/25 04:15 11/12/25 05:59 11/12/25 05:03 Range/Units Whole Blood Glucose 100 70-110 MG/DL White Blood Count 18.9 #H 4.8-10.8 K/uL Red Blood Count 4.20 4.00-5.50 MIL/uL Hemoglobin 11.9 L 12.0-16.0 g/dL Hematocrit 36.4 36-48 % Mean Corpuscular Volume 86.7 79-99 fL Mean Corpuscular Hemoglobin 28.3 27.0-33.0 pg Mean Corpuscular Hemoglobin Concent 32.7 32.0-36.0 g/dL Red Cell Distribution Width 14.6 11.0-15.5 % Platelet Count 209 130-400 K/uL Mean Platelet Volume 10.7 H 7.5-10.5 fL Immature Granulocyte % (Auto) 5.7 H 0-1 % Neutrophils (%) (Auto) 82.0 H 40.0-77.0 % Lymphocytes (%) (Auto) 6.0 L 21.0-51.0 % Monocytes (%) (Auto) 5.6 3.0-13.0 % Eosinophils (%) (Auto) 0.2 0.0-8.0 % Basophils (%) (Auto) 0.5 0.0-5.0 % Neutrophils # (Auto) 15.5 H 1.8-7.7 K/uL Lymphocytes # (Auto) 1.1 1.0-4.8 K/uL Monocytes # (Auto) 1.1 H 0.1-1.0 K/uL Eosinophils # (Auto) 0.03 0.00-0.70 K/uL Basophils # (Auto) 0.09 0.00-0.20 K/uL Absolute Immature Granulocyte (auto 1.08 H 0-1 K/uL Nucleated Red Blood Cells 0.0 0.0-0.19 % Sodium Level 139 136-145 mmol/L Potassium Level 4.6 3.5-5.1 mmol/L Chloride Level 107 101-111 mmol/L Carbon Dioxide Level 24 21-32 mmol/L Blood Urea Nitrogen 20 H 7-18 mg/dL Creatinine 1.0 0.5-1.0 mg/dL Glomerular Filtration Rate Calc 58 >90 mL/min Random Glucose 83 70-105 mg/dL Total Calcium 8.2 L 8.5-10.1 mg/dL Magnesium Level 1.90 1.80-2.40 mg/dL Total Bilirubin 1.6 #H 0.2-1.0 mg/dL Aspartate Amino Transf (AST/SGOT) 68 H 10-37 U/L Alanine Aminotransferase (ALT/SGPT) 79 #H 12-78 U/L Alkaline Phosphatase 100 50-136 U/L Total Protein 5.5 L 6.0-8.3 g/dL Albumin 1.8 L 3.5-5.0 g/dL White Cell Morphology Comment See comments Bedside Glucose Comment Notified Nurse ASSESSMENT: Acute cholecystitis s/p ultrasound-guided cholecystotomy drain placement on 11/08/2025. Urinary Tract infection with lactobacillus species. Sepsis. Leukocytosis. Acute renal failure. AFib. PLAN: Continue Zosyn. Avoid nephrotoxic medications. Continue cholecystostomy tube care Continue pain management. Continue physical therapy. Case management working on SNF placement. Obtain CBC in a.m.. This case was reviewed and discussed with my supervising physician Dr. Martinez and the above assessment and plan was formulated and agreed upon. ATTESTATION BY PHYSICIAN I have seen and examined the patient. I reviewed the documentation, medical decision making, and treatment plan as noted by the mid-level provider above. I agree with the findings and plan of care. MICKEY MARTINEZ MD, [facility] Nov 13, 2025 18:00
[2025-11-14] VITALS (9 sets, daily range): BP systolic 94–160; BP diastolic 45–81; PULSE 53–100; RESP 16–20; TEMP 97.6–98.8; O2SAT 96–98
[2025-11-14 05:30] LABS: IMMATURE GRANULOCYTE ABSOLUTE 1.43 K/uL (0-1); NUCLEATED RED BLOOD CELLS 0.1 % (0.0-0.19); PLATELET COUNT (AUTO) 215 K/uL (130-400); RED BLOOD CELL COUNT(AUTO) 3.71 MIL/uL (4.00-5.50); RED CELL DISTRIBUTION WIDTH 15.0 % (11.0-15.5); WHITE BLOOD COUNT (AUTO) 24.9 K/uL (4.8-10.8)
--- NOTE | 2025-11-14 15:26 | PN ---
[facility] PROGRESS NOTE Date of Service: Nov 14, 2025 Time of Service: 15:20 SUBJECTIVE: [ ] Patient reports that she came to the emergency department with a chief complaint of abdominal pain. Location is epigastric. Duration is on and off. Character is described as pressure. There was no alleviating factors. Symptoms are aggravated with eating. Patient reports associated nausea and vomiting. Today in the emergency department WBCs 23.2, 88% neutrophils left shift, lactic acid 5.4, potassium 3.1, creatinine 1.8, glucose 222 mg/dL, total bilirubin 2.5, AST 201, ALT 186, CT of abdomen and pelvis shows cholecystitis. Emergency room physician contacted general surgery service on-call who requested patient be admitted under hospitalist service. 11/05/25 patient is lying in bed patient appears to be in pain patient received Dilaudid earlier waiting for general surgeon for possible lap bo. Patient denies any cardiac history no chest pain no heart stents no MIs in the past. Significant other at bedside all questions were addressed 11/06/25 Patient was seen earlier patient continues to have abdominal pain waiting for cardiac clearance possible lap bo. DR Campbell recommending a MRCP orders were not placed we will order a stat now. Labs kidney worsening. Secondary to poor oral oral intake we will consult drug abuse social worker's. 11/07/25 patient was seen earlier. Patient is waiting for surgery for their recommendations. the patient Waiting for MRCP. if consistent with choledocholithiasis GI to be consulted for ERCP. Surgeon's note was reviewed Dr. Valadez reached out to nurse practitioner Bruno the patient is clinically cleared for surgery. Bruno Pa call Dr Valadez that surgery is scheduled for tomorrow as per Dr Campbell. 11/08/25 Primary nurse reports the patient heart rate has been above 120-130's: atrial fibrillation with variable response currently tachycardic as per nurse she has given Lopressor x3 as directed: continue with tachycardia therefore the patient will be transfer to PCCU for Cardizem drip. Patient did have an MRCP performed yesterday consistent with acute cholecystitis. Reviewed last note from surgical services: DR Campbell his recommendations IR for percutaneous Cholecystostomy tube placement orders placed yesterday evening: Today there is no IR doing procedure will be here tomorrow as per case management: 11/09/25 the patient was seen earlier patient out of bed to chair denied chest pain patient appears dyspneic and continue with pain. Status post cholecystostomy tube on 11/08/2025. culture in process ID on board. WBCs trending down. she is currently on nasal cannula two we will get Physical therapy 11/10/25 postop day two recuperating well. cholecystostomy tube Drain output bilious Patient continues on Cardizem drip we will titrate currently on 7.5 mg per hour. Patient reports no fever chills or diarrhea overnight. Continues with broad-spectrum antibiotics she continues to work with physical therapy case management for SNF placement. patient continues in PCCU Cardizem drip was discontinued yesterday. Status post percutaneous drain functioning well. Denies abdominal pain. Per ID patient will continue with Zosyn IV for two wks upon discharge case management was made aware possible [facility] versus SNF placement. Patient is fully awake alert oriented. Primary nurse reports no events overnight 11/12/25 the patient is lying in bed discussed placement with patient versus [facility] she agreed to be placed at a facility for IV antibiotics. Case management was made aware patient denies chest pain or shortness breath abdominal pain nausea or vomiting. the patient had cholecystostomy check by IR: * Cholecystotomy tube in satisfactory position.The cystic duct is obstructed; Multiple filling defects suggesting multiple gallstones in the gallbladder lumen. Continue to monitor percutaneous drain monitor I&Os every shift. 11/13/25 patient was seen earlier patient was asleep was transitioned from PCCU to medical floor. Patient waiting for SNF placement. Primary nurse reports no events overnight. 12:00 p.m. primary nurse reports patient has a abdominal pain no nausea no vomiting. Dilaudid 0.5 mg IV x1 we will be given we will reassess. 11/14/25 patient was seen earlier. Patient has been accepted to [facility]. Patient reports abdominal pain is less than yesterday. Given to her white blood count increase to 24 infectious disease added fluconazole 200 p.o. daily . We will repeat CBC in a.m. most likely we will be discharged tomorrow. REVIEW OF SYSTEMS CONSTITUTIONAL: Denies fevers, chills, or night sweats. No unintentional weight loss reported. NEUROLOGICAL: Denies headache, amaurosis fugax, motor weakness, sensory deficit, vertigo/spinning sensation, gait abnormalities, or tremors. ENT: No hearing loss, otalgia, otorrhea, rhinitis, rhinorrhea, hoarseness, or sore throat. CARDIOVASCULAR: Denies any exertional angina, dyspnea on exertion, orthopnea, paroxysmal nocturnal dyspnea, palpitations, life-threatening arrhythmias, claudication. PULMONARY: Denies any shortness of breath, cough, phlegm/sputum, hemoptysis, pleuritic chest pain. SLEEP: Denies morning headaches, daytime somnolence or napping. Denies difficulty falling asleep, staying asleep, waking from sleep. Denies knowledge of snoring. GASTROINTESTINAL: Denies any type of dysphagia to either liquids or solids. Denies nausea, vomiting, pyrosis, early satiety, abdominal pain, diarrhea, constipation, or changes in stool consistency or caliber. Denies coffee-ground emesis, hematemesis, hematochezia, or melanotic stools. GENITOURINARY: Denies frequency, urgency, nocturia, hematuria or incontinence (Storage/Irritative symptoms.) Low urinary stream, straining to void, urinary intermittency or hesitancy, splitting of the voiding stream, terminal dribbling. ENDOCRINOLOGIC: Denies polyuria, polydipsia, polyphagia or heat/cold intolerances. HEMATOLOGIC: Denies thrombophilia/previous clots, or coagulopathy/bleeding disorders. ONCOLOGIC: Denies personal history of malignancy. DERMATOLOGIC: Denies rashes or pruritus. PSYCHIATRIC: Denies any suicidal or homicidal ideation. Denies hallucinations. PHYSICAL EXAM GENERAL APPEARANCE: The patient is awake, alert, and oriented, in no acute cardiopulmonary distress. NEUROLOGICAL: Cranial nerves II-XII grossly intact. Motor is 5/5 in bilateral upper and lower extremities proximal to distal. No sensory deficits. HEENT: Face is symmetric. Pupils are equal and reactive. Extraocular movements are intact. NECK: Supple. No JVD. No thyromegaly. No submental, submandibular, pre- /postauricular, occipital or supraclavicular lymphadenopathy. CHEST: Normal chest expansion. No Telemetry. LUNGS: Absence of any rales, rhonchi or any wheezing. CARDIOVASCULAR: Regular. S1 and S2 normal. No appreciable rubs, murmurs or gallops. ABDOMEN: Soft, nontender, and nondistended. There is no rebound, voluntary guarding, or rigidity. : Deferred. No Carreno. EXTREMITIES: Non-edematous and not cyanotic. No clubbing. Good capillary refill. SKIN: No skin breakdown. Vital Signs (last 8hr) Date Time Temp Pulse Resp B/P (MAP) Pulse Ox O2 Delivery O2 Flow Rate FiO2 11/14/25 11:41 97.7 73 18 112/61 96 Nasal Cannula 2.0 11/14/25 08:19 97.7 71 18 104/45 98 Nasal Cannula 2.0 LABS: Laboratory: Test 11/14/25 10:54 11/14/25 05:11 11/13/25 04:15 Range/Units Whole Blood Glucose 90 # 70-110 MG/DL White Blood Count 24.9 H 4.8-10.8 K/uL Red Blood Count 3.71 L 4.00-5.50 MIL/uL Hemoglobin 10.6 L 12.0-16.0 g/dL Hematocrit 32.4 L 36-48 % Mean Corpuscular Volume 87.3 79-99 fL Mean Corpuscular Hemoglobin 28.6 27.0-33.0 pg Mean Corpuscular Hemoglobin Concent 32.7 32.0-36.0 g/dL Red Cell Distribution Width 15.0 11.0-15.5 % Platelet Count 215 130-400 K/uL Mean Platelet Volume 10.8 H 7.5-10.5 fL Immature Granulocyte % (Auto) 5.7 H 0-1 % Neutrophils (%) (Auto) 80.1 H 40.0-77.0 % Lymphocytes (%) (Auto) 6.3 L 21.0-51.0 % Monocytes (%) (Auto) 6.7 3.0-13.0 % Eosinophils (%) (Auto) 0.8 0.0-8.0 % Basophils (%) (Auto) 0.4 0.0-5.0 % Neutrophils # (Auto) 19.9 H 1.8-7.7 K/uL Lymphocytes # (Auto) 1.6 1.0-4.8 K/uL Monocytes # (Auto) 1.7 H 0.1-1.0 K/uL Eosinophils # (Auto) 0.19 0.00-0.70 K/uL Basophils # (Auto) 0.10 0.00-0.20 K/uL Absolute Immature Granulocyte (auto 1.43 H 0-1 K/uL Nucleated Red Blood Cells 0.1 0.0-0.19 % Sodium Level 139 136-145 mmol/L Potassium Level 4.6 3.5-5.1 mmol/L Chloride Level 107 101-111 mmol/L Carbon Dioxide Level 24 21-32 mmol/L Blood Urea Nitrogen 20 H 7-18 mg/dL Creatinine 1.0 0.5-1.0 mg/dL Glomerular Filtration Rate Calc 58 >90 mL/min Random Glucose 83 70-105 mg/dL Total Calcium 8.2 L 8.5-10.1 mg/dL Magnesium Level 1.90 1.80-2.40 mg/dL Total Bilirubin 1.6 #H 0.2-1.0 mg/dL Aspartate Amino Transf (AST/SGOT) 68 H 10-37 U/L Alanine Aminotransferase (ALT/SGPT) 79 #H 12-78 U/L Alkaline Phosphatase 100 50-136 U/L Total Protein 5.5 L 6.0-8.3 g/dL Albumin 1.8 L 3.5-5.0 g/dL Current Medications Medications (Trade) Dose Ordered Sig/Gerber Route PRN Reason Start Time Stop Time Status Last Admin Dose Admin Apixaban (EliquIS) 5 mg BID PO 11/10/25 10:00 12/10/25 09:59 11/14/25 08:43 5 MG Diltiazem HCl (CARDIzem 25MG INJ) 20 mg ONCE PRN IVP CARDIZEM PROTOCOL 11/08/25 11:00 11/08/25 11:16 DC 11/08/25 11:11 20 MG Diltiazem HCl 125 mg/Sodium Chloride 125 ml @ 0 mls/hr AD PRN IV CARDIZEM PROTOCOL 11/08/25 10:30 12/08/25 10:29 11/10/25 00:52 10 MLS/HR Diltiazem HCl 125 mg/Sodium Chloride 125 ml @ 0 mls/hr AD PRN IV CARDIZEM PROTOCOL 11/08/25 11:00 11/08/25 10:48 DC Fluconazole (DiFLUCan 100 mg TAB) 200 mg DAILY PO 11/14/25 13:30 12/14/25 13:29 11/14/25 14:05 200 MG Hydralazine HCl (APRESOLine 20MG INJ) 5 mg Q6H PRN IV For:SBP above 160;DBP above 90 11/05/25 15:30 12/05/25 15:29 Hydralazine HCl (APRESOLine 20MG INJ) 10 mg Q6H PRN IV For:SBP above 160;DBP above 90 11/04/25 21:30 11/05/25 10:07 DC Hydromorphone HCl (DiLAUDid 0.5MG INJ) 0.25 mg Q4H PRN IVP SEVERE PAIN (7-10) 11/04/25 21:30 11/05/25 16:36 DC 11/05/25 15:15 0.25 MG Hydromorphone HCl (DiLAUDid 0.5MG INJ) 0.5 mg Q4H PRN IVP SEVERE PAIN (7-10) 11/05/25 17:30 11/10/25 17:29 DC 11/10/25 15:41 0.5 MG Hydromorphone HCl (DiLAUDid 0.5MG INJ) 0.5 mg Q6H PRN IVP SEVERE PAIN (7-10) 11/13/25 12:30 11/14/25 05:48 DC 11/13/25 19:17 0.5 MG Hydromorphone HCl (DiLAUDid 1MG INJ) 0.5 mg Q6H PRN IVP SEVERE PAIN (7-10) 11/14/25 06:00 11/19/25 05:59 11/14/25 05:53 0.5 MG Insulin Human Regular (humuLIN R 100 UNIT/ML 3ML) INSULIN SLIDING SCAL... ACHS SQ 11/05/25 07:30 12/05/25 07:29 Ketorolac Tromethamine (toRADol) 15 mg Q6H PRN IV MODERATE PAIN (4-6) 11/05/25 12:30 11/05/25 12:11 DC Ketorolac Tromethamine (toRADol) 15 mg Q6H PRN IV MODERATE PAIN (4-6) 11/10/25 21:30 11/15/25 21:29 11/14/25 09:55 15 MG Lactated Ringer's 1,000 ml @ 75 mls/hr [id number] IV 11/06/25 13:00 11/09/25 10:06 DC 11/08/25 13:04 75 MLS/HR Magnesium Sulfate 50 ml @ 0 mls/hr PROTOCOL PRN IV low mag level 11/05/25 10:30 12/05/25 10:29 Metoprolol Tartrate (loprESSOR) 5 mg AD PRN IV HEART RATE ABOVE 100 11/08/25 09:00 11/08/25 08:47 DC Metoprolol Tartrate (loprESSOR) 5 mg AD PRN IV HEART RATE ABOVE 100 11/08/25 09:00 11/08/25 09:21 DC 11/08/25 09:21 5 MG Metoprolol Tartrate (loprESSOR) 25 mg TID PO 11/06/25 18:00 11/08/25 08:45 DC 11/07/25 20:32 25 MG Metoprolol Tartrate (loprESSOR) 50 mg TID PO 11/08/25 09:00 11/10/25 11:49 DC 11/10/25 09:24 50 MG Metoprolol Tartrate (loprESSOR) 100 mg BID PO 11/10/25 21:00 12/10/25 20:59 11/13/25 20:58 100 MG Ondansetron HCl (zoFRAN 4MG INJ) 4 mg Q6H PRN IV NAUSEA/VOMITING 11/04/25 21:30 12/04/25 21:29 Piperacillin Sod/ Tazobactam Sod 50 ml @ 100 mls/hr STAT STAT IVPB 11/04/25 18:46 11/04/25 19:15 DC 11/04/25 19:56 100 MLS/HR Piperacillin Sod/ Tazobactam Sod (Zosyn 3.375gm+NS 50ml) 3.375 gm Q12H IV 11/05/25 07:00 11/09/25 16:24 DC 11/09/25 06:30 3.375 GM Piperacillin Sod/ Tazobactam Sod (Zosyn 3.375gm+NS 50ml) 3.375 gm Q12H9 IV 11/09/25 21:00 11/15/25 06:59 11/14/25 08:43 3.375 GM Potassium Chloride 100 ml @ 50 mls/hr AD PRN IV POTASSIUM PROTOCOL 11/05/25 10:30 12/05/25 10:29 11/07/25 10:30 50 MLS/HR Potassium Chloride 100 ml @ 100 mls/hr AD PRN IV POTASSIUM PROTOCOL 11/05/25 10:30 11/05/25 12:10 DC Potassium Chloride (K-Dur/Klor-Con 20meq) 20 meq AD PRN PO POTASSIUM PROTOCOL 11/05/25 10:30 12/05/25 10:29 11/06/25 07:04 20 MEQ Potassium Chloride (K-Dur/Klor-Con 20meq) 20 meq DAILY PO 11/09/25 09:00 11/11/25 11:22 DC 11/10/25 09:25 20 MEQ Potassium Chloride (KCl 10% Elixir 20meq/15ml) 20 meq AD PRN PO POTASSIUM PROTOCOL 11/05/25 10:30 12/05/25 10:29 Sennosides (Senna) 1 tab BID PO 11/10/25 21:00 12/10/25 20:59 11/14/25 08:43 1 TAB Sodium Chloride 500 ml @ 0 mls/hr Q0M IV 11/07/25 02:30 11/08/25 08:46 DC 11/08/25 00:32 500 MLS/HR Sodium Chloride 500 ml @ 0 mls/hr Q0M IV 11/08/25 00:30 11/08/25 08:47 DC Sodium Chloride 1,000 ml @ 100 mls/hr Q10H IV 11/04/25 21:30 11/06/25 13:01 DC 11/06/25 03:54 100 MLS/HR DIAGNOSTICS / RADIOLOGY: [ ] ASSESSMENT: atrial fibrillation with variable response currently tachycardic not POA Severe sepsis, POA, by clinical sepsis criteria heart rate 122, WBCs 23.2, lactic acid 5.4, source intra-abdominal acute Cholecystitis, POA cholecystostomy tube on 11/08/2025 Leukocytosis, POA improving Lactic acidosis, POA Hypokalemia, POA Acute kidney injury,ATN POA, REsolved Uncontrolled Diabetes mellitius type2, POA Elevated total bilirubin, POA Transaminitis, POA Hypertension Hypothyroidism] acute intractable abd pain POA [ ] PLAN: [ ] Patient's WBCs increased to 24 from 18 afebrile. Infectious disease added fluconazole 200 mg p.o. daily she is currently on Zosyn IV we will need four weeks of antibiotics patient has been accepted to [facility] we will keep her overnight repeat CBC in a.m. possible discharge tomorrow. Empiric antibiotic therapy with Zosyn renal dose: no fevers overnight Microbiology intraoperative cultures in process: ID following continues on Zosyn IV as per ID we will continue upon discharge will need 4 wks antibiotics cholecystostomy tube on 11/08/2025 will monitor output drainage functioning well General surgeon DR Campbell following recommendation: recommended to follow up in 4-6 weeks for evaluation of potential cholecystectomy and drain removal PT services: OOB to chair She continues on beta-blockers and Eliquis her regimen for AFib. Continue with pain management for adequate pain control CBC CMP magnesium in a.m. Replace electrolytes as needed to keep potassium above 4.0 magnesium above 2.0. Avoid nephrotoxic agents when possible kidney function improved. case management for SNF accepted to [facility] Continue a.c. HS monitoring with sliding scale coverage. GI prophylaxis, Protonix DVT prophylaxis, Emmanuel's and SCDs a ATTESTATION BY PHYSICIAN I have seen and examined the patient. I reviewed the documentation, medical decision making, and treatment plan as noted by the mid-level provider above. I agree with the findings and plan of care. MOHINI BRITO MD, [facility] Nov 14, 2025 15:26
--- NOTE | 2025-11-14 21:08 | PN ---
INFECTIOUS DISEASE PROGRESS NOTE Date of Service: Nov 14, 2025 SUBJECTIVE: This is a 75-year-old female patient who was seen and examined at bedside in room 421. Patient is s/p ultrasound-guided cholecystotomy drain placement on 11/08/2025. WBC has trended up but patient remains afebrile. We will start patient on fluconazole and continue Zosyn IV. We will follow up with lab work in a.m. pending insurance approval to [facility]. PHYSICAL EXAM EYES: Anicteric. Pupils equal and reactive. HENT: No oral thrush seen, moist Oral mucosa NECK: Supple, no JVD or thyromegaly. LUNGS: Good air entry. No rales, no rhonchi. CARDIOVASCULAR: S1, S2 regular. No murmur heard. ABDOMEN: Soft, non tender, bowel sounds present. Abdominal pain. Cholecystotomy drain CENTRAL NERVOUS SYSTEM: Awake, alert, oriented x 2. SKIN: No rashes, no swelling. LYMPHATICS: No peripheral lymphadenopathy MUSCULOSKELETAL: No joint swelling, erythema or tenderness. EXTREMITIES: No cyanosis or clubbing BACK: No deformity, no pressure ulcer. GENITOURINARY: No dysuria or hematuria. Vital Sign (Last 12 Hours) 11/14/25 11/14/25 11/14/25 11:41 15:57 20:00 Temp 97.7 97.9 97.5 Pulse 73 100 100 Resp 18 18 16 B/P (MAP) 112/61 94/64 111/58 Pulse Ox 96 100 96 O2 Delivery Nasal Cannula Nasal Cannula Nasal Cannula O2 Flow Rate 2.0 2.0 2.0 Intake & Output (last 24hrs) 11/13/25 11/13/25 11/14/25 15:00 23:00 07:00 Intake Total 290.0 ml Output Total 25 ml 200 ml 450 ml Balance -25 ml -200 ml -160.0 ml LABS: Laboratory: Test 11/14/25 20:00 11/14/25 05:11 11/13/25 04:15 Range/Units Whole Blood Glucose 78 70-110 MG/DL White Blood Count 24.9 H 4.8-10.8 K/uL Red Blood Count 3.71 L 4.00-5.50 MIL/uL Hemoglobin 10.6 L 12.0-16.0 g/dL Hematocrit 32.4 L 36-48 % Mean Corpuscular Volume 87.3 79-99 fL Mean Corpuscular Hemoglobin 28.6 27.0-33.0 pg Mean Corpuscular Hemoglobin Concent 32.7 32.0-36.0 g/dL Red Cell Distribution Width 15.0 11.0-15.5 % Platelet Count 215 130-400 K/uL Mean Platelet Volume 10.8 H 7.5-10.5 fL Immature Granulocyte % (Auto) 5.7 H 0-1 % Neutrophils (%) (Auto) 80.1 H 40.0-77.0 % Lymphocytes (%) (Auto) 6.3 L 21.0-51.0 % Monocytes (%) (Auto) 6.7 3.0-13.0 % Eosinophils (%) (Auto) 0.8 0.0-8.0 % Basophils (%) (Auto) 0.4 0.0-5.0 % Neutrophils # (Auto) 19.9 H 1.8-7.7 K/uL Lymphocytes # (Auto) 1.6 1.0-4.8 K/uL Monocytes # (Auto) 1.7 H 0.1-1.0 K/uL Eosinophils # (Auto) 0.19 0.00-0.70 K/uL Basophils # (Auto) 0.10 0.00-0.20 K/uL Absolute Immature Granulocyte (auto 1.43 H 0-1 K/uL Nucleated Red Blood Cells 0.1 0.0-0.19 % Sodium Level 139 136-145 mmol/L Potassium Level 4.6 3.5-5.1 mmol/L Chloride Level 107 101-111 mmol/L Carbon Dioxide Level 24 21-32 mmol/L Blood Urea Nitrogen 20 H 7-18 mg/dL Creatinine 1.0 0.5-1.0 mg/dL Glomerular Filtration Rate Calc 58 >90 mL/min Random Glucose 83 70-105 mg/dL Total Calcium 8.2 L 8.5-10.1 mg/dL Magnesium Level 1.90 1.80-2.40 mg/dL Total Bilirubin 1.6 #H 0.2-1.0 mg/dL Aspartate Amino Transf (AST/SGOT) 68 H 10-37 U/L Alanine Aminotransferase (ALT/SGPT) 79 #H 12-78 U/L Alkaline Phosphatase 100 50-136 U/L Total Protein 5.5 L 6.0-8.3 g/dL Albumin 1.8 L 3.5-5.0 g/dL ASSESSMENT: Acute cholecystitis s/p ultrasound-guided cholecystotomy drain placement on 11/08/2025. Urinary Tract infection with lactobacillus species. Sepsis. Leukocytosis. Acute renal failure. AFib. PLAN: Start fluconazole 200 mg p.o. daily. Continue Zosyn. Avoid nephrotoxic medications. Continue cholecystostomy tube care Continue pain management. Continue physical therapy. Case management working on SNF placement. This case was reviewed and discussed with my supervising physician Dr. Martinez and the above assessment and plan was formulated and agreed upon. ATTESTATION BY PHYSICIAN I have seen and examined the patient. I reviewed the documentation, medical decision making, and treatment plan as noted by the mid-level provider above. I agree with the findings and plan of care. MICKEY MARTINEZ MD, [facility] Nov 14, 2025 21:08
--- NOTE | 2025-11-14 22:03 | PN ---
FOLLOWUP PROGRESS NOTE SUBJECTIVE: A 75-year-old female who initially presented with acute cholecystitis. The patient is status post cholecystectomy tube placement. The patient remains on the antibiotics. She has had a renal failure in the hospital and creatinine has been elevated. The patient has a history of known afib and has been weaned off the IV Cardizem and the patient is being seen for all of the above. REVIEW OF SYSTEMS: She is feeling improved. HEENT: No change in vision. No change in hearing. CARDIOVASCULAR: There is no current chest pain or palpitations. PULMONARY: There is no shortness of breath. GASTROINTESTINAL: She is tolerating a diet. MUSCULOSKELETAL: Complains of weakness. PHYSICAL EXAMINATION: VITAL SIGNS: Blood pressure is 138/81. Pulse is in the 80s. GENERAL: Chronically ill female, elderly, lying in bed on the medical floor. HEENT: Head is atraumatic. Pupils are equal, round, reactive to light. Oropharynx is without exudate. Nares are clear. NECK: There is no JVP. There is no thyromegaly. No mass. CARDIOVASCULAR: Regular. There is no S3, S4, gallop. LUNGS: Coarse with equal thoracic movement. ABDOMEN: Abdomen is soft, nontender, nontender. EXTREMITIES: Reveal no clubbing or cyanosis. NEUROLOGIC: She is awake. She is oriented. LABORATORY DATA: Hemoglobin 10, hematocrit 32. White blood cell count is 24,000. IMPRESSION: * Acute renal failure. * Cholecystitis status post cholecystectomy tube placement. * Diabetes mellitus. * Hypertension. PLAN: The patient's creatinine is much improved. The patient with significant leukocytosis. She remains on the antibiotics. Electrolytes have all been aggressively repleted. The patient is being seen by case management and final disposition for the long-term IV antibiotics. The patient and family at the bedside. Multiple questions were all answered. TID: [id number] RECEIPT: [id number]
[2025-11-15 03:27] VITALS: BP 96/54; PULSE 70; RESP 20; TEMP 98
[2025-11-15 04:47] LABS: IMMATURE GRANULOCYTE ABSOLUTE 0.88 K/uL (0-1); NUCLEATED RED BLOOD CELLS 0.2 % (0.0-0.19); PLATELET COUNT (AUTO) 179 K/uL (130-400); RED BLOOD CELL COUNT(AUTO) 2.92 MIL/uL (4.00-5.50); RED CELL DISTRIBUTION WIDTH 15.1 % (11.0-15.5); WHITE BLOOD COUNT (AUTO) 17.5 K/uL (4.8-10.8)
[2025-11-15 05:09] LABS: ASPARTATE AMINOTRANSFERASE 70.0 U/L (10-37); CREATININE 1.3 mg/dL (0.5-1.0); GLOMERULAR FILTR. RATE CALC 43.0 mL/min (>90); GLUCOSE,RANDOM 73.0 mg/dL (70-105); SODIUM SERUM 132.0 mmol/L (136-145); TOTAL PROTEIN, SERUM 5.4 g/dL (6.0-8.3); UREA NITROGEN, BLOOD 32.0 mg/dL (7-18)
[2025-11-15] MEDS: DEXTROSE 50%-WATER 50 ML DISP.SYRIN IV PRN (05:30)
[2025-11-15] MEDS ORDERED: GLUCAGON 1MG KIT 1 MG ML IM PRN (05:30)
--- NOTE | 2025-11-15 06:50 | NUR ---
nurse note patient alert and oriented times 3. plan of care discussed with her and she verbalized understanding. patient having abdominal pain and nausea tonight relieved by medications. bo tube flushed with 10 ml of ns and milked. the output was still 1 ml of sanguineous fluid. patient has slept about 5 hours tonight. vinay and I have moved her on her sides to prevent skin breakdown. her blood sugars have been low and we gave her orange juice, but she became nauseated. I gave her d50w syringe and her blood sugar is 148. she is asymptomatic. call light within reach, bed alarm on, 2 side rails up. will continue to monitor patient.
--- NOTE | 2025-11-15 06:55 | NUR ---
home medications asked patient if somebody could bring her home medications today and she said yes.
[2025-11-15 08:00] VITALS: BP 93/52; PULSE 74; RESP 16; TEMP 97.3; O2SAT 97
--- NOTE | 2025-11-15 11:10 | PN ---
FOLLOWUP PROGRESS NOTE SUBJECTIVE: This is a 75-year-old female who has had a prolonged hospital course. She initially presented and was found to have acute cholecystitis. The patient did undergo cholecystectomy tube placement. The patient has a history of A-fib. She has had [id number] renal failure from the hospital. Creatinine has been elevated and the patient is being seen for all the above. REVIEW OF SYSTEMS: GENERAL: She is feeling weak and tired. HEENT: No change in vision. No change in hearing. CARDIOVASCULAR: No current chest pains or palpitations. PULMONARY: No shortness of breath. GASTROINTESTINAL: She is tolerating a diet. MUSCULOSKELETAL: Complains of weakness. PHYSICAL EXAMINATION: VITAL SIGNS: Blood pressure is 102/66. Pulse in the 70s. GENERAL: She is a chronically old female, elderly, lying in bed on the medical floor. HEENT: Head is atraumatic. Pupils are equal, round and reactive to light. Oropharynx is without exudate. Nares clear. NECK: There is no JVP. There is no thyromegaly. No redness. CARDIOVASCULAR: Regular. There is no S3 or S4 gallop. LUNGS: Coarse with equal thoracic movement. ABDOMEN: Soft, nondistended, and nontender. EXTREMITIES: Reveal no clubbing, no cyanosis. NEUROLOGICAL: She is awake. She is alert. LABORATORY DATA: Hemoglobin 8.5, hematocrit 26, white blood cell count 17,000, BUN 32, creatinine 1.3. IMPRESSION: * Acute on chronic renal failure. * Acute cholecystitis, status post cholecystectomy tube. * Coronary artery disease. * Hypertension. PLAN: The patient's creatinine continues to remain very stable. The patient remains on the antibiotics. Her leukocytosis has improved. She is being seen by case management for final disposition, which will be long-term IV antibiotics. We will follow closely. TID: [id number] RECEIPT: [id number]
[2025-11-15 12:00] VITALS: BP 112/76; PULSE 76; RESP 16; TEMP 97.8
[2025-11-15] MEDS ORDERED: VITAMIN D 3 PO (13:01)
[2025-11-15] MEDS ORDERED: HYDR25TA PO (13:01)
[2025-11-15] MEDS ORDERED: DOCU-403 PO (13:01)
[2025-11-15] MEDS ORDERED: VITAMIN B 12 (13:01)
[2025-11-15] MEDS ORDERED: ADAL40PE5 SQ (13:01)
[2025-11-15] MEDS ORDERED: PROM25TA7 PO (13:01)
[2025-11-15] MEDS ORDERED: [UNRECOGNIZED DRUG - CODE] PO (13:01)
[2025-11-15] MEDS ORDERED: MONT-39 PO (13:01)
[2025-11-15] MEDS ORDERED: MELA1TAB52 PO (13:01)
[2025-11-15] MEDS ORDERED: DIAZ10TA4 PO (13:01)
[2025-11-15] MEDS ORDERED: FEXO180T94 PO (13:01)
[2025-11-15] MEDS ORDERED: LEVO75CA6 PO (13:01)
[2025-11-15] MEDS ORDERED: METO25TA6 PO (13:01)
[2025-11-15] MEDS ORDERED: FAMO40TA7 PO (13:01)
[2025-11-15] MEDS ORDERED: ROSU10TA98 PO (13:01)
--- NOTE | 2025-11-15 14:23 | DS ---
Discharge Summary Hospital Course Summary: DATE OF ADMISSION:[11/04/2025] DATE OF DISCHARGE:[11/15/2025] DISPOSITION:[[facility]] CONDITION:[Medically stable] CONSULTANTS:[Obstetrics Teacher, ID, breaker boss] FOLLOW UP APPOINTMENTS:[] PCP2 to 3 days. Obstetrics Teacher within one week. ID we will follow up at SNF. Fabric Worker Foreman within two weeks PROCEDURES:[11/08/2025 cholecystectomy right upper tube insertion] IMAGING: report attached to summary MICROBIOLOGY: report attached to summary ACTIVITY:[Requires assistance] HOME MEDICATIONS: see med [id number] NEW MEDICATIONS:[All the medication from home and hospital were continued to the retirement] EMERGENCY INSTRUCTIONS: The patient was instructed to present to the nearest Emergency departmentr or call 911 once their symptoms will return or worsen Director Of Student Life(s): Patient is 75 years old female came to emergency department with a chief complaint of abdominal pain in the epigastric area that was on and off. During hospitalization patient patient underwent MRCP which was consistent with acute cholecystitis. Surgeon was consulted and recommended IR for percutaneous cholecystectomy tube placement which was done on 11/08/2025. Post up cholecystectomy tube placement patient went into AFib RVR and was started on Cardizem drip were floor installation mechanic was consulted. Patient converted back to sinus rhythm As per ID patient was started on Zosyn. MRI 2D echo was performed on 11/06 and shows 60 to 65% normal function. MRCP was done on 11/06/2025 and showed acute cholecystitis multiple stones in the CBD. As per ID patient was cleared to be discharged to [facility] once insurance approved. Continue Zosyn and fluconazole. Most recent WBCs 17.5. Patient was also clear ed by breaker boss for LAZARO on admission. Most recent creatinine is 1.3 GFR43 BUN 32. Continue Eliquis5 mg b.i.d. as of now. Patient to follow up outpatient with the PCP in2 to 3 days. Fabric Worker Foreman within two weeks. Obstetrics Teacher within one week. ID we will follow up at the facility. Procedure(s): REVIEW OF SYSTEMS CONSTITUTIONAL: Denies fevers, chills, or night sweats. No unintentional weight loss reported. NEUROLOGICAL: Denies headache, amaurosis fugax, motor weakness, sensory deficit, vertigo/spinning sensation, gait abnormalities, or tremors. ENT: No hearing loss, otalgia, otorrhea, rhinitis, rhinorrhea, hoarseness, or sore throat. CARDIOVASCULAR: Denies any exertional angina, dyspnea on exertion, orthopnea, paroxysmal nocturnal dyspnea, palpitations, life-threatening arrhythmias, claudication. PULMONARY: Denies any shortness of breath, cough, phlegm/sputum, hemoptysis, pleuritic chest pain. SLEEP: Denies morning headaches, daytime somnolence or napping. Denies difficulty falling asleep, staying asleep, waking from sleep. Denies knowledge of snoring. GASTROINTESTINAL: Denies any type of dysphagia to either liquids or solids. Denies nausea, vomiting, pyrosis, early satiety, abdominal pain, diarrhea, constipation, or changes in stool consistency or caliber. Denies coffee-ground emesis, hematemesis, hematochezia, or melanotic stools. GENITOURINARY: Denies frequency, urgency, nocturia, hematuria or incontinence (Storage/Irritative symptoms.) Low urinary stream, straining to void, urinary intermittency or hesitancy, splitting of the voiding stream, terminal dribbling. ENDOCRINOLOGIC: Denies polyuria, polydipsia, polyphagia or heat/cold intolerances. HEMATOLOGIC: Denies thrombophilia/previous clots, or coagulopathy/bleeding disorders. ONCOLOGIC: Denies personal history of malignancy. DERMATOLOGIC: Denies rashes or pruritus. PSYCHIATRIC: Denies any suicidal or homicidal ideation. Denies hallucinations. PHYSICAL EXAM GENERAL APPEARANCE: The patient is awake, alert, and oriented, in no acute cardiopulmonary distress. NEUROLOGICAL: Cranial nerves II-XII grossly intact. Motor is 5/5 in bilateral upper and lower extremities proximal to distal. No sensory deficits. HEENT: Face is symmetric. Pupils are equal and reactive. Extraocular movements are intact. NECK: Supple. No JVD. No thyromegaly. No submental, submandibular, pre- /postauricular, occipital or supraclavicular lymphadenopathy. CHEST: Normal chest expansion. No Telemetry. LUNGS: Absence of any rales, rhonchi or any wheezing. CARDIOVASCULAR: Regular. S1 and S2 normal. No appreciable rubs, murmurs or gallops. ABDOMEN: Soft, nontender, and nondistended. There is no rebound, voluntary guarding, or rigidity. : Deferred. No Carreno. EXTREMITIES: Non-edematous and not cyanotic. No clubbing. Good capillary refill. SKIN: No skin breakdown. Assessment/Plan: ASSESSMENT: atrial fibrillation with variable response currently tachycardic not POA Severe sepsis, POA, by clinical sepsis criteria heart rate 122, WBCs 23.2, lactic acid 5.4, source intra-abdominal acute Cholecystitis, POA cholecystostomy tube on 11/08/2025 Leukocytosis, POA improving Lactic acidosis, POA Hypokalemia, POA Acute kidney injury,ATN POA, REsolved Uncontrolled Diabetes mellitius type2, POA Elevated total bilirubin, POA Transaminitis, POA Hypertension Hypothyroidism] acute intractable abd pain POA Home Medications: Reported Medications Docusate Sodium (Stool Softener) 100 Mg Capsule, 1 CAP PO BID PRN for CONSTIPATION for 30 Days, #60 CAP 0 Refills 11/15/25 [Vitamin D 3 ] No Conflict Check, 5000 PO AFTER DINNER 11/15/25 Cranberry Fruit Concentrate (Cranberry Concentrate) 450 Mg Capsule, 400 MG PO DINNER, CAP 11/15/25 [Vitamin B 12] No Conflict Check 11/15/25 Fexofenadine HCl (Bernarda Allergy) 180 Mg Tablet, 180 MG PO DAILY, TAB 11/15/25 Melatonin (Melatonin) 1 Mg Tablet, 2 TAB PO HS for sleep for 30 Days, #30 TAB 0 Refills 11/15/25 Famotidine (Famotidine) 40 Mg Tablet, 40 MG PO DAILY, TAB 11/15/25 Adalimumab (Humira Pen) 40 Mg/0.4 Ml [email or web address], 40 MG SQ [id number] 11/15/25 Promethazine HCl (Promethazine HCl) 25 Mg Tablet, 1 TAB PO Q6HPRN PRN for nausea/vomiting for 7 Days, #28 TAB 0 Refills 11/15/25 Diazepam (Diazepam) 10 Mg Tablet, 10 MG PO TID PRN for ANXIETY, TAB 11/15/25 Montelukast Sodium (Montelukast Sodium) 10 Mg Tablet, 10 MG PO HS, TAB 11/15/25 Rosuvastatin Calcium (Rosuvastatin Calcium) 10 Mg Tablet, 10 MG PO HS, TAB 11/15/25 Levothyroxine Sodium (Levothyroxine) 75 Mcg Capsule, 75 MCG PO WEDNESDAY THRU SAT, CAP 11/15/25 Hydrochlorothiazide (Hydrochlorothiazide) 25 Mg Tablet, 25 MG PO DAILY, TAB 11/15/25 Metoprolol Tartrate (Metoprolol Tartrate) 25 Mg Tablet, 25 MG PO DAILY, TAB 11/15/25 Time spent arranging discharge: 31-60 minutes ATTESTATION BY PHYSICIAN I have seen and examined the patient. I reviewed the documentation, medical decision making, and treatment plan as noted by the mid-level provider above. I agree with the findings and plan of care. Harlan Andujar MD, [facility] Nov 15, 2025 14:23
[2025-11-15 16:00] VITALS: BP 125/60; PULSE 75; RESP 16; TEMP 97.4
--- NOTE | 2025-11-15 18:15 | NUR ---
PT Sitting in bed w/ eyes open A&Ox4 able to make needs known. Discharge instructions given to PT written and verbally in grayling language. PT verbally acknowledged understanding. PT escorted to facility van via WC by facility rep.
--- NOTE | 2025-11-15 20:20 | PN ---
INFECTIOUS DISEASE PROGRESS NOTE Date of Service: Nov 15, 2025 SUBJECTIVE: This is a 75-year-old female patient who was seen and examined at bedside in room 421. Patient is s/p ultrasound-guided cholecystotomy drain placement on 11/08/2025. Continue on fluconazole and Zosyn IV. Patient is being discharged to [facility] today. PHYSICAL EXAM EYES: Anicteric. Pupils equal and reactive. HENT: No oral thrush seen, moist Oral mucosa NECK: Supple, no JVD or thyromegaly. LUNGS: Good air entry. No rales, no rhonchi. CARDIOVASCULAR: S1, S2 regular. No murmur heard. ABDOMEN: Soft, non tender, bowel sounds present. Abdominal pain. Cholecysto patrick drain CENTRAL NERVOUS SYSTEM: Awake, alert, oriented x 2. SKIN: No rashes, no swelling. LYMPHATICS: No peripheral lymphadenopathy MUSCULOSKELETAL: No joint swelling, erythema or tenderness. EXTREMITIES: No cyanosis or clubbing BACK: No deformity, no pressure ulcer. GENITOURINARY: No dysuria or hematuria. Vital Sign (Last 12 Hours) 11/15/25 11/15/25 12:00 16:00 Temp 97.9 97.3 Pulse 76 75 Resp 16 16 B/P (MAP) 112/76 125/60 Pulse Ox 97 99 O2 Delivery Nasal Cannula Nasal Cannula O2 Flow Rate 2.0 2.0 Intake & Output (last 24hrs) 11/14/25 11/14/25 11/15/25 15:00 23:00 07:00 Intake Total 600 ml 730.0 ml Output Total 7 ml 101 ml Balance 593 ml 629.0 ml LABS: Laboratory: Test 11/15/25 17:39 11/15/25 04:32 Range/Units Whole Blood Glucose 94 # 70-110 MG/DL White Blood Count 17.5 #H 4.8-10.8 K/uL Red Blood Count 2.92 #L 4.00-5.50 MIL/uL Hemoglobin 8.5 L 12.0-16.0 g/dL Hematocrit 26.0 L 36-48 % Mean Corpuscular Volume 89.0 79-99 fL Mean Corpuscular Hemoglobin 29.1 27.0-33.0 pg Mean Corpuscular Hemoglobin Concent 32.7 32.0-36.0 g/dL Red Cell Distribution Width 15.1 11.0-15.5 % Platelet Count 179 130-400 K/uL Mean Platelet Volume 11.5 H 7.5-10.5 fL Immature Granulocyte % (Auto) 5.0 H 0-1 % Neutrophils (%) (Auto) 80.8 H 40.0-77.0 % Lymphocytes (%) (Auto) 5.5 L 21.0-51.0 % Monocytes (%) (Auto) 7.0 3.0-13.0 % Eosinophils (%) (Auto) 1.5 0.0-8.0 % Basophils (%) (Auto) 0.2 0.0-5.0 % Neutrophils # (Auto) 14.1 H 1.8-7.7 K/uL Lymphocytes # (Auto) 1.0 1.0-4.8 K/uL Monocytes # (Auto) 1.2 H 0.1-1.0 K/uL Eosinophils # (Auto) 0.26 0.00-0.70 K/uL Basophils # (Auto) 0.04 0.00-0.20 K/uL Absolute Immature Granulocyte (auto 0.88 0-1 K/uL Nucleated Red Blood Cells 0.2 H 0.0-0.19 % Sodium Level 132 L 136-145 mmol/L Potassium Level 4.5 3.5-5.1 mmol/L Chloride Level 102 101-111 mmol/L Carbon Dioxide Level 25 21-32 mmol/L Blood Urea Nitrogen 32 H 7-18 mg/dL Creatinine 1.3 H 0.5-1.0 mg/dL Glomerular Filtration Rate Calc 43 >90 mL/min Random Glucose 73 70-105 mg/dL Total Calcium 8.4 L 8.5-10.1 mg/dL Magnesium Level 2.00 1.80-2.40 mg/dL Total Bilirubin 1.4 H 0.2-1.0 mg/dL Aspartate Amino Transf (AST/SGOT) 70 H 10-37 U/L Alanine Aminotransferase (ALT/SGPT) 100 H 12-78 U/L Alkaline Phosphatase 115 50-136 U/L Total Protein 5.4 L 6.0-8.3 g/dL Albumin 1.6 L 3.5-5.0 g/dL ASSESSMENT: Acute cholecystitis s/p ultrasound-guided cholecystotomy drain placement on 11/08/2025. Urinary Tract infection with lactobacillus species. Sepsis. Leukocytosis. Acute renal failure. AFib. PLAN: Continue fluconazole 200 mg p.o. daily. Continue Zosyn. Avoid nephrotoxic medications. Continue cholecystostomy tube care Continue pain management. Continue physical therapy. Patient has been approved to [facility] and being discharged today. This case was reviewed and discussed with my supervising physician Dr. Martinez and the above assessment and plan was formulated and agreed upon. ATTESTATION BY PHYSICIAN I have seen and examined the patient. I reviewed the documentation, medical decision making, and treatment plan as noted by the mid-level provider above. I agree with the findings and plan of care. MICKEY MARTINEZ MD, [facility] Nov 15, 2025 20:20
[2025-11-17] MEDS ORDERED: PIPE3.3773 IV (09:43)
[2025-11-17] MEDS ORDERED: APIX5TAB PO (09:43)
[2025-11-17] MEDS ORDERED: SENN8.6T32 PO (09:43)
== END 2025-11-15 18:15 | DRG 871 ==
LOC: EDH 17:59 → EDHIP 21:01 → 3CH 22:30 → 2AH 11-08 10:25 → 4DH 11-12 23:25
PROVIDERS: ADMIT Internal Medicine; ATTEND Internal Medicine
PROC: 0F9430Z Drainage of Gallbladder with Drainage Device, Percutaneous Approach (ICD-10-PCS; principal; 2025-11-08)
PROC: 0FJ43ZZ Inspection of Gallbladder, Percutaneous Approach (ICD-10-PCS; 2025-11-12)
DX: A41.9 Sepsis, unspecified organism (principal); N17.0 Acute kidney failure with tubular necrosis; K81.0 Acute cholecystitis; E87.20 Acidosis, unspecified; N39.0 Urinary tract infection, site not specified; R65.20 Severe sepsis without septic shock; E66.01 Morbid (severe) obesity due to excess calories; E11.65 Type 2 diabetes mellitus with hyperglycemia; E03.9 Hypothyroidism, unspecified; I12.9 Hypertensive chronic kidney disease with stage 1 through stage 4 chronic kidney disease, or unspecified chronic kidney disease; N18.9 Chronic kidney disease, unspecified; K76.0 Fatty (change of) liver, not elsewhere classified; J98.11 Atelectasis; Z68.42 Body mass index [BMI] 45.0-49.9, adult; Z51.5 Encounter for palliative care; I48.0 Paroxysmal atrial fibrillation; E87.6 Hypokalemia; I48.91 Unspecified atrial fibrillation; E11.22 Type 2 diabetes mellitus with diabetic chronic kidney disease; E78.00 Pure hypercholesterolemia, unspecified; N20.0 Calculus of kidney; K44.9 Diaphragmatic hernia without obstruction or gangrene; E87.5 Hyperkalemia; I25.10 Atherosclerotic heart disease of native coronary artery without angina pectoris; Z82.49 Family history of ischemic heart disease and other diseases of the circulatory system; Z86.73 Personal history of transient ischemic attack (TIA), and cerebral infarction without residual deficits; Z90.49 Acquired absence of other specified parts of digestive tract; Z90.710 Acquired absence of both cervix and uterus; Z91.041 Radiographic dye allergy status; Z98.84 Bariatric surgery status
CPT/HCPCS: 10030; 10140; 36415; 36600; 47490; 47531; 71045; 74176; 74181; 75989; 80048; 80051; 80053; 80076; 81001; 82435; 82570; 82803; 82947; 82948; 83036; 83605; 83690; 83735; 83880; 83935; 84100; 84132; 84145; 84156; 84295; 84300; 84443; 84484; 84550; 85018; 85025; 85027; 85610; 85730; 86140; 86850; 86900; 86901; 87040; 87086; 93005; 93306; 96365; 96375; 99156; 99157; 99291; C1769; C1894; G0378; J1171; J1200; J1644; J1885; J2250; J2270; J2405; J2470; J2543; J2919; J3010; J3480; J3490; J7030; J7040; J7070; J7120; Q9967; C1729